=== PATIENT | female | born 1975 | race Caucasian/White ===

== ENCOUNTER → 2017-02-17 | Outpatient (CLI) | payer MEDICARE, MEDICAID ==
[~2017-02-17] MED LIST: ACETAMINOPHEN325 M1; ACETAMINOPHEN325 M1 PO; ACTONEL; ACTONEL 35 MG35 M1 PO; ACTONEL PO; ACYCLOVIR 400400 M1 PO; ACYCLOVIR200 MG/51 PO; ADVAIR HFA115 MCG/21 INH; AEROECLIPSE II1 EACH MC; ALDACTONE25 MG PO; ALDACTONE50 MG PO; ALPRAZOLAM 0.50.5 M1 PO; ALPRAZOLAM PO; AMBIEN 10 MG TA10 MG PO; ANUCORT-HC25 MG RE; ASPIRIN325 PO; ATIVAN1 MG PO; ATROVENT; ATROVENT15 ML; ATROVENT15 ML NS; ATROVENT30 ML; AUGMENTIN 500-1 EACH PO; AUGMENTIN 875875 M1 PO; AVELOX 400 MG400 MG PO; AVELOX ABC PAC400 MG PO; AXERT12.5 MG PO; AXERT6.25 MG PO; AZITHROMYCIN 2250 MG PO; AZITHROMYCIN500 M3; BACLOFEN 10MG T10 MG PO; BACLOFEN20 MG PO; BACTRIM DS TAB1 EACH PO; BACTROBAN NASAL1 GM NASAL; BENTYL20 MG PO; BUDESONIDE; Budesonide INH; CARDIZEM CD120 MG PO; CARDIZEM CD180 MG PO; CARDIZEM CD240 MG PO; CARDIZEM CD360 MG PO; CARDIZEM PO; CARDIZEM30 MG PO; CARTIA PO; CARTIA XT240 M1 PO; CATAPRES PO; CATAPRES-TTS 10.1 MG PO; CATAPRES0.1 MG PO; CEFDINIR300 MG PO; CEFTIN 250 MG250 MG PO; CEFTIN500 MG OR; CEFUROXIME500 MG PO; CEPHALEXIN 500500 M3 PO; CIPROFLOXACIN500 M3 PO; CLARITIN10 MG PO; CLEOCIN HCL150 MG PO; CLEOCIN HCL300 MG PO; CLONIDINE PO; CLONIDINE0.1 PO; COLACE100 MG PO; COUMADIN; COUMADIN 2 MG TA2 M1 PO; COUMADIN 2.5MG2.5 M1 PO; COUMADIN 2.5MG2.5 MG PO; COUMADIN 5 MG TA5 M1; COUMADIN 5 MG TA5 M1 PO; COUMADIN PO; COUMADIN7.5 MG PO; DALMANE30 MG PO; DELTASONE20 MG PO; DESYREL100 MG; DESYREL50 MG; DESYREL50 MG PO; DIAZEPAM 5 MG5 M1 PO; DILAUDID 2 MG TA2 MG; DILAUDID PUMP; DILAUDID SUBQ; DILAUDID2 MG PO; DILAUDID8 MG; DILTIAZEM 24HR360 M1 PO; DOCUSATE SODIU100 MG PO; DOXEPIN 25 MG C25 M1 PO; DUONEB 2.5-0.5 M3 ML INH; DYAZIDE 37.5-21 EACH PO; EFFER K 20 MEQ PO; EFFER-K 20 MEQ20 MEQ PO; EFFEXOR XR37.5 MG PO; ELIQUIS2.5 MG PO; ELIQUIS5 MG PO; ENDOCET 10-3251 EACH PO; ENOXAPARIN100 MG/1 M SQ; EPIPEN0.3 MG/0.3 IM; FENTANYL PA25 MCG/HR TRANSDERM; FENTANYL PATCH75 MCG TRANSDERM; FLONASE IH; FLORASTOR250 MG PO; FLUCONAZOLE 10100 MG PO; FLURAZEPAM 15 M15 M1 PO; FUROSEMIDE 40 M40 M1 PO; FUROSEMIDE PO; GLUCOPHAGE500 MG PO; HYDROCODON-ACE1 EAC7 PO; HYDROCODONE-AP1 EA11 PO; IBUPROFEN 800800 MG PO; IMITREX100 MG PO; INTEGRA; INTEGRA PLUS; INTEGRA PLUS PO; IPRAT-ALBUT 0.5-3 ML INH; IPRATROPIUM; IPRATROPIUM INH; IRON325 PO; K-DUR 20 MEQ T20 MEQ PO; KEFLEX250 MG PO; KEFLEX500 M1 PO; KEFLEX500 M2 PO; KEFLEX500 MG PO; KLOR-CON PO; LASIX 20 MG TAB20 MG PO; LASIX 40 MG TAB40 M1 PO; LASIX 40 MG TAB40 M2 PO; LEVALBUTEROL; LEVALBUTEROL INH; LEVAQUIN 500 M500 M1 PO; LEVAQUIN 500 M500 M2 PO; LEVAQUIN 750 M750 MG PO; LEVOFLOXACIN750 MG PO; LEXAPRO 10 MG T10 M2 PO; LEXAPRO 10 MG T10 MG PO; LEXAPRO PO; LEXAPRO20 MG PO; LIDODERM 5%1 PATCH TOP; LINEZOLID600 MG PO; LIPITOR 20 MG T20 M1 PO; LIPITOR20 MG PO; LUNESTA3 MG; MAGNESIUM OXID200 MG PO; MAGNESIUM250 M1 PO; MECLIZINE HCL25 M1 PO; MEDROLDOSEPACK PO; MELOXICAM7.5 MG PO; METFORMIN 500500 MG PO; MIRALAX255 GM PO; MOM; MUCINEX D TABL1 EAC1 PO; MUCINEX DM ER1 EAC1 PO; MUCINEX600 MG PO; NEURONTIN600 MG PO; NITROGLYCERIN0.4 MG SUBLING; NORCO 10-325 T1 EACH PO; NORCO 5-325 TA1 EACH PO; NORFLEX100 MG PO; NYSTATIN 1100000 U/M; ONDANSETRON HCL4 M1 IV; ONDANSETRON HCL4 M2 PO; OXAZEPAM 10MG C10 M1 PO; OXYCODONE HCL 55 MG PO; OXYCODONE HCL10 MG PO; OXYCODONE HCL15 MG PO; OXYCODONE HCL20 M1 PO; OXYCODONE-ACET1 EAC2 PO; OXYCONTIN CR 1010 M1 PO; OXYCONTIN10 M1 PO; OXYCONTIN15 MG PO; OXYCONTIN20 M1 PO; OXYCONTIN20 MG PO; OXYCONTIN30 MG PO; OXYGEN; OXYGEN NS; OXYIR 5 MG CAPSU5 M1 PO; PAIN CREAM; PERCOCET 10-321 EACH PO; PERCOCET 5-3251 EACH; PERCOCET 5-3251 EACH PO; PERCOCET PO; PERFOROMIS20 MCG/2 M IH; PERI-COLACE TA1 EACH PO; PHENERGAN 25 MG25 M1; PHENERGAN 25 MG25 M1 PO; PHENERGAN 25 MG25 MG PO; PHENERGAN25 MG RE; POTASSIUM CHLORIDE IV; POTASSIUM20 OR; POTASSIUM20 PO; PREDNISONE 10 M10 M1; PREDNISONE 10 M10 M1 PO; PREDNISONE 10 M10 MG PO; PREDNISONE50 MG PO; PRENATAL PLUS1 EAC3 PO; PRILOSEC40 MG PO; PROBIOTIC1 EAC1 PO; PROMETHAZINE/C118 ML PO; PROMETHAZINE12.5 M4 RE; PROMS25 WY RECTAL; PROTONIX40 M2 PO; PROVERA10 MG PO; PROVERA2.5 MG PO; PSEUDOEPHEDRINE OR; PSEUDOEPHEDRINE PO; PYRIDOXINE HCL100 MG PO; REGLAN 10 MG TA10 M1 PO; REGLAN 10 MG TA10 MG PO; REQUIP 1 MG TABL1 M1; REQUIP 1 MG TABL1 M1 PO; REQUIP PO; REQUIP0.5 MG PO; REQUIP2 MG PO; RESTORIL30 MG PO; ROBAXIN 750 MG750 M1 PO; ROBAXIN 750 MG750 MG PO; ROBAXIN500 MG PO; ROPINIROLE HCL2 MG PO; ROXICODONE PO; SAVELLA100 MG PO; SAVELLA50 MG PO; SEE ATTACHED SHEET.; SINGULAIR 10 MG10 M1 PO; SINGULAIR 10 MG10 MG PO; SLOW FE 160MG160 MG PO; SONATA10 MG PO; SPIRONOLACTONE100 M1 PO; SUPRAX400 MG PO; SYMBICORT160 MCG/4. INH; SYMBICORT160 MCG/41 INH; TAMIFLU75 MG PO; THEO-24200 MG PO; THEO-DUR200 MG PO; THEOCAP200 MG PO; THEOPHYLLINE E200 M1 PO; THEOPHYLLINE S200 M1 PO; TIZANIDINE HCL4 MG PO; TRAMADOL 50 MG50 MG; TRAMADOL 50 MG50 MG PO; TRANSDERM-SCO1 PATC1 TD; Tizanidine PO; VALACYCLOVIR1000 MG PO; VALACYCLOVIR500 MG OR; VALCYCLOVIR PO; VALIUM2 MG PO; VALIUM5 MG PO; VANTIN; VENTOLIN HFA 1818 GM INH; XANAX 0.25 MG0.25 MG PO; XANAX 0.5 MG0.5 M1; XANAX 0.5 MG0.5 M1 PO; XANAX 0.5 MG0.5 MG PO; XARELTO20 MG PO; XOPENEX HF1 UDINHALE IH; XOPENEX HFA15 GM IH; XOPENEX1.25 MG/3 IH; ZALEPLON 10 MG10 M1 PO; ZANAFLEX4 M1 OR; ZANAFLEX4 M1 PO; ZOFRAN ODT4 MG PO; ZOFRAN4 MG PO; ZOVIRAX 20200 MG/51 PO; ZOVIRAX 5% CR2 G1; ZOVIRAX 5% CR2 G1 TP; ZOVIRAX 5% CR2 GM TP; ZOVIRAX 5% OINT15 G1; ZOVIRAX 5% OINT15 GM TP; ZOVIRAX15 GM; ZOVIRAX15 GM TP; ZPAK PO; ZYRTEC 10 MG TA10 M1 PO; ZYRTEC 10 MG TA10 MG PO; [UNRECOGNIZED DRUG - CODE] GT; [UNRECOGNIZED DRUG - CODE] PO; [UNRECOGNIZED DRUG - MIXTURE] PO; [UNRECOGNIZED DRUG - OTHER]; [UNRECOGNIZED DRUG - OTHER] INH; [UNRECOGNIZED DRUG - OTHER] IV
[2017-02-17 10:15] VITALS: BP 98/65
[2017-02-17 10:44] LABS: CALCIUM 8.2 mg/dL (8.5-10.1); CREATININE 0.9 mg/dL (0.6-1.3); POTASSIUM 3.3 mmol/L (3.5-5.1)
[2017-02-17 14:38] VITALS: BP 110/70
== END ==
LOC: M.INFUS 04:14
PROVIDERS: Internal Medicine Nephrology
DX: E87.6 Hypokalemia (principal)

== ENCOUNTER → 2017-02-24 | Outpatient (CLI) | payer MEDICARE, MEDICAID ==
[2017-02-24 10:05] VITALS: BP 116/70
[2017-02-24 11:48] LABS: CALCIUM 8.3 mg/dL (8.5-10.1); CREATININE 0.9 mg/dL (0.6-1.3); POTASSIUM 3.6 mmol/L (3.5-5.1)
[2017-02-24 15:39] VITALS: BP 122/67
== END ==
LOC: M.INFUS 09:56
PROVIDERS: Internal Medicine Nephrology
DX: E87.6 Hypokalemia (principal)

== ENCOUNTER → 2017-02-26 | Outpatient (CLI) | payer MEDICARE, MEDICAID ==
[2017-02-26 09:15] VITALS: BP 100/67
[2017-02-26 12:39] LABS: CALCIUM 8.8 mg/dL (8.5-10.1); POTASSIUM 3.4 mmol/L (3.5-5.1)
[2017-02-26 13:37] VITALS: BP 122/78
== END ==
LOC: M.INFUS 06:24
PROVIDERS: Internal Medicine Nephrology
DX: E87.6 Hypokalemia (principal)

== ENCOUNTER → 2017-03-05 | Outpatient (CLI) | payer MEDICARE, MEDICAID ==
[2017-03-05 10:30] VITALS: BP 120/76
--- NOTE | 2017-03-05 11:00 | NUR ---
ASSUMED CARE FOR PATIENT FROM HOME. PT IS DOING WELL. HISTORY AND MEDICATIONS WERE REVIEWED. PT HAS NO CO OF PAIN OR NAUSEA. PT WAS EDUCATED ON PLAN OF CARE AND DISEASE PROCESS. WILL CONTINUE TO MONITOR.
[2017-03-05 12:05] LABS: CALCIUM 8.7 mg/dL (8.5-10.1); POTASSIUM 3.7 mmol/L (3.5-5.1)
== END ==
LOC: M.INFUS 04:58
PROVIDERS: Internal Medicine Nephrology
DX: E87.6 Hypokalemia (principal)

== ENCOUNTER → 2017-03-10 | Outpatient (CLI) | payer MEDICARE, MEDICAID ==
[2017-03-10 10:40] VITALS: BP 90/47
[2017-03-10 10:44] LABS: CALCIUM 8.8 mg/dL (8.5-10.1); CREATININE 1.1 mg/dL (0.6-1.3); POTASSIUM 3.1 mmol/L (3.5-5.1)
[2017-03-10 14:40] VITALS: BP 112/68
--- NOTE | 2017-03-10 15:27 | NUR ---
ARRIVED AMBULATORY. MADE SELF COMFORTABLE. PORT ACCESSED WITH OUT DIFFICULTY. GOOD BRISK BLOOD RETURN AND EASY FLUSH. INFUSION COMPLETED AND TOLERATED WELL. DENEIS NEEDS AT DISCHARGE.
== END ==
LOC: M.INFUS 04:20
PROVIDERS: Internal Medicine Nephrology
DX: E87.6 Hypokalemia (principal)

== ENCOUNTER → 2017-03-12 | Outpatient (CLI) | payer MEDICARE, MEDICAID ==
[2017-03-12 10:41] VITALS: BP 109/70
--- NOTE | 2017-03-12 10:47 | NUR ---
ARRIVED AMBULATORY WITH STEADY GAIT. SETTLED SELF INTO RECLINER. VS OBTAINED. LEFT CHEST PORT ACCESSED WITHOUT DIFFICULTY. OCCLUSIVE DRESSING APPLIED. LABS OBTAINED, IV POTASSIUM CURRENTLY INFUSING.
[2017-03-12 11:23] LABS: CALCIUM 8.7 mg/dL (8.5-10.1); CREATININE 0.9 mg/dL (0.6-1.3); POTASSIUM 3.4 mmol/L (3.5-5.1)
[2017-03-12 15:15] VITALS: BP 120/75
--- NOTE | 2017-03-12 15:57 | NUR ---
INFUSION COMPLETED AND TOLERATED WELL. PORT FLUSHED AND DEACCESSED. DENIES QUESTIONS OR NEEDS AT DISCHARGE.
== END ==
LOC: M.INFUS 04:47
PROVIDERS: Nurse Practitioner Family
DX: E87.6 Hypokalemia (principal)

== ENCOUNTER → 2017-03-15 | Outpatient (CLI) | payer MEDICARE, MEDICAID ==
[2017-03-15 10:32] LABS: CALCIUM 8.9 mg/dL (8.5-10.1); POTASSIUM 3.5 mmol/L (3.5-5.1)
[2017-03-15 10:35] VITALS: BP 124/65
--- NOTE | 2017-03-15 15:41 | NUR ---
ARRIVED AMBULATORY. MADE SELF COMFORTABLE IN RECLINER. PORT A CATH ACCESSED WTIH OUT DIFFICULTY. GOOD BRISK BLOOD RETUN NOTED AND FLUSHED WITH EASE. INFUSION STOPPED EARLY AT PT REUEST STATED SHE HAD A DOCTOR'S APPOINTMENT TO GO TO.
== END ==
LOC: M.INFUS 06:48
PROVIDERS: Internal Medicine Nephrology
DX: E87.6 Hypokalemia (principal)

== ENCOUNTER → 2017-03-19 | Outpatient (CLI) | payer MEDICARE, MEDICAID ==
[2017-03-19 10:57] VITALS: BP 105/60
--- NOTE | 2017-03-19 11:01 | NUR ---
PT HERE FOR OUTPT INFUSION. SETTLED SELF INTO ROOM/RECLINER. LEFT CHEST PORT ACCESSED WITHOUT DIFFICULTY, GAUZE/TEGADERM APPLIED TO SITE, D/T SKIN ADVERSE REACTION TO TEGADERM. LABS OBTAINED. IV POTASSIUM CURRENTLY INFUSING WITHOUT DIFFICULTY. TAKING IN PO FOOD/FLUIDS PER SELF. UP AD RONNA.
[2017-03-19 12:12] LABS: CALCIUM 8.5 mg/dL (8.5-10.1); POTASSIUM 3.5 mmol/L (3.5-5.1)
== END ==
LOC: M.INFUS 01:54
PROVIDERS: Internal Medicine Nephrology
DX: E87.6 Hypokalemia (principal)

== ENCOUNTER → 2017-03-24 | Outpatient (CLI) | payer MEDICARE, MEDICAID ==
[2017-03-24 09:50] VITALS: BP 110/67
[2017-03-24 10:28] LABS: CALCIUM 8.5 mg/dL (8.5-10.1); CREATININE 0.9 mg/dL (0.6-1.3); POTASSIUM 3.4 mmol/L (3.5-5.1)
[2017-03-24 13:48] VITALS: BP 112/74
--- NOTE | 2017-03-24 14:24 | NUR ---
ARRIVED AMBULATORY. MADE SELF COMFORTABLE IN RECLINER. PORT ACCESSED WITH OUT DIFICULTY. GOOD BRISK BLOOD RETURN NOTED AND FLUSHED WITH EASE. INFUSION COMPLETED AND TOELRATED WELL. PORT FLUSHED AND DEACCESSED. DENIES NEEDS AT DISCHARGE.
== END ==
LOC: M.INFUS 04:02
PROVIDERS: Internal Medicine Nephrology
DX: E87.6 Hypokalemia (principal)

== ENCOUNTER → 2017-03-26 | Outpatient (CLI) | payer MEDICARE, MEDICAID ==
[2017-03-26 10:40] VITALS: BP 112/68
[2017-03-26 12:58] LABS: CALCIUM 8.6 mg/dL (8.5-10.1); CREATININE 0.9 mg/dL (0.6-1.3); POTASSIUM 3.3 mmol/L (3.5-5.1)
[2017-03-26 14:55] VITALS: BP 122/74
--- NOTE | 2017-03-26 15:36 | NUR ---
ARRIVEED AMBULATORY, MADE SELF COMFORTABLE IN RECLINER. PORT A CATH ACCESSED WITH OUT DIFFICULTLY. GOOD BLOOD RETURN AND FLUSHED WITH EASE. INFUSION COMPLETED AND TOLERATED WELL. PORT FLUSHED AND DEACCESSED.
== END ==
LOC: M.INFUS 06:01
PROVIDERS: Internal Medicine Nephrology
DX: E87.6 Hypokalemia (principal)

== ENCOUNTER → 2017-03-29 | Outpatient (CLI) | payer MEDICARE, MEDICAID ==
[2017-03-29 09:20] VITALS: BP 109/66
[2017-03-29 09:57] LABS: CALCIUM 8.6 mg/dL (8.5-10.1); CREATININE 1.1 mg/dL (0.6-1.3); POTASSIUM 3.3 mmol/L (3.5-5.1)
--- NOTE | 2017-03-29 10:30 | NUR ---
ARRIVED AMBULATORY. MADE SELF COMFORTABLE IN RECLINER. PORT ACCESSED WTIH OUT DIFFICULTY. GOOD BRISK BLOOD RETURN AND EASY FLUSH. INFSUION STARTED AND RUNNING WELL. DENIES NEEDS, CALL LIGHT IN REACH.
--- NOTE | 2017-03-29 16:12 | NUR ---
ARRIVED AMBULATORY. PORT ACCESSED WITHOUT DIFFICULTY. GOOD BRISK BLOOD RETURN AND EASY FLUSH. INFUSION COMPLETED AND TOELRATED WELL. PORT FLUSHED AND LEFT ACCESSED FOR USE LATER IN THE WEEK AT PT REQUEST. DENEIS NEEDS AT DICHARGE.
== END ==
LOC: M.INFUS 06:27
PROVIDERS: Internal Medicine Nephrology
DX: E87.6 Hypokalemia (principal)

== ENCOUNTER → 2017-04-02 | Outpatient (CLI) | payer MEDICARE, MEDICAID ==
[2017-04-02 09:30] VITALS: BP 122/74
[2017-04-02 10:12] LABS: CALCIUM 8.3 mg/dL (8.5-10.1); CREATININE 0.9 mg/dL (0.6-1.3); POTASSIUM 3.6 mmol/L (3.5-5.1)
[2017-04-02 14:44] VITALS: BP 122/70
--- NOTE | 2017-04-02 14:48 | NUR ---
INFUSION COMPLETED AND TOLERATED WELL. PORT FLUSHED AND DEACCESSED. DENIES NEEDS AT DISCHARGE.
== END ==
LOC: M.INFUS 01:25
PROVIDERS: Internal Medicine Nephrology
DX: E87.6 Hypokalemia (principal)

== ENCOUNTER → 2017-04-05 | Outpatient (CLI) | payer MEDICARE, MEDICAID ==
[2017-04-05 12:40] VITALS: BP 111/74
[2017-04-05 13:00] VITALS: BP 108/70
[2017-04-05 13:44] LABS: CALCIUM 7.6 mg/dL (8.5-10.1); CREATININE 0.7 mg/dL (0.6-1.3); POTASSIUM 4.3 mmol/L (3.5-5.1)
== END ==
LOC: M.INFUS 00:17
PROVIDERS: Internal Medicine Nephrology
DX: E87.6 Hypokalemia (principal)

== ENCOUNTER 2017-04-16 14:20 | Emergency (ER) | payer MEDICARE, MEDICAID ==
[~2017-04-16] VITALS: Ht 162.6 cm; Wt 80.7 kg
[~2017-04-16 14:20] MED LIST changes: -DILAUDID2 MG PO; -EFFEXOR XR37.5 MG PO; -ELIQUIS5 MG PO; -FLORASTOR250 MG PO; -KEFLEX500 M1 PO; -KEFLEX500 M2 PO; -LINEZOLID600 MG PO; -ROBAXIN 750 MG750 MG PO; -ROPINIROLE HCL2 MG PO
[2017-04-16 14:35] VITALS: BP 112/72
[2017-04-16] MEDS ORDERED: DILAUDID2 MG PO (14:41)
[2017-06-11] MEDS ORDERED: SPIRONOLACTONE100 M1 PO (18:24)
[2017-06-11] MEDS ORDERED: ROPINIROLE HCL2 MG PO (18:25)
[2017-09-20] MEDS ORDERED: ELIQUIS5 MG PO (10:46)
== END 2017-04-16 15:09 | disposition home or self-care (01) ==
LOC: M.ERS 14:20
DX: G89.18 Other acute postprocedural pain (principal); M25.561 Pain in right knee; J44.9 Chronic obstructive pulmonary disease, unspecified; F32.9 Major depressive disorder, single episode, unspecified; F41.9 Anxiety disorder, unspecified; M06.9 Rheumatoid arthritis, unspecified; M81.0 Age-related osteoporosis without current pathological fracture; K21.9 Gastro-esophageal reflux disease without esophagitis; I25.2 Old myocardial infarction; Z95.5 Presence of coronary angioplasty implant and graft; Z91.040 Latex allergy status; Z88.1 Allergy status to other antibiotic agents; Z88.8 Allergy status to other drugs, medicaments and biological substances; Z86.14 Personal history of Methicillin resistant Staphylococcus aureus infection; Z96.651 Presence of right artificial knee joint

== ENCOUNTER → 2017-04-16 | Outpatient (CLI) | payer MEDICARE, MEDICAID ==
[2017-04-16 10:10] VITALS: BP 94/61
[2017-04-16 10:19] LABS: CALCIUM 8.3 mg/dL (8.5-10.1); CREATININE 0.7 mg/dL (0.6-1.3); POTASSIUM 3.6 mmol/L (3.5-5.1)
--- NOTE | 2017-04-16 14:10 | NUR ---
ARRIVED AMBULATORY WITH [facility] RIGHT TOTAL KNEE REPLACEMENT. PT IN [facility] COMPLAINING OF PAIN TO KNEE. ASSISTED TO SETTLE IN RECLINER WITH PILLOW AND BLANKETS. ICE PACK PROVIDED FOR KNEE. PT PLACED CALL TO [facility] WHO DID KNEE SURGERY. SHE WAS ADVISED HE IS OUT OF TOWN UNTIL WEDNESDAY AND FOR PT TO GO TO ED AFTER INFUSION IF PAIN IS STILL BAD. LEFT CHEST PAC ACCESSED WITH OUT DIFFICULTY. GOOD BRISK BLOOD RETURN NOTED AND FLUSHED WITH EASE. INFSUION COMPLETED AND TOLERATED WELL. PAC FLUSHED WITH 20ML NACL. PT ESCORTED TO ED BY VOLUNTEER FOR EVAL AND TX.
== END ==
LOC: M.INFUS 00:41
PROVIDERS: Internal Medicine Nephrology
DX: E87.6 Hypokalemia (principal); R53.82 Chronic fatigue, unspecified

== ENCOUNTER → 2017-04-26 | Outpatient (CLI) | payer MEDICARE, MEDICAID ==
[~2017-04-26] MED LIST changes: +DILAUDID2 MG PO; +EFFEXOR XR37.5 MG PO; +ELIQUIS5 MG PO; +FLORASTOR250 MG PO; +KEFLEX500 M1 PO; +KEFLEX500 M2 PO; +LINEZOLID600 MG PO; +ROBAXIN 750 MG750 MG PO; +ROPINIROLE HCL2 MG PO
[2017-04-26 10:25] VITALS: BP 91/53
[2017-04-26 10:34] LABS: HEMOGLOBIN 11.3 gm/dL (12.0-15.0); MCHC 32.5 g/dL (28.0-37.0); MCV 92.4 fL (80.0-100.0); MPV 7.9 fl. (7.2-11.1); RBC 3.78 mil/uL (4.20-5.00); RDW-CV 15.7 % (10.5-14.5); WBC 7.1 thou/uL (4.0-11.0)
[2017-04-26 10:52] LABS: CREATININE 0.8 mg/dL (0.6-1.3); POTASSIUM 3.7 mmol/L (3.5-5.1)
--- NOTE | 2017-04-26 14:16 | NUR ---
PT ARRIVED TO UNIT AT 0930. SETTLED INTO RECLINER. REPORTED HAVING NEW ORDERS FOR LABS INCLUDING A VANCOMYCIN TROUGH. HAD NO RECORD OF THAT, SO HAD TO CALL TO CONFIRM ORDERS WITH DR. ROCHE'S OFFICE (INFECTIOUS DISEASE). PT. STARTED HER OWN VANCOMYCIN 1.5GM IVPB WITH DIAL GRAVITY DRIP TUBING FROM [facility] AT 0957. CONCURRENTLY RAN HER KCL IVPB WITH THAT STARTED AT 1006. PT SLEPT A LOT WHILE INFUSIONS GOING. ATE SOME BREAKFAST, AND SOME LUNCH. WHEN THERAPY COMPLETED. PT'S ZIEGLER NEEDLE AND DRESSING CHANGED, THEN PACKED WITH HEPARIN FLUSH. LABS FAXED TO [facility] PT, DC'ED HOME AT THIS TIME.
== END ==
LOC: M.INFUS 00:10
DX: E87.6 Hypokalemia (principal)

== ENCOUNTER → 2017-04-28 | Outpatient (CLI) | payer MEDICARE, MEDICAID ==
[2017-04-28 09:39] VITALS: BP 116/75
--- NOTE | 2017-04-28 15:20 | NUR ---
ARRIVED AMBULATORY. STATED HAD TO LEAVE BY 1PM FOR DR. UNGER FOR SON. PORT A CATH ALREADY ACCESSED. PORT PATENT WITH GOOD BLOOD RETURN AND EASY FLUSH. INFUSION STOPPED AT REQUESTED TIME. LINE FLUSHED AND LEFT ACCESSED FOR HOME ADMINISTRATION OF VANCOMYCIN. DENIES NEEDS AT DISCHARGE.
== END ==
LOC: M.INFUS 04:38
DX: E87.6 Hypokalemia (principal)

== ENCOUNTER → 2017-04-30 | Outpatient (CLI) | payer MEDICARE, MEDICAID ==
[2017-04-30 09:50] VITALS: BP 111/60
[2017-04-30 10:25] LABS: HEMATOCRIT 36.8 % (37.0-47.0); HEMOGLOBIN 11.9 gm/dL (12.0-15.0); MCH 30.1 pg (26.0-34.0); MCHC 32.5 g/dL (28.0-37.0); MCV 92.8 fL (80.0-100.0); RBC 3.97 mil/uL (4.20-5.00); RDW-CV 15.9 % (10.5-14.5); WBC 9.9 thou/uL (4.0-11.0)
[2017-04-30 10:38] LABS: CALCIUM 8.6 mg/dL (8.5-10.1); POTASSIUM 3.8 mmol/L (3.5-5.1)
--- NOTE | 2017-04-30 14:35 | NUR ---
ARRIVED AMBULATORY MADE SELF COMFORTABLE IN RECLINER. PORT ALREADY ACCESSED FROM HOME ATB THERAPY. PORT PATENT WTIH GOOD BLOOD RETURN AND EASY FLUSH. INFUSION COMPLETED AND TOLERATED WELL. PORT LEFT ACCESSED FOR HOME USE.
== END ==
LOC: M.INFUS 01:45
DX: E87.6 Hypokalemia (principal)

== ENCOUNTER → 2017-05-03 | Outpatient (CLI) | payer MEDICARE, MEDICAID ==
[2017-05-03 11:00] VITALS: BP 91/60
[2017-05-03 11:01] LABS: HEMATOCRIT 36.5 % (37.0-47.0); HEMOGLOBIN 11.8 gm/dL (12.0-15.0); MCH 29.8 pg (26.0-34.0); MCHC 32.3 g/dL (28.0-37.0); MCV 92.5 fL (80.0-100.0); RBC 3.95 mil/uL (4.20-5.00); RDW-CV 15.8 % (10.5-14.5); WBC 7.8 thou/uL (4.0-11.0)
[2017-05-03 11:04] LABS: CALCIUM 8.7 mg/dL (8.5-10.1); POTASSIUM 3.6 mmol/L (3.5-5.1)
--- NOTE | 2017-05-03 11:14 | NUR ---
PT ARRIVED AT 10:00. SETTLED HERSELF INTO RECLINER. PAC ACCESSED WITH 20G ZIEGLER NEEDLE. INITIAL BLOOD RETURN RECEIVED, BUT THEN DIFFICULT TO GET CONTINUED BLOOD FOR LAB DRAW. HAD TO FLUSH AND DRAW BACK SEVERAL TIMES. PT. STATES THIS IS TYPICAL FOR HER PORT. VANCOMYCIN DOSE FROM HOME STARTED AT 10:28AM, AND KCL DOSE STARTED AT 10:42 AM
--- NOTE | 2017-05-03 15:45 | NUR ---
PT COMPLETED BOTH INFUSIONS WITHOUT ANY COMPLICATIONS. DC'ED HOME NOW.
== END ==
LOC: M.INFUS 05:00
PROVIDERS: Internal Medicine Nephrology
DX: E87.6 Hypokalemia (principal)

== ENCOUNTER → 2017-05-07 | Outpatient (CLI) | payer MEDICARE, MEDICAID ==
[2017-05-07 10:06] VITALS: BP 100/69
[2017-05-07 10:31] LABS: HEMATOCRIT 36.2 % (37.0-47.0); HEMOGLOBIN 11.9 gm/dL (12.0-15.0); MCH 30.1 pg (26.0-34.0); MCHC 32.9 g/dL (28.0-37.0); MCV 91.4 fL (80.0-100.0); MPV 7.3 fl. (7.2-11.1); RBC 3.96 mil/uL (4.20-5.00); RDW-CV 15.4 % (10.5-14.5); WBC 7.9 thou/uL (4.0-11.0)
[2017-05-07 10:45] LABS: CALCIUM 8.4 mg/dL (8.5-10.1); CREATININE 0.8 mg/dL (0.6-1.3); POTASSIUM 3.9 mmol/L (3.5-5.1)
[2017-05-07 14:28] VITALS: BP 112/54
--- NOTE | 2017-05-07 14:52 | NUR ---
ARRIVED AMBULATORY. MADE SELF COMFORTABLE IN RECLINER. PORT A CATH ALREADY ACCESSED FROM DAILY USE FOR ATB AT HOME. PORT PATNET WITH GOOD BRISK BLOOD RETURN AND EASY FLUSH. INFUSION COMPLETED AND TOLERATED WELL. PORT FLUSHED AND LEFT ACCESSED FOR HOME USE. DENIES NEEDS AT DISCHARGE.
== END ==
LOC: M.INFUS 01:32
DX: E87.6 Hypokalemia (principal)

== ENCOUNTER → 2017-05-10 | Outpatient (CLI) | payer MEDICARE, MEDICAID ==
[2017-05-10 10:20] VITALS: BP 122/76
[2017-05-10 11:34] LABS: HEMATOCRIT 37.4 % (37.0-47.0); HEMOGLOBIN 12.2 gm/dL (12.0-15.0); MCH 29.5 pg (26.0-34.0); MCHC 32.6 g/dL (28.0-37.0); MCV 90.7 fL (80.0-100.0); MPV 8.2 fl. (7.2-11.1); RBC 4.12 mil/uL (4.20-5.00); RDW-CV 15.1 % (10.5-14.5); WBC 8.4 thou/uL (4.0-11.0)
[2017-05-10 11:41] LABS: CALCIUM 8.4 mg/dL (8.5-10.1); POTASSIUM 3.4 mmol/L (3.5-5.1)
--- NOTE | 2017-05-10 15:47 | NUR ---
ARRIVED AMBULATORY. MADE SELF COMFORTABLE IN RECLINER. PORT A CATH ACCESSED WTIH OUT DIFFICULTY. GOOD BRISK BLOOD RETURN NOTED AND FLUSHED WITH EASE. PT CONTINUES HOME VANCOMYCIN THERAPY. BI WEEKLY LABS DRAWN AND RESULTS FAXED TO ORDERING DOCTOR. INFUSION COMPLETED AND TOLERATED WELL. PORT FLUSHED AND LEFT ACCESSED FOR USE AT HOME. DENEIS QUESTIONS OR NEEDS.
== END ==
LOC: M.INFUS 00:40
DX: E87.6 Hypokalemia (principal)

== ENCOUNTER → 2017-05-14 | Outpatient (CLI) | payer MEDICARE, MEDICAID ==
[2017-05-14 09:59] LABS: HEMATOCRIT 35.7 % (37.0-47.0); HEMOGLOBIN 11.6 gm/dL (12.0-15.0); MCH 29.8 pg (26.0-34.0); MCHC 32.5 g/dL (28.0-37.0); MCV 91.8 fL (80.0-100.0); MPV 7.1 fl. (7.2-11.1); RBC 3.89 mil/uL (4.20-5.00); RDW-CV 15.4 % (10.5-14.5)
[2017-05-14 10:13] LABS: CALCIUM 8.5 mg/dL (8.5-10.1); POTASSIUM 3.5 mmol/L (3.5-5.1)
[2017-05-14 10:25] VITALS: BP 122/78
[2017-05-14 14:35] VITALS: BP 126/74
== END ==
LOC: M.INFUS 01:38
DX: E87.6 Hypokalemia (principal)

== ENCOUNTER → 2017-05-17 | Outpatient (CLI) | payer MEDICARE, MEDICAID ==
[2017-05-17 12:39] LABS: HEMATOCRIT 37.3 % (37.0-47.0); HEMOGLOBIN 12.2 gm/dL (12.0-15.0); MCH 29.8 pg (26.0-34.0); MCHC 32.8 g/dL (28.0-37.0); RBC 4.1 mil/uL (4.20-5.00); RDW-CV 15.1 % (10.5-14.5); WBC 6.5 thou/uL (4.0-11.0)
[2017-05-17 12:42] LABS: CALCIUM 8.7 mg/dL (8.5-10.1); POTASSIUM 3.6 mmol/L (3.5-5.1)
[2017-05-17 16:51] VITALS: BP 122/69
--- NOTE | 2017-05-17 16:52 | NUR ---
COMPLETED IV INFUSION. LEFT CHEST PORT FLUSHED PER PROTOCOL WITH SALINE AND HEPARIN. REMAINS ACCESSED FOR HOME IV ANTIBIOTIC THERAPY. DISMISSED HOME PER SELF WITH STEADY GAIT.
== END ==
LOC: M.INFUS 02:38
DX: E87.6 Hypokalemia (principal)

== ENCOUNTER → 2017-05-21 | Outpatient (CLI) | payer MEDICARE, MEDICAID ==
[~2017-05-21] MED LIST changes: +PREDNISONE 20 M20 M1 PO
--- NOTE | 2017-05-21 13:04 | NUR ---
CALLED PT BY STAFF AT 1045 D/T LATE FOR APPOINTMENT. PT REPORTED SHE IS COMING IN FOR LABS ONLY, NOT GOING TO HAVE POTASSIUM INFUSION TODAY. ARRIVED TO INFUSION. SETTLED INTO RECLINER, LEFT CHEST PORT FLUSHED WITH SALINE MULTIPLE TIMES TO OBTAIN BLOOD RETURN. LABS OBTAINED AND FLUSHED WITH SALINE AND HEPARIN PER PROTOCOL. LEFT CHEST PORT DE ACCESSED, BANDAID APPLIED. DISMISSED HOME WITH STEADY GAIT.
[2017-05-21 13:48] LABS: HEMATOCRIT 36.5 % (37.0-47.0); MCH 29.8 pg (26.0-34.0); MCV 90.4 fL (80.0-100.0); MPV 7.3 fl. (7.2-11.1); RBC 4.04 mil/uL (4.20-5.00); RDW-CV 14.8 % (10.5-14.5); WBC 7.7 thou/uL (4.0-11.0)
[2017-05-21 13:56] LABS: CALCIUM 8.6 mg/dL (8.5-10.1); CREATININE 0.9 mg/dL (0.6-1.3); POTASSIUM 3.1 mmol/L (3.5-5.1)
--- NOTE | 2017-05-21 15:32 | NUR ---
FAXED LAB ORDERS TO DR ROCHE.
== END ==
LOC: M.INFUS 02:06
PROVIDERS: Internal Medicine Nephrology
DX: E87.6 Hypokalemia (principal)

== ENCOUNTER → 2017-05-24 | Outpatient (CLI) | payer MEDICARE, MEDICAID ==
[2017-05-24 12:25] VITALS: BP 125/70
[2017-05-24 13:10] LABS: CALCIUM 8.4 mg/dL (8.5-10.1); CREATININE 0.9 mg/dL (0.6-1.3)
[2017-05-24 16:29] VITALS: BP 128/78
--- NOTE | 2017-05-24 16:48 | NUR ---
ARRIVED AMBULATORY. MADE SELF COMFORTABLE. PORT A CATH ACCESSED WITH OUT DIFFICULTY. GOOD BLOOD RETURN NOTED AND FLUSHED WITH EASE. INFSUION COMPLETED AND TOLERATED WELL. PORT FLUSHED AND DEACCESSED.
== END ==
LOC: M.INFUS 01:21
PROVIDERS: Internal Medicine Nephrology
DX: E87.6 Hypokalemia (principal)

== ENCOUNTER → 2017-05-28 | Outpatient (CLI) | payer MEDICARE, MEDICAID ==
[2017-05-28 16:50] LABS: ABSOLUTE BASOPHILS 0.1 thou/uL (0.0-0.2); ABSOLUTE LYMPHOCYTES 2.5 thou/uL (0.8-5.3); ABSOLUTE NEUTROPHILS 7.4 thou/uL (1.6-8.1); BASOPHILS 0.6 %; EOSINOPHILS 0.2 %; HEMATOCRIT 38.2 % (37.0-47.0); HEMOGLOBIN 12.3 gm/dL (12.0-15.0); LYMPHOCYTES 22.7 %; MCH 28.9 pg (26.0-34.0); MCHC 32.2 g/dL (28.0-37.0); MCV 89.7 fL (80.0-100.0); MONOCYTES 9.1 %; MPV 6.8 fl. (7.2-11.1); NUCLEATED RBCS 0 /100WBC; PLATELET COUNT* 330 thou/uL (150-400); POLYS 67.4 %; RBC 4.26 mil/uL (4.20-5.00); RDW-CV 14.4 % (10.5-14.5)
[2017-05-28 16:57] LABS: CALCIUM 8.8 mg/dL (8.5-10.1); POTASSIUM 3.9 mmol/L (3.5-5.1)
== END ==
LOC: M.LAB 16:24
PROVIDERS: Nurse Practitioner Family
DX: E87.6 Hypokalemia (principal); R00.0 Tachycardia, unspecified

== ENCOUNTER → 2017-05-31 | Outpatient (CLI) | payer MEDICARE, MEDICAID ==
[2017-05-31 10:15] LABS: CALCIUM 8.9 mg/dL (8.5-10.1); CREATININE 0.9 mg/dL (0.6-1.3); POTASSIUM 3.1 mmol/L (3.5-5.1)
[2017-05-31 10:35] VITALS: BP 122/72
[2017-05-31 14:26] VITALS: BP 118/76
--- NOTE | 2017-05-31 14:37 | NUR ---
ARRIVED AMBULATORY. MADE SELF COMFORTABLE IN RECLINER. SIG OTHER AT CHAIRSIDE. AREA AROUND PORT A CATH 2+ EDEMA. NO SIGN OF INFECTION. PORT ACCESSED, GOOD BRISK BLOOD RETURN NOTED AND FLUSHED WITH EASE. PRE INFUSION LAB DRAWN AND RESULTS EVALUATED. K+ NOTED TO BE LOW AT 3.[address] MARTINEZ'S OFFICE. SPOKE WITH NURSE FLAHERTY. REPORTED LOWE K+. STATED THEY WILL REVIEW AND CALL PT AT HOME IF ANYTHING ELSE NEEDED. INFUSION COMPLETED AND TOELRATED WELL. PORT FLUSHED AND DEACCESSED.
--- NOTE | 2017-06-03 09:17 | S ---
[place] [address] SURGICAL PATH RPT PROCEDURE Name: BRUNILDA NASCIMENTO [id number] Admission: 05/31/17 Date of : 75 Discharge: Report #: [id number] Path Case #: [id number] PATHOLOGY REPORT COLLECTION DATE: 05/31/2017 RECEIVED DATE: 05/31/2017 SUBMITTING PHYS: Dr. Arabella Escudero OTHER PHYS: Dr. Eliseo Hua SPECIMEN(S) RECEIVED: A.L arm * * * * * * * * * * * * FINAL DIAGNOSIS: Left arm biopsy: - Benign skin with non-specific, mild acute and chronic, predominantly perivascular inflammation. See comment. COMMENT: Per discussion of the findings with Dr. Arabella Escudero on the afternoon of 06/02/2017, he notes this patient has bilateral upper extremity, nodular, non-painful, red/blanching lesions between approximately the shoulder and involving the biceps area with blister-like foci that burst open. If more definitive classification is desired and clinically indicated, rebiopsy to include a larger and deeper specimen are recommended. A properly controlled PAS fungus stain is negative. No granulomas are identified. Reviewed with Dr. Alisha Lin (dermatopathologist) who agrees with the diagnosis. (SEBASTIAN:db; 06/02/2017) PATHOLOGIST: Ilya Cullen M.D. REPORT ELECTRONICALLY SIGNED BY: Ilya Cullen M.D. DATE/TIME: 06/03/2017 09:13 * * * * * * * * * * * * GROSS PATHOLOGY: Received in formalin labeled "Brunilda Nascimento, left arm biopsy," is a punch biopsy measuring 0.4 x 0.3 x 0.5 cm in greatest dimensions. The epidermal surface is pale powell and displays no identifiable lesion. The margin is inked, and the specimen is bisected and entirely submitted in cassette A1. (TSD; 05/31/2017) CLINICAL HISTORY: [place] [address] SURGICAL PATH RPT PROCEDURE Name: BRUNILDA NASCIMENTO Room: [facility]#: [id number] Admission: 05/31/17 Date of : 75 Discharge: Report #: [id number] Path Case #: [id number] Bacteria identified in wound by cultureleft arm INITIAL CPT CODE(S): A; 63740, 38629 Professional services performed by [facility] at [facility] [address] [place] [address] Technical services performed by [facility] at [address] [place] [address], [facility] [address] [address]. [facility] [address] [place] [address] PHONE: [phone] DIRECTOR: Stefan Baer M.D. * * * END OF REPORT * * *
== END ==
LOC: M.INFUS 02:10 → M.WC 02:10 → M.INFUS 09:00
PROVIDERS: Internal Medicine Nephrology
DX: T78.49XA Other allergy, initial encounter (principal); L03.114 Cellulitis of left upper limb; I25.2 Old myocardial infarction; J44.9 Chronic obstructive pulmonary disease, unspecified; F41.9 Anxiety disorder, unspecified; F32.9 Major depressive disorder, single episode, unspecified; M06.9 Rheumatoid arthritis, unspecified; Z86.711 Personal history of pulmonary embolism; K21.9 Gastro-esophageal reflux disease without esophagitis; Y83.8 Other surgical procedures as the cause of abnormal reaction of the patient, or of later complication, without mention of misadventure at the time of the procedure

== ENCOUNTER → 2017-06-04 | Outpatient (CLI) | payer MEDICARE, MEDICAID ==
[2017-06-04 10:37] VITALS: BP 125/71
[2017-06-04 11:18] LABS: CALCIUM 9.1 mg/dL (8.5-10.1); CREATININE 0.8 mg/dL (0.6-1.3); POTASSIUM 3.2 mmol/L (3.5-5.1)
--- NOTE | 2017-06-04 14:51 | NUR ---
PT ARRIVED AT 10:18, SETTLED INTO RECLINER. PORT ACCESSED PER CANDICE HALL. PT'S INFUSION PROCEEDED WELL TODAY WITHOUT ANY COMPLICATIONS.
== END ==
LOC: M.INFUS 01:30
PROVIDERS: Internal Medicine Nephrology
DX: E87.6 Hypokalemia (principal); R00.0 Tachycardia, unspecified

== ENCOUNTER → 2017-06-09 | Outpatient (CLI) | payer MEDICARE, MEDICAID ==
[2017-06-09 10:28] VITALS: BP 108/76
[2017-06-09 12:04] LABS: CALCIUM 8.9 mg/dL (8.5-10.1); POTASSIUM 3.3 mmol/L (3.5-5.1)
--- NOTE | 2017-06-09 13:06 | NUR ---
Pt arrived at infusion area and seated self in recliner @ 0910 Is having a lot of shortness of air but had walked in without home oxygen. No changes in medical or medication history. Placed on hosp 02. Port a cath accessed by Candida Schumacher RN to left chest. K+ infusion started at 1025
[2017-06-09 14:28] VITALS: BP 110/72
--- NOTE | 2017-06-09 15:55 | NUR ---
INFUSION COMPLETED AND TOERLATED WELL. PORT FLUSHED AND LEFT ACCESSED FOR USE WITH SCHEDULED APPOINTMENT 06/11/17. DENIES QUESTIONS OR NEEDS AT DISCHARGE.
== END ==
LOC: M.INFUS 02:40
PROVIDERS: Internal Medicine Nephrology
DX: E87.6 Hypokalemia (principal)

== ENCOUNTER → 2017-06-11 | Outpatient (CLI) | payer MEDICARE, MEDICAID ==
[2017-06-11 11:34] VITALS: BP 130/72
[2017-06-11 12:44] LABS: CALCIUM 8.6 mg/dL (8.5-10.1); POTASSIUM 3.5 mmol/L (3.5-5.1)
[2017-06-11 15:07] VITALS: BP 114/71
--- NOTE | 2017-06-11 15:22 | NUR ---
1018:PT. ARRIVED TO INFUSION. MADE COMFORTABLE. 1110:PT. WAS ACCESSED ON 06/09/17- PT. STATED THAT HER OPSITE CAME OFF OF HER LT CHEST PAC THIS AM-SHE COVERED IT WITH GAUZE. RODRIGUEZ. CHANGE DONE BY THIS RN AT THIS TIME--SITE CLEANSED THOROUGHLY WITH PREVANTICS (CHLORHEXIDINE/ISOPROPYL ALCOHOL)- BIOPATCH INTACT, NEW TEGADERM/OPSITE APPLIED. SITE LOOKS SLIGHTLY SWOLLEN/ SLIGHTLY PINK AND IS VERY TENDER. PER PT "IT'S BEEN LOOKING MAD"--IT HAS BEEN THIS WAY THE PAST SEVERAL WEEKS. WILL CONTINUE TO CLOSELY MONITOR SITE. IV KCL STARTED AT 50ML/HR-SEE EMAR. 1507:PT. TOLERATED KCL WELL TODAY, SHE DID BECOME NAUSEATED AFTER HER LUNCH TRAY ARRIVED--TOOK HER OWN cartmi HOME MED. THIS DID NOT HELP MUCH AND PT. REMAINS NAUSEATED. ALSO SLIGHTLY CLAMMY TO TOUCH--VS CHECKED AT THIS TIME AND ARE STABLE. PT. HAS BEEN HAVING THIS HAPPEN FAIRLY FREQ. AT HOME. ENCOURAGED HER TO TALK TO PCP ABOUT THIS. SHE DOESN'T FEEL LIKE IT'S HER GERD. 1522: AT THE END OF THE INFUSION PT. WAS FLUSHED WITH 20ML NS AND THEN HEPARIN 500 UNITS. LT CHEST PAC LEFT ACCESSED FOR WEDNESDAY'S INFUSION. LEFT IN STABLE CONDITION AT THIS TIME.
== END ==
LOC: M.INFUS 02:59
PROVIDERS: Internal Medicine Nephrology
DX: E87.6 Hypokalemia (principal)

== ENCOUNTER → 2017-06-14 | Outpatient (CLI) | payer MEDICARE, MEDICAID ==
[2017-06-14 10:30] VITALS: BP 105/68
[2017-06-14 11:04] LABS: CALCIUM 8.5 mg/dL (8.5-10.1); CREATININE 0.9 mg/dL (0.6-1.3); POTASSIUM 3.3 mmol/L (3.5-5.1)
--- NOTE | 2017-06-14 12:14 | NUR ---
1017:PT. ARRIVED TO INFUSION. MADE COMFORTABLE IN RECLINER. PT. DENIES PAIN. SHE IS TIRED FROM HAVING A BUSY WEEKEND, BUT OTHERWISE NO NAUSEA OR CONCERNS. 1030:STARTED IV KCL 40MEQ/200ML AFTER ESTABLISHING THAT LT. CHEST PAC WAS INTACT. GOT BRISK ASPIRATE OF BLOOD AFTER FLUSHING WITH ABOUT 5ML NS. BLOOD DRAWN FOR LAB WORK. KCL STARTED AT 50ML/HR. 1200:PT. TOLERATING INFUSION WELL. LUNCH TRAY GIVEN.
[2017-06-14 14:35] VITALS: BP 105/59
--- NOTE | 2017-06-14 14:45 | NUR ---
INFUSION DONE AT 1430. LT. CHEST PAC WAS FLUSHED WITH 20ML NS AND THEN HEPARIN 500 UNITS (5ML OF 100UNITS/ML). PT. TOLERATED INFUSION WELL. OFFERED TO DEACCESS PT BUT SHE WANTS TO WAIT UNTIL WEDNESDAY. LT. CHEST PAC SITE LOOKS LESS PINK/LT. RED THAN WHEN THIS RN ASSESSED PT. LAST FRIDAY 06/09. PT. LEFT AT THIS TIME (1445) IN STABLE CONDITION. NO NAUSEA TODAY.
== END ==
LOC: M.INFUS 01:51
PROVIDERS: Internal Medicine Nephrology
DX: E87.6 Hypokalemia (principal)

== ENCOUNTER 2017-06-16 10:58 | Emergency (ER) | payer MEDICARE, MEDICAID ==
[~2017-06-16] VITALS: Ht 162.6 cm; Wt 81.7 kg
[~2017-06-16 10:58] MED LIST changes: -EFFEXOR XR37.5 MG PO; -ELIQUIS5 MG PO; -FLORASTOR250 MG PO; -KEFLEX500 M1 PO; -KEFLEX500 M2 PO; -LINEZOLID600 MG PO; -PREDNISONE 20 M20 M1 PO; -ROBAXIN 750 MG750 MG PO
[2017-06-16] MEDS ORDERED: ROBAXIN 750 MG750 MG PO (12:28)
[2017-06-16 13:45] VITALS: BP 114/76
[2017-09-20] MEDS ORDERED: ELIQUIS5 MG PO (10:46)
== END 2017-06-16 13:47 | disposition home or self-care (01) ==
LOC: M.ERS 10:58
DX: M25.462 Effusion, left knee (principal); J44.9 Chronic obstructive pulmonary disease, unspecified; E87.6 Hypokalemia; F32.9 Major depressive disorder, single episode, unspecified; F41.9 Anxiety disorder, unspecified; M81.0 Age-related osteoporosis without current pathological fracture; Z86.14 Personal history of Methicillin resistant Staphylococcus aureus infection; Z86.2 Personal history of diseases of the blood and blood-forming organs and certain disorders involving the immune mechanism; Z96.651 Presence of right artificial knee joint; Z88.1 Allergy status to other antibiotic agents; Z91.040 Latex allergy status; Z88.8 Allergy status to other drugs, medicaments and biological substances

== ENCOUNTER 2017-06-18 15:01 | Emergency (ER) | payer MEDICARE, MEDICAID ==
[~2017-06-18] VITALS: Ht 162.6 cm; Wt 84.8 kg
[~2017-06-18 15:01] MED LIST changes: -EFFEXOR XR37.5 MG PO; -ELIQUIS5 MG PO; -FLORASTOR250 MG PO; -KEFLEX500 M1 PO; -KEFLEX500 M2 PO; -LINEZOLID600 MG PO; -PREDNISONE 20 M20 M1 PO
[2017-06-18 15:32] LABS: URINE BILIRUBIN NEGATIVE (Negative); URINE BLOOD NEGATIVE (Negative); URINE CLARITY CLEAR; URINE COLOR YELLOW; URINE GLUCOSE-RANDOM NEGATIVE (Negative); URINE KETONES NEGATIVE (Negative); URINE LEUKOCYTES-REFLEX NEGATIVE (Negative); URINE NITRITE-REFLEX NEGATIVE (Negative); URINE PROTEIN NEGATIVE (Negative); URINE UROBILINOGEN 0.2 E.U./dl (0.2-1.0)
[2017-06-18 15:39] LABS: HEMATOCRIT 35.1 % (37.0-47.0); HEMOGLOBIN 11.4 gm/dL (12.0-15.0); MCH 28.2 pg (26.0-34.0); MCHC 32.5 g/dL (28.0-37.0); MCV 86.8 fL (80.0-100.0); MPV 7.3 fl. (7.2-11.1); NUCLEATED RBCS 0 /100WBC; PLATELET COUNT* 318 thou/uL (150-400); RBC 4.05 mil/uL (4.20-5.00); RDW-CV 14.8 % (10.5-14.5); WBC 8.5 thou/uL (4.0-11.0)
[2017-06-18 15:47] LABS: CALCIUM 8.6 mg/dL (8.5-10.1); CREATININE 0.9 mg/dL (0.6-1.3); POTASSIUM 3.8 mmol/L (3.5-5.1)
[2017-06-18 15:52] LABS: ALBUMIN 2.7 g/dL (3.4-5.0); TOTAL BILIRUBIN 0.2 mg/dL (<0.1-1.0); TOTAL PROTEIN 7.2 g/dL (6.4-8.2)
[2017-06-18 16:04] LABS: ABSOLUTE MONOCYTES 0.4 thou/uL (0.0-1.2)
[2017-06-18 16:05] LABS: CLUMPED PLTS OCCASIONAL; PLATELET ESTIMATE ADEQUATE
[2017-06-18] MEDS ORDERED: KEFLEX500 M1 PO (16:58)
[2017-06-18 17:14] VITALS: BP 101/69
[2017-09-20] MEDS ORDERED: ELIQUIS5 MG PO (10:46)
== END 2017-06-18 17:23 | disposition home or self-care (01) ==
LOC: M.ERS 15:01
PROVIDERS: Physician Assistant
DX: Z45.2 Encounter for adjustment and management of vascular access device (principal); J44.9 Chronic obstructive pulmonary disease, unspecified; F32.9 Major depressive disorder, single episode, unspecified; F41.9 Anxiety disorder, unspecified; M81.0 Age-related osteoporosis without current pathological fracture; K21.9 Gastro-esophageal reflux disease without esophagitis; M79.7 Fibromyalgia; Z95.5 Presence of coronary angioplasty implant and graft; Z86.2 Personal history of diseases of the blood and blood-forming organs and certain disorders involving the immune mechanism; Z86.14 Personal history of Methicillin resistant Staphylococcus aureus infection; Z88.1 Allergy status to other antibiotic agents; Z91.040 Latex allergy status; Z88.8 Allergy status to other drugs, medicaments and biological substances

== ENCOUNTER → 2017-06-18 | Outpatient (CLI) | payer MEDICARE, MEDICAID ==
[~2017-06-18] MED LIST changes: +EFFEXOR XR37.5 MG PO; +ELIQUIS5 MG PO; +FLORASTOR250 MG PO; +KEFLEX500 M1 PO; +KEFLEX500 M2 PO; +LINEZOLID600 MG PO; +PREDNISONE 20 M20 M1 PO; +ROBAXIN 750 MG750 MG PO
[2017-06-18 10:11] VITALS: BP 123/72
[2017-06-18 10:57] LABS: CALCIUM 8.3 mg/dL (8.5-10.1); CREATININE 0.9 mg/dL (0.6-1.3); POTASSIUM 3.3 mmol/L (3.5-5.1)
== END ==
LOC: M.INFUS 01:35
PROVIDERS: Internal Medicine Nephrology
DX: E87.6 Hypokalemia (principal)

== ENCOUNTER → 2017-06-23 | Outpatient (CLI) | payer MEDICARE, MEDICAID ==
[~2017-06-23] MED LIST changes: +EFFEXOR XR37.5 MG PO; +ELIQUIS5 MG PO; +FLORASTOR250 MG PO; +KEFLEX500 M1 PO; +KEFLEX500 M2 PO; +LINEZOLID600 MG PO; +PREDNISONE 20 M20 M1 PO
[2017-06-23 10:10] VITALS: BP 114/73
[2017-06-23 10:56] LABS: POTASSIUM 3.4 mmol/L (3.5-5.1)
--- NOTE | 2017-06-23 13:24 | NUR ---
ARRIVED AMBULATORY. LEFT CHEST PORT A CATH REMOVED TESTERDAY AND NEW POWER PORT PLACED TO RIGHT CHEST. ARRIVED WITH PORT ALREADY ACCESSED. PORT PATENT WITH GOOD BLOOD RETURN AND EASY FLUSH. INFUSION STARTED AND RUNNING WELL.
[2017-06-23 14:28] VITALS: BP 122/80
--- NOTE | 2017-06-23 15:22 | NUR ---
INFUSION COMPLETED AND TOLERATED WELL. PORT FLUSHED AND DEACCESSED.
== END ==
LOC: M.INFUS 05:52
PROVIDERS: Internal Medicine Nephrology
DX: E87.6 Hypokalemia (principal)

== ENCOUNTER → 2017-06-28 | Outpatient (CLI) | payer MEDICARE, MEDICAID ==
--- NOTE | 2017-06-28 10:30 | NUR ---
PATIENT ARRIVAL AMBULATORY FROM HOME TO OP INFUSION AREA. MADE SELF COMFORTABLE IN RECLINER. CALL LIGHT AND REMOTE WITHIN REACH. HISTORY AND ORDERS REVIEWED. REASSESSMENT AND VS OBTAINED. RT CHEST PORT FAIRLY NEW. SITE WITHOUT REDNESS OR DRAINAGE, SOME DERMABOND IN PLACE STILL FROM WHEN PORT WAS PLACED AND MILD SCABBING AT SITE. RT CHEST PORT ACCESSED UNDER STERILE TECHNIQUE. BLOOD RETURN OBTAINED WITH LAB DRAWS FROM PORT. PORT FLUSHED WITH NS BUT SLIGHTLY SLUGGISH TO FLUSH. PATIENT DENIES CONCERNS.
[2017-06-28 10:34] VITALS: BP 129/83
[2017-06-28 12:18] LABS: CALCIUM 8.7 mg/dL (8.5-10.1); CREATININE 0.9 mg/dL (0.6-1.3); POTASSIUM 3.2 mmol/L (3.5-5.1)
--- NOTE | 2017-06-28 14:56 | NUR ---
POTASSIUM INFUSION COMPLETED. PATIENT TOLERATES INFUSION WELL. VS REMAIN STABLE. RT CHEST PORTACATH FLUSHED WITH NS 20MLS FOLLOWED BY HEPARIN 5MLS OF 100UNIT/ML SOLUTION. PORTACATH DRESSING REMOVED. SOME REDNESS ON SKIN AROUND SITE FROM TEGADERM NOTED. PORT DEACCESSED AND BANDAID APPLIED. PATIENT DEPARTS FOR HOME AT 1507.
[2017-06-28 14:57] VITALS: BP 123/75
== END ==
LOC: M.INFUS 00:05
PROVIDERS: Internal Medicine Nephrology
DX: E87.6 Hypokalemia (principal)

== ENCOUNTER → 2017-07-05 | Outpatient (CLI) | payer MEDICARE, MEDICAID ==
--- NOTE | 2017-07-05 09:40 | NUR ---
PATIENT ARRIVAL AMBULATORY FROM HOME TO OP INFUSION AREA. MADE SELF COMFORTABLE IN RECLINER. CALL LIGHT AND REMOTE AT BEDSIDE. HISTORY AND ORDERS REVIEWED. REASSESSMENT AND VS OBTAINED. RT CHEST PORTACATH ACCESSED UNDER STERILE TECHNIQUE. SITE WITHOUT REDNESS OR DRAINAGE. BRISK BLOOD RETURN OBTAINED FROM PORT WITH LAB DRAW. PORT FLUSHES WELL. POTASSIUM INFUSION STARTED PER EMAR. PATIENT DENIES CONCERNS.
[2017-07-05 09:54] VITALS: BP 119/71
[2017-07-05 10:17] LABS: CALCIUM 8.8 mg/dL (8.5-10.1); CREATININE 0.9 mg/dL (0.6-1.3); POTASSIUM 3.3 mmol/L (3.5-5.1)
--- NOTE | 2017-07-05 14:00 | NUR ---
POTASSIUM INFUSION COMPLETED. VS REMAIN STABLE. PATIENT DENIES CONCERNS. RT CHEST PORT FLUSHED WITH NS 20MLS FOLLOWED BY HEPARIN 5MLS OF 100UNIT/ML SOLUTION. PORT THEN DEACCESSED AND BANDAID APPLIED. PATIENT DEPARTS FOR HOME AMBULATORY AT 1412.
[2017-07-05 14:01] VITALS: BP 115/68
--- NOTE | 2017-07-05 15:11 | NUR ---
LAB RESULTS FAXED TO 'S OFFICE.
== END ==
LOC: M.INFUS 01:31
PROVIDERS: Internal Medicine Nephrology
DX: E87.6 Hypokalemia (principal)

== ENCOUNTER → 2017-07-09 | Outpatient (CLI) | payer MEDICARE, MEDICAID ==
[2017-07-09 10:10] VITALS: BP 138/78
[2017-07-09 12:56] LABS: CALCIUM 8.1 mg/dL (8.5-10.1); POTASSIUM 3.2 mmol/L (3.5-5.1)
== END ==
LOC: M.INFUS 01:54
PROVIDERS: Internal Medicine Nephrology
DX: E87.6 Hypokalemia (principal)

== ENCOUNTER 2017-07-12 20:35 | Emergency (ER) | payer MEDICARE, MEDICAID ==
[~2017-07-12] VITALS: Ht 162.6 cm; Wt 79.8 kg
[~2017-07-12 20:35] MED LIST changes: -EFFEXOR XR37.5 MG PO; -ELIQUIS5 MG PO; -FLORASTOR250 MG PO; -KEFLEX500 M2 PO; -LINEZOLID600 MG PO; -PREDNISONE 20 M20 M1 PO
[2017-07-12] MEDS ORDERED: KEFLEX500 M1 PO (21:32)
[2017-07-12] MEDS ORDERED: BACTRIM DS TAB1 EACH PO (21:32)
[2017-07-12] MEDS ORDERED: PREDNISONE 10 M10 MG PO (21:32)
[2017-07-12 21:50] VITALS: BP 136/82
[2017-09-20] MEDS ORDERED: ELIQUIS5 MG PO (10:46)
== END 2017-07-12 21:50 | disposition home or self-care (01) ==
LOC: M.ERS 20:35
DX: S40.861A Insect bite (nonvenomous) of right upper arm, initial encounter (principal); J44.9 Chronic obstructive pulmonary disease, unspecified; F41.9 Anxiety disorder, unspecified; M06.9 Rheumatoid arthritis, unspecified; K21.9 Gastro-esophageal reflux disease without esophagitis; M79.7 Fibromyalgia; Z95.5 Presence of coronary angioplasty implant and graft; Z86.14 Personal history of Methicillin resistant Staphylococcus aureus infection; Z91.040 Latex allergy status; Z88.8 Allergy status to other drugs, medicaments and biological substances; Z88.1 Allergy status to other antibiotic agents; W57.XXXA Bitten or stung by nonvenomous insect and other nonvenomous arthropods, initial encounter; Y93.89 Activity, other specified; Y92.89 Other specified places as the place of occurrence of the external cause; Y99.8 Other external cause status

== ENCOUNTER → 2017-07-14 | Outpatient (CLI) | payer MEDICARE, MEDICAID ==
[~2017-07-14] MED LIST changes: +EFFEXOR XR37.5 MG PO; +ELIQUIS5 MG PO; +FLORASTOR250 MG PO; +KEFLEX500 M2 PO; +LINEZOLID600 MG PO; +PREDNISONE 20 M20 M1 PO
[2017-07-14 11:07] LABS: CALCIUM 9.4 mg/dL (8.5-10.1); CREATININE 0.8 mg/dL (0.6-1.3); POTASSIUM 3.8 mmol/L (3.5-5.1)
--- NOTE | 2017-07-14 14:22 | NUR ---
ARRIVED AMBULATORY. STATED THAT NEW PORT A CATH HAS COME THRU THE SKIN LAST NIGHT. SHE HAD COVERED IT WITH STERILR DRESSING ADN HAS APPOINTMENT TO SEE DR. ALBA AT 1500 TODAY. HERE FOT LAB DRAWN. ORDERED BMO DRAWN FROM LEFT AC BY RN. RESULTS REVIEWED. DENIES NEEDS AT DISCHARGE.
== END ==
LOC: M.INFUS 01:58
PROVIDERS: Internal Medicine Nephrology
DX: E87.6 Hypokalemia (principal)

== ENCOUNTER → 2017-07-21 | Outpatient (CLI) | payer MEDICARE, MEDICAID ==
[2017-07-21 10:20] VITALS: BP 111/75
[2017-07-21 11:40] LABS: CALCIUM 8.9 mg/dL (8.5-10.1); CREATININE 0.8 mg/dL (0.6-1.3); POTASSIUM 3.6 mmol/L (3.5-5.1)
--- NOTE | 2017-07-21 12:29 | NUR ---
PT DISCHARGED HOME WITH EDUCATION ON PLAN OF CARE AND DISEASE PROCESS. SHE WAS ABLE TO ONLY STAY FOR HALF OF HER INFUSION. NO CO OF PAIN OR NAUSEA, WILL CONTINUE TO MONITOR.
== END ==
LOC: M.INFUS 03:55
PROVIDERS: Internal Medicine Nephrology
DX: E87.6 Hypokalemia (principal)

== ENCOUNTER → 2017-07-23 | Outpatient (CLI) | payer MEDICARE, MEDICAID ==
--- NOTE | 2017-07-23 10:25 | NUR ---
ARRIVED AMBULATORY. MADE SELF COMFORTABLE IN RECLINER. SINGLE LUMEN PICC LINE NOTED TO RIGHT UPPER ARM. PICC LINE PATENT W/GOOD BRISK BLOOD RETURN. BMP OBTAINED AND SENT TO LAB. PT TOLERATED 40 MEQ POTASSIUM CHLORIDE IV INFUSION WELL. PT TEARFUL OFF/ON DURING TREATMENT. MUCH SUPPORT AND ENCOURAGEMENT PROVIDED. PT CONCERNED ABOUT HER RIGHT CHEST PORT-A-CATH. PT'S RIGHT CHEST PORT-A-CATH HAD SMALL OPEN AREA ABOUT THE SIZE OF A BB W/YELLOW PUS OOZING FROM OPEN AREA. PT UPSET AND TEARFUL, WANTING NURSING TO CONTACT THE SURGEON WHO PLACED HER MOST RECENT RIGHT CHEST PORT-A-CATH. THIS NURSE CONTACTED NICOLE, THE CHILD NEUROLOGIST FOR DR. ALBA. PHARMACY AND ALLERGIES RELAYED TO NICOLE. NICOLE TO CALL IN ANTIBIOTICS TO PT'S PHARMACY IN [facility]. PT DENIED NEEDS OR QUESTIONS AT DISCHARGE. PT LEFT IN BETTER SPIRITS.
[2017-07-23 10:36] VITALS: BP 113/64
[2017-07-23 11:19] LABS: CALCIUM 8.5 mg/dL (8.5-10.1); CREATININE 0.8 mg/dL (0.6-1.3); POTASSIUM 3.9 mmol/L (3.5-5.1)
== END ==
LOC: M.INFUS 01:30
PROVIDERS: Internal Medicine Nephrology
DX: E87.6 Hypokalemia (principal)

== ENCOUNTER → 2017-07-26 | Outpatient (CLI) | payer MEDICARE, MEDICAID ==
[2017-07-26 10:10] VITALS: BP 118/74
[2017-07-26 11:40] LABS: CALCIUM 8.8 mg/dL (8.5-10.1); CREATININE 0.9 mg/dL (0.6-1.3); POTASSIUM 3.8 mmol/L (3.5-5.1)
[2017-07-26 14:10] VITALS: BP 122/74
--- NOTE | 2017-07-26 14:38 | NUR ---
ARRIVED AMBULATORY. MADE SLEF COMFORTABLE IN RECLINER. PICC TO RIGHT UPPER ARM INTACT AND PATENT. WEEKLY LABS DRAWN AND RESULTS FAXED TO DR. MARTINEZ. INFUSION COMPLETED AND TOLERATED WELL. DRESSING CHANGED RELATED TO PEELING OF OUTSIDE EDGE. DENEIS NEEDS AT DISCHARGE.
== END ==
LOC: M.INFUS 00:51
PROVIDERS: Internal Medicine Nephrology
DX: E87.6 Hypokalemia (principal)

== ENCOUNTER → 2017-07-30 | Outpatient (CLI) | payer MEDICARE, MEDICAID ==
[2017-07-30 09:24] VITALS: BP 117/78
--- NOTE | 2017-07-30 10:08 | NUR ---
Pt ambulated to PACU for infusion of K+. Seated self in recliner and med history reviewed for updates. Pt has PICC line in upper right arm with easy flush and brisk bright red blood return. Blood drawn form PICC line for BNP and sent to lab. At 0930 K+ infusion started.
[2017-07-30 10:11] LABS: CALCIUM 8.6 mg/dL (8.5-10.1); CREATININE 0.8 mg/dL (0.6-1.3); POTASSIUM 3.9 mmol/L (3.5-5.1)
--- NOTE | 2017-07-30 13:39 | NUR ---
Pt infusion completed at 1321. Flushed PICC line with 20ml NS and flushed easily. Pt discharge & PICC care revieved and pt ambulated out for discharge at 1339 with no s/sx of effects from the potassium infusion. Labs faxed to Dr. Hua's office.
== END ==
LOC: M.INFUS 01:59
PROVIDERS: Internal Medicine Nephrology
DX: E87.6 Hypokalemia (principal)

== ENCOUNTER 2017-08-01 21:47 | Emergency (ER) | payer MEDICARE, MEDICAID ==
[~2017-08-01] VITALS: Ht 162.6 cm; Wt 81.7 kg
[~2017-08-01 21:47] MED LIST changes: -EFFEXOR XR37.5 MG PO; -ELIQUIS5 MG PO; -FLORASTOR250 MG PO; -KEFLEX500 M2 PO; -LINEZOLID600 MG PO; -PREDNISONE 20 M20 M1 PO
[2017-08-01 23:15] VITALS: BP 119/83
[2017-09-20] MEDS ORDERED: ELIQUIS5 MG PO (10:46)
== END 2017-08-01 23:16 | disposition home or self-care (01) ==
LOC: M.ERS 21:47
DX: Z45.2 Encounter for adjustment and management of vascular access device (principal); J44.9 Chronic obstructive pulmonary disease, unspecified; F32.9 Major depressive disorder, single episode, unspecified; M19.90 Unspecified osteoarthritis, unspecified site; K21.9 Gastro-esophageal reflux disease without esophagitis; M79.7 Fibromyalgia; F41.9 Anxiety disorder, unspecified; Z96.651 Presence of right artificial knee joint; Z88.1 Allergy status to other antibiotic agents; Z88.8 Allergy status to other drugs, medicaments and biological substances

== ENCOUNTER → 2017-08-02 | Outpatient (CLI) | payer MEDICARE, MEDICAID ==
[~2017-08-02] MED LIST changes: +EFFEXOR XR37.5 MG PO; +ELIQUIS5 MG PO; +FLORASTOR250 MG PO; +KEFLEX500 M2 PO; +LINEZOLID600 MG PO; +PREDNISONE 20 M20 M1 PO
--- NOTE | 2017-08-02 10:01 | NUR ---
PATIENT ARRIVAL AMBULATORY TO PREOP FOR OP INFUSION. MADE SELF COMFORTABLE IN RECLINER. CALL LIGHT, REMOTE, AND PILLOWS GIVEN TO PATIENT. HISTORY AND ORDERS REVIEWED. REASSESSMENT AND VS OBTAINED. RT UPPER ARM PICC LINE DRESSING C/D/I. BRISK BLOOD RETURN OBTAINED FROM PICC AND IT FLUSHES WELL. BMP LAB DRAWN PRE-INFUSION ORDERED. POTASSIUM THEN STARTED IV ONCE OBTAINED FROM PHARMACY. PATIENT DENIES CONCERNS.
[2017-08-02 10:06] VITALS: BP 135/86
[2017-08-02 10:36] LABS: CALCIUM 8.7 mg/dL (8.5-10.1); CREATININE 0.9 mg/dL (0.6-1.3); POTASSIUM 4.1 mmol/L (3.5-5.1)
== END ==
LOC: M.INFUS 05:59
PROVIDERS: Internal Medicine Nephrology
DX: E87.6 Hypokalemia (principal)

== ENCOUNTER → 2017-08-04 | Outpatient (CLI) | payer MEDICARE, MEDICAID ==
--- NOTE | 2017-08-04 16:08 | 2DMMODE ---
[place] [address] 2 D/M-MODE ECHOCARDIOGRAM Name: AZAMGUS K Room: [facility]#: [id number] Admission: 08/04/17 Attend Phys: Chalo Hua MD Discharge: Date of : 75 Date of Service: 08/04/17 1607 Report #: [id number] THIS REPORT FOR: //name// APPROVED REPORT Study performed: 08/04/2017 15:10:33 EXAM: Limited 2D Echocardiogram BSA: 1.84 HR: 82 bpm BP: 112/74 mmHg Other Information Study Quality: Good Indications Palpitations 2D Dimensions LVEF(%): 75.60 (>50%) IVSd: 11.79 (7-11mm) LVDd: 40.94 mm PWd: 9.52 (7-11mm) LVDs: 22.97 (25-40mm) Aortic Root: 24.68 mm Chacon's LVEF: 75.60 % Left Ventricle The left ventricle is normal size. There is normal LV segmental wall motion. There is normal left ventricular wall thickness. The left ventricular systolic function is normal. The left ventricular ejection fraction is within the normal range. LVEF is 65-70%. Right Ventricle The right ventricle is normal size. The right ventricular systolic function is normal. Atria The left atrium size is normal. The right atrium size is normal. Aortic Valve The aortic valve is normal in structure[place] [address] 2 D/M-MODE ECHOCARDIOGRAM Name: GUS NASCIMENTO Room: [facility]#: [id number] Admission: 08/04/17 Attend Phys: Chalo Hua MD Discharge: Date of : 75 Date of Service: 08/04/171606 Report #: [id number] The mitral valve is normal in structure. Tricuspid Valve The tricuspid valve is normal in structure. Pulmonic Valve Pulmonic valve is not well visualized. Great Vessels The aortic root is normal in size. Pericardium There is no pericardial effusion. <Conclusion> The left ventricular systolic function is normal. The left ventricular ejection fraction is within the normal range. <ELECTRONICALLY SIGNED> By: Enrique Lee MD, FACC 08/04/17 1607 06 06 Enrique Lee MD, FACC /INF
== END ==
LOC: M.INFUS 00:46
DX: R94.31 Abnormal electrocardiogram [ECG] [EKG] (principal)

== ENCOUNTER → 2017-08-06 | Outpatient (CLI) | payer MEDICARE, MEDICAID ==
[2017-08-06 09:45] VITALS: BP 108/72
[2017-08-06 10:20] LABS: CREATININE 0.8 mg/dL (0.6-1.3); POTASSIUM 3.3 mmol/L (3.5-5.1)
[2017-08-06 13:30] VITALS: BP 112/74
--- NOTE | 2017-08-06 13:41 | NUR ---
ARRIVED AMBULATORY. MADE SELF COMFORTABLE IN RECLINER. PICC LINE INTACT WITH DRESSING C/D/I. PICC GOOD BRISK BLOOD RETURN NOTED AND FLUSHED WITH EASE. INFUSION COMPLETED AND TOLERATED WELL. PICC FLUSHED. DENIES NEEDS AT DISCHARGE.
== END ==
LOC: M.INFUS 02:31
PROVIDERS: Internal Medicine Nephrology
DX: E87.6 Hypokalemia (principal)

== ENCOUNTER → 2017-08-09 | Outpatient (CLI) | payer MEDICARE, MEDICAID ==
[2017-08-09 13:49] LABS: CALCIUM 8.2 mg/dL (8.5-10.1); CREATININE 0.7 mg/dL (0.6-1.3); POTASSIUM 3.7 mmol/L (3.5-5.1)
--- NOTE | 2017-08-09 14:26 | NUR ---
CALL RECIEVED FROM PT STATING SHE HAD OVER SLEPT. ASKING IF SHE COULD COME IN FOR LAB DRAW AND DRESSING CHANGE. ARRIVED AMBULATORY. MADE SELF COMFORTABLE. DRESSING TO PICC LINE CHANGED AND LABS DRAWN. PT WAITED FOR LAB RESULTS. K+ LEVEL 3.7. PT DECIDED NOT TO DO POTASSIUM INFUSION TODAY. DISCHARGED TO HOME DENIES NEEDS.
== END ==
LOC: M.INFUS 01:22
PROVIDERS: Internal Medicine Nephrology
DX: E87.6 Hypokalemia (principal)

== ENCOUNTER → 2017-08-13 | Outpatient (CLI) | payer MEDICARE, MEDICAID ==
--- NOTE | 2017-08-13 10:27 | NUR ---
ARRIVED AMBULATORY. MADE SELF COMFORTABLE IN RECLINER. PICC LINE INTACT W/DRESSING C/D/I. PICC GOOD BRISK BLOOD RETURN NOTED AND FLUSHED W/EASE. PRE LAB BMP PER STANDING ORDERS. PT EXPRESSED CONCERN THAT HER RIGHT PORT A CATH SITE MAY BE BECOMING INFECTED. SHE STATED IT IS MORE SWOLLEN, MORE PAINFUL, SHE IS RUNNING A FEVER (98.8), AND IT IS DRAINING MORE. THIS NURSE ASSESSED RIGHT PORT A CATH SITE. PT STATED SHE WOULD LIKE ME TO CONTACT HER SURGEON, DR. CONSUELO ALBA. CLEAN BAND-AID APPLIED TO RIGHT PORT A CATH SITE. SPOKE W/DR. CONSUELO ALBA VIA PHONE AND UPDATED HIM ON PT'S CONCERNS. HE STATED, "SHE HAS TOO MANY ALLERGIES FOR ME TO PRESCRIBE ANYTHING. HAVE HER CALL HER PRIMARY CARE DOCTOR AND THEN CALL MY OFFICE NEXT WEDNESDAY." PT INFORMED OF DR. ALBA' WISHES. PT VERBALIZED UNDERSTANDING. INFUSION COMPLETED AND TOLERATED WELL. PICC FLUSHED. DENIES NEEDS AT DISCHARGE.
[2017-08-13 10:35] VITALS: BP 106/77
[2017-08-13 11:01] LABS: CALCIUM 8.3 mg/dL (8.5-10.1); CREATININE 0.8 mg/dL (0.6-1.3); POTASSIUM 3.3 mmol/L (3.5-5.1)
== END ==
LOC: M.INFUS 00:22
PROVIDERS: Internal Medicine Nephrology
DX: E87.6 Hypokalemia (principal)

== ENCOUNTER → 2017-08-16 | Outpatient (CLI) | payer MEDICARE, MEDICAID ==
[~2017-08-16] MED LIST changes: +NYSTATIN100000 UNI SW&SWALLOW
--- NOTE | 2017-08-16 12:57 | NUR ---
CALL RECIEVED FROM PT STATING SHE HAD APPOINTMENTS TO EVALUATE HER KNEE AND PORT A CATH. STATED SHE WAS GOING TO STOP AND HAVE DRESSING CHANGED AND LAB DRAWN BY DID NOT WANT ANY POTASSIUM. PICC DRESSING CHANGED PER PROTOCOL. LAB DRAWN FROM PICC WITH EASE. DENIES NEEDS AT DISCHARGE.
[2017-08-16 13:23] LABS: CALCIUM 8.9 mg/dL (8.5-10.1); CREATININE 0.9 mg/dL (0.6-1.3); POTASSIUM 3.6 mmol/L (3.5-5.1)
== END ==
LOC: M.INFUS 00:55
PROVIDERS: Internal Medicine Nephrology
DX: E87.6 Hypokalemia (principal)

== ENCOUNTER → 2017-08-20 | Outpatient (CLI) | payer MEDICARE, MEDICAID ==
[2017-08-20 10:35] VITALS: BP 132/80
[2017-08-20 11:26] LABS: CALCIUM 8.8 mg/dL (8.5-10.1); CREATININE 0.8 mg/dL (0.6-1.3); POTASSIUM 3.5 mmol/L (3.5-5.1)
[2017-08-20 14:35] VITALS: BP 128/74
--- NOTE | 2017-08-20 14:54 | NUR ---
PICC INTACT AND PATENT TO RIGHT UPPER ARM. GOOD BRISK BLOOD RETURN NOTED AND FLUSHED WITH EASE. INFUSION COMPLETED AND TOELRATED WELL. DENIES NEEDS AT DISCHARGE.
== END ==
LOC: M.INFUS 03:39
PROVIDERS: Internal Medicine Nephrology
DX: E87.6 Hypokalemia (principal)

== ENCOUNTER 2017-08-21 15:12 | Emergency (ER) | payer MEDICARE, MEDICAID ==
[~2017-08-21] VITALS: Ht 165.1 cm; Wt 81.7 kg
[~2017-08-21 15:12] MED LIST changes: -EFFEXOR XR37.5 MG PO; -ELIQUIS5 MG PO; -FLORASTOR250 MG PO; -KEFLEX500 M2 PO; -LINEZOLID600 MG PO; -NYSTATIN100000 UNI SW&SWALLOW; -PREDNISONE 20 M20 M1 PO
[2017-08-21 15:17] VITALS: BP 120/88
[2017-09-20] MEDS ORDERED: ELIQUIS5 MG PO (10:46)
[2018-01-20] MEDS ORDERED: NYSTATIN100000 UNI SW&SWALLOW (08:58)
== END 2017-08-21 15:45 | disposition home or self-care (01) ==
LOC: M.ERS 15:12
DX: E87.6 Hypokalemia (principal); Z79.899 Other long term (current) drug therapy; J44.9 Chronic obstructive pulmonary disease, unspecified; F32.9 Major depressive disorder, single episode, unspecified; F41.9 Anxiety disorder, unspecified; M06.9 Rheumatoid arthritis, unspecified; M81.0 Age-related osteoporosis without current pathological fracture; K21.9 Gastro-esophageal reflux disease without esophagitis; M79.7 Fibromyalgia; Z86.14 Personal history of Methicillin resistant Staphylococcus aureus infection; Z86.2 Personal history of diseases of the blood and blood-forming organs and certain disorders involving the immune mechanism; Z86.711 Personal history of pulmonary embolism; Z88.1 Allergy status to other antibiotic agents; Z91.040 Latex allergy status; Z88.8 Allergy status to other drugs, medicaments and biological substances

== ENCOUNTER 2017-08-27 20:23 | Inpatient (IN) | payer MEDICARE, MEDICAID ==
[~2017-08-27] VITALS: Ht 162.6 cm; Wt 83.9 kg
[2017-08-27 20:32] VITALS: BP 123/73
[2017-08-27 21:24] LABS: ABSOLUTE BASOPHILS 0.1 thou/uL (0.0-0.2); ABSOLUTE LYMPHOCYTES 1.7 thou/uL (0.8-5.3); ABSOLUTE MONOCYTES 0.6 thou/uL (0.0-1.2); ABSOLUTE NEUTROPHILS 5.8 thou/uL (1.6-8.1); BASOPHILS 0.6 %; EOSINOPHILS 0.2 %; HEMATOCRIT 35.5 % (37.0-47.0); HEMOGLOBIN 11.6 gm/dL (12.0-15.0); LYMPHOCYTES 21.1 %; MCH 27.1 pg (26.0-34.0); MCHC 32.6 g/dL (28.0-37.0); MCV 83.2 fL (80.0-100.0); MONOCYTES 7.7 %; MPV 7.1 fl. (7.2-11.1); NUCLEATED RBCS 0 /100WBC; PLATELET COUNT* 276 thou/uL (150-400); POLYS 70.4 %; RBC 4.27 mil/uL (4.20-5.00); RDW-CV 16.5 % (10.5-14.5); WBC 8.3 thou/uL (4.0-11.0)
[2017-08-27 21:25] LABS: BE -0.3 mmol/L (-2 to +3); HCO3 23.9 mmol/L (22.0-26.0); PCO2 37.2 mmHg (35.0-45.0); PO2 70.1 mmHg (75.0-100.0); pH 7.425 (7.340-7.450)
[2017-08-27 21:31] LABS: POTASSIUM 3.4 mmol/L (3.5-5.1)
[2017-08-27 21:32] LABS: APTT 26.1 Seconds (25.0-31.3); INR 1.1; PROTIME 10.5 Seconds (9.20-11.50)
[2017-08-27 21:35] LABS: ALBUMIN 2.8 g/dL (3.4-5.0); MAGNESIUM 1.6 mg/dL (1.8-2.4); TOTAL BILIRUBIN 0.2 mg/dL (<0.1-1.0); TOTAL PROTEIN 6.6 g/dL (6.4-8.2)
[2017-08-27 23:26] VITALS: BP 108/73
[2017-08-28 04:00] VITALS: BP 111/63
[2017-08-28 08:30] VITALS: BP 111/64
[2017-08-28 10:33] LABS: ALBUMIN 2.6 g/dL (3.4-5.0); CALCIUM 7.6 mg/dL (8.5-10.1); CREATININE 0.8 mg/dL (0.6-1.3); POTASSIUM 3.8 mmol/L (3.5-5.1); TOTAL BILIRUBIN 0.2 mg/dL (<0.1-1.0); TOTAL PROTEIN 5.8 g/dL (6.4-8.2)
[2017-08-28 10:49] LABS: ABSOLUTE LYMPHOCYTES 1.6 thou/uL (0.8-5.3); ABSOLUTE MONOCYTES 0.6 thou/uL (0.0-1.2); ABSOLUTE NEUTROPHILS 5.3 thou/uL (1.6-8.1); BASOPHILS 0.3 %; EOSINOPHILS 0.2 %; HEMATOCRIT 33.2 % (37.0-47.0); HEMOGLOBIN 10.6 gm/dL (12.0-15.0); MCH 26.7 pg (26.0-34.0); MCHC 31.9 g/dL (28.0-37.0); MCV 83.7 fL (80.0-100.0); MONOCYTES 7.6 %; MPV 7.1 fl. (7.2-11.1); NUCLEATED RBCS 0 /100WBC; PLATELET COUNT* 230 thou/uL (150-400); POLYS 70.9 %; RBC 3.97 mil/uL (4.20-5.00); RDW-CV 16.7 % (10.5-14.5); WBC 7.5 thou/uL (4.0-11.0)
[2017-08-28 11:35] VITALS: BP 110/64
[2017-08-28 11:47] LABS: ESR (SEDRATE) 35 mm/hr (0-20)
[2017-08-28 16:00] VITALS: BP 145/83
[2017-08-28 19:45] VITALS: BP 114/82
[2017-08-29] VITALS: BP 111/76
[2017-08-29 04:00] VITALS: BP 104/71
[2017-08-29 08:15] VITALS: BP 110/73
[2017-08-29 12:21] VITALS: BP 112/70
[2017-08-29 16:06] VITALS: BP 113/71
[2017-08-29 19:45] VITALS: BP 131/80
[2017-08-30] VITALS: BP 122/66
[2017-08-30 03:44] VITALS: BP 111/74
[2017-08-30 08:00] VITALS: BP 122/68
[2017-08-30 12:29] VITALS: BP 120/78
[2017-08-30 15:30] VITALS: BP 126/80
[2017-08-30 20:00] VITALS: BP 121/70
[2017-08-30 23:07] LABS: HEPATITIS B SURFACE AG Negative (Negative)
[2017-08-31] VITALS: BP 126/83
[2017-08-31 04:00] VITALS: BP 121/83
[2017-08-31 07:30] VITALS: BP 112/75
[2017-08-31] MEDS ORDERED: CARDIZEM CD120 MG PO (09:13)
[2017-08-31 15:38] VITALS: BP 130/84
[2017-09-01] VITALS: BP 105/71
[2017-09-01 02:07] LABS: COMPLEMENT-C4 21 mg/dL (14-44)
[2017-09-01 06:06] LABS: ABSOLUTE EOSINOPHILS 0.1 thou/uL (0.0-0.7); ABSOLUTE LYMPHOCYTES 1.5 thou/uL (0.8-5.3); ABSOLUTE MONOCYTES 0.4 thou/uL (0.0-1.2); ABSOLUTE NEUTROPHILS 4.4 thou/uL (1.6-8.1); BASOPHILS 0.4 %; EOSINOPHILS 0.9 %; HEMOGLOBIN 10.7 gm/dL (12.0-15.0); LYMPHOCYTES 24.1 %; MCH 27.2 pg (26.0-34.0); MCHC 32.5 g/dL (28.0-37.0); MCV 83.7 fL (80.0-100.0); MONOCYTES 5.9 %; NUCLEATED RBCS 0 /100WBC; PLATELET COUNT* 254 thou/uL (150-400); POLYS 68.7 %; RBC 3.94 mil/uL (4.20-5.00); RDW-CV 16.7 % (10.5-14.5); WBC 6.4 thou/uL (4.0-11.0)
[2017-09-01 06:21] LABS: ALBUMIN 2.5 g/dL (3.4-5.0); CALCIUM 8.5 mg/dL (8.5-10.1); CREATININE 0.7 mg/dL (0.6-1.3); POTASSIUM 3.7 mmol/L (3.5-5.1); TOTAL BILIRUBIN 0.1 mg/dL (<0.1-1.0); TOTAL PROTEIN 6.5 g/dL (6.4-8.2)
[2017-09-01 07:30] VITALS: BP 106/69
--- NOTE | 2017-09-01 13:29 | CON ---
[address] [address] CONSULTATION Name: GUS NASCIMENTO Room: [address] IN .R.#: [id number] Admission: 08/27/17 Attend Phys: Kota Lau MD Discharge: Date of : 75 Report #: [id number] THIS REPORT FOR: //name// CC: Eliseo Lau DATE OF SERVICE: 08/29/2017 ATTENDING PHYSICIAN: Tali Lau REASON FOR CONSULTATION: Fever. HISTORY OF PRESENT ILLNESS: A 41-year-old white woman admitted to the hospital with a history of fevers. The patient relates she had a temperature to 102.4 degrees Fahrenheit hours prior to arrival to the Emergency Room. Relates nodule on the left arm. The patient also relates having dry knees, swollen ever since her total knee replacement in March at [facility]. Other than that, voices no major complaints. PAST MEDICAL HISTORY: Left carpal tunnel 2000, tubal ligation in 2003, previous Port-A-Cath placement. COPD. Chronic bronchitis. Anemia of chronic disease. Avascular necrosis in hips and shoulders and knees. Depression and anxiety. Question rheumatoid arthritis. Osteoporosis. Previous pulmonary embolism. Myocardial infarction. Recent right total knee replacement on 04/06/2017. DRUG ALLERGIES: CITALOPRAM, DULOXETINE, DOXYCYCLINE, ERYTHROMYCIN, TRAZODONE, LEVOFLOXACIN, CELECOXIB, AND LATEX. MEDICATION: Montelukast, pantoprazole, ropinirole, oxycodone. HOME MEDICATIONS: I suspect this is ketoprofen lidocaine cream. She is also on bisacodyl, magnesium hydroxide, melatonin, Benadryl, acetaminophen, potassium and phosphorus supplementation as well as magnesium supplementation per protocol. Milnacipran, Zosyn 3.375 grams IV every 8 hours. She is also on methocarbamol, spironolactone, fentanyl and ondansetron as well as prednisone 10 mg daily, apixaban 5 mg b.i.d., sumatriptan, levalbuterol, citalopram. For details, see medication records. SOCIAL HISTORY: See H and P, old records. FAMILY HISTORY: See H and P, old records. REVIEW OF SYSTEMS: Noncontributory. PHYSICAL EXAMINATION: GENERAL: Well-developed woman, [place] [address] CONSULTATION Name: GUS NASCIMENTO Room: [address]#: [id number] Admission: 08/27/17 Attend Phys: Kota Lau MD Discharge: Date of : 75 Report #: [id number] VITAL SIGNS: Temperature 101.2 on 08/27/2017 at 2032 hours, afebrile thereafter, temperature 98, pulse 93, respirations 18, BP 104/71 today. HEENMT: Head normocephalic, atraumatic. Pupils reactive. Mouth: Upper plates, lower bridge. No thrush. NECK: Supple, no thyromegaly. CHEST: Right-sided Port-A-Cath recently inserted. Old Port-A-Cath scars in left infraclavicular area. LUNGS: Clear. HEART: S1, S2. No gallop. BREASTS: Deferred. ABDOMEN: Benign. EXTREMITIES: Right knee exam reveals minimally increased temperature compared to the left, which never had surgery. If there is an effusion, I have no patellar balloting and the knee is not as painful as I would expect with septic arthritis. Consequently, I doubt we are dealing with this problem. No pretibial edema. NEUROLOGIC: Grossly within normal limits. LABORATORY DATA: Sodium 137, potassium 3.8, BUN 9, creatinine 0.8, glucose 97. Magnesium 1.6, replaced, goes up to 2. Albumin 2.8 g/dL. WBC 7500, hemoglobin 10.6 g/dL, platelets 230,000. White blood cell count differential revealed 70% segmented neutrophils, 21% lymphocytes. Sedimentation rate 35, not compatible with septic arthritis. C-reactive protein 51.4 mg per liter, elevated; on 05/21/2017, was 49.2 mg/L. ABGs: A pH 7.42, pCO2 of 37, pO2 of 70, bicarbonate 23.9. These set of gases on FiO2 unknown, suspect room air. MICROBIOLOGY DATA: Blood cultures obtained, negative so far. RADIOLOGY EVALUATION: Chest x-ray, no acute process. Right Port-A-Cath. A knee x-ray revealed a right total knee replacement and possibly joint effusion. ASSESSMENT: 1. Fever, undetermined source. 2. Elevation of CRP, question etiology. 3. Status post recent right total knee replacement. 4. Port-A-Cath. SUGGESTIONS: The patient is clinically well, not septic looking. I doubt very much we are dealing with septic right knee. Possibly could consider discontinuation of antibiotics surely. The patient may benefit from a workup of fevers if they persist. Otherwise, we will continue observation. [address] [address] CONSULTATION Name: GUS NASCIMENTO Room: [address] IN M.R.#: [id number] Admission: 08/27/17 Attend Phys: Kota Lau MD Discharge: Date of : 75 Report #: [id number] Lau, thank you for requesting our suggestions in the care of your patient. <ELECTRONICALLY SIGNED> By: Trent Arreguin MD 09/01/17 1329 0559 [id number] Arreguin MD /dionisio
[2017-09-01 16:00] VITALS: BP 107/76
[2017-09-01 16:44] VITALS: BP 106/69
[2017-09-01 22:11] LABS: IgE 5 IU/mL (0-100)
[2017-09-02 11:13] LABS: ANA INTERPRETATION Negative (Negative); ANTI-DNA SCREEN <1 IU/mL (0-9)
[2017-09-20] MEDS ORDERED: ELIQUIS5 MG PO (10:46)
[2018-01-20] MEDS ORDERED: NYSTATIN100000 UNI SW&SWALLOW (08:58)
== END 2017-09-01 18:00 | disposition home or self-care (01) | DRG 920 ==
LOC: M.ERS 20:23 → M.2W 22:12 → M.TBA-ER 22:12 → M.2W 23:47
PROVIDERS: Internal Medicine; Personal Emergency Response Attendant; Specialist; ADMIT Internal Medicine
DX: T85.618A Breakdown (mechanical) of other specified internal prosthetic devices, implants and grafts, initial encounter (principal); D68.59 Other primary thrombophilia; R65.10 Systemic inflammatory response syndrome (SIRS) of non-infectious origin without acute organ dysfunction; J96.10 Chronic respiratory failure, unspecified whether with hypoxia or hypercapnia; F11.20 Opioid dependence, uncomplicated; R50.9 Fever, unspecified; E66.8 Other obesity; M79.7 Fibromyalgia; J44.9 Chronic obstructive pulmonary disease, unspecified; E87.6 Hypokalemia; I25.2 Old myocardial infarction; M19.90 Unspecified osteoarthritis, unspecified site; M81.0 Age-related osteoporosis without current pathological fracture; Z96.651 Presence of right artificial knee joint; N25.89 Other disorders resulting from impaired renal tubular function; E88.09 Other disorders of plasma-protein metabolism, not elsewhere classified; R22.33 Localized swelling, mass and lump, upper limb, bilateral; F32.9 Major depressive disorder, single episode, unspecified; F41.9 Anxiety disorder, unspecified; I45.81 Long QT syndrome; M47.9 Spondylosis, unspecified; K21.9 Gastro-esophageal reflux disease without esophagitis; Y83.8 Other surgical procedures as the cause of abnormal reaction of the patient, or of later complication, without mention of misadventure at the time of the procedure; Y92.89 Other specified places as the place of occurrence of the external cause; Z68.31 Body mass index [BMI] 31.0-31.9, adult; Z79.2 Long term (current) use of antibiotics; Z88.8 Allergy status to other drugs, medicaments and biological substances; Z88.1 Allergy status to other antibiotic agents; Z86.718 Personal history of other venous thrombosis and embolism; Z79.01 Long term (current) use of anticoagulants; Z86.711 Personal history of pulmonary embolism; Z91.040 Latex allergy status; Z79.899 Other long term (current) drug therapy; Z82.49 Family history of ischemic heart disease and other diseases of the circulatory system

== ENCOUNTER 2017-09-05 12:04 | Inpatient (IN) | payer MEDICARE, MEDICAID ==
[~2017-09-05] VITALS: Ht 162.6 cm; Wt 93.4 kg
[2017-09-05 12:09] VITALS: BP 122/78
[2017-09-05] MEDS ORDERED: KEFLEX500 M1 PO (12:15)
[2017-09-05 12:41] LABS: ABSOLUTE BASOPHILS 0.1 thou/uL (0.0-0.2); ABSOLUTE LYMPHOCYTES 2.6 thou/uL (0.8-5.3); ABSOLUTE MONOCYTES 0.7 thou/uL (0.0-1.2); BASOPHILS 0.5 %; EOSINOPHILS 0.3 %; HEMATOCRIT 35.7 % (37.0-47.0); HEMOGLOBIN 11.4 gm/dL (12.0-15.0); LYMPHOCYTES 23.1 %; MCH 26.5 pg (26.0-34.0); MCV 82.8 fL (80.0-100.0); MONOCYTES 5.9 %; MPV 7.1 fl. (7.2-11.1); NUCLEATED RBCS 0 /100WBC; PLATELET COUNT* 249 thou/uL (150-400); POLYS 70.2 %; RBC 4.31 mil/uL (4.20-5.00); RDW-CV 16.5 % (10.5-14.5); WBC 11.4 thou/uL (4.0-11.0)
[2017-09-05 12:46] LABS: PROTIME 10.1 Seconds (9.20-11.50)
[2017-09-05 12:48] LABS: ANION GAP 6 mmol/L (7-16); BUN 8 mg/dL (7-18); CALCIUM 8.3 mg/dL (8.5-10.1); CHLORIDE 101 mmol/L (98-107); CO2 28 mmol/L (21-32); CREATININE 0.9 mg/dL (0.6-1.3); GLUCOSE 132 mg/dL (70-99); POTASSIUM 3.4 mmol/L (3.5-5.1); SODIUM 135 mmol/L (136-145)
[2017-09-05 12:59] LABS: ALBUMIN 2.8 g/dL (3.4-5.0); ALKALINE PHOSPHATASE 64 U/L (46-116); LIPASE 96 U/L (73-393); NT-PRO BRAIN NAT PEPTIDE 83 pg/mL (<300); SGOT 10 U/L (15-37); SGPT 16 U/L (30-65); TOTAL BILIRUBIN 0.2 mg/dL (<0.1-1.0); TROPONIN-I LEVEL <0.06 ng/mL (<0.06)
[2017-09-05 15:15] VITALS: BP 108/77
[2017-09-05 15:30] VITALS: BP 118/63
--- NOTE | 2017-09-05 19:21 | NUR ---
PATIENT RESTING IN BED. VITAL SIGNS STABLE. HOULRY ROUNDING FOR PATIENT SAFETY. ADMISSION COMPLETED. FLUIDS PER ORDERS.
[2017-09-05 20:42] VITALS: BP 108/72
[2017-09-06 00:08] VITALS: BP 108/48
[2017-09-06 03:50] VITALS: BP 102/64
--- NOTE | 2017-09-06 04:14 | NUR ---
RECEIVED REPORT AND ASSUMED CARE AT 1900. VSS. CARDIAC MONITORING IN PLACE. ASSESSMENT COMPLETED CHARTED. PT UP ADLIB IN ROOM, ON 1L NC. MEDICATIONS ADMIN PER EMAR. HOURLY ROUNDING COMPLETED AND ALL NEEDS MET.WILL CONTINUE TO MONITOR FOR REMAINDER OF THE SHIFT
[2017-09-06 08:00] VITALS: BP 112/78
--- NOTE | 2017-09-06 12:09 | NUR ---
SW met with pt to complete initial assessment, introduce self, and review role of CM. Pt had recent admission to hospital. Pt alert, oriented. Pt lives with her significant other and 3 children. Pt has hx and preference for [facility] and [facility] infusion services for IV abx if needed. Pt has walker but says she does not use it as she has been independently ambulating. Pt has CPAP and oxygen through [facility]. Pt wanted SW to notarize pt letter stating that her mother could take her children to doctor's appts and help make decisions. Pt wrote a statement and signed, SW notarized. SW to continue to follow to assist with safe dc planning.
[2017-09-06 13:24] VITALS: BP 127/80
--- NOTE | 2017-09-06 15:01 | EKG ---
[place] [address] ELECTROCARDIOGRAM REPORT Name: GUS NASCIMENTO Room: [address] IN [facility].#: [id number] Admission: 09/05/17 Attend Phys: Lucas Fatima Discharge: Date of : 75 Report #: [id number] THIS REPORT FOR: //name// 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: PARK : 1975 Requested By: Nic Hassan Order Number: [id number] MD: Enrique Lee Measurements Intervals [place] Rate: 140 P: 60 NV: 132 QRS: 33 QRSD: 96 T: -9 QT: 290 QTc: 443 Interpretive Statements Sinus tachycardia Borderline T abnormalities, inferior leads Baseline wander in lead(s) V1,V3 Compared to ECG 10/02/2016 12:35:41 Sinus rhythm no longer present Electronically Signed On 09-06-2017 15:01:05 CDT by Enrique Lee [email or web address] <ELECTRONICALLY SIGNED> By: Enrique Lee MD, FAC 09/06/17 1501 1219 1219 Enrique Lee MD, [facility] /EPI
[2017-09-06 17:11] VITALS: BP 132/85
--- NOTE | 2017-09-06 20:09 | NUR ---
PRECIOUSNET RESTING IN BED. UNEVENTFUL SHIFT. VITAL SIGNS STABLE AND PATIENT IN NOAPPARENT DISTRESS. HOURLY ROUNDING FOR PATIENT SAFETY AND DEANGELO IS PARTICIPATING IN PLAN OF CARE.
[2017-09-07] VITALS: BP 119/84
[2017-09-07 04:00] VITALS: BP 115/76
--- NOTE | 2017-09-07 04:35 | NUR ---
ASSUMED PT CARE AT 1930, PT IS A&OX4, PT IS TRACING ON NSR ON THE MONITOR. ON 2L NC SATTING MID TO HIGH 90'S. PT C/O PAIN THROUGHOUT THE NIGHT. SCHED PAIN MEDICATIONS GIVEN PER MAR. PT IS UP AD LIBIN HER ROOM. IVF INFUSING PER MAR. PT WAS AWAKE ALL NIGHT. BED IN LOW POSITION, CALL LIGHT IN REACH, HOURLY ROUNDING COMPLETED FOR PT SAFETY.
--- NOTE | 2017-09-07 07:35 | CON ---
[address] [address] CONSULTATION Name: GUS NASCIMENTO Room: [address] IN M.R.#: [id number] Admission: 09/05/17 Attend Phys: Lucas Fatima Discharge: Date of : 75 Report #: [id number] THIS REPORT FOR: //name// CC: Eliseo Dahl DATE OF SERVICE: 09/06/2017 ATTENDING PHYSICIAN: Dr. Dahl. REASON FOR EVALUATION: Fevers. HISTORY OF PRESENT ILLNESS: Chart reviewed, patient examined. This 41-year-old well known to myself, has extensive medical history given her age, was actually just hospitalized with fevers earlier this month. Evaluation was undertaken including exclusion of any infections, blood cultures were sterile. Did have a site in her right chest, recent port implantation. She had some necrosis, however, that had been cultured previously, was felt to be sterile by the surgeon. She did repeat culture, which has returned after a week, has growth of Staphylococcus aureus in the broth only. On discharge, she generally felt fairly well. She has ongoing issues with nodular type eruption, has been biopsied as well, felt microscopically to be consistent with keloid. She does have ongoing issue with recurrent thrombus at various sites, has been on anticoagulation as well. On the morning of admission, she did develop some fevers high-grade to 102-103 range and was instructed to come to the Emergency Room where she was readmitted. The evaluation was nonspecific in terms of a chest x-ray was unremarkable. Lactic acid was elevated at 2.4. She was admitted and placed empirically on vancomycin. She does feel better today. She has generalized discomfort which is her baseline. ALLERGIES: LISTED TO CITALOPRAM, DULOXETINE, DOXYCYCLINE, ERYTHROMYCIN, TRAZODONE, LEVOFLOXACIN, CELECOXIB AND LATEX. CURRENT MEDICATIONS: Include montelukast, diltiazem CD, prednisone, apixaban, escitalopram, milnacipran, spironolactone, pantoprazole, vancomycin. Methocarbamol, ropinirole, fentanyl, ondansetron, nitroglycerin as needed. Levalbuterol, oxycodone, ipratropium and albuterol inhaler. PAST MEDICAL HISTORY: As described above, chronic pain, requiring stimulator at times. Chronic bronchitis, COPD, chronic anemia, avascular necrosis of the hips, shoulders, knees, depression, anxiety, question rheumatoid arthritis, recurrent shingles, spondylosis, osteoporosis, pulmonary embolism x 5, hypercoagulable state. Reflux, fibromyalgia, history of C. diff, MRSA Gitelman syndrome. SOCIAL HISTORY: Nonsmoker[place] [address] CONSULTATION Name: GUS NASCIMENTO Room: [address] IN [facility].#: [id number] Admission: 09/05/17 Attend Phys: Lucas Fatima Discharge: Date of : 75 Report #: [id number] FAMILY HISTORY: Noncontributory. REVIEW OF SYSTEMS: As above. PHYSICAL EXAMINATION: GENERAL: She appears ill acute on chronically. She is in [id number]-dg-[id number] distress. She is lucid, appears undernourished. VITAL SIGNS: Temperature 97.7, T-max of 102.8 yesterday. Pulse 70, respirations 16, blood pressure 112/78. SKIN: Warm, dry, no rashes. HEENT: Nasal cannula oxygen in place. NECK: Supple. LUNGS: Diminished breath sounds. I do not appreciate any evidence of any consolidation. HEART: Regular, I do not appreciate any murmur. ABDOMEN: Soft, nontender. The port site on the chest x-ray looks a bit better. GENITOURINARY AND RECTAL: Deferred. LABORATORY DATA: Blood cultures collected on the are negative thus far. Prealbumin of 16.3. Lactic acid 1.0, is down from 2.4. Electrolytes: Sodium 135, potassium 3.4, chloride 101, bicarbonate is 28, anion gap of 6, BUN and creatinine 8 and 0.9. LFTs unremarkable. Albumin of 2.8. Total protein 7.0. Estimated GFR 69. PT 10.1, INR 1.0. Chest x-ray, no acute process. CBC: White count of 11.4, H and H 11.4 and 35.7, platelets of 249. Culture actually from the with growth of Staph aureus in broth only from the Port-A-Cath site. ASSESSMENT: Febrile illness. The patient has multiple medical problems; however, it is reasonable to continue the vancomycin. She does have history of methicillin-resistant staphylococcus aureus. We will await susceptibilities. The site actually appears better. There is no evidence of septicemia. Certainly a concern about a foreign body related infection, whether this needs be removed. Thus far, Dr. Bell, surgeon, is trying to maintain it well. Continue to evaluate for other sources. I am concerned that fevers may be in part related to some noninfectious cause such as immune driven. I think it is important that she see a information systems planner. It is unclear exactly why it has been going on for a number of years, and she has never seen one. She notes made. We will see how she does. I suspect we will continue antibiotics even after she is discharged. <ELECTRONICALLY SIGNED> By: Mehdi Salgado MD 09/07/17 0735 1117 [id number] Salgado MD /nt
[2017-09-07 08:13] VITALS: BP 119/71
[2017-09-07 12:27] VITALS: BP 108/68
[2017-09-07 14:29] LABS: URINE BILIRUBIN NEGATIVE (Negative); URINE BLOOD NEGATIVE (Negative); URINE CLARITY CLEAR; URINE COLOR YELLOW; URINE GLUCOSE-RANDOM NEGATIVE (Negative); URINE KETONES NEGATIVE (Negative); URINE LEUKOCYTES-REFLEX NEGATIVE (Negative); URINE NITRITE-REFLEX NEGATIVE (Negative); URINE PROTEIN NEGATIVE (Negative); URINE UROBILINOGEN 0.2 E.U./dl (0.2-1.0)
[2017-09-07 16:45] VITALS: BP 123/81
--- NOTE | 2017-09-07 17:50 | NUR ---
ASSUMED CARE OF PATIENT AFTER REPORT THIS MORNING. PATIENT AWAKE, ALERT, AND ORIENTED APPROPRIATELY. PHYSICAL ASSESSMENT COMPLETED AND CHARTED. COMPLAINED OF PAIN. GIVEN SCHEDULED AND PRN MEDICATIONS, SEE EMAR FOR DOCUMENTATION. VITAL SIGNS STABLE. OXYGEN SATURATION WITHIN NORMAL LIMITS ON 2 LPM PER NASAL CANULA. PATIENT IS UP AD RONNA. USES CALL LIGHT APPROPRIATELY, WITHIN REACH. DENIES NEEDS AT THIS TIME. NURSING WILL CONTINUE TO MONITOR.
[2017-09-07 19:50] VITALS: BP 128/81
[2017-09-08] VITALS: BP 120/79
[2017-09-08 04:00] VITALS: BP 116/76
--- NOTE | 2017-09-08 05:04 | NUR ---
ASSUMED PATIENT CARE AT 1930. PATIENT IS A&O X4, UAL. VSS. SR-ST (80S-100S) ON TELEMETRY THROUGHOUT SHIFT. O2 97% ON 2L NC. PT C/O PAIN IN HIPS AND KNEES; SCHEDULED PAIN MEDS GIVEN SEE APR. RIGHT UA PICC WITH NS AT 100 ML/HR. HOURLY ROUNDING PERFORMED. WILL CONTINUE TO MONITOR PT FOR REMAINDER OF SHIFT.
[2017-09-08 07:59] VITALS: BP 127/78
--- NOTE | 2017-09-08 09:32 | NUR ---
ASSUMED CARE OF PATIENT AFTER REPORT THIS MORNING. PATIENT AWAKE, ALERT, AND ORIENTED APPROPRIATELY. PHYSICAL ASSESSMENT COMPLETED AND CHARTED. COMPLAINED OF PAIN. GIVEN SCHEDULED MEDICATIONS, SEE EMAR FOR DOCUMENTATION. VITAL SIGNS STABLE. OXYGEN SATURATION WITHIN NORMAL LIMITS ON 2 LPM PER NASAL CANULA. PATIENT IS UP AD RONNA. USES CALL LIGHT APPROPRIATELY. DENIES NEEDS AT THIS TIME. CALL LIGHT WITHIN REACH. NURSING WILL CONTINUE TO MONITOR.
--- NOTE | 2017-09-08 10:06 | NUR ---
RAVINDER faxed referral and IV abx initial information to [facility] and [facility] agency in preparation for pt to dc possibly soon. [facility] ph [phone] fax [phone] [facility] ph [phone] fax [phone] SW to continue to follow to assist with safe dc planning.
[2017-09-08 12:30] VITALS: BP 118/74
[2017-09-08 17:39] VITALS: BP 128/82
--- NOTE | 2017-09-08 17:49 | NUR ---
PATIENT REMAINS ALERT AND ORIENTED APPROPRIATELY. NO REQUESTS FOR PRN MEDICATIONS. GIVEN SCHEDULED MEDICATIONS, SEE EMAR FOR DOCUMENTATION. PATIENT HAS BEEN UP AD RONNA WITHOUT DIFFICULTY. DENIES NEEDS AT THIS TIME. CALL LIGHT WITHIN REACH. NURSING WILL CONTINUE TO MONITOR.
[2017-09-08 20:33] VITALS: BP 126/84
[2017-09-09] VITALS: BP 131/81
[2017-09-09 04:00] VITALS: BP 123/84
--- NOTE | 2017-09-09 05:43 | NUR ---
VSS. Up ad georgie in room. Received scheduled pain medications except for 0100 dose since pt was asleep. Rates pain between 4 and 6 of 0-10 scale. No other complaints. Will likely discharge today. Will continue to monitor.
[2017-09-09 08:00] VITALS: BP 136/86
[2017-09-09 12:29] VITALS: BP 136/86
--- NOTE | 2017-09-09 13:20 | NUR ---
PT TO DISCHARGE HOME SCRIPTS GIVEN AND MEDICARE SHEET SIGNED FOLLOW UP APPOINTMENTS TO BE MADE NUMBERS AND DOCTOR INFORMATION GIVEN NO CONCERNS AT THIS TIME PT IS AWARE OF TREATMENT
--- NOTE | 2017-09-15 12:20 | NUR ---
RECEIVED CALL FROM PT ASKING ABOUT RHEUMATOLOGY REFERRAL TO [facility]. DISCUSSED WITH DR WADE. HE ASKED THAT CM GO AHEAD AND MAKE REFERRAL. CALL TO [facility] REF LINE, SPOKE WITH JOSE. SHE STATED THAT THE REFERRAL FORM AND CHART INFO BE FAXED IN TO [phone]. done. PT MADE AWARE THAT [facility] WILL CONTACT HER
[2017-09-20] MEDS ORDERED: ELIQUIS5 MG PO (10:46)
--- NOTE | 2017-09-21 13:16 | NUR ---
RECEIVED FAX FROM [facility] RE: REFERRAL TO RHEUMATOLOGY. DECLINES PT AT THIS TIME AND SUGGESTED SHE RETURN TO THAT HAD TREATED HER CONDITION. DISCUSSED WITH DR KENDALL. HE ASKED THAT REFERRAL BE MADE TO [facility]. [phone], HAD TO LEAVE MESSAGE TO ARRANGE APPT. AWAIT CALL BACK
[2018-01-20] MEDS ORDERED: NYSTATIN100000 UNI SW&SWALLOW (08:58)
== END 2017-09-09 14:15 | disposition home or self-care (01) | DRG 314 ==
LOC: M.ERS 12:04 → M.2W 13:11 → M.TBA-ER 13:11 → M.2W 15:15
PROVIDERS: Family Medicine; ADMIT Internal Medicine
DX: T80.219A Unspecified infection due to central venous catheter, initial encounter (principal); J96.20 Acute and chronic respiratory failure, unspecified whether with hypoxia or hypercapnia; R65.11 Systemic inflammatory response syndrome (SIRS) of non-infectious origin with acute organ dysfunction; E44.0 Moderate protein-calorie malnutrition; B99.9 Unspecified infectious disease; J44.9 Chronic obstructive pulmonary disease, unspecified; F32.9 Major depressive disorder, single episode, unspecified; F41.9 Anxiety disorder, unspecified; K21.9 Gastro-esophageal reflux disease without esophagitis; Z96.651 Presence of right artificial knee joint; N15.8 Other specified renal tubulo-interstitial diseases; Z82.49 Family history of ischemic heart disease and other diseases of the circulatory system; M81.0 Age-related osteoporosis without current pathological fracture; Z86.711 Personal history of pulmonary embolism; I25.2 Old myocardial infarction; Z88.8 Allergy status to other drugs, medicaments and biological substances; Z88.1 Allergy status to other antibiotic agents; Z91.040 Latex allergy status; Z68.35 Body mass index [BMI] 35.0-35.9, adult

== ENCOUNTER → 2017-09-14 | Outpatient (CLI) | payer MEDICARE, MEDICAID ==
[~2017-09-14] MED LIST changes: +EFFEXOR XR37.5 MG PO; +ELIQUIS5 MG PO; +FLORASTOR250 MG PO; +KEFLEX500 M2 PO; +LINEZOLID600 MG PO; +NYSTATIN100000 UNI SW&SWALLOW; +PREDNISONE 20 M20 M1 PO
--- NOTE | 2017-09-14 13:01 | NUR ---
ARRIVED TO OUT PT INFUSION AMBULATORY. MADE SELF COMFORTABLE ON CART. RISK AND BENIFIT OF PICC REVIEWED. PT VOICED UNDERSTANDING AND AGREED. OVER WIRE EXCHANGE OF PICC PER HOPITAL PROTOCOL. TIP OF REMOVED PICC SENT FOR CULTURE PER ORDER. NEW PICC DIFFICULT PLACEMENT WITH PICC WANTING TO COIL PRIOR TO SVC. 1ST X-RAY SHOWED TIP COIL. LINE REPOSITIONED AND ADVANCED WITH OUT DIFFICULTY. 2ND CHEST X-RAY SHOWS TIP IN GOOD POSITION IN DISTAL SVC AT CAJ. LINE WAS TRIMMED AT 42CM AND ADVANCED TO HUB.
== END ==
LOC: M.INFUS 08:56 → M.INT 10:30
DX: Z45.2 Encounter for adjustment and management of vascular access device (principal)

== ENCOUNTER → 2017-09-20 | Day surgery (SDC) | payer MEDICARE, MEDICAID ==
--- NOTE | 2017-09-19 12:22 | H ---
[place] [address] HISTORY AND PHYSICAL Name: GUS NASCIMENTO Room: [facility].#: [id number] Admission: Attend Phys: Arabella Escudero MD Discharge: Date of : 75 Report #: [id number] THIS REPORT FOR: //name// CC: Eliseo Escudero To be treated on 09/20/2017/ ADMITTING DIAGNOSIS: Failed Port-A-Cath with infection. HISTORY OF PRESENT ILLNESS: The patient is a patient well known to me, is 41 years of age with a history of Gitelman syndrome, fibromyalgia, COPD, sleep apnea, osteoporosis, who presented 2 months after placement of a Port-A-Cath from her left side to her right side and the left side had to be removed because it eroded through to her skin. The right-sided one was placed on 07/11/2017, it got erythema, it started getting infected, so we started treating it conservatively. We placed a PICC line in her right upper extremity, but the wound continued to break down and open and now this port has now got exposure as well. 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 PAST SURGICAL HISTORY: Her other surgical history includes right total knee replacement, I and D of her ankle, right hip saucerization, tubal ligation. MEDICATIONS: Fentanyl, docusate, Lexapro, Xarelto, DuoNeb inhaler, potassium, oral Prilosec, clonidine, Xanax, and Requip. SOCIAL HISTORY: She does not smoke or drink or use illegal drugs. PHYSICAL EXAMINATION: GENERAL: Modestly obese, well-developed female, slightly anxious. HEAD, EARS, EYES, NOSE AND THROAT: Unremarkable. NECK: Supple. LUNGS: Clear. CARDIAC: Regular rate and rhythm without murmur. ABDOMEN: Soft. CHEST: On her chest wall on the right side, there is an ulcerative wound with a protruding port capsule with sutures. There is some mild erythema, but no tenderness or rebound. EXTREMITIES: Her upper extremities noted nodularity and red excoriations on the surface of her skin with deep subcutaneous nodules of both upper extremities, but not on the chest wall or the abdomen. Her extremities have a healed right open scar from her knee replacement and some mild edema. IMPRESSION: [place] [address] HISTORY AND PHYSICAL Name: GUS NASCIMENTO Room: [facility].#: [id number] Admission: Attend Phys: Arabella Escudero MD Discharge: Date of : 75 Report #: [id number] PLAN: Surgical removal with packing for delayed healing and closure. I have outlined the surgical procedure, its risks and benefits. Answered her questions. She understands and wishes to proceed. <ELECTRONICALLY SIGNED> By: Arabella Escudero MD 09/19/17 1222 1129 [id number] Escudero MD /nt
[2017-09-20 10:56] LABS: CALCIUM 8.8 mg/dL (8.5-10.1); CREATININE 1.1 mg/dL (0.6-1.3); POTASSIUM 3.5 mmol/L (3.5-5.1)
--- NOTE | 2017-10-04 09:45 | OP ---
[address] [address] OPERATIVE REPORT Name: GUS NASCIMENTO Room: [facility]#: [id number] Admission: 09/20/17 Attend Phys: Arabella Escudero MD Discharge: Date of : 75 Report #: [id number] THIS REPORT FOR: //name// CC: Eliseo Escudero DATE OF SERVICE: 09/20/2017 PREOPERATIVE DIAGNOSIS: Failed infected right subclavian Port-A-Cath. POSTOPERATIVE DIAGNOSIS: Failed infected right subclavian Port-A-Cath. OPERATIVE PROCEDURE: Removal of right Port-A-Cath. ANESTHESIA: IV sedation with 1% lidocaine and 0.5% Marcaine infiltrated into the wound site. DESCRIPTION OF PROCEDURE: The patient was placed in the supine position and placed under IV sedation, and the patient's right subclavicular area was carefully prepped and draped in our usual sterile fashion. A timeout was taken. Antibiotics were administered. We began by infiltrating around the port site and incision site with Marcaine, lidocaine mixture and opened wound by approximately a centimeter on each side for a total length of 3 cm. I then was able to reach and dissect away the port, cut at sutures and removed them and retrieved the total port and catheter in one piece. Pressure was applied until bleeding had ceased. The wound was irrigated and then packed with Aquacel Ag and covered with a bordered foam dressing. Estimated blood loss 1 mL. Sponge and instrument counts correct. The patient was returned to recovery in stable condition. <ELECTRONICALLY SIGNED> By: Arabella Ecsudero MD 10/04/17 0945 1355 [id number] Escudero MD /nt
== END | disposition home or self-care (01) ==
LOC: M.SUR 07:20
PROVIDERS: Surgery
DX: T80.219A Unspecified infection due to central venous catheter, initial encounter (principal); J44.9 Chronic obstructive pulmonary disease, unspecified; G43.909 Migraine, unspecified, not intractable, without status migrainosus; F41.9 Anxiety disorder, unspecified; D64.9 Anemia, unspecified; E66.09 Other obesity due to excess calories; Z96.651 Presence of right artificial knee joint; Z98.51 Tubal ligation status; Z98.890 Other specified postprocedural states; Z79.899 Other long term (current) drug therapy; Y83.8 Other surgical procedures as the cause of abnormal reaction of the patient, or of later complication, without mention of misadventure at the time of the procedure

== ENCOUNTER → 2017-09-24 | Outpatient (CLI) | payer MEDICARE, MEDICAID ==
[~2017-09-24] MED LIST changes: -NYSTATIN100000 UNI SW&SWALLOW; -PREDNISONE 20 M20 M1 PO
[2017-09-24 09:15] VITALS: BP 118/75
--- NOTE | 2017-09-24 10:00 | NUR ---
ASSUMED CARE OF PATIENT. PT WAS EDUCATED ON PLAN OF CARE AND WOUND CARE. RIGHT CHEST SURGICAL WOUND DRESSING CHANGED PER PHYSCIAN ORDER. PICC LINE DRESSING WAS CHANGED. PT WAS EDUCATED ON WOUND CARE CLINIC APPT.
[2017-09-24 10:44] LABS: CALCIUM 8.6 mg/dL (8.5-10.1); POTASSIUM 3.1 mmol/L (3.5-5.1)
[2017-09-24 12:00] VITALS: BP 120/76
[2017-09-24 14:00] VITALS: BP 109/70
--- NOTE | 2017-09-24 14:10 | NUR ---
TOLERATED INFUSION WELL. UP AD RONNA DURING INFUSION WITH STEADY GAIT. RIGHT AC PICC LINE WITH BRISK BLOOD RETURN, FLUSHED WELL. FLUSHED PER PROTOCOL. DISMISSED HOME IN GOOD CONDITION.
== END ==
LOC: M.INFUS 01:39
PROVIDERS: Internal Medicine Nephrology
DX: E87.6 Hypokalemia (principal)

== ENCOUNTER → 2017-09-27 | Outpatient (CLI) | payer MEDICARE, MEDICAID ==
[2017-09-27 11:40] VITALS: BP 132/84
[2017-09-27 12:10] LABS: CALCIUM 8.4 mg/dL (8.5-10.1); CREATININE 0.9 mg/dL (0.6-1.3); POTASSIUM 3.7 mmol/L (3.5-5.1)
== END ==
LOC: M.INFUS 00:57 → M.WC 00:57 → M.INFUS 09:00
PROVIDERS: Internal Medicine Nephrology
DX: E87.6 Hypokalemia (principal); T81.31XA Disruption of external operation (surgical) wound, not elsewhere classified, initial encounter; Y83.8 Other surgical procedures as the cause of abnormal reaction of the patient, or of later complication, without mention of misadventure at the time of the procedure

== ENCOUNTER → 2017-10-01 | Outpatient (CLI) | payer MEDICARE, MEDICAID ==
[2017-10-01 10:35] VITALS: BP 112/68
[2017-10-01 11:17] LABS: CALCIUM 8.7 mg/dL (8.5-10.1); CREATININE 0.9 mg/dL (0.6-1.3); POTASSIUM 3.7 mmol/L (3.5-5.1)
[2017-10-01 14:44] VITALS: BP 120/71
--- NOTE | 2017-10-01 14:56 | NUR ---
ARRIVED AMBULATORY. MADE SELF COMFORTABLE IN RECINER. PICC DRESSING CHANGED AND LABS DRAWN. INFUSION COMPLETED AND TOELRATED WELL. C/O PAIN AT INSERTION SITE OF PICC. NO SIGN OF INFECTION NOTED. DENIES QUESTIONS OR NEEDS AT DISCHARGE.
== END ==
LOC: M.INFUS 01:13
PROVIDERS: Internal Medicine Nephrology
DX: E87.6 Hypokalemia (principal)

== ENCOUNTER 2017-10-02 09:04 | Emergency (ER) | payer MEDICARE, MEDICAID ==
[~2017-10-02] VITALS: Ht 162.6 cm; Wt 89.4 kg
[~2017-10-02 09:04] MED LIST changes: -EFFEXOR XR37.5 MG PO; -FLORASTOR250 MG PO; -KEFLEX500 M2 PO; -LINEZOLID600 MG PO
[2017-10-02 10:21] LABS: ABSOLUTE LYMPHOCYTES 1.7 thou/uL (0.8-5.3); ABSOLUTE MONOCYTES 0.4 thou/uL (0.0-1.2); ABSOLUTE NEUTROPHILS 5.9 thou/uL (1.6-8.1); BASOPHILS 0.4 %; EOSINOPHILS 0.6 %; HEMATOCRIT 35.1 % (37.0-47.0); HEMOGLOBIN 11.2 gm/dL (12.0-15.0); LYMPHOCYTES 20.9 %; MCH 25.6 pg (26.0-34.0); MCHC 31.9 g/dL (28.0-37.0); MONOCYTES 4.9 %; NUCLEATED RBCS 0 /100WBC; PLATELET COUNT* 319 thou/uL (150-400); POLYS 73.2 %; RBC 4.39 mil/uL (4.20-5.00); RDW-CV 15.7 % (10.5-14.5); WBC 8.1 thou/uL (4.0-11.0)
[2017-10-02 10:27] LABS: CALCIUM 8.9 mg/dL (8.5-10.1); CREATININE 0.9 mg/dL (0.6-1.3); POTASSIUM 4.4 mmol/L (3.5-5.1)
[2017-10-02 10:31] LABS: TOTAL BILIRUBIN 0.3 mg/dL (<0.1-1.0); TOTAL PROTEIN 7.3 g/dL (6.4-8.2)
[2017-10-02] MEDS ORDERED: KEFLEX500 M1 PO (12:19)
[2017-10-02 12:33] VITALS: BP 101/60
[2018-01-20] MEDS ORDERED: NYSTATIN100000 UNI SW&SWALLOW (08:58)
== END 2017-10-02 12:37 | disposition home or self-care (01) ==
LOC: M.ERS 09:04
PROVIDERS: Personal Emergency Response Attendant
DX: L03.114 Cellulitis of left upper limb (principal); J44.9 Chronic obstructive pulmonary disease, unspecified; F32.9 Major depressive disorder, single episode, unspecified; M81.0 Age-related osteoporosis without current pathological fracture; K21.9 Gastro-esophageal reflux disease without esophagitis; M79.7 Fibromyalgia; Z86.2 Personal history of diseases of the blood and blood-forming organs and certain disorders involving the immune mechanism; Z95.5 Presence of coronary angioplasty implant and graft; Z96.651 Presence of right artificial knee joint; Z91.040 Latex allergy status; Z88.1 Allergy status to other antibiotic agents; Z88.8 Allergy status to other drugs, medicaments and biological substances

== ENCOUNTER → 2017-10-04 | Outpatient (CLI) | payer MEDICARE, MEDICAID ==
[~2017-10-04] MED LIST changes: +EFFEXOR XR37.5 MG PO; +FLORASTOR250 MG PO; +KEFLEX500 M2 PO; +LINEZOLID600 MG PO
[2017-10-04 10:45] VITALS: BP 102/64
[2017-10-04 11:15] LABS: CALCIUM 8.4 mg/dL (8.5-10.1); POTASSIUM 3.6 mmol/L (3.5-5.1)
[2017-10-04 14:40] VITALS: BP 112/74
== END ==
LOC: M.INFUS 01:00
PROVIDERS: Internal Medicine Nephrology
DX: E87.6 Hypokalemia (principal); T81.31XD Disruption of external operation (surgical) wound, not elsewhere classified, subsequent encounter; Y83.8 Other surgical procedures as the cause of abnormal reaction of the patient, or of later complication, without mention of misadventure at the time of the procedure

== ENCOUNTER → 2017-10-08 | Outpatient (CLI) | payer MEDICARE, MEDICAID ==
[2017-10-08 10:40] VITALS: BP 115/69
[2017-10-08 11:19] LABS: CALCIUM 8.8 mg/dL (8.5-10.1); CREATININE 0.9 mg/dL (0.6-1.3); POTASSIUM 3.5 mmol/L (3.5-5.1)
--- NOTE | 2017-10-08 15:09 | NUR ---
ARRIVED AMBULATORY. MADE SELF COMFORTABLE IN RECLINER. PICC INTACT WITH DRESSING C/D/I. PICC DRESSING CHANGED. LINE PATENT WITH GOOD BRISK BLOOD RETURN AND EASY FLUSH. INFUSION COMPLETED AND TOLERATED WELL.
== END ==
LOC: M.INFUS 01:51
PROVIDERS: Internal Medicine Nephrology
DX: E87.6 Hypokalemia (principal)

== ENCOUNTER → 2017-10-15 | Outpatient (CLI) | payer MEDICARE, OTHER, MEDICAID ==
[2017-10-15 10:05] VITALS: BP 111/71
[2017-10-15 10:56] LABS: CALCIUM 8.6 mg/dL (8.5-10.1); CREATININE 0.9 mg/dL (0.6-1.3); POTASSIUM 3.5 mmol/L (3.5-5.1)
[2017-10-15 14:20] VITALS: BP 120/75
--- NOTE | 2017-10-15 14:28 | NUR ---
ARRIVED MAUBLATORY. MADE SELF COMFORTABLE. PICC INTACT WITH DRESSING C/D/I AND OCCLUSIVE. PICC PATENT. LABS DRAWN. PICC DRESSING CHANGED. INFUSION COMPLETED AND TOLERATED WELL. PICC FLUSHED. DENIES NEEDS AT DISCHARGE.
--- NOTE | 2017-10-16 17:56 | NUR ---
10/13/17 1750 PT REPORTS PICC LINE INSERTION SITE PAINFUL. NO REDNESS,SWELLING OR DISCHARGE NOTED. DRESSING CHANGED USING STERILE TECHNIQUE. ENCOURAGED PT TO SEEK MEDICAL ATTENTION IF DRAINAGE,REDNESS OR SWELLING
== END ==
LOC: M.INFUS 03:34
PROVIDERS: Internal Medicine Nephrology
DX: E87.6 Hypokalemia (principal)

== ENCOUNTER 2017-10-20 10:47 | Emergency (ER) | payer MEDICARE, MEDICAID ==
[~2017-10-20] VITALS: Ht 162.6 cm; Wt 90.0 kg
[~2017-10-20 10:47] MED LIST changes: -EFFEXOR XR37.5 MG PO; -FLORASTOR250 MG PO; -KEFLEX500 M2 PO; -LINEZOLID600 MG PO
[2017-10-20 11:26] LABS: ABSOLUTE BASOPHILS 0.1 thou/uL (0.0-0.2); ABSOLUTE EOSINOPHILS 0.1 thou/uL (0.0-0.7); ABSOLUTE LYMPHOCYTES 2.4 thou/uL (0.8-5.3); ABSOLUTE MONOCYTES 0.7 thou/uL (0.0-1.2); ABSOLUTE NEUTROPHILS 4.4 thou/uL (1.6-8.1); BASOPHILS 0.8 %; HEMOGLOBIN 10.6 gm/dL (12.0-15.0); MCH 24.7 pg (26.0-34.0); MCHC 31.2 g/dL (28.0-37.0); MCV 79.2 fL (80.0-100.0); MONOCYTES 8.6 %; MPV 6.8 fl. (7.2-11.1); NUCLEATED RBCS 0 /100WBC; PLATELET COUNT* 344 thou/uL (150-400); POLYS 57.6 %; RBC 4.29 mil/uL (4.20-5.00); RDW-CV 15.8 % (10.5-14.5); WBC 7.6 thou/uL (4.0-11.0)
[2017-10-20 11:42] LABS: CALCIUM 8.1 mg/dL (8.5-10.1); CREATININE 0.9 mg/dL (0.6-1.3); POTASSIUM 3.3 mmol/L (3.5-5.1)
[2017-10-20 11:46] LABS: ALBUMIN 2.9 g/dL (3.4-5.0); TOTAL BILIRUBIN 0.2 mg/dL (<0.1-1.0); TOTAL PROTEIN 7.2 g/dL (6.4-8.2)
[2017-10-20 12:27] LABS: URINE BILIRUBIN NEGATIVE (Negative); URINE BLOOD NEGATIVE (Negative); URINE CLARITY CLEAR; URINE COLOR YELLOW; URINE GLUCOSE-RANDOM NEGATIVE (Negative); URINE KETONES TRACE (Negative); URINE LEUKOCYTES-REFLEX NEGATIVE (Negative); URINE NITRITE-REFLEX NEGATIVE (Negative); URINE PROTEIN NEGATIVE (Negative); URINE SPECIFIC GRAVITY 1.025 (1.005-1.030); URINE UROBILINOGEN 0.2 E.U./dl (0.2-1.0)
[2017-10-20 14:37] VITALS: BP 96/63
[2018-01-20] MEDS ORDERED: NYSTATIN100000 UNI SW&SWALLOW (08:58)
== END 2017-10-20 14:39 | disposition home or self-care (01) ==
LOC: M.ERS 10:47
PROVIDERS: Nurse Practitioner Family
DX: B34.9 Viral infection, unspecified (principal); J44.9 Chronic obstructive pulmonary disease, unspecified; F32.9 Major depressive disorder, single episode, unspecified; F41.9 Anxiety disorder, unspecified; K21.9 Gastro-esophageal reflux disease without esophagitis; M81.0 Age-related osteoporosis without current pathological fracture; I26.99 Other pulmonary embolism without acute cor pulmonale; M79.7 Fibromyalgia; Z95.5 Presence of coronary angioplasty implant and graft; Z96.651 Presence of right artificial knee joint; Z86.2 Personal history of diseases of the blood and blood-forming organs and certain disorders involving the immune mechanism; Z88.1 Allergy status to other antibiotic agents; Z91.040 Latex allergy status; Z88.8 Allergy status to other drugs, medicaments and biological substances; Z98.890 Other specified postprocedural states

== ENCOUNTER → 2017-10-22 | Outpatient (CLI) | payer MEDICARE, OTHER, MEDICAID ==
[~2017-10-22] MED LIST changes: +EFFEXOR XR37.5 MG PO; +FLORASTOR250 MG PO; +KEFLEX500 M2 PO; +LINEZOLID600 MG PO; +NYSTATIN100000 UNI SW&SWALLOW; +PREDNISONE 20 M20 M1 PO
[2017-10-22 10:25] VITALS: BP 116/68
[2017-10-22 11:08] LABS: CALCIUM 8.3 mg/dL (8.5-10.1); CREATININE 0.8 mg/dL (0.6-1.3); POTASSIUM 3.1 mmol/L (3.5-5.1)
[2017-10-22 14:07] VITALS: BP 120/83
--- NOTE | 2017-10-22 14:30 | NUR ---
ARRIVED AMBULATORY. MADE SLEF COMFORTABLE IN RECLINER PICC DRESSING CHANGED. LABS DRAWN. INFUSION COMPLETED AND TOLERATED WELL. PICC FLUSHED. PT SEEN IN ED THIS WEEK FOR ELEVATED TEMP. TOLD IT WAS VIRUS. BLOOD CULTURES NOTED TO SHOW NO GROWTH. PT INSTRUCTED TO CONTACT PRIMARY DOCTOR OR GO BACK TO ED IF SYMPTOMS CONTINUE.
== END ==
LOC: M.INFUS 02:25
PROVIDERS: Internal Medicine Nephrology
DX: E87.6 Hypokalemia (principal)

== ENCOUNTER → 2017-10-29 | Outpatient (CLI) | payer MEDICARE, MEDICAID ==
[2017-10-29 10:12] VITALS: BP 134/74
[2017-10-29 10:55] LABS: CALCIUM 8.6 mg/dL (8.5-10.1); CREATININE 0.8 mg/dL (0.6-1.3); POTASSIUM 3.6 mmol/L (3.5-5.1)
--- NOTE | 2017-10-29 14:41 | NUR ---
PICC LINE PATENT, DRESSING CHANGED. INFUSION COMPLETED AND TOERLATED WELL. DENIES NEEDS AT DISCHARGE.
== END ==
LOC: M.INFUS 02:15
PROVIDERS: Internal Medicine Nephrology
DX: E87.6 Hypokalemia (principal)

== ENCOUNTER → 2017-11-01 | Outpatient (CLI) | payer MEDICARE, MEDICAID ==
[2017-11-01 10:20] VITALS: BP 122/61
[2017-11-01 11:03] LABS: CALCIUM 8.5 mg/dL (8.5-10.1)
[2017-11-01 14:00] VITALS: BP 128/74
--- NOTE | 2017-11-01 14:36 | NUR ---
PICC PATENT. DRESSING C/D/I BUT NOTED PT HAS CHANGED DRESSING HERSELF AT HOME. INFUSION COMPLETED AND TOLERATED WELL. PICC FLUSHED. DENEIS NEEDS AT DISCHARGE.
== END ==
LOC: M.INFUS 01:28
PROVIDERS: Internal Medicine Nephrology
DX: E87.6 Hypokalemia (principal)

== ENCOUNTER → 2017-11-05 | Outpatient (CLI) | payer MEDICARE, MEDICAID ==
[2017-11-05 10:07] VITALS: BP 113/66
[2017-11-05 10:52] LABS: CALCIUM 8.7 mg/dL (8.5-10.1); CREATININE 0.9 mg/dL (0.6-1.3); POTASSIUM 3.5 mmol/L (3.5-5.1)
[2017-11-05 14:10] VITALS: BP 122/68
== END ==
LOC: M.INFUS 02:52
PROVIDERS: Internal Medicine Nephrology
DX: E87.6 Hypokalemia (principal)

== ENCOUNTER → 2017-11-08 | Outpatient (CLI) | payer MEDICARE, MEDICAID ==
[2017-11-08 10:08] VITALS: BP 145/82
[2017-11-08 11:08] LABS: CALCIUM 8.5 mg/dL (8.5-10.1); CREATININE 0.9 mg/dL (0.6-1.3); POTASSIUM 3.4 mmol/L (3.5-5.1)
--- NOTE | 2017-11-08 14:31 | NUR ---
ARRIVED AMBULATORY. PICC INTACT WITH DRESSING C/D/I. PICC PATNET. INFUSION COMPLETED AND TOLERATED WELL. PICC FLUSHED. DENIES NEEDS AT DISCHARGE.
== END ==
LOC: M.INFUS 01:56
PROVIDERS: Internal Medicine Nephrology
DX: E87.6 Hypokalemia (principal)

== ENCOUNTER → 2017-11-12 | Outpatient (CLI) | payer MEDICARE, MEDICAID ==
[2017-11-12 10:41] VITALS: BP 121/80
[2017-11-12 10:43] LABS: CALCIUM 8.4 mg/dL (8.5-10.1); CREATININE 0.8 mg/dL (0.6-1.3); POTASSIUM 3.9 mmol/L (3.5-5.1)
[2017-11-12 14:24] VITALS: BP 125/76
--- NOTE | 2017-11-12 14:28 | NUR ---
PICC LINE INTACT DRESSING TAPED IN PLACE BY PT. PT CONTINUES WITH WATER PT. DR. ALBA AWARE. PICC DRESSING CHANGED. PICC PATENT. PRE INFUSION LABS DRAWN, INFUSION COMPLETED AND TOLERATED WELL. PICC FLUSHED. DENIES NEEDS AT DISCHARGE.
== END ==
LOC: M.INFUS 05:22
PROVIDERS: Internal Medicine Nephrology
DX: E87.6 Hypokalemia (principal)

== ENCOUNTER → 2017-11-15 | Outpatient (CLI) | payer MEDICARE, MEDICAID ==
[2017-11-15 10:10] VITALS: BP 122/75
[2017-11-15 11:02] LABS: CALCIUM 8.3 mg/dL (8.5-10.1); CREATININE 0.9 mg/dL (0.6-1.3); POTASSIUM 3.7 mmol/L (3.5-5.1)
[2017-11-15 14:25] VITALS: BP 132/75
== END ==
LOC: M.INFUS 01:28
PROVIDERS: Internal Medicine Nephrology
DX: E87.6 Hypokalemia (principal)

== ENCOUNTER → 2017-11-17 | Outpatient (CLI) | payer MEDICARE, MEDICAID ==
[2017-11-17 10:20] VITALS: BP 124/64
--- NOTE | 2017-11-17 14:42 | NUR ---
ARRIVED AMBULATORY. MADE SELF COMFORTABLE IN RECLINER. PICC INTACT WITH DRESSING C/D/I. PICC PATENT. INFUSION COMPLETED AND TOLERATED WELL. PICC FLUSHED. DENIES NEEDS AT DISCHARGE.
== END ==
LOC: M.INFUS 04:22
DX: E87.6 Hypokalemia (principal)

== ENCOUNTER → 2017-11-19 | Outpatient (CLI) | payer MEDICARE, MEDICAID ==
[2017-11-19 10:20] VITALS: BP 129/81
[2017-11-19 11:21] LABS: CALCIUM 8.4 mg/dL (8.5-10.1); POTASSIUM 3.6 mmol/L (3.5-5.1)
[2017-11-19 14:44] VITALS: BP 126/68
== END ==
LOC: M.INFUS 04:55
PROVIDERS: Internal Medicine Nephrology
DX: E87.6 Hypokalemia (principal)

== ENCOUNTER → 2017-11-22 | Outpatient (CLI) | payer MEDICARE, OTHER, MEDICAID ==
[2017-11-22 10:29] LABS: CALCIUM 8.2 mg/dL (8.5-10.1); POTASSIUM 3.4 mmol/L (3.5-5.1)
== END ==
LOC: M.INFUS 01:10
PROVIDERS: Internal Medicine Nephrology
DX: E87.6 Hypokalemia (principal)

== ENCOUNTER 2017-11-26 10:31 | Inpatient (IN) | payer MEDICARE, MEDICAID ==
[~2017-11-26] VITALS: Ht 162.6 cm; Wt 90.3 kg
[~2017-11-26 10:31] MED LIST changes: -EFFEXOR XR37.5 MG PO; -FLORASTOR250 MG PO; -KEFLEX500 M2 PO; -LINEZOLID600 MG PO; -NYSTATIN100000 UNI SW&SWALLOW; -PREDNISONE 20 M20 M1 PO
[2017-11-26 10:40] VITALS: BP 144/69
[2017-11-26 11:22] LABS: URINE BILIRUBIN NEGATIVE (Negative); URINE BLOOD NEGATIVE (Negative); URINE CLARITY CLEAR; URINE COLOR YELLOW; URINE GLUCOSE-RANDOM NEGATIVE (Negative); URINE KETONES TRACE (Negative); URINE LEUKOCYTES-REFLEX NEGATIVE (Negative); URINE NITRITE-REFLEX NEGATIVE (Negative); URINE PROTEIN NEGATIVE (Negative); URINE SPECIFIC GRAVITY 1.015 (1.005-1.030)
[2017-11-26 11:22] LABS: ABSOLUTE BASOPHILS 0.1 thou/uL (0.0-0.2); ABSOLUTE LYMPHOCYTES 1.8 thou/uL (0.8-5.3); ABSOLUTE MONOCYTES 0.7 thou/uL (0.0-1.2); ABSOLUTE NEUTROPHILS 6.6 thou/uL (1.6-8.1); BASOPHILS 0.6 %; EOSINOPHILS 0.3 %; HEMATOCRIT 33.7 % (37.0-47.0); HEMOGLOBIN 10.4 gm/dL (12.0-15.0); LYMPHOCYTES 19.7 %; MCH 24.2 pg (26.0-34.0); MCHC 30.8 g/dL (28.0-37.0); MCV 78.7 fL (80.0-100.0); MONOCYTES 7.5 %; MPV 7.1 fl. (7.2-11.1); NUCLEATED RBCS 0 /100WBC; PLATELET COUNT* 386 thou/uL (150-400); POLYS 71.9 %; RBC 4.28 mil/uL (4.20-5.00); RDW-CV 16.4 % (10.5-14.5); WBC 9.1 thou/uL (4.0-11.0)
[2017-11-26 11:27] LABS: INR 1.1; PROTIME 11.1 Seconds (9.20-11.50)
[2017-11-26 11:48] LABS: ANION GAP 6 mmol/L (7-16); BUN 7 mg/dL (7-18); CALCIUM 8.2 mg/dL (8.5-10.1); CHLORIDE 102 mmol/L (98-107); CO2 29 mmol/L (21-32); CREATININE 0.9 mg/dL (0.6-1.3); GLUCOSE 83 mg/dL (70-99); POTASSIUM 3.6 mmol/L (3.5-5.1); SODIUM 137 mmol/L (136-145)
[2017-11-26 11:54] LABS: ALKALINE PHOSPHATASE 61 U/L (46-116); LIPASE 81 U/L (73-393); NT-PRO BRAIN NAT PEPTIDE 60 pg/mL (<300); SGOT 8 U/L (15-37); SGPT 11 U/L (30-65); TOTAL BILIRUBIN 0.2 mg/dL (<0.1-1.0); TOTAL PROTEIN 7.4 g/dL (6.4-8.2); TROPONIN-I LEVEL <0.06 ng/mL (<0.06)
[2017-11-26 13:29] VITALS: BP 140/68
[2017-11-26 14:00] VITALS: BP 135/67
[2017-11-26 14:43] LABS: AMP/METHAMP Negative (Negative); BARBITURATES Negative (Negative); BENZODIAZEPINES Negative (Negative); COCAINE Negative (Negative); METHADONE Negative (Negative); OPIATES Negative (Negative); PCP Negative (Negative); THC Negative (Negative)
[2017-11-26 15:52] VITALS: BP 113/65
--- NOTE | 2017-11-26 16:33 | EKG ---
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
[2017-11-26 20:00] VITALS: BP 106/54
[2017-11-27] VITALS: BP 126/70
[2017-11-27 04:00] VITALS: BP 118/76
[2017-11-27 04:39] LABS: ABSOLUTE LYMPHOCYTES 2.3 thou/uL (0.8-5.3); ABSOLUTE MONOCYTES 0.6 thou/uL (0.0-1.2); ABSOLUTE NEUTROPHILS 3.3 thou/uL (1.6-8.1); BASOPHILS 0.3 %; EOSINOPHILS 0.5 %; HEMATOCRIT 29.6 % (37.0-47.0); HEMOGLOBIN 9.4 gm/dL (12.0-15.0); LYMPHOCYTES 35.8 %; MCHC 31.6 g/dL (28.0-37.0); MCV 78.9 fL (80.0-100.0); MONOCYTES 10.3 %; MPV 7.2 fl. (7.2-11.1); NUCLEATED RBCS 0 /100WBC; POLYS 53.1 %; RBC 3.76 mil/uL (4.20-5.00); RDW-CV 16.7 % (10.5-14.5); WBC 6.3 thou/uL (4.0-11.0)
[2017-11-27 05:07] LABS: CALCIUM 8.3 mg/dL (8.5-10.1); CREATININE 0.7 mg/dL (0.6-1.3); POTASSIUM 4.3 mmol/L (3.5-5.1)
[2017-11-27 05:15] LABS: PLATELET COUNT* 300 thou/uL (150-400)
[2017-11-27 07:45] VITALS: BP 107/86
[2017-11-27 16:00] VITALS: BP 129/67
[2017-11-27 19:45] VITALS: BP 124/61
[2017-11-27 23:24] VITALS: BP 137/70
[2017-11-28 03:52] VITALS: BP 114/70
[2017-11-28 05:12] LABS: ABSOLUTE EOSINOPHILS 0.1 thou/uL (0.0-0.7); ABSOLUTE LYMPHOCYTES 2.5 thou/uL (0.8-5.3); ABSOLUTE MONOCYTES 0.5 thou/uL (0.0-1.2); ABSOLUTE NEUTROPHILS 4.6 thou/uL (1.6-8.1); BASOPHILS 0.4 %; EOSINOPHILS 0.8 %; HEMATOCRIT 29.7 % (37.0-47.0); HEMOGLOBIN 9.5 gm/dL (12.0-15.0); LYMPHOCYTES 32.6 %; MCV 78.2 fL (80.0-100.0); MONOCYTES 6.8 %; MPV 7.4 fl. (7.2-11.1); NUCLEATED RBCS 0 /100WBC; PLATELET COUNT* 354 thou/uL (150-400); POLYS 59.4 %; RDW-CV 16.7 % (10.5-14.5); WBC 7.7 thou/uL (4.0-11.0)
[2017-11-28 05:44] LABS: CALCIUM 8.5 mg/dL (8.5-10.1); CREATININE 0.8 mg/dL (0.6-1.3); POTASSIUM 4.1 mmol/L (3.5-5.1)
[2017-11-28 07:55] VITALS: BP 120/70
--- NOTE | 2017-11-28 09:33 | CON ---
[address] [address] CONSULTATION Name: GUS NASCIMENTO Room: [address] IN M.R.#: [id number] Admission: 11/26/17 Attend Phys: Paulie Valera MD Discharge: Date of : 75 Report #: [id number] THIS REPORT FOR: //name// CC: Paulie Gomes [facility] DATE OF SERVICE: 11/27/2017 INFECTIOUS DISEASE CONSULTATION ATTENDING PHYSICIAN: Paulie Valera M.D. 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 HISTORY OF PRESENT ILLNESS: Chart reviewed, patient examined. This is a 42-year-old with extensive medical history I am familiar with issues with hypokalemia requiring potassium supplement via parenteral route, has chronic catheter for a number of years. Most recently placed a PICC in her right upper extremity. She noted purulence with removal of the dressing. In addition, she has nodular type eruption that has been going on for a number of months. Biopsies have been inconclusive. She states her weight is up slightly. Her appetite has been fair. No significant pulmonary or gastrointestinal related complaints. She is empirically started on vancomycin. Blood cultures are sterile thus far. ALLERGIES: CITALOPRAM, DULOXETINE, DOXYCYCLINE, ERYTHROMYCIN, TRAZODONE, LEVOFLOXACIN, CELECOXIB AND LATEX. CURRENT MEDICATIONS: Include diltiazem, montelukast, prednisone, escitalopram, pantoprazole, vancomycin, ropinirole, apixaban, spironolactone, ipratropium and albuterol inhaler, oxycodone, diltiazem, hydrochlorothiazide, p.r.n. analgesics, antiemetics. PAST MEDICAL HISTORY: History of COPD, avascular necrosis of the hips, depression, anxiety, question of autoimmune disease, transient arthritis, history of recurrent varicella, osteoporosis, fibromyalgia, reflux, history of coronary artery disease with acute myocardial infarction, C. diff, hypokalemia. SOCIAL HISTORY: Nonsmoker. Occasional ethanol. FAMILY HISTORY: Noncontributory. REVIEW OF SYSTEMS: As above. PHYSICAL EXAMINATION: [place] [address] CONSULTATION Name: GUS NASCIMENTO Room: [address]#: [id number] Admission: 11/26/17 Attend Phys: Paulie Valera MD Discharge: Date of : 75 Report #: [id number] GENERAL: She appears chronically ill, undernourished. She is alert, pleasant, cooperative, in mild distress. VITAL SIGNS: Temperature 97.4, pulse 74, respirations 16, blood pressure 107/86. SKIN: Warm, dry, no rashes. HEENT: Unremarkable. NECK: Supple. LUNGS: Diminished, otherwise clear. SKIN: PICC line in the right medial aspect of her right upper extremity. There is no overt cellulitis. Does have several nodular type eruptions that are painful. I think they originate in the subcutaneous site with varying stages. She notes 2 new ones that have occurred in the last 12 hours. ABDOMEN: Soft, nontender. GENITOURINARY AND RECTAL: Deferred. LABORATORY DATA: Blood cultures sterile thus far. Electrolytes: Sodium 139, potassium 4.3, chloride 105, bicarbonate is 28, BUN and creatinine 7 and 0.7, glucose of 94. CBC: White count of 6.3, H and H 9.4 and 29.6, platelets of 300. Lactic acid 1.6. Liver functions unremarkable. Albumin of 3.0, total protein 7.4. Estimated GFR of 69. Urinalysis unremarkable. Chest x-ray unremarkable. ASSESSMENT AND PLAN: Fevers with concern about possible line-related septicemia. We will continue empiric therapy with vancomycin, most likely skin related mary ann, specifically Staph and Strep. At this point, she is not overtly toxic. I think all things being equal, I would rather maintain this line. If indeed we need to change it out, we would do it in setting of sterile blood stream. Secondly, I discussed with Dr. Valera this nodular eruption is certainly somewhat perplexing. We will see if may be worthwhile to rebiopsy brand new lesions the diagnosis. She has been encouraged to go see interviewing clerk, which apparently she has not done to this point. <ELECTRONICALLY SIGNED> By: Mehdi Salgado MD 11/28/17 0933 1108 57Jobro Salgado MD /nt
[2017-11-28 12:13] VITALS: BP 141/81
[2017-11-28 16:00] VITALS: BP 115/62
[2017-11-28 20:00] VITALS: BP 120/72
[2017-11-29] VITALS: BP 118/76
[2017-11-29 04:00] VITALS: BP 139/67
[2017-11-29 08:00] VITALS: BP 99/51
[2017-11-29 15:58] VITALS: BP 104/59
[2017-11-29 20:00] VITALS: BP 121/76
[2017-11-30] VITALS: BP 110/38
[2017-11-30 04:00] VITALS: BP 96/41
[2017-11-30 08:00] VITALS: BP 98/57
[2017-11-30 11:58] VITALS: BP 123/77
[2017-11-30] MEDS ORDERED: KEFLEX500 M2 PO (12:16)
[2017-11-30 14:09] VITALS: BP 123/77
--- NOTE | 2017-12-02 16:08 | PATH ---
[address] [address] PATHOLOGY RPT PROCEDURE Name: BRUNILDA NASCIMENTO Room: [address] IN M.R.#: [id number] Admission: 11/26/17 Date of : 75 Discharge: 11/30/17 Report #: [id number] Path Case #: [id number] [facility] Accession Number: [id number] . 01 Material submitted: . R UPPER ARM . 01 Clinical history: . Fever . 02 Diagnosis: Right upper arm: - Benign skin with subcutaneous abscess and non-caseating granulomatous inflammation, with many acid-fast organisms identified (see comment). [facility]/12/02/2017 . 02 Comment: A properly controlled Kinyoun stain highlights many acid-fast organisms in the inflammation and typical of mycobacteria and culture with ID and sensitivity for these organisms are recommended. A properly controlled GMS stain for fungal elements is negative. . Discussed with Dr. Mehdi Rios at approximately 13:25 on 12/02/2017. (SEBASTIAN:pit 12/02/2017) . Special stains performed: GMS and Francheska on A1 . 02 Electronically signed: . Ilya Cullen MD, Pathologist NPI- [id number] . 01 Gross description: . The specimen is received in formalin, labeled "Brunilda Nascimento, right upper arm", is a powell-white ellipse of skin 1.2 x 0.3 cm with attached yellow yellow lobulated soft tissue measuring 1.2 x 0.6 x 0.2 cm. Also received are 2 irregular fragment of yellow lobulated soft tissue measuring 1.5 x 0 soft tissue measuring 1.5 x 0.9 x 0.4 cm and 0.5 x 0.4 x 0.3 cm. The specimen is entirely submitted in A1. (SWS; 11/30/2017) SHS/SHS . 02 Pathologist provided ICD-10: L02.413, L08.9 . 02 CPT . 228488, 844812, 083228 Specimen Comment: A courtesy copy of this report has been sent to Specimen Comment: [phone], , [place] [address] PATHOLOGY RPT PROCEDURE Name: BRUNILDA NASCIMENTO Room: [address] IN M.R.#: [id number] Admission: 11/26/17 Date of : 75 Discharge: 11/30/17 Report #: [id number] Path Case #: [id number] Specimen Comment: Report sent to ,DR BONNER / DR KENDALL Performed at: 01 [facility] [address], [place], [place] [id number] MD Suresh Cochran MD Phone: [phone] Performed at: [address] [facility] [address] [place] [id number] MD Ilya Cullen MD Phone: [phone]
== END 2017-11-30 15:15 | disposition home or self-care (01) | DRG 607 ==
LOC: M.ERS 10:31 → M.3W 12:22 → M.TBA-ER 12:22 → M.3W 13:52
PROVIDERS: Family Medicine; ADMIT Internal Medicine
PROC: 0JBD0ZX Excision of Right Upper Arm Subcutaneous Tissue and Fascia, Open Approach, Diagnostic (ICD-10-PCS; principal; 2017-11-29)
DX: R22.31 Localized swelling, mass and lump, right upper limb (principal); L91.0 Hypertrophic scar; F41.9 Anxiety disorder, unspecified; F32.9 Major depressive disorder, single episode, unspecified; Z96.651 Presence of right artificial knee joint; I25.10 Atherosclerotic heart disease of native coronary artery without angina pectoris; M47.9 Spondylosis, unspecified; M81.0 Age-related osteoporosis without current pathological fracture; E66.9 Obesity, unspecified; G89.29 Other chronic pain; E87.6 Hypokalemia; J44.9 Chronic obstructive pulmonary disease, unspecified; M79.7 Fibromyalgia; I25.2 Old myocardial infarction; Z86.14 Personal history of Methicillin resistant Staphylococcus aureus infection; Z86.711 Personal history of pulmonary embolism; Z88.1 Allergy status to other antibiotic agents; Z88.8 Allergy status to other drugs, medicaments and biological substances; Z91.040 Latex allergy status; Z82.49 Family history of ischemic heart disease and other diseases of the circulatory system; Z68.34 Body mass index [BMI] 34.0-34.9, adult; Z86.718 Personal history of other venous thrombosis and embolism; Z79.52 Long term (current) use of systemic steroids

== ENCOUNTER 2017-12-03 05:01 | Inpatient (IN) | payer MEDICARE, MEDICAID ==
[~2017-12-03] VITALS: Ht 162.6 cm; Wt 88.5 kg
--- NOTE | ~2017-12-03 | PROC ---
[address] [address] PROCEDURE REPORT Name: GUS NASCIMENTO Room: [address] IN M.R.#: [id number] Admission: 12/03/17 Attend Phys: Paulie Valera MD Discharge: 12/13/17 Date of : 75 Report #: [id number] THIS REPORT FOR: //name// CC: Chalo Gomes [facility] DATE OF SERVICE: 12/06/2017 PREOPERATIVE DIAGNOSES: 1. Right upper extremity nodule. 2. Possible cutaneous tuberculosis. POSTOPERATIVE DIAGNOSES: 1. Right upper extremity nodule. 2. Possible cutaneous tuberculosis. PROCEDURE: Excisional biopsy of right upper extremity subcutaneous nodule. SURGEON: Mayra Terry DO ANESTHESIA: Local 1% lidocaine used as local anesthetic. SPECIMENS: Right upper extremity nodule sent for culture, anaerobic, aerobic, fungal cultures as well as acid fast bacilli. ESTIMATED BLOOD LOSS: 5 mL. COMPLICATIONS: None. INDICATIONS FOR PROCEDURE: The patient is a 42-year-old female who re-presents to [facility] with concerns for previous right upper extremity biopsy demonstrating possible cutaneous tuberculosis. Infectious Disease requests additional biopsy for a repeat culture. The patient was explained the procedure, the risks, the benefits and alternatives. All questions were answered to the patient's satisfaction. Informed consent was obtained. DESCRIPTION OF PROCEDURE: After the area was prepped and draped in the usual sterile fashion, I created a 1 cm incision over a palpable nodule and area of tenderness after local anesthetic was infiltrated. A subcutaneous nodule measuring approximately 3 x 6 mm in size was removed circumferentially from the subcutaneous tissues using a 15 blade scalpel. This nodule was then placed in a specimen cup and sent to microbiology for the above cultures. Pressure was held for hemostasis. The wound was then closed with interrupted 3-0 nylon sutures. Aquacel Ag and a foam dressing were then applied for sterile dressing. The area was clean. Minimal blood loss was noted. The [place] [address] PROCEDURE REPORT Name: GUS NASCIMENTO Room: [address]#: [id number] Admission: 12/03/17 Attend Phys: Paulie Valera MD Discharge: 12/13/17 Date of : 75 Report #: [id number] well without any complications. She remained in the rice bed awaiting further care. By: 1445 0024Cmacie Terry DO /nt
[~2017-12-03 05:01] MED LIST changes: +KEFLEX500 M2 PO
[2017-12-03 10:45] VITALS: BP 129/90
[2017-12-03 14:04] LABS: HEMATOCRIT 31.2 % (37.0-47.0); HEMOGLOBIN 9.8 gm/dL (12.0-15.0); MCH 24.3 pg (26.0-34.0); MCHC 31.5 g/dL (28.0-37.0); MCV 77.3 fL (80.0-100.0); MPV 7.1 fl. (7.2-11.1); RBC 4.04 mil/uL (4.20-5.00); RDW-CV 16.6 % (10.5-14.5); WBC 10.1 thou/uL (4.0-11.0)
[2017-12-03 14:36] LABS: ALBUMIN 2.9 g/dL (3.4-5.0); CALCIUM 8.4 mg/dL (8.5-10.1); CREATININE 0.8 mg/dL (0.6-1.3); POTASSIUM 4.1 mmol/L (3.5-5.1); TOTAL BILIRUBIN 0.3 mg/dL (<0.1-1.0); TOTAL PROTEIN 6.7 g/dL (6.4-8.2)
[2017-12-03 16:20] VITALS: BP 114/78
[2017-12-03 20:00] VITALS: BP 123/71
[2017-12-03 23:12] LABS: HIV-1/HIV-2 ANTIBODY Non Reactive (Non Reactive)
--- NOTE | 2017-12-04 01:31 | NUR ---
MESSAGE SENT TO DOCTOR MAURO REGARDING PATIENT'S PAIN.
[2017-12-04 03:14] LABS: HEMATOCRIT 32.5 % (37.0-47.0); MCH 24.2 pg (26.0-34.0); MCHC 30.9 g/dL (28.0-37.0); MCV 78.1 fL (80.0-100.0); MPV 6.9 fl. (7.2-11.1); RBC 4.15 mil/uL (4.20-5.00); RDW-CV 16.5 % (10.5-14.5); WBC 7.6 thou/uL (4.0-11.0)
[2017-12-04 03:54] LABS: CALCIUM 8.4 mg/dL (8.5-10.1); CREATININE 0.8 mg/dL (0.6-1.3); MAGNESIUM 2.1 mg/dL (1.8-2.4); POTASSIUM 4.4 mmol/L (3.5-5.1); TOTAL BILIRUBIN 0.1 mg/dL (<0.1-1.0)
[2017-12-04 09:31] VITALS: BP 136/65
--- NOTE | 2017-12-04 11:37 | NUR ---
INSTRUCTED TO REMOVE PT FROM ISOLATION PER I/D. WILL CONTINUE TO ASSESS.
[2017-12-04 13:58] LABS: % SATURATION 5 % (20-39); IRON 15 ug/dL (50-175)
[2017-12-04 16:17] LABS: BF RBC 3767 /mm3; TOTAL CELL COUNT 17153 /mm3
--- NOTE | 2017-12-04 16:18 | NUR ---
REPORT CALLED TO 3N WILL TRANSFER TO 308.
--- NOTE | 2017-12-04 16:25 | NUR ---
SPOKE WITH PT. SHE WAS ALERT AND ORIENTED. SHE LIVES WITH HER S.O. AND 3 CHILDREN. SHE IS ABLE TO COOK,CLEAN AND DRIVE. HAS O2 AND NEBS THROUGH [place],A WALKER,STOOL RISER AND SCOOTER FOR LONG DISTANCES. SHE IS UNSURE IF SHE WILL HAVE ANY DISCHARGE NEEDS. CM WILL FOLLOW.
[2017-12-04 16:26] LABS: CLARITY HAZY; COLOR AMBER; TOTAL VOLUME 20 ml
[2017-12-04 16:35] LABS: BF LYMPHOCYTES 3 %; BF POLYS 93 %; BF TISSUE 4 /100 WBC; SOURCE SYNOVIAL FLUID
--- NOTE | 2017-12-04 16:35 | NUR ---
PT TRANSFERED FROM ROOM 233 TO ROOM 317. PREVIOUS ASSESSMENT REVIEWED. AGREE WITH PREVIOUS ASSESSMENT FINDINGS.
--- NOTE | 2017-12-04 17:31 | NUR ---
SPOKE WITH DR. CROW WHO ASKED ABOUT SURGICAL CONSULT. INFORMED THAT [facility] CALLED ME BACK EARLIER AND STATED THAT THEY WOULD SEE THE PT THE FOLOWING MORNING. DR CROW WANTS THE BIOPSY SITE DEBRIED [place] AND INSTRUCTED ME TO CALL DR. VASQUES AND SURGERY AGAIN. SPOKE WITH DR. VASQUES AND HE OUT OF [facility] AT [place]. SPOKE WITH DR. GARDUNO FROM SURGERY AND HE INFORMED THAT SINCE THE PATIENT IS NOT SEPTIC AND WBC COUNT IS NOT ELEVATED THIS IS NOT AN EMERGENT CONSULT AND HE WOULD SEE THE PATIENT TONIGHT IF HE COULD OTHERWISE HE WOULD SEE THE PATIENT IN THE MORNING. INFORM 3RD FLOOR RN.
[2017-12-04 20:00] VITALS: BP 100/70
--- NOTE | 2017-12-05 04:50 | NUR ---
ASSUMED CARE OF PT AT 1900 PT ALERT AND ORIENTED X4 VS AND ASSESSMENT STABLE. PT HAD PRN PAIN MEDS TWICE OVERNIGHT. REMOVED KENDRA FROM R SHOULDER PER ORDER THEN BEFORE I COULD DO THE FLUSHING, SILVADINE PACKING AND DRESSING PT STATED THAT THERE WAS SUPPOSED TO BE A CULTURE DONE AND POLITELY REFUSED THE REST OF THE WOUND CARE COVERED WITH GAUZE. WILL CONTINUE PLAN OF CARE.
[2017-12-05 05:26] LABS: HEMATOCRIT 30.7 % (37.0-47.0); HEMOGLOBIN 9.6 gm/dL (12.0-15.0); MCH 24.6 pg (26.0-34.0); MCHC 31.1 g/dL (28.0-37.0); MCV 79.1 fL (80.0-100.0); MPV 6.8 fl. (7.2-11.1); RBC 3.88 mil/uL (4.20-5.00); RDW-CV 16.7 % (10.5-14.5); WBC 7.1 thou/uL (4.0-11.0)
[2017-12-05 06:09] LABS: ALBUMIN 2.8 g/dL (3.4-5.0); CALCIUM 8.3 mg/dL (8.5-10.1); CREATININE 0.8 mg/dL (0.6-1.3); POTASSIUM 4.5 mmol/L (3.5-5.1); TOTAL BILIRUBIN 0.1 mg/dL (<0.1-1.0); TOTAL PROTEIN 6.6 g/dL (6.4-8.2)
[2017-12-05 08:00] VITALS: BP 114/69
[2017-12-05 16:00] VITALS: BP 114/69
--- NOTE | 2017-12-05 19:01 | NUR ---
ASUMED CARE THIS AM, SALLIE IV ABT WELL, SALLIE DSG CHANGE TO R SHOULDER, PAIN IS MINIMALLY CONTROLLED, REPORTS LEFT KNEE INCREASING IN PAIN. CARE PLAN REVIEWED, CONT POC.
[2017-12-05 20:00] VITALS: BP 114/58
--- NOTE | 2017-12-06 07:00 | NUR ---
ASSUMED CARES AT 1920. ALERT AND ORIENTED. PLEASANT. C/O LEFT KNEE PAIN. PAIN MEDS GIVEN. SBA WITH WALKER. UP TO BATHROOM. PARTIAL/TOE TOUCH WT BEARING TO THAT LLE DUE TO PAIN. O2 2L NC. SL PICC WENDY UNABLE TO GET ANY BLOOD RETURN. PT ALSO NOTICED FIRM RAISED KNOT TO RIGHT UPPER ARM AND SAYS THAT SHE FEELS THAT ARM IS GETTING MORE SWOLLEN. ICE PACKS PLACED TO WENDY. DRESSINGS TO LEFT LEG INTACT. ALL NEEDS MET. CALL LIGHT IN REACH.
--- NOTE | 2017-12-06 07:56 | CON ---
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 HISTORY OF PRESENT ILLNESS: Chart reviewed, patient examined. This is a 42-year-old woman well known to myself, has extensive medical history given her age. She actually was hospitalized last week with complaints of fevers. She was felt to have a possible septicemia due to infected PICC line; however, this was not found to be the case. She did receive antibiotics and defervesced. During hospitalization, she had new subcutaneous inflammatory nodules she identified. She has had multiple nodules throughout the last several months, and they have been biopsied on a couple different occasions. These were re-biopsied and Dr. Cullen, pathologist called and notified me that she has evidence of Mycobacterium with a positive acid fast bacillus smear and had some noncaseating granulomas as well. She was referred back to do continued workup to further identify. She is quite tearful. She does complain of significant generalized discomfort at this point. She is not encephalopathic. She is not having significant dyspnea. ALLERGIES: CITALOPRAM, DULOXETINE, DOXYCYCLINE, ERYTHROMYCIN, TRAZODONE, LEVOFLOXACIN, CELECOXIB, LATEX. CURRENT MEDICATIONS: Include apixaban, diltiazem CD, diphenhydramine, docusate sodium, p.r.n. fentanyl, triamterene/hydrochlorothiazide, hydralazine, ipratropium and albuterol inhaler, montelukast, oxycodone, ondansetron as needed, pantoprazole, prednisone, rivaroxaban, scopolamine, spironolactone. PAST MEDICAL HISTORY: As described above, history of anxiety, depression, COPD, question of seronegative rheumatoid arthritis, recurrent varicella zoster, osteoporosis, history of PE, hypercoagulable state, fibromyalgia, known vasculopathy, coronary artery disease, multiple orthopedic surgeries, previous tubal ligation, history of C. diff and Gitelman syndrome. FAMILY HISTORY: [place] [address] CONSULTATION Name: GUS NASCIMENTO Room: [address]#: [id number] Admission: 12/03/17 Attend Phys: Paulie Valera MD Discharge: Date of : 75 Report #: [id number] REVIEW OF SYSTEMS: As above. PHYSICAL EXAMINATION: GENERAL: She is quite tearful. She is alert, cooperative, in moderate distress. VITAL SIGNS: Temperature 98, pulse 101, respirations 18, blood pressure 129/90. SKIN: Warm, dry, no rashes. HEENT: Otherwise, unremarkable. NECK: Supple. LUNGS: Clear to auscultation. HEART: Regular. I do not appreciate any murmur. ABDOMEN: Soft. Biopsy site is somewhat swollen and tender. GENITOURINARY AND RECTAL: Deferred. LABORATORY DATA: Pathology report as noted above. Culture of the site was unrevealing. Blood cultures were sterile. ASSESSMENT: Mycobacterial infection as manifested by subcutaneous inflammatory nodules. These are bilateral, suggests more of a systemic illness noted. Chest x-ray from last week was otherwise unrevealing. Doubt any significant pulmonary disease can be for certain noted. Sputum has been ordered. Surgeon to see if still do another biopsy and send the sample for AFB smear and culture and at that point, consider a DNA probe. We are going to check HIV status. Will likely need combination therapy. At this point, we will keep her in isolation. <ELECTRONICALLY SIGNED> By: Mehdi Salgado MD 12/06/17 0756 [id number] [id number] Salgado MD /nt
[2017-12-06 08:00] VITALS: BP 122/64
[2017-12-06 10:40] LABS: HEMATOCRIT 29.6 % (37.0-47.0); HEMOGLOBIN 9.1 gm/dL (12.0-15.0); MCH 23.9 pg (26.0-34.0); MCHC 30.8 g/dL (28.0-37.0); MCV 77.7 fL (80.0-100.0); MPV 6.9 fl. (7.2-11.1); RBC 3.8 mil/uL (4.20-5.00); RDW-CV 16.6 % (10.5-14.5); WBC 6.3 thou/uL (4.0-11.0)
[2017-12-06 10:56] LABS: ALBUMIN 2.5 g/dL (3.4-5.0); CALCIUM 8.8 mg/dL (8.5-10.1); CREATININE 0.9 mg/dL (0.6-1.3); MAGNESIUM 1.8 mg/dL (1.8-2.4); POTASSIUM 3.5 mmol/L (3.5-5.1); TOTAL BILIRUBIN 0.2 mg/dL (<0.1-1.0); TOTAL PROTEIN 6.8 g/dL (6.4-8.2)
[2017-12-06 11:09] LABS: BODY FLUID PROTEIN 4.3 g/dL (())
[2017-12-06 16:00] VITALS: BP 101/55
--- NOTE | 2017-12-06 19:03 | NUR ---
BEDSIDE BIOPSY COMPLETE, SAMPLES TO LAB. PAIN MANAGED WELL W/ MEDICATION, SALLIE IV ABT W/O S/S ADR. UP W/ SBA AND WALKER, CONTINENT, CONT POC.
--- NOTE | 2017-12-07 01:25 | NUR ---
ASSESSMENT: PT REMAIN ALERT AND ORIENT TIMES FOUR. UP TO BR WITH WALKER AND SBA, C/O LEFT KNEE. PRN PAIN MEDICATION AND XU WRAP GIVEN. RIGHT UPPER ARM PICC, SLUGGISH TO DRAW. VANCOMYCIN FOR ANTIBIOTICS INFUSING, THEN SALINE LOCKED. VSS, AFEBRILE. MOST OF LESIONS ARE COVERED WITH MYPELEX OR PRIVATE SECTOR EXECUTIVE. SLOW PROGRESS TOWARDS DC GOALS, WILL CONTINUE TO MONITOR.
[2017-12-07 06:08] LABS: HEMATOCRIT 29.5 % (37.0-47.0); HEMOGLOBIN 9.2 gm/dL (12.0-15.0); MCH 24.1 pg (26.0-34.0); MCHC 31.1 g/dL (28.0-37.0); MCV 77.6 fL (80.0-100.0); MPV 7.3 fl. (7.2-11.1); RBC 3.8 mil/uL (4.20-5.00); RDW-CV 16.4 % (10.5-14.5); WBC 7.2 thou/uL (4.0-11.0)
[2017-12-07 06:27] LABS: ALBUMIN 2.5 g/dL (3.4-5.0); CALCIUM 8.4 mg/dL (8.5-10.1); CREATININE 0.8 mg/dL (0.6-1.3); MAGNESIUM 1.9 mg/dL (1.8-2.4); POTASSIUM 4.4 mmol/L (3.5-5.1); TOTAL BILIRUBIN 0.2 mg/dL (<0.1-1.0); TOTAL PROTEIN 7.1 g/dL (6.4-8.2)
[2017-12-07 07:55] VITALS: BP 106/52
[2017-12-07 13:01] LABS: SOURCE KNEE JOINT
[2017-12-07 16:00] VITALS: BP 112/64
--- NOTE | 2017-12-07 18:25 | NUR ---
PATIENT A&OX4, LETHARGIC. RA, 2L O2 PRN NEEDED, NOT NEEDED TODAY. IV RIGHT UPPER ARM SINGE LUMEN PICC, DRESSING CHANGED TODAY. UP STAND BY WITH WALKER. C/O LEFT KNEE PAIN, MINIMAL TO PARTIAL RELIEF WITH MEDICATION, COLD PACKS APPLIED. NO OTHER CONCERNS AT THIS TIME. APPROPRIATE AND COOPORATIVE WITH CARE.
[2017-12-07 20:00] VITALS: BP 114/53
--- NOTE | 2017-12-08 06:59 | NUR ---
PATIENT SLEPT MOST OF THE NIGHT. PATIENT WAS GIVEN SCHEDULED PAIN MEDS. PICC LINE REMAINS IN PLACE. WILL CONTINUE TO MONITOR.
[2017-12-08 07:10] LABS: HEMATOCRIT 29.1 % (37.0-47.0); MCHC 31.1 g/dL (28.0-37.0); MCV 77.2 fL (80.0-100.0); MPV 6.6 fl. (7.2-11.1); RBC 3.77 mil/uL (4.20-5.00); RDW-CV 16.4 % (10.5-14.5)
[2017-12-08 07:26] LABS: ALBUMIN 2.4 g/dL (3.4-5.0); CALCIUM 8.4 mg/dL (8.5-10.1); CREATININE 0.8 mg/dL (0.6-1.3); MAGNESIUM 2.1 mg/dL (1.8-2.4); POTASSIUM 4.1 mmol/L (3.5-5.1); TOTAL BILIRUBIN 0.5 mg/dL (<0.1-1.0)
[2017-12-08 17:03] VITALS: BP 130/65
--- NOTE | 2017-12-08 18:15 | NUR ---
PATIENT A&OX4, RA, IV RIGHT UPPER ARM SINGLE LUMEN PICC. UP WITH STAND BY ASSIST, STEADY GIAT. C/O PIAN, MINIMAL TO PARTIAL RELIEF WITH MEDICATION. DRSG TO RIGHT ARM CHANGED TODAY. NO OTHER CONCERNS AT THIS TIME. APPROPRIATE AND COOPORATIVE WITH CARE.
[2017-12-08 20:00] VITALS: BP 120/82
--- NOTE | 2017-12-09 04:33 | NUR ---
ASSESSMENT: PT REMAIN ALERT AND ORIENT TIMES FOUR. REQUESTING PAIN MEDICATIONS, PRN. NO FURTHER COMPLAINTS. VSS, AFEBRILE. DRESSING CHANGED ON LESIONS. LEFT KNEE SWOLLEN AND PAINFUL, PT STATES THAT SHE FEELS THAT IT IS BEGINNING TO FILL BACK UP WITH FLUID. RIGHT UPPER ARM PICC, SLUGGISH TO FLUSH, DID DRAW FROM IT; BETTER THAN WHAT IT WAS. SLOW PROGRESS TOWARDS DC GOALS.WILL CONTINUE TO MONITOR.
[2017-12-09 05:41] LABS: HEMATOCRIT 29.2 % (37.0-47.0); HEMOGLOBIN 9.1 gm/dL (12.0-15.0); MCH 24.1 pg (26.0-34.0); MCHC 31.2 g/dL (28.0-37.0); MCV 77.4 fL (80.0-100.0); RBC 3.78 mil/uL (4.20-5.00); RDW-CV 16.4 % (10.5-14.5); WBC 4.1 thou/uL (4.0-11.0)
[2017-12-09 05:58] LABS: ALBUMIN 2.4 g/dL (3.4-5.0); CALCIUM 8.5 mg/dL (8.5-10.1); CREATININE 0.8 mg/dL (0.6-1.3); MAGNESIUM 2.2 mg/dL (1.8-2.4); TOTAL BILIRUBIN 0.5 mg/dL (<0.1-1.0); TOTAL PROTEIN 7.1 g/dL (6.4-8.2)
[2017-12-09 08:00] VITALS: BP 124/68
[2017-12-09 16:07] VITALS: BP 143/72
--- NOTE | 2017-12-09 19:41 | NUR ---
RESUMED CARE THIS AM, VSS, NO DISTRESSS NOTED, SEE ASSESSMENT FOR DETAILS, PAIN OCNTROLLED WITH MEDICATION, SALLIE IV ABT W/O S/S ADR. COMPLIANT WITH CARE AND MEDS. UP TO TOILET THIS AFTERNOON, REPORTS FEELING A"POPPING SOUND" WHEN STANDING, UNABLE TO BEAR WEIGHT. XRAY PERFORMED, SHOWED ACUTE EFFUSION, ORTHO RESIDENT NOTIFIED, NO NEW ORDERS, ANTICIPATE DISCHARGE TO HOME SOON.
[2017-12-10] VITALS: BP 116/62
--- NOTE | 2017-12-10 06:42 | NUR ---
PATIENT AWAKE OFF AND ON DURING THIS SHIFT. PT PLAYING GAMES ON PHONE AND WOULD BE CRYING WHEN SHE WOULD SEE STAFF C/O KNEE HURTING. PT GIVEN FENTANYL 25MCG IV AND PERCOCET 10MG PO SCHEDULED. PT ALSO HAS A FENTANYL 75MCG PATCH. PT UP TO BATHROOM WITH USE OF WALKER AND STANDBY. PT WITH ANTIBIOTICS INFUSING PER DR ORDER. FREQUENTLY USED ITEMS AND CALL LIGHT WITHIN REACH. SIDERAILS UPX2. WILL CONTINUE TO MONITOR.
[2017-12-10 08:00] VITALS: BP 112/60
--- NOTE | 2017-12-10 14:20 | NUR ---
Nutrition: Pt stated she is eating well. She stated her usual wt is 180#; currently swollen, fluid-related wt gain to 194#. Regular diet ordered. Admitted for skin lesions/TB. Pt has no nutrition concerns. Low risk.
[2017-12-10 15:15] VITALS: BP 120/75
[2017-12-10 20:10] VITALS: BP 125/88
--- NOTE | 2017-12-11 07:03 | NUR ---
VITALS WNL. SEE MAR. SEE CHARTING. FALL PRECAUTIONS IN PLACE. HOURLY ROUNDING FOR SAFETY.
[2017-12-11 08:00] VITALS: BP 95/48
--- NOTE | 2017-12-11 13:44 | NUR ---
ASSUMED PT CARE AT 0700 PT C/O PAIN PT HAS SCHEDULED PAIN MEDS ORDERED, PT DENIES SOA ON RA, PT IS UP WITH SBA WITH WALKER PT IS A FALL RISK BED ALARM IS ON, PT WALKED WITH PHSICIAL THERAPY PT BLOOD PRESSUE INCREASED FROM THIS AM PT C/O LIGHTHEADNESS AND NAUSEA, GAVE PT ZOFRAN AND BENADRYL BEFORE STARTING ANTIBIOTIC, REASSESSED PT WHO STATES NAUSEA IS BETTER STILL LIGHTHEADED PT VITALS STABLE PAGED PHYSICIAN AWAITING CALL BACK, PT APPLIED O2 WHICH PT CAN HAVE PRN, PT STATES HEART RATE IS TACHY CHECKED HEART RATE WHICH IS 87, PT IS ALERT AND ORIENTED X 4 WILL CONTINUE TO MONITOR
[2017-12-11 16:03] VITALS: BP 111/71
[2017-12-11 21:15] VITALS: BP 109/72
--- NOTE | 2017-12-12 05:57 | NUR ---
PT SLEPT MOST OF SHIFT. ASSESSMENT DOCUMENTED. MEDS GIVEN PER E-APR. PICC PATENT. PAIN MEDS GIVEN PER E-APR. PT REQUESTED IV PAIN MEDS ONCE THIS SHIFT. PT UP SBA TO BATHROOM. PT REMOVED DRESSING FROM HER LEFT KNEE AND REPORTED FEELING A COUPLE NODULES BEHIND HER LEFT KNEE. BENEDRYL GIVEN WITH VANC PER PT REQUEST. WILL CONTINUE WITH PLAN OF CARE.
[2017-12-12 07:35] VITALS: BP 109/60
[2017-12-12 16:15] VITALS: BP 112/77
--- NOTE | 2017-12-12 17:14 | NUR ---
PATIENT A&OX4, RA, IV RIGHT UPPER ARM SINGLE LUMEN PICC, SALINE LOCK. UP WITH STAND BY ASSIST, WALKED AROUND NURSES STATION, STEADY GAIT. C/O PIAN, RELIEF WITH MEDICATION. NO OTHER CONCERNS AT THIS TIME. APPROPRAITE AND COOPORATIVE WITH CARE.
[2017-12-12 20:45] VITALS: BP 110/65
--- NOTE | 2017-12-13 06:48 | NUR ---
PT SLEPT ON AND OFF THIS SHIFT. ASSESSMENT DOCUMENTED. MEDS GIVEN PER E-APR. PICC PATENT. PAIN MEDS GIVEN PER E-APR. PT STATES SHE IS HOPING SHE GETS TO GO HOME TODAY. WILL CONTINUE WITH PLAN OF CARE.
[2017-12-13 08:00] VITALS: BP 115/83
[2017-12-13] MEDS ORDERED: FLORASTOR250 MG PO (11:12)
[2017-12-13] MEDS ORDERED: OXYCONTIN10 M1 PO (11:12)
[2017-12-13 11:50] VITALS: BP 115/83
--- NOTE | 2017-12-13 13:50 | NUR ---
DISCHARGE NOTE - PT DC'ED. SEE ORDERS. ALL BELONGINGS SENT WITH PT. PICC LINE REMAINS. PT RECEIVES 3XWEEKLY POTASSIUM INFUSIONS. NO QUESTIONS ABOUT DISCHARGE.
--- NOTE | 2017-12-30 13:27 | NUR ---
CM asked by Dr Salgado to assist with home IVABX set up. CM faxed referral to [place] and arranged HH through [facility].
--- NOTE | 2017-12-31 15:00 | PATH ---
[address] [address] PATHOLOGY RPT PROCEDURE Name: BRUNILDA NASCIMENTO Room: [address] IN .R.#: [id number] Admission: 12/03/17 Date of : 75 Discharge: 12/13/17 Report #: [id number] Path Case #: [id number] [facility] Accession Number: [id number] . 01 Material submitted: . RIGHT SHOULDER . 01 Clinical history: . Skin lesion/TB . 02 Diagnosis: Right shoulder: - Fibroadipose tissue with granulomatous inflammation, and associated fibrosis. - An AFB stain is negative (A1; apprpriate control). - See comment. 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 02 Comment: The patient's history of prior biopsy with granuloma and acid fast organisms is noted. An AFB stain on this specimen is negative in the presence of granuloma formation. Clinical correlation is recommended. . 02 Electronically signed: . Chaitanya Moe MD, Pathologist NPI- [id number] . 01 Gross description: . The specimen is received in formalin, labeled "Brunilda Nascimento R shoulder" and consists of a segment of yellow adipose tissue measuring 1.4 x 0.6 x 0.5 cm. It is serially sectioned and entirely submitted in A1. (SDY; 12/07/2017) SYU/SYU . 02 Pathologist provided ICD-10: M79.9 . 02 CPT . 333012, 907582 Specimen Comment: Report sent to ,DR MARTINEZ,DR BONNER / DR KENDALL Specimen Comment: A duplicate report has been generated due to demographic updates. Performed at: [address] [id number] MD Suresh Cochran MD Phone: [phone] Performed at: 02 [place] [address] PATHOLOGY RPT PROCEDURE Name: BRUNILDA NASCIMENTO Room: [address] IN M.R.#: [id number] Admission: 12/03/17 Date of : 75 Discharge: 12/13/17 Report #: [id number] Path Case #: [id number] [facility] [address] [place], [place] [id number] MD Ilya Cullen MD Phone: [phone]
== END 2017-12-13 13:50 | disposition home or self-care (01) | DRG 868 ==
LOC: M.INFUS 05:01 → M.2W 10:41 → M.3W 10:41
PROVIDERS: Family Medicine; Specialist; ADMIT Internal Medicine
PROC: 0S9D3ZZ Drainage of Left Knee Joint, Percutaneous Approach (ICD-10-PCS; principal; 2017-12-04)
PROC: 05HB33Z Insertion of Infusion Device into Right Basilic Vein, Percutaneous Approach (ICD-10-PCS; 2017-12-06)
DX: A31.8 Other mycobacterial infections (principal); E44.0 Moderate protein-calorie malnutrition; M87.88 Other osteonecrosis, other site; E27.40 Unspecified adrenocortical insufficiency; F41.9 Anxiety disorder, unspecified; F32.9 Major depressive disorder, single episode, unspecified; J44.9 Chronic obstructive pulmonary disease, unspecified; M81.0 Age-related osteoporosis without current pathological fracture; I25.10 Atherosclerotic heart disease of native coronary artery without angina pectoris; Z96.651 Presence of right artificial knee joint; E66.9 Obesity, unspecified; M17.0 Bilateral primary osteoarthritis of knee; E87.6 Hypokalemia; D50.9 Iron deficiency anemia, unspecified; M25.462 Effusion, left knee; J45.40 Moderate persistent asthma, uncomplicated; K21.9 Gastro-esophageal reflux disease without esophagitis; G89.29 Other chronic pain; R00.0 Tachycardia, unspecified; Z88.8 Allergy status to other drugs, medicaments and biological substances; Z88.1 Allergy status to other antibiotic agents; Z91.040 Latex allergy status; Z86.711 Personal history of pulmonary embolism; I25.2 Old myocardial infarction; Z86.14 Personal history of Methicillin resistant Staphylococcus aureus infection; Z82.49 Family history of ischemic heart disease and other diseases of the circulatory system; Z79.899 Other long term (current) drug therapy; Z68.33 Body mass index [BMI] 33.0-33.9, adult; Z86.718 Personal history of other venous thrombosis and embolism; Z79.52 Long term (current) use of systemic steroids

== ENCOUNTER → 2017-12-15 | Outpatient (CLI) | payer MEDICARE, MEDICAID ==
[~2017-12-15] MED LIST changes: +EFFEXOR XR37.5 MG PO; +FLORASTOR250 MG PO; +LINEZOLID600 MG PO; +NYSTATIN100000 UNI SW&SWALLOW; +PREDNISONE 20 M20 M1 PO
[2017-12-15 10:35] VITALS: BP 117/70
[2017-12-15 14:49] VITALS: BP 122/75
--- NOTE | 2017-12-15 14:49 | NUR ---
ARRIVED AMBULATORY WITH WALKER. PICC LINE INTACT AND PATENT. INFUSION COMPLETED AND TOLERATED WELL. PICC FLUSHED AND DRESSING CHANGED. DENIES NEEDS AT DISCHARGE.
== END ==
LOC: M.INFUS 04:18
DX: E78.5 Hyperlipidemia, unspecified (principal)

== ENCOUNTER → 2017-12-17 | Outpatient (CLI) | payer MEDICARE, MEDICAID ==
[~2017-12-17] MED LIST changes: +AMIKACIN (500 MG/2 M IV
[2017-12-17 13:21] LABS: CALCIUM 8.8 mg/dL (8.5-10.1); CREATININE 0.7 mg/dL (0.6-1.3); POTASSIUM 3.7 mmol/L (3.5-5.1)
== END ==
LOC: M.INFUS 05:22
PROVIDERS: Internal Medicine Nephrology
DX: E87.6 Hypokalemia (principal)

== ENCOUNTER → 2017-12-20 | Outpatient (CLI) | payer MEDICARE, MEDICAID ==
[~2017-12-20] MED LIST changes: -AMIKACIN (500 MG/2 M IV; -NYSTATIN100000 UNI SW&SWALLOW; -PREDNISONE 20 M20 M1 PO
[2017-12-20 12:39] LABS: CALCIUM 8.9 mg/dL (8.5-10.1); CREATININE 0.9 mg/dL (0.6-1.3); POTASSIUM 3.7 mmol/L (3.5-5.1)
--- NOTE | 2017-12-20 15:02 | NUR ---
MSG RECIEVED FROM PT STATING SHE WAS DR. JUSTIN'S OFFICE AND WOULD BE LATE GETTING HERE. ARRIVED AMBULATORY. MADE SELF COMFORTABLE IN RECLINER. PICC TO RUE INTACT AND PATENT. INFUSION STARTED AND RUNNING WELL. [address] JUSTIN'S OFFICE WITH VERBAL ORDER FOR 1LITER ON LR. UPDATED OFFICE THAT ALL BMP LABS WERE WITHIN NORMAL LIMITS. 1450 2ND CALL RECIEVED FROM LUCÍA AT DR. JUSTIN'S OFFICE STATING TO GO AHEAD WITH LITER OF LR. FOR PT COMPLAINT OF DEHYDRATION. LR STARTED ADN RUNNING WELL.
[2017-12-20 16:46] VITALS: BP 139/83
== END ==
LOC: M.INFUS 01:30
PROVIDERS: Internal Medicine Nephrology
DX: E87.6 Hypokalemia (principal); E86.0 Dehydration

== ENCOUNTER → 2017-12-22 | Outpatient (CLI) | payer MEDICARE, MEDICAID ==
[~2017-12-22] MED LIST changes: +NYSTATIN100000 UNI SW&SWALLOW; +PREDNISONE 20 M20 M1 PO
--- NOTE | 2017-12-22 12:08 | NUR ---
PATIENT ARRIVAL TO OP INFUSION AMBULATORY FROM HOME WITH WALKER. PATIENT MADE SELF COMFORTABLE IN RECLINER. CALL LIGHT AND REMOTE WITH PATIENT. HISTORY AND ORDERS REVIEWED. REASSESSMENT AND VS OBTAINED. RT UPPER ARM PICC LINE DRESSING CHANGED. BRISK BLOOD RETURN OBTAINED FROM PICC AND FLUSHES WELL. POTASSIUM INFUSION THEN STARTED ORDERED AT 1220.
[2017-12-22 12:10] VITALS: BP 106/55
--- NOTE | 2017-12-22 13:30 | NUR ---
PATIENT TOLERATING INFUSION WELL. EATING LUNCH TRAY AT THIS TIME.
[2017-12-22 16:20] VITALS: BP 116/70
--- NOTE | 2017-12-22 16:38 | NUR ---
POTASSIUM INFUSION COMPLETED CHARTED. PICC LINE FLUSHED WITH NS 20MLS. PATIENT DEPARTS FOR HOME INDEPENDENTLY.
== END ==
LOC: M.INFUS 02:08
DX: E87.6 Hypokalemia (principal)

== ENCOUNTER → 2017-12-24 | Outpatient (CLI) | payer MEDICARE, MEDICAID ==
[2017-12-24 11:10] VITALS: BP 110/68
[2017-12-24 12:04] LABS: URINE BILIRUBIN NEGATIVE (Negative); URINE BLOOD NEGATIVE (Negative); URINE CLARITY CLEAR; URINE COLOR YELLOW; URINE GLUCOSE-RANDOM NEGATIVE (Negative); URINE KETONES NEGATIVE (Negative); URINE LEUKOCYTES-REFLEX NEGATIVE (Negative); URINE NITRITE-REFLEX NEGATIVE (Negative); URINE PROTEIN NEGATIVE (Negative); URINE SPECIFIC GRAVITY 1.015 (1.005-1.030); URINE UROBILINOGEN 0.2 E.U./dl (0.2-1.0)
[2017-12-24 12:07] LABS: HEMATOCRIT 31.8 % (37.0-47.0); HEMOGLOBIN 9.9 gm/dL (12.0-15.0); MCH 23.6 pg (26.0-34.0); MCHC 31.2 g/dL (28.0-37.0); MCV 75.7 fL (80.0-100.0); PLATELET COUNT* 449 thou/uL (150-400); RBC 4.19 mil/uL (4.20-5.00); RDW-CV 16.4 % (10.5-14.5); WBC 6.3 thou/uL (4.0-11.0)
[2017-12-24 12:22] LABS: ALBUMIN 2.9 g/dL (3.4-5.0); CALCIUM 8.1 mg/dL (8.5-10.1); CREATININE 0.8 mg/dL (0.6-1.3); POTASSIUM 3.4 mmol/L (3.5-5.1); TOTAL BILIRUBIN 0.2 mg/dL (<0.1-1.0); TOTAL PROTEIN 7.4 g/dL (6.4-8.2)
[2017-12-24 15:15] VITALS: BP 115/66
--- NOTE | 2017-12-24 15:30 | NUR ---
PATIENT ARRIVED AFTER STARTING NEW ANTIBIOTIC WITH DR. JOHN'S INSTRUCTION. DURING INFUSION PATIENT COMPLAINED OF FLUSHED AND PUFFY FACE. PATIENT HAD PRE MEDICATIED WITH BENADRYL. CRISTAL HARVEY (SUPERVISOR CLAIMS) NOTIFIED DR JOHN ABOUT THIS REACTION. HE ADVISED THAT PATIENT WAS TAKE ANOTHER DOSE OF BENADRY 50 MG 6 HOURS AFTER THE FIRST DOSE AND TO CALL IF CONDITION WORSENED. PATIENT REPORTED BY THE END OF HER ROUTINE POTASSIUM INFUSION THAT THE PUFFINESS OF HER FACE WAS SUBSIDING. DISCHARGE INSTRUCTIONS REVIEWED, PATIENT WAS RELEASED TO HOME.
[2017-12-24 16:21] LABS: ABSOLUTE LYMPHOCYTES 2.4 thou/uL (0.8-5.3); ABSOLUTE MONOCYTES 0.7 thou/uL (0.0-1.2); ABSOLUTE NEUTROPHILS 3.1 thou/uL (1.6-8.1); LYMPHOCYTES 38.7 %; MONOCYTES 10.7 %; POLYS 48.7 %
[2017-12-24 16:22] LABS: ABSOLUTE BASOPHILS 0.1 thou/uL (0.0-0.2); ABSOLUTE EOSINOPHILS 0.1 thou/uL (0.0-0.7); BASOPHILS 0.8 %; EOSINOPHILS 1.1 %
--- NOTE | 2017-12-30 15:54 | CON ---
[address] [address] CONSULTATION Name: GUS NASCIMENTO Room: [facility].#: [id number] Admission: 12/24/17 Attend Phys: Chalo Hua MD Discharge: Date of : 75 Report #: [id number] THIS REPORT FOR: //name// CC: Chalo Wolfeully DATE OF SERVICE: 12/24/2017 ATTENDING PHYSICIAN: Dr. Hua. REASON FOR EVALUATION: Undergoing evaluation of disseminated mycobacterial infection. HISTORY OF PRESENT ILLNESS: Chart reviewed, patient examined. The patient is seen in the outpatient infusion area. This is an unscheduled visit. She is having increasing abdominal related pain. She had been here scheduled for ongoing potassium infusions. I did review her available results, still do not have identification of Mycobacterium, was felt due to the progressive nature of it, may be worthwhile under observation to evaluate her. She takes clarithromycin. There is some concern she may have a hypersensitivity reaction. She was willing. She is on high dose corticosteroids. We premedicated her with diphenhydramine. She is under close observation. She was given the dose of clarithromycin, was there for 30-45 minutes under my direct visualization. She did not have a particular reaction in terms of any localizing signs or symptoms to the head and neck such as difficulty breathing. She has some mild itching, but she claims that it is an ongoing issue. It was felt we could continue the clarithromycin. However, within a short period, she did call via the nurse complained of some nausea, which I attribute to an adverse drug effect, also some "tickling in her throat." She was quite certain this was a reaction that she had previously and was concerned about type 1 hypersensitivity. She was recommended to continue the diphenhydramine and discontinue the clarithromycin pending the ID if the Mycobacterium seen on a regular basis in the interim since she goes to the outpatient infusion area 3 times per week. <ELECTRONICALLY SIGNED> By: Mehdi Salgado MD 12/30/17 1554 0904 1200Joseshalom Salgado MD /nt
== END ==
LOC: M.INFUS 03:39
PROVIDERS: Specialist
DX: E87.6 Hypokalemia (principal)

== ENCOUNTER → 2017-12-27 | Outpatient (CLI) | payer MEDICARE, MEDICAID ==
[2017-12-27 10:00] VITALS: BP 110/68
[2017-12-27 11:22] LABS: CALCIUM 8.4 mg/dL (8.5-10.1); CREATININE 0.7 mg/dL (0.6-1.3); POTASSIUM 3.1 mmol/L (3.5-5.1)
[2017-12-27 15:00] VITALS: BP 106/58
== END ==
LOC: M.INFUS 01:07
PROVIDERS: Internal Medicine Nephrology
DX: E87.6 Hypokalemia (principal)

== ENCOUNTER → 2017-12-28 | Outpatient (CLI) | payer MEDICARE, MEDICAID ==
[~2017-12-28] MED LIST changes: +AMIKACIN (500 MG/2 M IV
[2017-12-28 11:10] VITALS: BP 118/74
== END ==
LOC: M.INFUS 10:24
DX: Z45.2 Encounter for adjustment and management of vascular access device (principal)

== ENCOUNTER → 2017-12-29 | Outpatient (CLI) | payer MEDICARE, MEDICAID ==
[~2017-12-29] MED LIST changes: -AMIKACIN (500 MG/2 M IV
[2017-12-29 12:32] LABS: CALCIUM 8.6 mg/dL (8.5-10.1); CREATININE 0.9 mg/dL (0.6-1.3); POTASSIUM 3.3 mmol/L (3.5-5.1)
--- NOTE | 2017-12-29 15:54 | NUR ---
ARRIVED AMBULATORY. MADE SLEF COMFORTABLE IN RECLINER. PICC PATENT WITH GOOD BRISK BLOOD RETURN AND EASY FLUSH. INFUSION STARTED AND RUNNING WELL. PER PT REQUEST DR. JOHN PAGELucas AND ON UNIT TO SEE PT. NEW ORDER RECIEVED TO ADMINISTER AMIKACIN 1350MG IV X1 TODAY. PT AGRRES WITH PLAN. K+ INFUSION COMPLETED AND TOLERATED WELL. AMIKACIN INFUSION STARTED.
[2017-12-29 16:55] VITALS: BP 130/73
--- NOTE | 2017-12-30 15:54 | CON ---
[address] [address] CONSULTATION Name: CONG NASCIMENTOA Chio Room: [facility].#: [id number] Admission: 12/29/17 Attend Phys: Chalo Hua MD Discharge: Date of : 75 Report #: [id number] THIS REPORT FOR: //name// CC: Chalo Gomes Therese DATE OF SERVICE: 12/29/2017 ATTENDING PHYSICIAN: Chalo Hua MD. REASON FOR FOLLOWUP: Disseminated mycobacterial infection. HISTORY OF PRESENT ILLNESS: The patient was seen today again in the outpatient infusion area. She has noted progressive numbers of lesions that have developed in the interim given over the course of the last 3-4 days. Generally, she feels poorly. She has experienced a significant amount of anxiety with depression. I did discuss with the lab at least 3 occasions since last visit. There was no evidence of any new results other than the negative DNA probe for Mycobacterium tuberculosis as well as Mycobacterium avium intracellulare, which are not suspected due to likelihood of a rapid grower. 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 She did get a dose under supervision and we will follow laboratory closely including creatinine check and amikacin level within the next few days. Again in discussion with lab, it was related to me, they may not have an answer until next week. <ELECTRONICALLY SIGNED> By: Mehdi Salgado MD 12/30/17 1554 0907 [id number] Esmer Salgado MD /nt
== END ==
LOC: M.INFUS 03:03
PROVIDERS: Internal Medicine Nephrology
DX: E87.6 Hypokalemia (principal); A31.9 Mycobacterial infection, unspecified

== ENCOUNTER → 2017-12-31 | Outpatient (CLI) | payer MEDICARE, MEDICAID ==
[~2017-12-31] MED LIST changes: -NYSTATIN100000 UNI SW&SWALLOW; -PREDNISONE 20 M20 M1 PO
[2017-12-31 11:00] VITALS: BP 131/72
[2017-12-31 13:31] LABS: CALCIUM 8.3 mg/dL (8.5-10.1); CREATININE 0.8 mg/dL (0.6-1.3); POTASSIUM 3.4 mmol/L (3.5-5.1)
--- NOTE | 2017-12-31 16:45 | NUR ---
PT BROUGHT TO ME AT 16:10 WITH POTASSIUM INFUSION RUNNING. SETTLED HER INTO A RECLINER WITH A BLANKET. IV COMPLETED INFUSION AT 16:40, WAS FLUSHED WITH SALINE AND PT. ESCORTED TO CAR WITH HER BELONGINGS.
== END ==
LOC: M.INFUS 00:43
PROVIDERS: Internal Medicine Nephrology
DX: E87.6 Hypokalemia (principal)

== ENCOUNTER 2018-01-01 15:33 | Emergency (ER) | payer MEDICARE, MEDICAID ==
[~2018-01-01] VITALS: Ht 162.6 cm; Wt 88.5 kg
[~2018-01-01 15:33] MED LIST changes: -EFFEXOR XR37.5 MG PO; -LINEZOLID600 MG PO
[2018-01-01] MEDS ORDERED: LINEZOLID600 MG PO (15:42)
[2018-01-01] MEDS ORDERED: EFFEXOR XR37.5 MG PO (15:43)
[2018-01-01 16:33] LABS: ABSOLUTE LYMPHOCYTES 1.2 thou/uL (0.8-5.3); ABSOLUTE MONOCYTES 0.3 thou/uL (0.0-1.2); ABSOLUTE NEUTROPHILS 4.8 thou/uL (1.6-8.1); BASOPHILS 0.7 %; EOSINOPHILS 0.5 %; HEMATOCRIT 33.1 % (37.0-47.0); HEMOGLOBIN 10.1 gm/dL (12.0-15.0); LYMPHOCYTES 18.3 %; MCH 22.9 pg (26.0-34.0); MCHC 30.5 g/dL (28.0-37.0); MCV 75.2 fL (80.0-100.0); MONOCYTES 5.3 %; MPV 7.2 fl. (7.2-11.1); NUCLEATED RBCS 0 /100WBC; PLATELET COUNT* 354 thou/uL (150-400); POLYS 75.2 %; RDW-CV 16.9 % (10.5-14.5); WBC 6.4 thou/uL (4.0-11.0)
[2018-01-01 16:45] LABS: ANION GAP 10 mmol/L (7-16); BUN 8 mg/dL (7-18); CALCIUM 8.8 mg/dL (8.5-10.1); CHLORIDE 105 mmol/L (98-107); CO2 25 mmol/L (21-32); CREATININE 0.7 mg/dL (0.6-1.3); GLUCOSE 105 mg/dL (70-99); SODIUM 140 mmol/L (136-145)
[2018-01-01 16:48] LABS: URINE BILIRUBIN NEGATIVE (Negative); URINE BLOOD NEGATIVE (Negative); URINE CLARITY CLEAR; URINE COLOR YELLOW; URINE GLUCOSE-RANDOM NEGATIVE (Negative); URINE KETONES NEGATIVE (Negative); URINE LEUKOCYTES-REFLEX NEGATIVE (Negative); URINE NITRITE-REFLEX NEGATIVE (Negative); URINE PROTEIN NEGATIVE (Negative); URINE UROBILINOGEN 0.2 E.U./dl (0.2-1.0)
[2018-01-01 16:52] LABS: ALBUMIN 3.2 g/dL (3.4-5.0); ALKALINE PHOSPHATASE 71 U/L (46-116); LIPASE 106 U/L (73-393); SGOT 12 U/L (15-37); SGPT 13 U/L (30-65); TOTAL BILIRUBIN 0.1 mg/dL (<0.1-1.0); TOTAL PROTEIN 7.7 g/dL (6.4-8.2); TROPONIN-I LEVEL <0.06 ng/mL (<0.06)
[2018-01-01 18:50] VITALS: BP 111/73
--- NOTE | 2018-01-02 10:22 | EKG ---
[place] [address] ELECTROCARDIOGRAM REPORT Name: AZAMGUS Chio Room: [facility]#: [id number] Admission: 01/01/18 Attend Phys: Discharge: 01/01/18 Date of : 75 Report #: [id number] THIS REPORT FOR: //name// [facility] ED Test Date: 2018-01-01 Test Time: 15:41:12 Pat Name: GUS NASCIMENTO Department: Room: Gender: F Director Of Respiratory Therapy: Luis LUO : 1975 Requested By: Kalpana Brooks Order Number: [id number] MD: Chaitanya Gama Measurements Intervals Zenia Rate: 89 P: 54 CA: 154 QRS: 31 QRSD: 80 T: 31 QT: 384 QTc: 468 Interpretive Statements Sinus rhythm Compared to ECG 11/26/2017 11:17:32 No significant changes Electronically Signed On 01-02-2018 10:22:41 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
== END 2018-01-01 18:53 | disposition home or self-care (01) ==
LOC: M.ERS 15:33
PROVIDERS: Nurse Practitioner Family
DX: A08.4 Viral intestinal infection, unspecified (principal); J44.9 Chronic obstructive pulmonary disease, unspecified; F32.9 Major depressive disorder, single episode, unspecified; F41.9 Anxiety disorder, unspecified; K21.9 Gastro-esophageal reflux disease without esophagitis; M79.7 Fibromyalgia; I25.2 Old myocardial infarction; Z88.1 Allergy status to other antibiotic agents; Z91.040 Latex allergy status; Z88.8 Allergy status to other drugs, medicaments and biological substances

== ENCOUNTER → 2018-01-03 | Outpatient (CLI) | payer MEDICARE, MEDICAID ==
[~2018-01-03] MED LIST changes: +EFFEXOR XR37.5 MG PO; +LINEZOLID600 MG PO
[2018-01-03 11:33] LABS: CALCIUM 8.4 mg/dL (8.5-10.1); CREATININE 0.9 mg/dL (0.6-1.3); POTASSIUM 3.8 mmol/L (3.5-5.1)
[2018-01-03 15:23] VITALS: BP 112/63
--- NOTE | 2018-01-03 15:23 | NUR ---
Pt completed infusion of potassium. Pt tolerated well. Flushed PICC line and pt ambulated out for discharge at 1530.
== END ==
LOC: M.INFUS 01:26
PROVIDERS: Internal Medicine Nephrology
DX: E87.6 Hypokalemia (principal)

== ENCOUNTER → 2018-01-05 | Outpatient (CLI) | payer MEDICARE, MEDICAID ==
[~2018-01-05] MED LIST changes: +PREDNISONE 20 M20 M1 PO
--- NOTE | 2018-01-05 10:25 | NUR ---
ARRIVED AMBULATORY. MADE SELF COMFORTABLE IN RECLINER. PRE LAB INFUSION LABS OBTAINED AND SENT TO LAB. RIGHT UPPER ARM PICC LINE FLUSHED WELL AND WAS NOTED TO HAVE GOOD BRISK BLOOD RETURN. PT TOLERATED COMPLETION OF POTASSIUM CHLORIDE 40 MEQ IV. RIGHT UPPER ARM PICC LINE FLUSHED W/20 ML NS W/EASY FLUSH. PT VOICES NO NEEDS OR CONCERNS AT DISCHARGE. PT LEFT AMBULATORY W/STEADY GAIT.
[2018-01-05 10:35] VITALS: BP 113/65
[2018-01-05 11:01] LABS: CALCIUM 8.6 mg/dL (8.5-10.1); CREATININE 0.9 mg/dL (0.6-1.3); POTASSIUM 3.5 mmol/L (3.5-5.1)
--- NOTE | 2018-01-06 12:31 | CON ---
[address] [address] CONSULTATION Name: GUS NASCIMENTO Chio Room: [facility].#: [id number] Admission: 01/05/18 Attend Phys: Chalo Hua MD Discharge: Date of : 75 Report #: [id number] THIS REPORT FOR: //name// CC: Chalo Saleh DATE OF SERVICE: 01/05/2018 LOCATION: She is seen in the outpatient infusion area. ATTENDING PHYSICIAN: Dr. Hua. 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 She was started on linezolid based on historical data, did confirm that it was susceptible indeed to linezolid based on susceptibility testings. The only other option in terms of susceptibility to drug was amikacin. Plan is to continue the linezolid. She does have some degree of adverse drug effects. I told her we were extremely limited, although this does not apply to hypersensitivity. She is to continue that. She is going to have labs 3 times weekly. We will dose the amikacin preferably at home. She does have longstanding indwelling catheter. We will have to monitor her kidney function as well as any changes in her sense of balance or hearing to see how she tolerates this regimen. We will see her on a frequent basis. <ELECTRONICALLY SIGNED> By: Mehdi Salgado MD 01/06/18 1231 0843 [id number] Salgado MD /nt
== END ==
LOC: M.INFUS 04:56
PROVIDERS: Internal Medicine Nephrology
DX: M79.661 Pain in right lower leg (principal); M79.89 Other specified soft tissue disorders; E87.6 Hypokalemia

== ENCOUNTER → 2018-01-07 | Outpatient (CLI) | payer MEDICARE, MEDICAID ==
[2018-01-07 12:03] LABS: CALCIUM 8.3 mg/dL (8.5-10.1); CREATININE 0.9 mg/dL (0.6-1.3); POTASSIUM 3.1 mmol/L (3.5-5.1)
--- NOTE | 2018-01-07 15:20 | NUR ---
ARRIVED AMBULATORY. MADE SELF COMFORTABLE IN RECLINER. PICC PATENT. LABS DRAWN PER ORDER. INFUSION COMPLETED AND TOLERATED WELL. PICC FLUSHED. VICTORIANO NEEDS AT DISCHARGE.
--- NOTE | 2018-01-10 07:59 | CON ---
[address] [address] CONSULTATION Name: AZAMGUS K Room: [facility].#: [id number] Admission: 01/07/18 Attend Phys: Chalo Hua MD Discharge: Date of : 75 Report #: [id number] THIS REPORT FOR: //name// CC: Chalo Saleh DATE OF SERVICE: 01/07/2018 INFECTIOUS DISEASE CONSULTATION ATTENDING PHYSICIAN: Dr. Hua. She was seen in the outpatient infusion area for disseminated mycobacterial fortuitum infection. She is here today as per usual 3 times a week potassium infusion based on susceptibilities that have come back this week and has limited options. She has been started on linezolid, which is in vitro susceptible with an CHAD of 8, also amikacin is the only other in vitro susceptible option. She was given a dose today and she will be started on a daily dose as an outpatient. It is notable she has outpatient infusion 3 times a week with labs. We will follow creatinine closely as well as weekly CBCs and get an amikacin level as well. This is based on dosing of 15 mg/kg with a measurement of 90 kilos, so total of 1350 mg. We did have a lengthy discussion with the patient. She is generally not feeling well, which is not surprising. It is difficult to ascertain whether this is primarily due to disseminated mycobacterial infection or adverse drug effects or more likely some combination thereof in addition to her other underlying medical disease burden. We will follow her closely and see her next week. <ELECTRONICALLY SIGNED> By: Mehdi Salgado MD 01/10/18 0759 1542 [id number] Salgado MD /nt
--- NOTE | 2018-01-12 05:49 | CON ---
[address] [address] CONSULTATION Name: GUS NASCIMENTO Room: [facility].#: [id number] Admission: 01/07/18 Attend Phys: Chalo Hua MD Discharge: Date of : 75 Report #: [id number] THIS REPORT FOR: //name// CC: Chalo Saleh DATE OF SERVICE: 01/10/2018 HISTORY OF PRESENT ILLNESS: The patient returns today in followup as per her usual infusion for potassium. She gets thrice weekly infusion area. She was initiated on the amikacin last week at a daily dose of 15 mg/kg or a total of 1350. Had repeat creatinine today. It is maintained at less than 1. She overall feels no worse than previous, although she is not feeling much better. There is no apparent adverse drug effect. She notes there are no new inflammatory subcutaneous masses that have developed in the interim last 72 hours, which were occurring on a regular basis. In addition to the medications, she is continued on linezolid without difficulty at this point. IMPRESSION AND PLAN: Disseminated Mycobacterium chelonae infection. We will continue combination therapy including amikacin as well as linezolid. We will have to monitor expectantly for adverse drug effects, both clinically and laboratory jonas. We have very limited perhaps based on in vitro susceptibilities, these are the 2 only options that show susceptibility in vitro. We will see her in 1 week. Did discuss with Candida, the outpatient infusion nurse, gave her my cell phone. We will follow the labs closely. As per her protocol, she is getting BMP 3 times a week. Did instruct her about issue not only with nephrotoxicity, but also auto-toxicity and labyrinthitis. <ELECTRONICALLY SIGNED> By: Mehdi Salgado MD 01/12/18 0549 1525 [id number] Salgado MD /nt
== END ==
LOC: M.INFUS 04:40
PROVIDERS: Internal Medicine Nephrology
DX: E87.6 Hypokalemia (principal)

== ENCOUNTER → 2018-01-10 | Outpatient (CLI) | payer MEDICARE, MEDICAID ==
[2018-01-10 10:32] VITALS: BP 108/67
[2018-01-10 11:05] LABS: CALCIUM 8.6 mg/dL (8.5-10.1); CREATININE 0.8 mg/dL (0.6-1.3); POTASSIUM 3.2 mmol/L (3.5-5.1)
[2018-01-10 14:37] VITALS: BP 132/74
== END ==
LOC: M.INFUS 01:04
PROVIDERS: Internal Medicine Nephrology
DX: E87.6 Hypokalemia (principal)

== ENCOUNTER → 2018-01-12 | Outpatient (CLI) | payer MEDICARE, MEDICAID ==
[~2018-01-12] MED LIST changes: +NYSTATIN100000 UNI SW&SWALLOW
[2018-01-12 10:42] VITALS: BP 116/67
--- NOTE | 2018-01-12 11:02 | NUR ---
1030:PT. ARRIVED TO INFUSION. SETTLED INTO RECLINER AND MADE COMFORTABLE. 1102:RT. UPPER ARM SINGLE LUMEN PICC IN PLACE, LABS DRAWN PRIOR TO STARTING INFUSION. GOT BRISK, EASY BLOOD ASPIRATE. KCL STARTED AT 50ML/HR (10MEQ/HR). 1345:PT. HAS BEEN SLEEPING, TOLERATING INFUSION WELL.
[2018-01-12 14:11] LABS: CALCIUM 8.4 mg/dL (8.5-10.1); CREATININE 0.9 mg/dL (0.6-1.3); POTASSIUM 3.2 mmol/L (3.5-5.1)
--- NOTE | 2018-01-12 15:02 | NUR ---
INFUSION COMPLETED AND TOLERATED WELL. PICC FLUSHED AND DRESSING CHANGED. DENIES NEEDS AT DISCHARGE.
== END ==
LOC: M.INFUS 04:57
PROVIDERS: Specialist
DX: E87.6 Hypokalemia (principal)

== ENCOUNTER 2018-01-14 14:05 | Emergency (ER) | payer MEDICARE, MEDICAID ==
[~2018-01-14] VITALS: Ht 162.6 cm; Wt 89.8 kg
[~2018-01-14 14:05] MED LIST changes: -NYSTATIN100000 UNI SW&SWALLOW; -PREDNISONE 20 M20 M1 PO
[2018-01-14 14:12] VITALS: BP 130/76
[2018-01-14] MEDS ORDERED: KEFLEX500 M1 PO (14:35)
[2018-01-14] MEDS ORDERED: BACTRIM DS TAB1 EACH PO (14:35)
[2018-01-14] MEDS ORDERED: PREDNISONE 20 M20 M1 PO (15:05)
[2018-01-20] MEDS ORDERED: NYSTATIN100000 UNI SW&SWALLOW (08:58)
== END 2018-01-14 15:10 | disposition home or self-care (01) ==
LOC: M.ERS 14:05
DX: R21 Rash and other nonspecific skin eruption (principal); J44.9 Chronic obstructive pulmonary disease, unspecified; F41.9 Anxiety disorder, unspecified; F32.9 Major depressive disorder, single episode, unspecified; M81.0 Age-related osteoporosis without current pathological fracture; K21.9 Gastro-esophageal reflux disease without esophagitis; M79.7 Fibromyalgia; Z86.711 Personal history of pulmonary embolism; Z86.14 Personal history of Methicillin resistant Staphylococcus aureus infection; Z96.651 Presence of right artificial knee joint; Z88.1 Allergy status to other antibiotic agents; Z91.040 Latex allergy status; Z88.8 Allergy status to other drugs, medicaments and biological substances; Z86.2 Personal history of diseases of the blood and blood-forming organs and certain disorders involving the immune mechanism; Z98.890 Other specified postprocedural states

== ENCOUNTER 2018-01-15 18:37 | Inpatient (IN) | payer MEDICARE, MEDICAID ==
[~2018-01-15] VITALS: Ht 162.6 cm; Wt 88.0 kg
--- NOTE | ~2018-01-15 | CON ---
[address] [address] CONSULTATION Name: GUS NASCIMENTO Room: [address] IN M.R.#: [id number] Admission: 01/15/18 Attend Phys: Anthony Bui MD Discharge: Date of : 75 Report #: [id number] THIS REPORT FOR: //name// CC: Eliseo Bui DATE OF SERVICE: 01/16/2018 REASON FOR CONSULTATION: Question of infected PICC site. HISTORY OF PRESENT ILLNESS: The patient is a 42-year-old white woman diagnosed and treated by Dr. 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 Immunologic workup negative. The patient was on treatment at home with Zyvox 600 mg p.o. b.i.d. and amikacin 1250 mg IV daily, the former for 2 weeks, the latter for about a week. The patient noticed some lesions under the transparent dressing on the right arm. She declared this to be infected. I evaluated in the Emergency Room and admitted. The patient tells me Mycobacterium chelonae was diagnosed recently. I reviewed microbiology results and I found no report to this effect, maybe this is a telephone report. Biopsy revealed granulomatous changes on the biopsy as well as mycobacterial ____ organism. 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 DRUG ALLERGIES: CITALOPRAM, DULOXETINE, DOXYCYCLINE, ERYTHROMYCIN, CLARITHROMYCIN, TRAZODONE, LEVAQUIN, CELECOXIB, LATEX. MEDICATIONS: The patient is currently on Zyvox 600 mg p.o./IV twice daily, triamterene, ondansetron p.r.n., hydrocodone p.r.n. Amikacin has been put on hold. SOCIAL HISTORY: See H and P, old records. FAMILY HISTORY: See H and P, old records. REVIEW OF SYSTEMS: As above. PHYSICAL EXAMINATION: GENERAL: Well-developed, nontoxic looking woman in no distress. VITAL SIGNS: Temperature 98.4, pulse 81, respirations 18, BP 141/87. HEENT: Upper plates. Moist mucous membrane, no thrush or hairy leukoplakia. NECK: Supple. LUNGS: Clear. HEART: S1, [place] [address] CONSULTATION Name: GUS NASCIMENTO Room: [address]#: [id number] Admission: 01/15/18 Attend Phys: Anthony Bui MD Discharge: Date of : 75 Report #: [id number] ABDOMEN: Soft. EXTREMITIES: Superficial skin lesions both forearms with scarring lesions both arms, possibly related to her Mycobacterium chelonae skin infection. LABORATORY DATA: Immunologic studies including HIV, CMV, EBV negative. Sodium 136, potassium 4, BUN 11, creatinine 0.9, albumin 3.4. WBC 8.9, hemoglobin 10.6, MCV and MCH low, platelets 276,000. ASSESSMENT: 1. Question PICC line infection, though the lesions she is pointing to me is distant from the access site. We will take a culture of this. 2. Mycobacterium chelonae skin infection. 3. 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 4. Mild anemia. SUGGESTIONS: Culture right arm skin lesion. Continue amikacin and Zyvox as previously. Dr. Salgado will assume care tomorrow. By: [id number] Arreguin MD /nt
[~2018-01-15 18:37] MED LIST changes: +PREDNISONE 20 M20 M1 PO
[2018-01-15 19:34] VITALS: BP 127/52
[2018-01-15 19:58] LABS: MPV 6.9 fl. (7.2-11.1); NUCLEATED RBCS 0 /100WBC; RDW-CV 17.5 % (10.5-14.5); WBC 9.4 thou/uL (4.0-11.0)
[2018-01-15 19:59] LABS: HEMATOCRIT 33.3 % (37.0-47.0); HEMOGLOBIN 10.3 gm/dL (12.0-15.0); MCH 23.2 pg (26.0-34.0); MCV 74.8 fL (80.0-100.0); PLATELET COUNT* 273 thou/uL (150-400); RBC 4.46 mil/uL (4.20-5.00)
[2018-01-15 20:09] LABS: CALCIUM 8.4 mg/dL (8.5-10.1); CREATININE 0.9 mg/dL (0.6-1.3)
[2018-01-15 20:16] LABS: ALBUMIN 3.4 g/dL (3.4-5.0); TOTAL BILIRUBIN 0.1 mg/dL (<0.1-1.0); TOTAL PROTEIN 7.8 g/dL (6.4-8.2)
[2018-01-15 20:28] LABS: ABSOLUTE LYMPHOCYTES 0.8 thou/uL (0.8-5.3); ABSOLUTE NEUTROPHILS 8.6 thou/uL (1.6-8.1); ANISOCYTOSIS 1+; HYPOCHROMASIA 1+; MICROCYTES 1+; PLATELET ESTIMATE ADEQUATE
[2018-01-15 21:33] VITALS: BP 126/64
--- NOTE | 2018-01-15 22:16 | NUR ---
ASSESSMENT COMPLETE. PT ADMITTED WITH PICC LINE INFECTION. INFECTIOUS DISEASE CONSULT. IV ZYVOX ORDERED. IV FLUIDS INFUSING. PT IS ALERT AND ORIENTED X4. PRN PAIN MEDICATION GIVEN. PT DENIES N/V. PT IS UP AD RONNA. VITALS STABLE. PT IS ON ROOM AIR WITH [place] SATS, DENIES SOA. SEE ASSESSMENT AND VITALS FOR OTHER DETAILS. CALL LIGHT WITHIN REACH, WILL CONTINUE PLAN OF CARE
[2018-01-15 22:26] VITALS: BP 141/87
[2018-01-16 08:00] VITALS: BP 112/69
[2018-01-16 13:20] LABS: % SATURATION 7 % (20-39); IRON 26 ug/dL (50-175)
[2018-01-16 16:00] VITALS: BP 121/70
--- NOTE | 2018-01-16 18:44 | NUR ---
PATIENT RESTING IN BED. PATIENT IS UP AD RONNA IN ROOM. PATIENT HAS HAD COMPLAINTS OF RIGHT KNEE PAIN, TREATED ADEQUATELY WITH PAIN MEDICATION. PATIENT HAS BEEN GIVEN ANTIBIOTICS ORDERED. GOOD APPETITE. PATIENT DENIES ANY NEEDS AT THIS TIME. CALL LIGHT WITHIN REACH. WILL CONTINUE TO MONITOR.
[2018-01-16 20:10] VITALS: BP 101/67
--- NOTE | 2018-01-17 05:00 | NUR ---
PT SLEPT OFF AND ON OVERNIGHT. RECEIVING PO AND IV PAIN MED PRN FOR CO BACK AND KNEE PAIN WITH GOOD RESULT. RUAPICC SL-NOT BEING USED. RFA IVF INFUSING PER PUMP. O2 2L AT NITE. HOME MEDS REORDERED. RECEIVED ABX ORDERED. UP AD RONNA IN ROOM AND HALLS. AM LABS DRAWN. ABLE TO USE CALL LITE AND MAKE NEEDS KNOWN.
[2018-01-17 05:04] LABS: HEMATOCRIT 30.7 % (37.0-47.0); HEMOGLOBIN 9.3 gm/dL (12.0-15.0); MCH 23.6 pg (26.0-34.0); MCHC 30.4 g/dL (28.0-37.0); MCV 77.4 fL (80.0-100.0); RBC 3.96 mil/uL (4.20-5.00); RDW-CV 17.1 % (10.5-14.5); WBC 7.4 thou/uL (4.0-11.0)
[2018-01-17 05:07] LABS: CALCIUM 7.5 mg/dL (8.5-10.1); CREATININE 0.9 mg/dL (0.6-1.3); MAGNESIUM 1.8 mg/dL (1.8-2.4); POTASSIUM 3.5 mmol/L (3.5-5.1)
[2018-01-17 08:00] VITALS: BP 115/75
[2018-01-17 15:56] VITALS: BP 117/73
--- NOTE | 2018-01-17 17:15 | NUR ---
PATIENT HAS BEEN A/O X 4 THIS SHIFT. MEDICATED FOR BACK PAIN X 1 THIS SHIFT WITH RELIEF. PATIENT UP AD RONNA AND AMBULATING IN HALLS WITH THIS SHIFT. PATIENT CONTINUES ON IV FLUIDS AND ANTIBIOTICS. PATIENT PICC LINE IN PLACE TO RIGHT UPPER ARM, DRESSING INTACT SLIGHT PINKNESS NOTED. PATIENT STARTED ON IV IRON THIS SHIFT. TOLERATING DIET. HOURLY ROUNDING COMPLETED. CALL LIGHT WITHIN REACH. WILL COTNINUE WITH PLAN OF CARE.
[2018-01-18] VITALS: BP 105/50
--- NOTE | 2018-01-18 05:06 | NUR ---
PT SLEPT WELL THIS SHIFT. HAS NOT REQUESTED ANY PRN PAIN MED SO FAR THIS SHIFT. UP AD RONNA IN ROOM. IVF INFUSING PER PUMP R HAND. PO ABX GIVEN. WENDY PICC IN PLACE, AWAITING CULTURE RESULTS-ID CONSULTING. NO LABS THIS MORNING. ABLE TO USE CALL LITE AND MAKE NEEDS KNOWN.
[2018-01-18 07:45] VITALS: BP 111/56
[2018-01-18 15:57] VITALS: BP 133/62
--- NOTE | 2018-01-18 16:38 | NUR ---
Pt lives with significant other. Pt has oxygen, nebulizer through [facility], [facility], [facility]. SW to continue to follow to assist with safe dc planning.
--- NOTE | 2018-01-18 19:39 | NUR ---
PT ALERT AND ORIENTED X 4. IV PATENT IN RIGHT HAND IN USE DURING AM. PICC LINE USED IN AFTERNOON-FLUSHED WITH BLOOD RETURN. IVF INFUSING @ 150 MLS/HR. UP AD RONNA IN ROOM. RECEIVED IV AND PO PAIN RELIEF MEDICATION. DENIED NAUSEA. HOURLY ROUNDS MAINTAINED. VS STABLE. PT WILL USE CALL LIGHT FOR ASSISTANCE. PT MOVED FROM ROOM 308 TO ROOM 316 @ 1800.
[2018-01-18 20:20] VITALS: BP 111/54
--- NOTE | 2018-01-19 06:07 | NUR ---
PT SLEPT ON AND OFF THIS SHIFT. ASSESSMENT DOCUMENTED. MEDS GIVEN PER E-MAR. PICC PATENT. FLUIDS INFUSING. IV DC'D PER PATIENT REQUEST. PAIN MEDS GIVEN PER E-MAR FOR RIGHT KNEE PAIN. PT UP AD RONNA IN ROOM, WILL CONTINUE WITH PLAN OF CARE.
[2018-01-19 08:00] VITALS: BP 123/78
[2018-01-19 17:05] VITALS: BP 114/69
--- NOTE | 2018-01-19 17:29 | NUR ---
PATIENT A&OX4, ROOM AIR, 2L O2 PRN HS. IV RIGHT UPPER ARM SINGLE LUMEN PICC FLUIDS INFUSSING. C/O PIAN IN LEGS, RELIEF WITH MEDICATION. UP AD RONNA, STEADY GAIT. THRUSH IN MOUTH, NYSTATIN SWISH AND SWALLOW, PATIENT STATES GETTING BETTER. NO OTHER CONCERNS AT THIS TIME. APPROPRAITE AND COOPORATIVE WITH CARE.
[2018-01-19 20:15] VITALS: BP 105/62
--- NOTE | 2018-01-20 07:41 | NUR ---
PT SLEPT ON AND OFF THIS SHIFT. ASSESSMENT DOCUMENTED. MEDS GIVEN PER E-MAR. PAIN MEDS GIVEN PER PT REQUEST. PT UP AD RONNA IN ROOM. WILL CONTINUE WITH PLAN OF CARE.
[2018-01-20] MEDS ORDERED: NYSTATIN100000 UNI SW&SWALLOW ×2 (08:58)
[2018-01-20 09:30] VITALS: BP 112/65
[2018-01-20 16:04] VITALS: BP 115/53
[2018-01-20 16:05] LABS: ABSOLUTE EOSINOPHILS 0.1 thou/uL (0.0-0.7); ABSOLUTE LYMPHOCYTES 0.9 thou/uL (0.8-5.3); ABSOLUTE MONOCYTES 0.3 thou/uL (0.0-1.2); ABSOLUTE NEUTROPHILS 4.3 thou/uL (1.6-8.1); BASOPHILS 0.5 %; EOSINOPHILS 1.3 %; HEMATOCRIT 28.5 % (37.0-47.0); HEMOGLOBIN 8.9 gm/dL (12.0-15.0); LYMPHOCYTES 15.2 %; MCH 23.9 pg (26.0-34.0); MCHC 31.1 g/dL (28.0-37.0); MONOCYTES 5.4 %; MPV 6.9 fl. (7.2-11.1); NUCLEATED RBCS 0 /100WBC; PLATELET COUNT* 204 thou/uL (150-400); POLYS 77.6 %; RBC 3.71 mil/uL (4.20-5.00); RDW-CV 17.5 % (10.5-14.5); WBC 5.6 thou/uL (4.0-11.0)
[2018-01-20 16:20] LABS: ALBUMIN 2.9 g/dL (3.4-5.0); CALCIUM 8.2 mg/dL (8.5-10.1); CREATININE 0.8 mg/dL (0.6-1.3); MAGNESIUM 1.8 mg/dL (1.8-2.4); POTASSIUM 3.8 mmol/L (3.5-5.1); TOTAL BILIRUBIN 0.1 mg/dL (<0.1-1.0); TOTAL PROTEIN 6.3 g/dL (6.4-8.2)
--- NOTE | 2018-01-20 17:45 | NUR ---
SW followed up with pt dc planning. Pt to dc home with significant other. Possible medication reaction according to pt nurse and pt was a possible dc for today but then pt not to dc due to trialling different medication. SW to continue to follow to assist with safe dc planning. [facility] and [facility] for HH and IV abx services as needed.
--- NOTE | 2018-01-20 17:59 | NUR ---
PATIENT IS ALERT AND ORIENTED TODAY. HAS COMPLAINTS OF PAIN THAT IS CONSTANT. PICC LINE IN RIGHT UPPER WORKS WELL FOR FLUIDS AND DRAWING BLOOD. VITAL SIGNS STABLE OM ROOM AIR. NO IV PAIN MEDICATION GIVEN TODAY ONLY ORAL. CALL LIGHT IS IN REACH, WILL CONTINUE TO MONITOR.
[2018-01-21] VITALS: BP 116/66
--- NOTE | 2018-01-21 06:50 | NUR ---
PT SLEPT WELL OVERNIGHT. RECEIVING PAIN MEDS PRN FOR CO BACK AND KNEE PAIN WITH GOOD RESULT. UP AD RONNA IN ROOM. BM OVERNIGHT PT REPORTS. R PICC IVF INFUSING PER PUMP. NO LABS THIS MORNING. ABLE TO USE CALL LITE AND MAKE NEEDS KNOWN.
[2018-01-21 10:03] VITALS: BP 123/71
--- NOTE | 2018-01-21 15:56 | NUR ---
SW noted dc on hold due to checking for tolerance of IV abx. SW checked with [facility] and they said that the pt was not signed on at the latest referral in August. RAVINDER called [facility] as SW thought that was the IV abx agency pt used however they do not have pt; possibly [place] is agency; RAVINDER tried to call [facility] for a heads up on dc planning and main number just kept ringing, no answer or voicemail. SW to continue to follow to assist with safe dc planning.
[2018-01-21 16:38] VITALS: BP 120/79
--- NOTE | 2018-01-21 17:51 | NUR ---
PATIENT HAS BEEN ALERT AND ORIENTED TODAY. TOLERATED IV ANTIBIOTICS THROUGH PICC TODAY. IV FLUIDS STOPPED TODAY. UP AD RONNA IN ROOM. TOLERATING FOOD WELL, FAMILY HAS BROUGHT IN OUTSIDE FOOD. VITAL SIGNS STABLE ON ROOM AIR. CALL LIGHT IS IN REACH, WILL CONTINUE TO MONITOR.
[2018-01-21 20:00] VITALS: BP 111/66
[2018-01-22 04:30] LABS: CALCIUM 8.8 mg/dL (8.5-10.1); CREATININE 0.8 mg/dL (0.6-1.3); MAGNESIUM 1.8 mg/dL (1.8-2.4); POTASSIUM 3.6 mmol/L (3.5-5.1)
--- NOTE | 2018-01-22 04:49 | NUR ---
THIS NURSE ASSUMES CARE OF PT 01/21/18 AT 1930, PT IS ALERT AND ORIENTED X 4 SHE COMPLAINS OF BILATERAL KNEE PAIN, RECEIVES PO PAIN MEDS, PT PICC LINE TO UPPER RIGHT ARM WITH DRESSING CLEAN DRY AND INTACT, NO S/S INFECTION AT SITE NOTED AT THIS TIME, PT IS A FEBRILE, SHE HAS NO COMPLAINT/CONCERNS EXPRESSED AT THIS TIME
[2018-01-22 06:40] LABS: HEMATOCRIT 27.2 % (37.0-47.0); HEMOGLOBIN 8.5 gm/dL (12.0-15.0); MCH 23.8 pg (26.0-34.0); MCHC 31.3 g/dL (28.0-37.0); MCV 76.2 fL (80.0-100.0); MPV 6.8 fl. (7.2-11.1); RBC 3.57 mil/uL (4.20-5.00); WBC 6.1 thou/uL (4.0-11.0)
[2018-01-22 11:28] VITALS: BP 111/66
--- NOTE | 2018-01-22 11:29 | NUR ---
Pt discharging to home today. JAVON contacted [facility], spoke with Jeanne, to inform of discharge, faxed orders. JAVON spoke with Brittany with [facility], informed of dc and faxed dc orders. Pt is scheduled to f/u with Dr Salgado in clinic on Wednesday.
[2018-01-22 11:41] VITALS: BP 114/80
[2018-01-22 12:00] VITALS: BP 100/55
[2018-01-22] MEDS ORDERED: AMIKACIN (500 MG/2 M IV (12:15)
[2018-01-22 12:32] VITALS: BP 111/66
--- NOTE | 2018-01-22 12:36 | NUR ---
PATIENT IS ALERT AND ORIENTED UP AD RONNA IN ROOM. VITAL SIGNS STABLE ON ROOM AIR. PAIN THAT IS SOMEWHAT CONTROLLED WITH ORAL PAIN MEDICATIONS. CHRONIC PAIN THAT IS ALWAYS THERE. PATIENT LEFT VIA WHEELCHAIR TO HOME WITH [facility] AND HOME HEALTH SET UP FOR IV ANTIOBIOTICS. DISCHARGE INSTRUCTIONS AND PRESCRIPTIONS GIVEN WITH QUESTIONS ANSWERED FOR PATIENT AND .
[2018-01-22 12:42] VITALS: BP 111/66
== END 2018-01-22 12:43 | disposition home health service (06) | DRG 315 ==
LOC: M.ERS 18:37 → M.3W 20:25 → M.TBA-ER 20:25 → M.3W 21:33
PROVIDERS: Emergency Medicine; Family Medicine; Internal Medicine; Specialist
DX: T80.211A Bloodstream infection due to central venous catheter, initial encounter (principal); L03.113 Cellulitis of right upper limb; R65.10 Systemic inflammatory response syndrome (SIRS) of non-infectious origin without acute organ dysfunction; M87.152 Osteonecrosis due to drugs, left femur; M87.151 Osteonecrosis due to drugs, right femur; M87.17 Osteonecrosis due to drugs, ankle, foot and toes; M87.172 Osteonecrosis due to drugs, left ankle; M87.112 Osteonecrosis due to drugs, left shoulder; M87.111 Osteonecrosis due to drugs, right shoulder; A31.8 Other mycobacterial infections; J44.9 Chronic obstructive pulmonary disease, unspecified; T38.0X5A Adverse effect of glucocorticoids and synthetic analogues, initial encounter; F32.9 Major depressive disorder, single episode, unspecified; F41.9 Anxiety disorder, unspecified; G89.29 Other chronic pain; M81.0 Age-related osteoporosis without current pathological fracture; E66.9 Obesity, unspecified; E87.6 Hypokalemia; K21.9 Gastro-esophageal reflux disease without esophagitis; M79.7 Fibromyalgia; D50.9 Iron deficiency anemia, unspecified; B96.89 Other specified bacterial agents as the cause of diseases classified elsewhere; Y83.8 Other surgical procedures as the cause of abnormal reaction of the patient, or of later complication, without mention of misadventure at the time of the procedure; Z68.33 Body mass index [BMI] 33.0-33.9, adult; Z79.899 Other long term (current) drug therapy; Y92.89 Other specified places as the place of occurrence of the external cause; Z86.711 Personal history of pulmonary embolism; I25.2 Old myocardial infarction; Z86.718 Personal history of other venous thrombosis and embolism; Z86.14 Personal history of Methicillin resistant Staphylococcus aureus infection; Z88.8 Allergy status to other drugs, medicaments and biological substances; Z88.1 Allergy status to other antibiotic agents; Z91.040 Latex allergy status; Z82.49 Family history of ischemic heart disease and other diseases of the circulatory system

== ENCOUNTER → 2018-01-24 | Outpatient (CLI) | payer MEDICARE, MEDICAID ==
[~2018-01-24] MED LIST changes: +AMIKACIN (500 MG/2 M IV; +NYSTATIN100000 UNI SW&SWALLOW
[2018-01-24 10:35] VITALS: BP 108/60
[2018-01-24 11:23] LABS: CALCIUM 8.5 mg/dL (8.5-10.1); CREATININE 0.9 mg/dL (0.6-1.3); POTASSIUM 3.7 mmol/L (3.5-5.1)
== END ==
LOC: M.INFUS 05:28
PROVIDERS: Internal Medicine Nephrology
DX: E87.6 Hypokalemia (principal)

== ENCOUNTER → 2018-02-02 | Outpatient (CLI) | payer MEDICARE, MEDICAID ==
[2018-02-02 10:50] VITALS: BP 149/75
[2018-02-02 11:24] LABS: CALCIUM 8.5 mg/dL (8.5-10.1); CREATININE 0.9 mg/dL (0.6-1.3); POTASSIUM 3.2 mmol/L (3.5-5.1)
[2018-02-02 15:20] VITALS: BP 121/68
--- NOTE | 2018-02-02 15:27 | NUR ---
ARRIVED AMBULATORY. MADE SELF COMFORTABLE IN RECLINER. LABS DRAWN FROM PICC. INFUSION COMPLETED AND TOLERATED WELL. LINE FLUSHED. DENIES NEEDS AT DISCHARGE.
== END ==
LOC: M.INFUS 02:39
PROVIDERS: Internal Medicine Nephrology
DX: E87.6 Hypokalemia (principal)

== ENCOUNTER → 2018-02-07 | Outpatient (CLI) | payer MEDICARE, MEDICAID ==
[2018-02-07 10:54] VITALS: BP 132/74
[2018-02-07 14:50] VITALS: BP 128/75
[2018-02-07 14:59] LABS: CALCIUM 8.7 mg/dL (8.5-10.1); POTASSIUM 3.4 mmol/L (3.5-5.1)
== END ==
LOC: M.INFUS 01:03
PROVIDERS: Internal Medicine Nephrology
DX: E87.6 Hypokalemia (principal)

== ENCOUNTER → 2018-02-16 | Outpatient (CLI) | payer MEDICARE, MEDICAID ==
[2018-02-16 10:30] VITALS: BP 132/75
[2018-02-16 11:25] LABS: CALCIUM 8.1 mg/dL (8.5-10.1); POTASSIUM 3.3 mmol/L (3.5-5.1)
[2018-02-16 12:30] VITALS: BP 122/74
--- NOTE | 2018-02-16 13:17 | NUR ---
ARRIVED AMBULATORY. MADE SELF COMFORTABLE IN RECLINER. PICC PATENT WITH EASY FLUSH AND GOOD BLOOD RETURN. LABS DRAWN. PT REQUESTED TO STOP INFUSION AFTER 1ST BAG OF K+. STATED SHE HAD A DOCTOR'S APPOINTMENT FOR HER KIDS. INFUSION STOPPED PER PT REQUEST AND 2ND BAG OF K+ RETURNED TO [facility]. PICC FLUSHED. DENIES NEEDS OR QUESTIONS AT DISCHARGE.
== END ==
LOC: M.INFUS 01:56
PROVIDERS: Internal Medicine Nephrology
DX: E87.6 Hypokalemia (principal)

== ENCOUNTER → 2018-02-18 | Outpatient (CLI) | payer MEDICARE, MEDICAID ==
[2018-02-18 10:20] VITALS: BP 130/80
[2018-02-18 10:56] LABS: ABSOLUTE EOSINOPHILS 0.1 thou/uL (0.0-0.7); ABSOLUTE LYMPHOCYTES 4.5 thou/uL (0.8-5.3); ABSOLUTE MONOCYTES 0.9 thou/uL (0.0-1.2); ABSOLUTE NEUTROPHILS 6.9 thou/uL (1.6-8.1); BASOPHILS 0.2 %; EOSINOPHILS 0.7 %; HEMATOCRIT 37.8 % (37.0-47.0); HEMOGLOBIN 11.7 gm/dL (12.0-15.0); LYMPHOCYTES 36.1 %; MCH 26.1 pg (26.0-34.0); MCHC 30.8 g/dL (28.0-37.0); MCV 84.8 fL (80.0-100.0); MONOCYTES 6.9 %; MPV 7.1 fl. (7.2-11.1); NUCLEATED RBCS 0 /100WBC; PLATELET COUNT* 295 thou/uL (150-400); POLYS 56.1 %; RBC 4.46 mil/uL (4.20-5.00); RDW-CV 28.4 % (10.5-14.5); WBC 12.4 thou/uL (4.0-11.0)
[2018-02-18 11:03] LABS: CALCIUM 8.6 mg/dL (8.5-10.1); CREATININE 1.3 mg/dL (0.6-1.3); POTASSIUM 3.2 mmol/L (3.5-5.1)
[2018-02-18 11:41] LABS: ANISOCYTOSIS 2+; PLATELET ESTIMATE ADEQUATE; POLYCHROMASIA 1+
[2018-02-18 11:53] LABS: ESR (SEDRATE) 12 mm/hr (0-20)
[2018-02-18 14:32] VITALS: BP 128/72
--- NOTE | 2018-02-18 14:51 | NUR ---
ARRIVED ABULATORY MADE SELF COMFORTABLE IN RECLINER. PICC PATENT WITH GOOD BRISK BLOOD RETURN AND EASY FLUSH. DRESSING CHANGED. LABS DRAWN PER ORDER. INFUSION COMPLETED AND TOERATED WELL. VICTORIANO NEEDS AT DISCHARGE.
--- NOTE | 2018-02-23 15:28 | CON ---
[facility] [address] [place] [address] CONSULTATION Name: GUS NASCIMENTO Room: [facility].#: [id number] Admission: 02/18/18 Attend Phys: Chalo Hua MD Discharge: Date of : 75 Report #: [id number] THIS REPORT FOR: //name// CC: Chalo Saleh She is seen in the outpatient infusion area. ATTENDING PHYSICIAN: Dr. Hua. REASON: She is here for followup of disseminated Mycobacterium chelonae infection. The patient returns today in followup, get her potassium infusion as per her requirements for extended period. She is on 3 times a week. She has been on linezolid therapy over the course of the past week. Amikacin was held due to the fact that she really had a disease process certainly under control. She had no new lesions and was feeling fairly well. Noted her creatinine had actually climbed after stopping the amikacin to 1.3, earlier had been in the 0.9 range. She had no recent fevers. She generally does not feel well. It is unclear whether the linezolid is causing adverse drug effects. ASSESSMENT: Disseminated Mycobacterium chelonae infection. We will continue linezolid, see how she does clinically over the course of next week. We will see her on a weekly basis in the infusion area. She is to call if problems. <ELECTRONICALLY SIGNED> By: Mehdi Salgado MD 02/23/18 1528 2038 [id number] Salgado MD /dionisio
== END ==
LOC: M.INFUS 04:34
PROVIDERS: Internal Medicine Nephrology
DX: E87.6 Hypokalemia (principal)

== ENCOUNTER → 2018-02-21 | Outpatient (CLI) | payer MEDICARE, MEDICAID ==
[2018-02-21 10:20] VITALS: BP 122/74
[2018-02-21 10:29] LABS: ABSOLUTE EOSINOPHILS 0.1 thou/uL (0.0-0.7); ABSOLUTE MONOCYTES 0.7 thou/uL (0.0-1.2); ABSOLUTE NEUTROPHILS 4.6 thou/uL (1.6-8.1); BASOPHILS 0.3 %; EOSINOPHILS 0.7 %; HEMATOCRIT 35.8 % (37.0-47.0); HEMOGLOBIN 11.3 gm/dL (12.0-15.0); LYMPHOCYTES 36.2 %; MCHC 31.5 g/dL (28.0-37.0); MCV 85.9 fL (80.0-100.0); MPV 7.1 fl. (7.2-11.1); NUCLEATED RBCS 0 /100WBC; PLATELET COUNT* 268 thou/uL (150-400); POLYS 54.8 %; RBC 4.17 mil/uL (4.20-5.00); RDW-CV 30.6 % (10.5-14.5); WBC 8.4 thou/uL (4.0-11.0)
[2018-02-21 10:34] LABS: CALCIUM 8.4 mg/dL (8.5-10.1); CREATININE 1.1 mg/dL (0.6-1.3); POTASSIUM 3.2 mmol/L (3.5-5.1)
[2018-02-21 11:15] LABS: ANISOCYTOSIS 1+; PLATELET ESTIMATE ADEQUATE
[2018-02-21 14:20] VITALS: BP 118/70
--- NOTE | 2018-02-21 14:34 | NUR ---
ARRIVED AMBULATORY. MADE SELF COMFORTABLE IN RECLINER. PICC INTACT AND PATENT. ORDERED LABS DRAWN. DR. JOHN HERE AND SPOKE WITH PT. INFUSION COMPLETED AND TOLERATED WELL. PICC FLUSHED. DENIES NEEDS AT DISCHARGE.
--- NOTE | 2018-02-23 11:47 | CON ---
[address] [address] CONSULTATION Name: GUS NASCIMENTO Room: [facility].#: [id number] Admission: 02/21/18 Attend Phys: Chalo Hua MD Discharge: Date of : 75 Report #: [id number] THIS REPORT FOR: //name// CC: Chalo Saleh DATE OF SERVICE: 02/21/2018 Unscheduled visit. She called with concerns, new complaints, seen in the outpatient infusion area. The patient called earlier today, complaining of new lesions in bilateral proximal upper extremities consistent with previous presentation of mycobacterial chelonae infection, also has felt some discomfort with breathing. She was scheduled to come to the outpatient infusion area for an infusion of potassium. I did evaluate her down there. Clinically ____ pain in her chest. Saturations were good. She is pleasant, tachypneic. She was coughing somewhat like did when she had diagnosis ____ parenchymal lung lesions. Initially, she noted to have inflammatory subcutaneous masses that were somewhat tender. It had occurred over the course of previous day. She has not had fevers. Appetite has been fair. On examination, did indeed have 2 areas, difficult to ascertain if these are truly new ____ tender. IMPRESSION: Disseminated Mycobacterium chelonae infection. PLAN: We will continue the linezolid, restart the amikacin at this point, I am concerned that indeed there ____ lesions. A repeat creatinine was 1.2, we have to monitor that closely. CBC is unremarkable with normal white count and platelets. Again, concerned about adverse drug effects due to the linezolid with cytopenias. We will see her as scheduled on Sunday, February 25, 2018. <ELECTRONICALLY SIGNED> By: Mehdi Salgado MD 02/23/18 1147 [id number] Salgado MD /nt
== END ==
LOC: M.INFUS 02:15
PROVIDERS: Internal Medicine Nephrology
DX: E87.6 Hypokalemia (principal)

== ENCOUNTER → 2018-02-23 | Outpatient (CLI) | payer MEDICARE, OTHER, MEDICAID ==
[2018-02-23 12:00] VITALS: BP 132/78
[2018-02-23 12:28] LABS: CALCIUM 8.4 mg/dL (8.5-10.1); CREATININE 1.1 mg/dL (0.6-1.3); POTASSIUM 3.4 mmol/L (3.5-5.1)
[2018-02-23 15:40] VITALS: BP 128/75
--- NOTE | 2018-02-23 15:45 | NUR ---
ARRIVED AMBULATORY. MADE SELF COMFORTABLE IN RECLINER. PICC PATENT WITH GOOD BRISK BLOOD RETURN NOTED AND FLUSHED WITH EASE. INFUSION STOPPED AT PT REQUEST REALTED TO FAMILY EMERGENCY. PICC FLUSHED. DENEIS NEEDS AT DISCHARGE.
== END ==
LOC: M.INFUS 09:00
PROVIDERS: Internal Medicine Nephrology
DX: E87.6 Hypokalemia (principal)

== ENCOUNTER → 2018-02-25 | Outpatient (CLI) | payer MEDICARE, OTHER, MEDICAID ==
[2018-02-25 10:45] VITALS: BP 122/75
[2018-02-25 11:58] LABS: ABSOLUTE EOSINOPHILS 0.1 thou/uL (0.0-0.7); ABSOLUTE LYMPHOCYTES 2.9 thou/uL (0.8-5.3); ABSOLUTE MONOCYTES 0.5 thou/uL (0.0-1.2); ABSOLUTE NEUTROPHILS 4.6 thou/uL (1.6-8.1); BASOPHILS 0.5 %; EOSINOPHILS 0.7 %; HEMATOCRIT 34.9 % (37.0-47.0); HEMOGLOBIN 11.1 gm/dL (12.0-15.0); LYMPHOCYTES 35.6 %; MCH 27.7 pg (26.0-34.0); MCHC 31.7 g/dL (28.0-37.0); MCV 87.3 fL (80.0-100.0); MONOCYTES 6.3 %; MPV 7.5 fl. (7.2-11.1); NUCLEATED RBCS 0 /100WBC; PLATELET COUNT* 264 thou/uL (150-400); POLYS 56.9 %; RDW-CV 31.3 % (10.5-14.5)
[2018-02-25 12:01] LABS: CALCIUM 8.5 mg/dL (8.5-10.1); CREATININE 1.1 mg/dL (0.6-1.3); POTASSIUM 3.4 mmol/L (3.5-5.1)
[2018-02-25 12:35] LABS: PLATELET ESTIMATE ADEQUATE
[2018-02-25 12:36] LABS: ANISOCYTOSIS 1+; HYPOCHROMASIA 1+; OVALOCYTES 1+; POIKILOCYTOSIS 1+; POLYCHROMASIA 1+
[2018-02-25 14:30] VITALS: BP 132/76
--- NOTE | 2018-02-25 14:47 | NUR ---
ARRIVED AMBULATORY. DR. JOHN HERE WAITING ON PT. PT SEEN AND NEW ORDER RECIEVED FRO MRI. MRI SCHEDULED FOR TODAY AT 1500. PICC INTACT AND PATENT. DRESSING TO PICC WAS CHANGED BY PT'S SIG OTHER YESTERDAY. PT STATED THAT HE HAD DROPPED THE BIOPATCH AND THAT WAS THE REASON NO BIOPATCH WAS PRESENT. DRESSING WAS CHANGED TODAY PER PROTOCOL. PT REQUEST TO STOP INFUSION AT 1430 SO SHE COULD GO TO SON'S [employer]CHO[employer] AND GET HIS HOMEWORK PRIOR TO MRI. PER REQUEST INFUSION STOPPED EARLY. PICC FLUSHED. DENIES NEEDS OR QUESTIONS AT DISCHARGE.
[2018-02-25 15:11] LABS: ESR (SEDRATE) 19 mm/hr (0-20)
--- NOTE | 2018-02-28 07:47 | CON ---
[address] [address] CONSULTATION Name: GUS NASCIMENTO [id number] Admission: 02/25/18 Attend Phys: Chalo Hua MD Discharge: Date of : 75 Report #: [id number] THIS REPORT FOR: //name// CC: Chalo Saleh DATE OF SERVICE: 02/25/2018 ATTENDING PHYSICIAN: Dr. Chalo Hua. REASON FOR EVALUATION: Followup disseminated Mycobacterium chelonae infection. HISTORY OF PRESENT ILLNESS: The patient returns today in followup as scheduled for infusion of potassium. She is seen for ongoing evaluation. She has been on extended period of treatment for the disseminated Mycobacterium chelonae infection, had restarted the amikacin in addition to the linezolid she had been on throughout. She noted there is a new area over the proximal left upper extremity, which is quite painful. It has not had any drainage. She generally feels poorly, although she has had significant amount of stress this week with family issues. On exam, the site is quite tender in axillary region on the left. I do not appreciate any fluctuance, appears to have a fairly deep extension. ASSESSMENT AND PLAN: Disseminated Mycobacterium disseminated chelonae infection. At this point, we will continue the combination therapy. I did bring up the fact that another option would be clarithromycin, which she basically refused due to historically having reactions to it. We will go and image it. She is scheduled to follow up with Dr. Terry. This may be situation where she benefits from surgical removal and see how she does clinically over the course the next several days. She is getting labs multiple times a week. Creatinine has been in the 1-1.1 range. <ELECTRONICALLY SIGNED> By: Mehdi Salgado MD 02/28/18 0747 1203 [id number] Salgado MD /nt
== END ==
LOC: M.INFUS 05:22
PROVIDERS: Internal Medicine Nephrology
DX: A31.8 Other mycobacterial infections (principal); E87.6 Hypokalemia

== ENCOUNTER → 2018-02-28 | Outpatient (CLI) | payer MEDICARE, MEDICAID ==
[2018-02-28 10:30] VITALS: BP 132/74
[2018-02-28 12:07] LABS: CALCIUM 8.7 mg/dL (8.5-10.1); CREATININE 1.1 mg/dL (0.6-1.3); POTASSIUM 3.6 mmol/L (3.5-5.1)
[2018-02-28 14:30] VITALS: BP 138/74
== END ==
LOC: M.INFUS 02-14 09:00
PROVIDERS: Internal Medicine Nephrology
DX: E87.6 Hypokalemia (principal)

== ENCOUNTER → 2018-03-02 | Outpatient (CLI) | payer MEDICARE, OTHER, MEDICAID ==
[2018-03-02 10:35] VITALS: BP 122/74
[2018-03-02 11:48] LABS: CALCIUM 8.8 mg/dL (8.5-10.1); CREATININE 1.2 mg/dL (0.6-1.3); MAGNESIUM 1.6 mg/dL (1.8-2.4); PHOSPHORUS* 3.4 mg/dL (2.5-4.9); POTASSIUM 3.3 mmol/L (3.5-5.1)
[2018-03-02 14:45] VITALS: BP 124/76
--- NOTE | 2018-03-02 15:05 | NUR ---
ARRIVED AMBUALTORY. MADE SELF COMFORTABLE. PICC INTACT AND PATENT. LABS DRAWN PER STANDING ORDER. INFUSION COMPLETED. PICC FLUSHED
== END ==
LOC: M.INFUS 02:13
PROVIDERS: Internal Medicine Nephrology
DX: E87.6 Hypokalemia (principal)

== ENCOUNTER → 2018-03-04 | Outpatient (CLI) | payer MEDICARE, OTHER, MEDICAID ==
[2018-03-04 10:35] VITALS: BP 135/75
[2018-03-04 10:49] LABS: ABSOLUTE EOSINOPHILS 0.1 thou/uL (0.0-0.7); ABSOLUTE LYMPHOCYTES 3.5 thou/uL (0.8-5.3); ABSOLUTE MONOCYTES 0.5 thou/uL (0.0-1.2); BASOPHILS 0.3 %; EOSINOPHILS 0.9 %; HEMATOCRIT 36.4 % (37.0-47.0); HEMOGLOBIN 11.8 gm/dL (12.0-15.0); LYMPHOCYTES 38.3 %; MCH 28.4 pg (26.0-34.0); MCHC 32.4 g/dL (28.0-37.0); MCV 87.8 fL (80.0-100.0); MONOCYTES 5.6 %; MPV 6.9 fl. (7.2-11.1); NUCLEATED RBCS 0 /100WBC; PLATELET COUNT* 292 thou/uL (150-400); POLYS 54.9 %; RBC 4.15 mil/uL (4.20-5.00); RDW-CV 30.4 % (10.5-14.5); WBC 9.2 thou/uL (4.0-11.0)
[2018-03-04 11:00] LABS: CALCIUM 8.8 mg/dL (8.5-10.1); CREATININE 1.1 mg/dL (0.6-1.3); POTASSIUM 3.5 mmol/L (3.5-5.1)
[2018-03-04 11:07] LABS: ANISOCYTOSIS 2+
[2018-03-04 11:51] LABS: ESR (SEDRATE) 24 mm/hr (0-20)
[2018-03-04 14:40] VITALS: BP 124/78
--- NOTE | 2018-03-07 07:54 | CON ---
[address] [address] CONSULTATION Name: GUS NASCIMENTO [facility]#: [id number] Admission: 03/04/18 Attend Phys: Chalo Hua MD Discharge: Date of : 75 Report #: [id number] THIS REPORT FOR: //name// CC: Chalo Saleh DATE OF SERVICE: 03/04/2018 ATTENDING PHYSICIAN: Dr. Hua REASON FOR EVALUATION: Follow up disseminated Mycobacterium chelonae infection. The patient returns in followup as her usual. She has thrice weekly infusions of potassium corrected by Dr. Hua. Creatinine has been stable in the 1.1 to 1.2 range. She is on combination therapy with amikacin 1350 mg IV daily as well as linezolid 600 twice a day. CBC shows no evidence of adverse drug effects to the latter. She has no new lesions at this point. She has some residual pain in the proximal arm, although it is not nearly as tender. There are no new areas of drainage. She denies any significant fevers. Again she claims to be fatigued, which is not unusual. ASSESSMENT AND PLAN: Disseminated Mycobacterium chelonae infection. We will continue amikacin and linezolid combination at this point. Follow closely with the labs. We will see her in 1 week in the infusion area. <ELECTRONICALLY SIGNED> By: Mehdi Salgado MD 03/07/18 0754 1355 [id number] Salgado MD /dionisio
== END ==
LOC: M.INFUS 04:42
PROVIDERS: Internal Medicine Nephrology; Specialist
DX: E87.6 Hypokalemia (principal)

== ENCOUNTER → 2018-03-07 | Outpatient (CLI) | payer MEDICARE, MEDICAID ==
[2018-03-07 10:25] VITALS: BP 125/76
[2018-03-07 11:17] LABS: CALCIUM 8.8 mg/dL (8.5-10.1); CREATININE 1.1 mg/dL (0.6-1.3); POTASSIUM 3.5 mmol/L (3.5-5.1)
[2018-03-07 14:32] VITALS: BP 132/74
--- NOTE | 2018-03-07 14:48 | NUR ---
INFUSION COMPLETED AND TOLERAETD WELL. PICC PATENT AND FLUSHED AT END.
== END ==
LOC: M.INFUS 03:19
PROVIDERS: Internal Medicine Nephrology
DX: E87.6 Hypokalemia (principal); A31.9 Mycobacterial infection, unspecified

== ENCOUNTER → 2018-03-09 | Outpatient (CLI) | payer MEDICARE, MEDICAID ==
[2018-03-09 10:40] VITALS: BP 113/70
[2018-03-09 12:05] LABS: CALCIUM 8.6 mg/dL (8.5-10.1); CREATININE 1.2 mg/dL (0.6-1.3); POTASSIUM 3.5 mmol/L (3.5-5.1)
[2018-03-09 14:48] VITALS: BP 121/74
--- NOTE | 2018-03-09 14:54 | NUR ---
ARRIVED AMBULATORY. MADE SELF COMFORTABLE IN RECLINER. PICC INTACT AND PATENT. CALL RECIEVED FROM DR. JOHN. NEW ORDER RECIEVED TO DRAW UA WITH CULTURE IF INDICATED. INFUSION COMPLETED AND TOELRATED WELL. LINE FLUSHED. UA COLLECTED AND TAKEN TO LAB.
[2018-03-09 15:09] LABS: URINE BILIRUBIN NEGATIVE (Negative); URINE BLOOD NEGATIVE (Negative); URINE CLARITY CLEAR; URINE COLOR YELLOW; URINE GLUCOSE-RANDOM NEGATIVE (Negative); URINE KETONES NEGATIVE (Negative); URINE LEUKOCYTES-REFLEX NEGATIVE (Negative); URINE NITRITE-REFLEX NEGATIVE (Negative); URINE PROTEIN NEGATIVE (Negative); URINE UROBILINOGEN 0.2 E.U./dl (0.2-1.0)
== END ==
LOC: M.INFUS 04:31
PROVIDERS: Internal Medicine Nephrology; Specialist
DX: E87.6 Hypokalemia (principal)

== ENCOUNTER 2018-03-11 20:29 | Inpatient (IN) | payer MEDICARE, MEDICAID ==
[~2018-03-11] VITALS: Ht 162.6 cm; Wt 90.7 kg
[~2018-03-11 20:29] MED LIST changes: -AMIKACIN (500 MG/2 M IV
[2018-03-11 20:44] VITALS: BP 148/91
[2018-03-11 21:31] LABS: ABSOLUTE LYMPHOCYTES 2.3 thou/uL (0.8-5.3); ABSOLUTE MONOCYTES 0.4 thou/uL (0.0-1.2); ABSOLUTE NEUTROPHILS 4.7 thou/uL (1.6-8.1); BASOPHILS 0.4 %; HEMATOCRIT 36.4 % (37.0-47.0); HEMOGLOBIN 11.8 gm/dL (12.0-15.0); LYMPHOCYTES 30.7 %; MCH 28.8 pg (26.0-34.0); MCHC 32.5 g/dL (28.0-37.0); MCV 88.6 fL (80.0-100.0); MPV 7.1 fl. (7.2-11.1); NUCLEATED RBCS 0 /100WBC; PLATELET COUNT* 219 thou/uL (150-400); POLYS 62.9 %; RDW-CV 29.9 % (10.5-14.5); WBC 7.5 thou/uL (4.0-11.0)
[2018-03-11 21:40] LABS: ANION GAP 9 mmol/L (7-16); BUN 18 mg/dL (7-18); CALCIUM 8.9 mg/dL (8.5-10.1); CHLORIDE 99 mmol/L (98-107); CO2 27 mmol/L (21-32); CREATININE 1.3 mg/dL (0.6-1.3); GLUCOSE 109 mg/dL (70-99); POTASSIUM 4.3 mmol/L (3.5-5.1); SODIUM 135 mmol/L (136-145)
[2018-03-11 21:41] LABS: APTT 25.7 Seconds (25.0-31.3); INR 1.1
[2018-03-11 21:47] LABS: ALBUMIN 3.8 g/dL (3.4-5.0); ALKALINE PHOSPHATASE 74 U/L (46-116); SGOT 14 U/L (15-37); SGPT 27 U/L (30-65); TOTAL BILIRUBIN 0.1 mg/dL (<0.1-1.0); TOTAL PROTEIN 7.8 g/dL (6.4-8.2); TROPONIN-I LEVEL <0.06 ng/mL (<0.06)
[2018-03-11 22:37] LABS: ANISOCYTOSIS 3+; PLATELET ESTIMATE ADEQUATE
[2018-03-11 22:38] LABS: MICROCYTES 1+; POLYCHROMASIA 1+
[2018-03-11 23:36] VITALS: BP 116/69
[2018-03-12] VITALS: BP 124/78
[2018-03-12 02:56] LABS: AMP/METHAMP Negative (Negative); BARBITURATES Negative (Negative); BENZODIAZEPINES Negative (Negative); COCAINE Negative (Negative); METHADONE Negative (Negative); OPIATES POSITIVE (Negative); PCP Negative (Negative); THC Negative (Negative)
[2018-03-12 03:13] LABS: INFLUENZA A ANTIGEN None Detected (None Detect); INFLUENZA B ANTIGEN None Detected (None Detect)
[2018-03-12 04:00] VITALS: BP 115/69
--- NOTE | 2018-03-12 05:28 | NUR ---
RECEIVED REPORT FROM ED RN. PT TRANSFERRED TO 223. PT A&OX4. VSS. PHYSICAL ASSESSMENT COMPLETED AND CHARTED. PT ON O2 AT 2L NC WITH 100% O2 SAT. PT TRACING SR ON TELE. PT UP STANDBY TO RESTROOM. PT ORIENTED TO ROOM & CALL LIGHT. PT COMPLAINED OF BACK PAIN WITH PAIN SCALE OF 5/10-DR KENDALL INFORMED WITH NEW ORDER. PT RESTED WELL ON BED. CALL LIGHT WITHIN REACH.
[2018-03-12 07:55] VITALS: BP 119/68
[2018-03-12 11:38] VITALS: BP 99/60
[2018-03-12 12:38] LABS: CALCIUM 8.3 mg/dL (8.5-10.1); MAGNESIUM 1.8 mg/dL (1.8-2.4); POTASSIUM 3.9 mmol/L (3.5-5.1)
[2018-03-12 15:59] VITALS: BP 114/64
--- NOTE | 2018-03-12 16:29 | NUR ---
ALERT AND ORIENTED X4. UP WITH STAND BY ASSIST DURING AMBULATION. IV IS PATENT AND SALINE LOCKED. PAIN BEING MANAGED WITH PO PAIN MEDICATION. DENIES NAUSEA. TOLERATING DIET. AMBULATED IN HALLWAYS THIS SHIFT. VSS ON 2L O2. HOURLY ROUNDS HAVE BEEN MAINTAINED THROUGHOUT SHIFT. CALL LIGHT IS WITHIN REACH. NURSING WILL CONTINUE TO MONITOR.
[2018-03-12 20:00] VITALS: BP 114/72
[2018-03-13] VITALS: BP 121/79
--- NOTE | 2018-03-13 02:42 | NUR ---
ASSUMED CARE OF PT AFTER REPORT AT 1930. PT A&OX4. VSS. PHYSICAL ASSESSMENT COMPLETED AND CHARTED. PT ON O2 AT 2L WITH 96% O2 SAT. PT TRACING ST ON TELE. PT UPSTANDBY TO RESTROOM. PT COMPLAINED OF PAIN UNDER THE LEFT BREAST & ON THE BACK WITH PAIN SCALE OF 5/10-PAIN MEDS GIVEN PER MAR. CALL LIGHT WITHIN REACH.
[2018-03-13 04:00] VITALS: BP 112/63
[2018-03-13 05:13] LABS: HEMATOCRIT 32.7 % (37.0-47.0); HEMOGLOBIN 10.5 gm/dL (12.0-15.0); MCHC 32.1 g/dL (28.0-37.0); MCV 90.5 fL (80.0-100.0); MPV 7.6 fl. (7.2-11.1); NUCLEATED RBCS 0 /100WBC; PLATELET COUNT* 202 thou/uL (150-400); RBC 3.61 mil/uL (4.20-5.00); RDW-CV 29.7 % (10.5-14.5); WBC 8.4 thou/uL (4.0-11.0)
--- NOTE | 2018-03-13 05:28 | NUR ---
ASSUMED PT CARE FROM CORDELL HARVEY. C/O BACK AND CHEST PAIN AND GAVE PAIN MEDICATION. ABLE TO MAKE NEEDS KNOWN. PT CALLS OUT APPROPRIATELY. CPAP ON AND LAYING IN BED AT THIS TIME. WILL CONTINUE TO MONITOR.
[2018-03-13 05:33] LABS: ALBUMIN 3.5 g/dL (3.4-5.0); CALCIUM 8.6 mg/dL (8.5-10.1); POTASSIUM 4.1 mmol/L (3.5-5.1); TOTAL BILIRUBIN 0.2 mg/dL (<0.1-1.0); TOTAL PROTEIN 7.1 g/dL (6.4-8.2)
[2018-03-13 06:11] LABS: ABSOLUTE LYMPHOCYTES 0.6 thou/uL (0.8-5.3); ABSOLUTE MONOCYTES 0.1 thou/uL (0.0-1.2); ABSOLUTE NEUTROPHILS 7.7 thou/uL (1.6-8.1); ANISOCYTOSIS 2+; PLATELET ESTIMATE ADEQUATE
--- NOTE | 2018-03-13 07:15 | NUR ---
ASSUMED CARE OF PT ASSESSED AND DOCUMENTED. PT IS ON CARDIAC MONITER TRACING ST HR 101. PT IS A&O. SHE C/O SHOULDER PAIN RATES A 4 ON PAIN SCALE AND STATES IS CONSTANT. VSS WNL. PT IS AFEBRILE. SHE IS ON 2L OF 02. PT IS ON FALL PRECAUTIONS PER FACILITY PROTOCOL. BED IS IN LOW POSITION CALL LIGHT IS IN REACH. WM.
[2018-03-13 08:00] VITALS: BP 111/62
--- NOTE | 2018-03-13 11:43 | CON ---
[address] [address] CONSULTATION Name: GUS NASCIMENTO Room: [address] IN M.R.#: [id number] Admission: 03/11/18 Attend Phys: Paulie Valera MD Discharge: Date of : 75 Report #: [id number] THIS REPORT FOR: //name// CC: Paulie Gomes Therese DATE OF SERVICE: 03/12/2018 REQUESTING PHYSICIAN: Hospitalist service. INDICATION FOR CONSULTATION: Shortness of breath/chest pain. HISTORY OF PRESENT ILLNESS: This is a 42-year-old female. The patient has a history of an unusual atypical mycobacterial infection, which is disseminated. The patient reports that she had a severe potassium losing syndrome and therefore required IV potassium and therefore previously had a Port-A-Cath. It is possible that this disseminated atypical mycobacterial infection was secondary to infection from the Port-A-Cath. This has now been removed. The patient instead currently has a PICC line. 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 Note that the patient is also on long-term venlafaxine. The patient was in fact recently in this hospital and was just discharged towards the beginning of January. She does have obstructive sleep apnea. She has a CPAP as well as oxygen at home; however, she says that she is not fully compliant. She is also anticoagulated for previous history of thromboembolism. She carries a diagnosis of COPD; however, she does not report any history of smoking. The patient is now admitted again overnight. Presentation was with left-sided chest pain associated with respiration and coughing. The patient also had increase in shortness of breath. The patient is reported to have been audibly wheezing at the time of initial presentation. She did receive Solu-Medrol. She has been placed on DuoNeb as well and has received normal saline at 100 an hour. At this time, she reports significant improvement in her shortness of breath. Her chest pain also is much better. She did have a CTA chest performed overnight and it does not show any evidence of pulmonary emboli. Note that she is already on anticoagulation at home. There is diffuse haziness of bilateral lung butler noted on the CT chest. The patient does have a change in the CT compared with her previous available CT. I do not see any large areas of infiltrates. The patient answers to the negative for 12 questions for review of systems except as mentioned above. PAST MEDICAL HISTORY: Potassium losing syndrome requiring Port-A-Cath placement for a account advisor potassium administration with subsequent development of an unusual atypical mycobacterial infection, which likely was secondary to the Port-A-Cath, long-term administration of venlafaxine in addition to Zyvox and amikacin, obstructive sleep apnea, on CPAP at home, [place] [address] CONSULTATION Name: GUS NASCIMENTO Room: [address] IN [facility].#: [id number] Admission: 03/11/18 Attend Phys: Paulie Valera MD Discharge: Date of : 75 Report #: [id number] not compliant fully; thromboembolism. She is on long-term anticoagulation with Eliquis. I do not have full details available at this time. Questionable history of COPD. She reports being a lifetime nonsmoker. There is a limited echo performed in July 2017, which was a normal left ventricular ejection fraction. The right heart pressures are not reported to be elevated. SOCIAL HISTORY: She reports being a lifetime nonsmoker. No known history of heavy alcohol use or illegal drug use. ALLERGIES: There are multiple allergies listed on the records, list is reviewed. CURRENT MEDICATIONS: List in [facility] reviewed. HOME MEDICATIONS: List also in [facility] reviewed. PHYSICAL EXAMINATION: GENERAL: She is alert, awake and oriented, does not appear to be in distress at this time. VITAL SIGNS: She has a pulse of 90 and a blood pressure of 99/60, but she is well perfused, is saturating 98% on 2 liters nasal cannula, respiratory rate is 14-16. She is afebrile with a temperature of 36.3. HEENT: Head is normocephalic. There is no throat erythema, narrow airway. NECK: Does not show raised JVP. CHEST: Clear to auscultation. HEART: Regular. There is no murmur. ABDOMEN: Soft and nontender. EXTREMITIES: Lower extremities show no edema, no calf tenderness. CT chest report and films are reviewed. These are in [facility], reviewed. LABORATORY DATA: The patient's CBC as well as chemistries in [facility] also reviewed. Baseline creatinine is 1.1, was 1.3 last night. Note that she is on amikacin at home. Toxicology screen this morning was positive for opiates, but she did receive morphine in the ER. It is not known to me if the urine sample was obtained before or after the toxicology screen was obtained. Her influenza swab was negative. ASSESSMENT AND PLAN: 1. Pulmonary infiltrates. There are vague patchy bilateral lung space opacities in the new CT chest. This finding does appear to be new compared with the patient's previous CT chest; however, I do not see any large consolidative infiltrates. There were various etiologies of this finding in the lung butler or certainly an atypical infection will be possible. Also, mild fluid overload can lead to this picture. Infectious disease service is on the case and therefore, await further recommendations from the [place] [address] CONSULTATION Name: GUS NASCIMENTO Chio Room: [address] ADM IN M.R.#: [id number] Admission: 03/11/18 Attend Phys: Paulie Valera MD Discharge: Date of : 75 Report #: [id number] decided only watch this for now. Note that she is on broad-spectrum antibiotics for an unusual mycobacterial disseminated infection, assisted. We will plan on CT followup later as it is possible that some of this could be secondary to mild fluid overload. I will repeat labs now and then reassess IV fluids. Note, however, that her creatinine was mildly elevated last night and that she is on an aminoglycoside, account advisor. 2. Chest pain. This appears to be musculoskeletal. 3. Obstructive sleep apnea. Recommend using CPAP at night. Note that she is also on oxygen at night, assisted. A repeat sleep study later could be performed; however, at this time, it appears that compliance appears to be more important. 4. Disseminated atypical mycobacterial infection. Note that she is on amikacin as well as linezolid, account advisor. Note that she is also on Effexor, account advisor. I would defer to the Infectious disease, appears to be tolerating well. 5. Past medical history of thromboembolism. Note that the patient is anticoagulated with Eliquis. 6. Bronchospasm. She is reported to be audibly wheezing on initial presentation. Her chest is clear on my exam. She did receive Solu-Medrol in the ER, though I will give her a few more doses of Solu-Medrol. I did order scheduled DuoNeb as well. 7. 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 If this has not previously been evaluated by a makeup artist, then in that case, I will recommend obtaining a nephrology opinion. Thanks for this consultation. <ELECTRONICALLY SIGNED> By: Eugenio Hernandez MD 03/13/18 1143 1219 1842Amorgan Hernandez MD /nt
[2018-03-13 12:00] VITALS: BP 112/69
--- NOTE | 2018-03-13 12:28 | EKG ---
[place] [address] ELECTROCARDIOGRAM REPORT Name: GUS NASCIMENTO Room: [address] ADM IN M.R.#: [id number] Admission: 03/11/18 Attend Phys: Paulie Valera MD Discharge: Date of : 75 Report #: [id number] THIS REPORT FOR: //name// [facility] ED Test Date: 2018-03-11 Test Time: 21:02:10 Pat Name: GUS NASCIMENTO Department: Room: [facility] Gender: F Computing Systems Mechanic: EDEN : 1975 Requested By: Bertrand Dave Order Number: [id number] MD: Chaitanya Gama Measurements Intervals [place] Rate: 109 P: 36 [place]: 148 QRS: 2 QRSD: 78 T: 18 QT: 327 QTc: 441 Interpretive Statements Sinus tachycardia Left atrial enlargement Compared to ECG 01/01/2018 15:41:12 Atrial abnormality now present Sinus rhythm no longer present Electronically Signed On 03-13-2018 12:27:59 FIELD SUPERINTENDENT by Chaitanya Gama [email or web address] <ELECTRONICALLY SIGNED> By: Chaitanya Gama MD, FACC 03/13/18 1227 01 01 Chaitanya Gama MD, FAC /EPI
--- NOTE | 2018-03-13 12:30 | EKG ---
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: : 1975 Requested By: Anthony Bui Order Number: [id number] MD: Chaitanya Gama Measurements Intervals [place] Rate: 99 P: 48 [place]: 160 QRS: 4 QRSD: 93 T: 12 QT: 358 QTc: 460 Interpretive Statements Sinus rhythm Low voltage, precordial leads Baseline wander in lead(s) V1,V2 Compared to ECG 01/01/2018 15:41:12 Low QRS voltage now present Electronically Signed On 03-13-2018 12:30:11 QUALITY CONTROL SYSTEMS MANAGER by Chaitanya Gama [email or web address] <ELECTRONICALLY SIGNED> By: Chaitanya Gama MD, FACC 03/13/18 1230 1353 1353 Chaitanya Gama MD, FAC /EPI
[2018-03-13 16:00] VITALS: BP 118/67
--- NOTE | 2018-03-13 16:49 | NUR ---
ASSUMED CARE OF PT THIS AM ASSESSED AND DOCUMENTED. PT IS ON CARDIAC MONITER TRACING ST 101. SHE IS A&O. PT C/O SHOULDER PAIN AND STATES IT IS CONSTANT RATED FROM 4 TO 6 ON PAIN SCALE. SHE HAS SCHEDULED PAIN MEDICATION AND HAS A NEW ORDER FOR VOLTARIN GEL APPLIED X2. VSS WNL AND PT HAS BEEN AFEBRILE. EDUCATION HAS BEEN GIVEN ON DEMAND. HOURLY ROUNDING COMPLETE. BED IS IN LOW POSITION CALL LIGHT IS IN REACH.
[2018-03-13 20:00] VITALS: BP 125/73
[2018-03-14] VITALS: BP 113/57
[2018-03-14 04:00] VITALS: BP 111/67
--- NOTE | 2018-03-14 04:24 | NUR ---
ASSUMED CARE OF PT AFTER REPORT AT 1930. PT A&OX4. VSS. PHYSICAL ASSESSMENT COMPLETED AND CHARTED. PT ON O2 AT 2L NC/CPAP WHEN SLEEPING WITH 95% O2 SAT. PT TRACING SR ON TELE. PT UP STANDBY TO RESTROOM. PT COMPLAINED OF KNEE & BACK PAIN- PAIN MEDS GIVEN PER APR. CALL LIGHT WITHIN REACH. BED IN LOW POSITION.
[2018-03-14 08:30] VITALS: BP 125/74
[2018-03-14 12:29] VITALS: BP 120/66
--- NOTE | 2018-03-14 13:51 | NUR ---
Pt is A&O. Resides at home with her sig other. Known to this CM from previous hospital stays. Pt is independent with ADLs. Pt has a RW, scooter (battery isn't working), home o2 and cpap through [facility]. Hx of [facility], Pt stated that she stopped her IVABX last , no plan for them at dc. [facility]. Goal is home at dc, no needs anticipated.
--- NOTE | 2018-03-14 14:06 | NUR ---
ASSUMED CARE OF PT AT 0700. ASSESSMENT COMPLETE, MEDICATION ADMINISTERED ORDERED. HERE AND SPOKE WITH PT REGARDING C/O RINGING IN HER EARS. NO NEW ORDER AT THIS TIME. PT IS ABLE TO MAKE NEEDS KNOWN, PERCOCET GIVEN FOR PAIN. CALL LIGHT IN REACH, HOURLY ROUNDING MAINTAINED.
[2018-03-14 15:53] VITALS: BP 109/68
[2018-03-14 20:00] VITALS: BP 129/65
[2018-03-15] VITALS: BP 118/71
[2018-03-15 02:10] LABS: MYCOPLASMA PNEUMONIA IgG 1044 U/mL (0-99); MYCOPLASMA PNEUMONIA IgM <770 U/mL (0-769)
[2018-03-15 04:00] VITALS: BP 129/72
--- NOTE | 2018-03-15 06:37 | NUR ---
ASSUMED CARE OF PT AFTER REPORT AT 1930. PT A&OX4. VSS. PHYSICAL ASSESSMENT COMPLETED AND CHARTED. PT ON O2 AT 2L NC WITH 97% O2 SAT. PT TRACING SR/ST ON TELE. PT UP STANDBY TO RESTROOM. PT C/O OF BACK & KNEE PAIN-PAIN MEDS GIVEN PER APR. RIGHT UPPER ARM PICC LINE PATENT & INTACT. PT RESTED WELL ON BED. CALL LIGHT WITHIN REACH.
[2018-03-15 08:00] VITALS: BP 114/72
--- NOTE | 2018-03-15 08:00 | NUR ---
ASSUMED PT CARE AT 0700, PT LYING IN BED, CREDIT BALANCE SPECIALIST TRACING SINUS RHYTHM. A&O X4, UP WITH STANDBY ASSIST D/T HX FALLS. LS CTA IN BILATERAL UPPER LOBES, DIMINISHED IN BILATERAL LOWER LOBES, PT CONT O2 2LPM VIA NC BUT IS NON COMPLIANT, PT WAS 97% RA AT THIS TIME. C/O PAIN 4/10 IN BACK, PRN PAIN MEDS TO BE ADMINISTERED. PICC LINE IN RIGHT UPPER EXTREMITY, DRESSING CLEAN AND INTACT.
[2018-03-15 11:46] VITALS: BP 109/45
[2018-03-15] MEDS ORDERED: PREDNISONE 10 M10 MG PO (15:22)
[2018-03-15 16:15] VITALS: BP 122/68
[2018-03-15 17:52] VITALS: BP 122/68
[2018-03-15] MEDS ORDERED: AMIKACIN (500 MG/2 M IV (17:54)
--- NOTE | 2018-03-15 18:34 | NUR ---
PT DISCHARGED AT 1813 WITH SIGNIFICANT OTHER VIA WC TO CAR WITH NURSING STAFF. ASSOCIATE FINANCIAL REPRESENTATIVE REMOVED, CENTRAL LINE LEFT IN PLACE D/T PT CONT OUT PT THERAPY. DISCHARGE EDUCATION GIVEN INCLUDING NEW MEDICATION AND FOLLOW UP APPT, PT STATES UNDERSTANDING.
[2018-03-16 17:09] LABS: ANA INTERPRETATION Negative (())
== END 2018-03-15 18:13 | disposition home or self-care (01) | DRG 867 ==
LOC: M.ERS 20:29 → M.2W 22:47 → M.TBA-ER 22:47 → M.2W 03-12 00:02
PROVIDERS: Internal Medicine Critical Care Medicine; Nurse Practitioner Family; ADMIT Internal Medicine
DX: A31.8 Other mycobacterial infections (principal); J96.21 Acute and chronic respiratory failure with hypoxia; N17.0 Acute kidney failure with tubular necrosis; J18.9 Pneumonia, unspecified organism; R65.11 Systemic inflammatory response syndrome (SIRS) of non-infectious origin with acute organ dysfunction; J44.1 Chronic obstructive pulmonary disease with (acute) exacerbation; J44.0 Chronic obstructive pulmonary disease with (acute) lower respiratory infection; F32.9 Major depressive disorder, single episode, unspecified; F41.9 Anxiety disorder, unspecified; G47.33 Obstructive sleep apnea (adult) (pediatric); M81.0 Age-related osteoporosis without current pathological fracture; K21.9 Gastro-esophageal reflux disease without esophagitis; M79.7 Fibromyalgia; E87.6 Hypokalemia; E66.9 Obesity, unspecified; Z68.34 Body mass index [BMI] 34.0-34.9, adult; Z86.718 Personal history of other venous thrombosis and embolism; Z86.711 Personal history of pulmonary embolism; I25.2 Old myocardial infarction; Z86.14 Personal history of Methicillin resistant Staphylococcus aureus infection; Z79.01 Long term (current) use of anticoagulants; Z79.899 Other long term (current) drug therapy; Z88.8 Allergy status to other drugs, medicaments and biological substances; Z88.1 Allergy status to other antibiotic agents; Z91.040 Latex allergy status; Z82.49 Family history of ischemic heart disease and other diseases of the circulatory system

== ENCOUNTER → 2018-03-11 | Outpatient (CLI) | payer MEDICARE, MEDICAID ==
[2018-03-11 10:35] VITALS: BP 118/78
[2018-03-11 11:08] LABS: ABSOLUTE EOSINOPHILS 0.1 thou/uL (0.0-0.7); ABSOLUTE LYMPHOCYTES 5.7 thou/uL (0.8-5.3); BASOPHILS 0.4 %; EOSINOPHILS 0.7 %; HEMATOCRIT 40.2 % (37.0-47.0); HEMOGLOBIN 13.3 gm/dL (12.0-15.0); LYMPHOCYTES 48.1 %; MONOCYTES 8.7 %; MPV 7.4 fl. (7.2-11.1); NUCLEATED RBCS 0 /100WBC; PLATELET COUNT* 283 thou/uL (150-400); POLYS 42.1 %; RBC 4.42 mil/uL (4.20-5.00); RDW-CV 29.6 % (10.5-14.5); WBC 11.9 thou/uL (4.0-11.0)
[2018-03-11 11:22] LABS: CALCIUM 9.2 mg/dL (8.5-10.1); CREATININE 1.5 mg/dL (0.6-1.3); POTASSIUM 3.5 mmol/L (3.5-5.1)
[2018-03-11 12:02] LABS: ESR (SEDRATE) 24 mm/hr (0-20)
[2018-03-11 12:11] LABS: PLATELET ESTIMATE ADEQUATE
[2018-03-11 12:13] LABS: OVALOCYTES 1+
[2018-03-11 12:14] LABS: ANISOCYTOSIS 1+; POIKILOCYTOSIS 1+
[2018-03-11 12:15] LABS: SCHISTOCYTES Occasional
[2018-03-11 14:51] VITALS: BP 126/74
--- NOTE | 2018-03-11 14:56 | NUR ---
ARRIVED AMBULATORY. MADE SELF COMFORTABLE IN RECLINER. PICC INTACT AND PATENT. INFUSION COMPLETED AND TOLERATED WELL. DR. JOHN HERE AND SPOKE WITH PT. DR. JOHN REQUESTION CALL WITH BMP RESULTS WEDNESDAY.
--- NOTE | 2018-03-14 07:43 | CON ---
[address] [address] CONSULTATION Name: GUS NASCIMENTO [facility] [id number] Admission: 03/11/18 Attend Phys: Chalo Hua MD Discharge: Date of : 75 Report #: [id number] THIS REPORT FOR: //name// CC: Chalo Wolfeully DATE OF SERVICE: 03/11/2018 ATTENDING PHYSICIAN: Dr. Hua. REASON FOR EVALUATION: Followup disseminated Mycobacterium chelonae infection. HISTORY OF PRESENT ILLNESS: Chart reviewed. She continues to have various complaints, most recently this week bilateral lower back and flank type pain. Urinalysis was otherwise unremarkable. I did repeat the labs today, was found have elevated creatinine of 1.5. It is notable that she is on amikacin. She did experience some left-sided chest discomfort, which she attributed to pleuritic type pain yesterday that is better today. It is notable that she has got a history of pulmonary embolus, does not experience any dyspnea at this point. She has no leg swelling or pain. She has not been febrile. Additionally, she has no new lesions that she is aware of and may be attributable to the mycobacterial infection. ASSESSMENT: Mycobacterium chelonae infection that is disseminated. PLAN: We will hold the amikacin over the weekend, repeat the labs on Wednesday and reevaluate and see if it is reasonable to restart or simply monitor. She has been on linezolid as well. CBC today showed no thrombocytopenia. White count is mildly elevated at 11.9. Apparently tolerating that without difficulty. Discussed with [facility] infusion nurse, who will give me a call with the lab results. <ELECTRONICALLY SIGNED> By: Mehdi Salgado MD 03/14/18 0743 1841 [id number] Salgado MD /nt
== END ==
LOC: M.INFUS 05:41
PROVIDERS: Internal Medicine Nephrology
DX: E87.6 Hypokalemia (principal)

== ENCOUNTER → 2018-03-18 | Outpatient (CLI) | payer MEDICARE, MEDICAID ==
[~2018-03-18] MED LIST changes: +AMIKACIN (500 MG/2 M IV
[2018-03-18 09:15] VITALS: BP 122/75
[2018-03-18 10:04] LABS: HEMATOCRIT 34.7 % (37.0-47.0); HEMOGLOBIN 11.3 gm/dL (12.0-15.0); MCH 29.2 pg (26.0-34.0); MCHC 32.6 g/dL (28.0-37.0); MCV 89.6 fL (80.0-100.0); MPV 7.3 fl. (7.2-11.1); RBC 3.87 mil/uL (4.20-5.00); RDW-CV 29.6 % (10.5-14.5); WBC 8.6 thou/uL (4.0-11.0)
[2018-03-18 10:07] LABS: CALCIUM 8.5 mg/dL (8.5-10.1); CREATININE 1.1 mg/dL (0.6-1.3); POTASSIUM 3.1 mmol/L (3.5-5.1)
[2018-03-18 13:30] VITALS: BP 128/73
--- NOTE | 2018-03-18 14:07 | NUR ---
PICC INTACT AND PATENT. PICC DRESSING CHANGED. INFUSION COMPLETED AND TOLERATED WELL. DENIES QUESTIONS OR NEEDS AT DISCHARGE.
== END ==
LOC: M.INFUS 04:32
PROVIDERS: Specialist
DX: E87.6 Hypokalemia (principal)

== ENCOUNTER → 2018-03-21 | Outpatient (CLI) | payer MEDICARE, MEDICAID ==
[2018-03-21 11:35] LABS: CALCIUM 8.4 mg/dL (8.5-10.1); CREATININE 1.2 mg/dL (0.6-1.3); POTASSIUM 3.1 mmol/L (3.5-5.1)
== END ==
LOC: M.INFUS 06:19
PROVIDERS: Internal Medicine Nephrology
DX: E87.6 Hypokalemia (principal)

== ENCOUNTER → 2018-03-28 | Outpatient (CLI) | payer MEDICARE, MEDICAID ==
[2018-03-28 10:15] VITALS: BP 122/78
[2018-03-28 11:32] LABS: ABSOLUTE EOSINOPHILS 0.1 thou/uL (0.0-0.7); ABSOLUTE LYMPHOCYTES 4.8 thou/uL (0.8-5.3); ABSOLUTE MONOCYTES 0.7 thou/uL (0.0-1.2); ABSOLUTE NEUTROPHILS 6.2 thou/uL (1.6-8.1); BASOPHILS 0.4 %; EOSINOPHILS 0.4 %; HEMATOCRIT 34.4 % (37.0-47.0); HEMOGLOBIN 10.8 gm/dL (12.0-15.0); LYMPHOCYTES 40.9 %; MCH 29.3 pg (26.0-34.0); MCHC 31.3 g/dL (28.0-37.0); MCV 93.6 fL (80.0-100.0); MONOCYTES 5.7 %; MPV 7.3 fl. (7.2-11.1); NUCLEATED RBCS 0 /100WBC; PLATELET COUNT* 306 thou/uL (150-400); POLYS 52.6 %; RBC 3.68 mil/uL (4.20-5.00); RDW-CV 28.7 % (10.5-14.5); WBC 11.9 thou/uL (4.0-11.0)
[2018-03-28 11:35] LABS: CREATININE 1.4 mg/dL (0.6-1.3); POTASSIUM 3.3 mmol/L (3.5-5.1)
[2018-03-28 12:31] LABS: OVALOCYTES 1+; TARGET CELLS 1+
[2018-03-28 12:32] LABS: ANISOCYTOSIS 2+
[2018-03-28 13:07] LABS: ESR (SEDRATE) 20 mm/hr (0-20)
[2018-03-28 15:20] VITALS: BP 137/84
--- NOTE | 2018-03-30 12:26 | CON ---
[address] [address] CONSULTATION Name: GUS NASCIMENTO Room: [facility] Melanie.#: [id number] Admission: 03/28/18 Attend Phys: Chalo Hua MD Discharge: Date of : 75 Report #: [id number] THIS REPORT FOR: //name// CC: Chalo Saleh DATE OF SERVICE: 03/28/2018 The patient was seen in the outpatient infusion area. ATTENDING PHYSICIAN: Dr. Hua . REASON FOR EVALUATION: Disseminated mycobacterial chelonae infection. The patient returns today in followup. Generally, she feels about the same. She believes she has one new subcutaneous nodular lesion in the proximal aspect of her left upper extremity. Although it is subtle, there are no new ones and little ones have regressed that she has had previously. Generally, she has had no new issues in terms of potential adverse drug effects. She often has difficulty sleeping. She has not had recent fevers. Appetite has been somewhat variable. Examination is otherwise unremarkable from previous. Review of labs still has no evidence of any thrombocytopenia or leukopenia. Creatinine is up slightly, although she has been off the amikacin for an excess of a week at this point. ASSESSMENT AND PLAN: Disseminated Mycobacterium chelonae infection. PLAN: We will continue the linezolid at this point. We will see here on roughly weekly basis. Continue weekly labs including CBC to assess any bone marrow suppression that may be incurred assisted linezolid use. At this point, I do not think there is progression of infection. If there are new lesions, it may be ____ to undergo surgical removal. <ELECTRONICALLY SIGNED> By: Mehdi Salgado MD 03/30/18 1226 0918 [id number] Salgado MD /nt
== END ==
LOC: M.INFUS 01:07
PROVIDERS: Internal Medicine Nephrology
DX: E87.6 Hypokalemia (principal); A31.8 Other mycobacterial infections

== ENCOUNTER → 2018-04-01 | Outpatient (CLI) | payer MEDICARE, MEDICAID ==
[2018-04-01 10:40] VITALS: BP 119/71
[2018-04-01 11:28] LABS: CALCIUM 8.3 mg/dL (8.5-10.1); CREATININE 1.2 mg/dL (0.6-1.3)
[2018-04-01 15:03] VITALS: BP 124/74
--- NOTE | 2018-04-01 15:06 | NUR ---
ARRIVED AMBULATORY. MADE SELF COMFORTABLE IN RECLINER. PICC LINE INTACT AND PATENT. INFUSION COMPELTED AND TOERLATED WELL. DENIES NEEDS AT DISCHARGE.
== END ==
LOC: M.INFUS 05:07
PROVIDERS: Internal Medicine Nephrology
DX: E87.6 Hypokalemia (principal)

== ENCOUNTER → 2018-04-04 | Outpatient (CLI) | payer MEDICARE, MEDICAID ==
[2018-04-04 11:10] LABS: CALCIUM 8.7 mg/dL (8.5-10.1); CREATININE 1.3 mg/dL (0.6-1.3); POTASSIUM 3.1 mmol/L (3.5-5.1)
[2018-04-04 14:49] LABS: ABSOLUTE LYMPHOCYTES 2.5 thou/uL (0.8-5.3); ABSOLUTE MONOCYTES 0.5 thou/uL (0.0-1.2); ABSOLUTE NEUTROPHILS 5.4 thou/uL (1.6-8.1); BASOPHILS 0.3 %; EOSINOPHILS 0.6 %; HEMATOCRIT 28.9 % (37.0-47.0); HEMOGLOBIN 9.5 gm/dL (12.0-15.0); LYMPHOCYTES 29.4 %; MCH 30.8 pg (26.0-34.0); MCV 93.1 fL (80.0-100.0); MONOCYTES 6.4 %; MPV 6.8 fl. (7.2-11.1); NUCLEATED RBCS 0 /100WBC; PLATELET COUNT* 221 thou/uL (150-400); POLYS 63.3 %; RDW-CV 29.2 % (10.5-14.5); WBC 8.5 thou/uL (4.0-11.0)
[2018-04-04 15:09] LABS: PLATELET ESTIMATE ADEQUATE; POLYCHROMASIA 1+
[2018-04-04 15:50] LABS: ESR (SEDRATE) 36 mm/hr (0-20)
--- NOTE | 2018-04-06 11:52 | CON ---
[address] [address] CONSULTATION Name: GUS NASCIMENTO Room: [facility].#: [id number] Admission: 04/04/18 Attend Phys: Chalo Hua MD Discharge: Date of : 75 Report #: [id number] THIS REPORT FOR: //name// CC: Chalo Saleh DATE OF SERVICE: 04/04/2018 INFECTIOUS DISEASE CONSULTATION FOLLOWUP ATTENDING PHYSICIAN: Dr. Hua. HISTORY OF PRESENT ILLNESS: Here for followup of disseminated mycobacterial chelonae infection. She came for Wednesday to follow as usual as one of her three times a week potassium infusions. She was seen in the outpatient infusion area. She really had a difficult weekend, describes as gas related upset with nausea and with some diarrhea. She was inclined to believe it was not due to adverse drug effect at this point. Seemingly, it is better today. She may have had some low-grade temperature elevation as well. She notes no new lesions at this point. We reviewed her labs. White count and platelet count are still in the normal range. She is mildly anemic. Creatinine is in the 1.2 and 1.3 range and stable. She has been off the amikacin for roughly 3 weeks. ASSESSMENT AND PLAN: Mycobacterial chelonae infection, disseminated. We will continue therapy based on susceptibilities with linezolid. At this point, it appears she is tolerating it and I have seen some benefit in terms of clinical picture. Again, if she has new lesions, will probably favor surgical removal at that point. We will monitor expectantly. We will be able to see her on a weekly basis still. <ELECTRONICALLY SIGNED> By: Mehdi Salgado MD 04/06/18 1152 1620 [id number] Salgado MD /nt
== END ==
LOC: M.INFUS 04-03 00:45
PROVIDERS: Specialist
DX: E87.6 Hypokalemia (principal); A31.8 Other mycobacterial infections

== ENCOUNTER → 2018-04-06 | Outpatient (CLI) | payer MEDICARE, MEDICAID ==
[2018-04-06 10:30] VITALS: BP 113/63
[2018-04-06 13:11] LABS: CALCIUM 8.9 mg/dL (8.5-10.1); CREATININE 1.3 mg/dL (0.6-1.3); POTASSIUM 3.4 mmol/L (3.5-5.1)
[2018-04-06 15:00] VITALS: BP 120/66
== END ==
LOC: M.INFUS 04:58
PROVIDERS: Internal Medicine Nephrology
DX: E87.6 Hypokalemia (principal)

== ENCOUNTER → 2018-04-18 | Outpatient (CLI) | payer MEDICARE, MEDICAID ==
[2018-04-18 11:10] VITALS: BP 132/74
[2018-04-18 12:04] LABS: CALCIUM 8.7 mg/dL (8.5-10.1); CREATININE 1.1 mg/dL (0.6-1.3); POTASSIUM 3.3 mmol/L (3.5-5.1)
[2018-04-18 15:17] VITALS: BP 122/72
== END ==
LOC: M.INFUS 01:08
PROVIDERS: Internal Medicine Nephrology
DX: E87.6 Hypokalemia (principal)

== ENCOUNTER → 2018-04-22 | Outpatient (CLI) | payer MEDICARE, MEDICAID ==
[2018-04-22 10:30] VITALS: BP 122/75
[2018-04-22 11:25] LABS: CALCIUM 8.4 mg/dL (8.5-10.1); CREATININE 1.1 mg/dL (0.6-1.3); POTASSIUM 3.3 mmol/L (3.5-5.1)
[2018-04-22 14:25] VITALS: BP 128/78
--- NOTE | 2018-04-25 07:53 | CON ---
[address] [address] CONSULTATION Name: CONG NASCIMENTOA Chio Room: [facility].#: [id number] Admission: 04/22/18 Attend Phys: Chalo Hua MD Discharge: Date of : 75 Report #: [id number] THIS REPORT FOR: //name// CC: Chalo Saleh DATE OF SERVICE: 04/22/2018 INFECTIOUS DISEASE CONSULTATION ATTENDING PHYSICIAN: Dr. Hua. HISTORY OF PRESENT ILLNESS: She is here for followup of disseminated Mycobacterium chelonae infection. She returns in followup, having not seen here for the last couple of weeks. She had been hospitalized, had a replacement of her port. She has some soreness at the site. Otherwise, she mainly complains of fatigue. She has poor sleep in general. On questioning, she had been evaluated, otherwise unremarkable including a chest x-ray. Lab had been okay. ____ linezolid can cause leukopenia as well as thrombocytopenia. She notes no new lesions and in fact they regressed over the last couple of weeks. Disseminated Mycobacterium chelonae infection. We will continue the linezolid. Go ahead and repeat CBC on 04/25/2018. She is scheduled for potassium infusion. She has 3 times weekly BMP as well, we will follow that up, creatinine had been stable. We will see her on a weekly basis. <ELECTRONICALLY SIGNED> By: Mehdi Salgado MD 04/25/18 0753 1403 0305Jobro Salgado MD /dionisio
== END ==
LOC: M.INFUS 09:00
PROVIDERS: Internal Medicine Nephrology
DX: E87.6 Hypokalemia (principal); A31.8 Other mycobacterial infections

== ENCOUNTER → 2018-04-25 | Outpatient (CLI) | payer MEDICARE, MEDICAID ==
[2018-04-25 10:30] VITALS: BP 116/67
[2018-04-25 11:24] LABS: ABSOLUTE LYMPHOCYTES 2.9 thou/uL (0.8-5.3); ABSOLUTE MONOCYTES 0.6 thou/uL (0.0-1.2); ABSOLUTE NEUTROPHILS 6.2 thou/uL (1.6-8.1); BASOPHILS 0.2 %; EOSINOPHILS 0.4 %; HEMATOCRIT 28.2 % (37.0-47.0); HEMOGLOBIN 9.3 gm/dL (12.0-15.0); LYMPHOCYTES 29.5 %; MCH 31.5 pg (26.0-34.0); MCV 95.5 fL (80.0-100.0); MONOCYTES 6.1 %; MPV 7.4 fl. (7.2-11.1); NUCLEATED RBCS 0 /100WBC; PLATELET COUNT* 253 thou/uL (150-400); POLYS 63.8 %; RBC 2.95 mil/uL (4.20-5.00); RDW-CV 23.9 % (10.5-14.5); WBC 9.7 thou/uL (4.0-11.0)
[2018-04-25 11:28] LABS: CALCIUM 8.5 mg/dL (8.5-10.1); CREATININE 1.2 mg/dL (0.6-1.3); POTASSIUM 3.1 mmol/L (3.5-5.1)
[2018-04-25 12:41] LABS: ANISOCYTOSIS 1+; HYPOCHROMASIA 1+; OVALOCYTES Occasional; PLATELET ESTIMATE ADEQUATE; POIKILOCYTOSIS 1+
[2018-04-25 15:02] VITALS: BP 122/70
== END ==
LOC: M.INFUS 10:30
PROVIDERS: Internal Medicine Nephrology
DX: E87.6 Hypokalemia (principal)

== ENCOUNTER → 2018-04-27 | Outpatient (CLI) | payer MEDICARE, MEDICAID ==
[2018-04-27 10:50] VITALS: BP 122/78
[2018-04-27 15:01] VITALS: BP 125/76
--- NOTE | 2018-04-27 15:07 | NUR ---
PORT INTACT AND PATENT. INFUSION COMPLETED AND TOLERATED WELL. PORT FLUSHED AND LEFT ACCESED FOR USE LATER IN THE WEEK. DENIES QUESTIONS OR NEEDS AT DISCHARGE.
== END ==
LOC: M.INFUS 04:43
PROVIDERS: Internal Medicine Nephrology
DX: E87.6 Hypokalemia (principal)

== ENCOUNTER → 2018-04-29 | Outpatient (CLI) | payer MEDICARE, MEDICAID ==
[2018-04-29 10:40] VITALS: BP 123/74
[2018-04-29 12:02] LABS: CALCIUM 8.8 mg/dL (8.5-10.1); CREATININE 1.2 mg/dL (0.6-1.3)
[2018-04-29 14:22] VITALS: BP 128/75
--- NOTE | 2018-05-02 07:57 | CON ---
[address] [address] CONSULTATION Name: GUS NASCIMENTO Room: [facility].#: [id number] Admission: 04/29/18 Attend Phys: Chalo Hua MD Discharge: Date of : 75 Report #: [id number] THIS REPORT FOR: //name// CC: Chalo Hua Eliseo Saleh DATE OF SERVICE: 04/29/2018 LOCATION: She is in the outpatient infusion area. ATTENDING PHYSICIAN: Chalo Hua MD. HISTORY OF PRESENT ILLNESS: She is here for followup disseminated Mycobacterium chelonae infection. She has significant complaints today. She notes this appears to be severe neuropathy involving her bilateral lower extremities. On review of her history, apparently had onset of pain and discomfort in the last few weeks. However, over the course of the last 2 weeks in particular, it has worsened. She was actually hospitalized in other facility. An evaluation was felt to have peripheral neuropathy as an adverse drug effect due to the linezolid, thus made aware of it earlier this week. She was instructed to discontinue the linezolid. She is seen today and has severe discomfort at times, normal at other times. Pain she described as pins and needles primarily of the lower extremities and extends in a stocking fashion. They do feel cold. She does have some very distal tip of her fingers, sensory changes as well. At one point, had facial numbness, which has resolved. She was seen by Neurology. This was again thought to be peripheral neuropathy. She was treated with tramadol. They have increased the dose since her discharge. She did have some imaging studies including MRI of the head while she was there because there was concern of a stroke, which was otherwise not revealing for any acute issue. She does have some spasms of her back. This was not looked into image jonas. Had a CT abdomen and pelvis, which showed some degenerative changes of the lumbar spine. IMPRESSION AND PLAN: Disseminated Mycobacterium chelonae at this point and we will discontinue linezolid. It is really a difficult situation and certainly, it seems like the peripheral neuropathy may well be due to the Zyvox. We are extremely limited in terms of our antibiotic options. At this point, she had received perhaps up to 3 months of treatment, which probably is not enough. She has not had any recent new lesions, which is encouraging. She does have ongoing issues with difficulty breathing and she is on supplemental oxygen per nasal cannula most of the time, I believe. We will see her in followup in 3 days in the outpatient infusion to see if the neuropathy has improved. Otherwise, limited symptomatic treatment. She may benefit from a followup Neurology appointment as well. Had a lengthy discussion with the patient. I am disinclined to even if the neuropathy resolves to restart the linezolid in that case and we seemingly out of options since [place] [address] CONSULTATION Name: GUS NASCIMENTO Room: [facility] OZZIE Cabrera#: [id number] Admission: 04/29/18 Attend Phys: Chalo Hua MD Discharge: Date of : 75 Report #: [id number] aminoglycoside and she has a severe reaction to MACROLIDES and based on susceptibilities, this is the highly resistant organism. In the future if she develops other lesions, which are manifested by skin and soft tissue, I may do surgical excision and isolate it. <ELECTRONICALLY SIGNED> By: Mehdi Salgado MD 05/02/18 0757 1714 1258Jobro Salgado MD /nt
== END ==
LOC: M.INFUS 05:03
PROVIDERS: Internal Medicine Nephrology
DX: E87.6 Hypokalemia (principal); A31.8 Other mycobacterial infections

== ENCOUNTER → 2018-05-03 | Outpatient (CLI) | payer MEDICARE, MEDICAID ==
[2018-05-03 12:45] VITALS: BP 100/56
[2018-05-03 13:36] LABS: ABSOLUTE EOSINOPHILS 0.1 thou/uL (0.0-0.7); ABSOLUTE LYMPHOCYTES 1.4 thou/uL (0.8-5.3); ABSOLUTE MONOCYTES 0.5 thou/uL (0.0-1.2); ABSOLUTE NEUTROPHILS 4.2 thou/uL (1.6-8.1); BASOPHILS 0.5 %; EOSINOPHILS 1.6 %; HEMATOCRIT 23.2 % (37.0-47.0); HEMOGLOBIN 7.5 gm/dL (12.0-15.0); LYMPHOCYTES 22.3 %; MCH 31.8 pg (26.0-34.0); MCHC 32.3 g/dL (28.0-37.0); MCV 98.4 fL (80.0-100.0); MONOCYTES 8.6 %; MPV 7.7 fl. (7.2-11.1); NUCLEATED RBCS 0 /100WBC; PLATELET COUNT* 253 thou/uL (150-400); RBC 2.36 mil/uL (4.20-5.00); RDW-CV 24.4 % (10.5-14.5); WBC 6.2 thou/uL (4.0-11.0)
[2018-05-03 13:40] LABS: CALCIUM 8.3 mg/dL (8.5-10.1); CREATININE 0.9 mg/dL (0.6-1.3)
[2018-05-03 13:43] LABS: POTASSIUM 2.9 mmol/L (3.5-5.1)
--- NOTE | 2018-05-03 13:51 | NUR ---
CRITICAL LAB VALUE OF K+ CALLED TO DR MARTINEZ.
[2018-05-03 14:09] LABS: ANISOCYTOSIS 1+; POLYCHROMASIA 1+
[2018-05-03 16:48] VITALS: BP 100/60
--- NOTE | 2018-05-03 16:50 | NUR ---
DR JOHN NOTIFIED OF PATIENT HGB=7.5 DOWN FROM 9.3 ONE WEEK AGO. AWAITING CALL. PATIENT HAS TEXTED HIM WELL.
--- NOTE | 2018-05-05 11:04 | CON ---
[address] [address] CONSULTATION Name: GUS NASCIMENTO Room: [facility].#: [id number] Admission: 05/03/18 Attend Phys: Chalo Hua MD Discharge: Date of : 75 Report #: [id number] THIS REPORT FOR: //name// CC: Chalo Gomes Therese DATE OF SERVICE: 05/03/2018 INFECTIOUS DISEASE CONSULTATION AND FOLLOWUP ATTENDING PHYSICIAN: Dr. Hua. REASON FOR EVALUATION: Followup disseminated Mycobacterium chelonae infection. HISTORY OF PRESENT ILLNESS: The patient returns today in followup as per her usual scheduled potassium infusion therapy that is done thrice weekly. She is seen in the outpatient infusion area. She is actually improved since last Wednesday. She is not in a state of severe distress at this point. She is able to engage without crying. She notes overall the degree of discomfort and pain that she associates with peripheral neuropathy is improved, involving the bilateral lower extremities. She actually has an improved appetite, which she attributes to stopping the linezolid. Again that was felt to be a possible cause of her peripheral neuropathy. Review of labs showed that her white count and platelets have been normal. She did have a drop in her hemoglobin of 2 grams at 10.5, unclear as to the etiology. She did not have any active bleeding. Hospitalization was 3 weeks ago. ASSESSMENT AND PLAN: Disseminated Mycobacterium chelonae infection. We will continue to monitor. One of her concerns is that this is perhaps related to previous scarring on her right shoulder consistent with relapsing infection, will likely have surgery to remove it. We have followed her closely. She will take the gabapentin prescribed doses. We will see her in 1 week. <ELECTRONICALLY SIGNED> By: Mehdi Salgado MD 05/05/18 1104 0803 0004Jobro Salgado MD /nt
== END ==
LOC: M.INFUS 05-02 01:03
PROVIDERS: Internal Medicine Nephrology
DX: E87.6 Hypokalemia (principal)

== ENCOUNTER → 2018-05-11 | Outpatient (CLI) | payer MEDICARE, MEDICAID ==
[2018-05-11 10:28] VITALS: BP 122/80
[2018-05-11 10:56] LABS: HEMATOCRIT 31.1 % (37.0-47.0); HEMOGLOBIN 10.1 gm/dL (12.0-15.0); MCH 31.7 pg (26.0-34.0); MCHC 32.4 g/dL (28.0-37.0); MCV 97.8 fL (80.0-100.0); MPV 7.5 fl. (7.2-11.1); RBC 3.18 mil/uL (4.20-5.00); RDW-CV 19.7 % (10.5-14.5); WBC 5.1 thou/uL (4.0-11.0)
[2018-05-11 11:02] LABS: CALCIUM 8.7 mg/dL (8.5-10.1); CREATININE 0.8 mg/dL (0.6-1.3); POTASSIUM 3.7 mmol/L (3.5-5.1)
[2018-05-11 14:35] VITALS: BP 133/84
--- NOTE | 2018-05-11 15:16 | NUR ---
ARRIVED AMBULATORY WITH [facility]. HAS BEEN IN [place] THE LAST WEEK AT [place]. REPORT BEING HOSPITALIZED THERE. STATED RECIEVED HYDRATION AND 1 UNIT PRBC FOR HGB 7.4[address]. JOHN HERE AND SPOKE WITH PT. ORDER RECIEVED TO DRAW CBC WITH ORDERED BMP TOAD AND NEXT WEDNESDAY. INFUSION COMPLETED AND TOLERATED WELL. PORT A CATH LEFT ACCESSED FOR USE LATER IN WEEK.
--- NOTE | 2018-05-16 07:51 | CON ---
[address] [address] CONSULTATION Name: GUS NASCIMENTO Room: [facility].#: [id number] Admission: 05/11/18 Attend Phys: Chalo Hua MD Discharge: Date of : 75 Report #: [id number] THIS REPORT FOR: //name// CC: Chalo Wolfeully DATE OF SERVICE: 05/11/2018 INFECTIOUS DISEASE FOLLOWUP ATTENDING PHYSICIAN: Dr. Hua. REASON FOR EVALUATION: Followup disseminated Mycobacterium chelonae infection. HISTORY OF PRESENT ILLNESS: The patient returns today in followup as per her usual to get infusion of potassium. She traveled in the last week, had experienced some difficulties. She was found to be hypokalemic as well as profoundly anemic and required hospitalization in [place]. She underwent transfusion and potassium replacement. She noted over the course of the last few days she had issues with lower extremity swelling, which she attributes to the linezolid and also worsening breathing difficulties. She is on baseline 2 liters of supplemental oxygen per nasal cannula. She had required increasing at times. She notes more she is on her foot she tends to have more discomfort, which she attributes to the peripheral neuropathy of the lower extremities. Other matters, she notes perhaps some new lesions associated with her proximal upper extremities. They are subcutaneous in nature and some mild tenderness. The one she was concerned about last week seems to be not progressing. IMPRESSION: Mycobacterium chelonae infection. PLAN: We will continue off the antibiotics at this point, specifically linezolid, and we will see how she does clinically. We will follow her closely and see her next week. <ELECTRONICALLY SIGNED> By: Mehdi Salgado MD 05/16/18 0751 1035 2014Mehdi Salgado MD /nt
== END ==
LOC: M.INFUS 04:57
PROVIDERS: Internal Medicine Nephrology
DX: E87.6 Hypokalemia (principal); A31.8 Other mycobacterial infections

== ENCOUNTER → 2018-05-16 | Outpatient (CLI) | payer MEDICARE, MEDICAID ==
[2018-05-16 10:35] VITALS: BP 132/75
[2018-05-16 11:06] LABS: HEMATOCRIT 37.9 % (37.0-47.0); HEMOGLOBIN 12.2 gm/dL (12.0-15.0); MCH 31.1 pg (26.0-34.0); MCHC 32.1 g/dL (28.0-37.0); MPV 7.4 fl. (7.2-11.1); RBC 3.91 mil/uL (4.20-5.00); RDW-CV 17.3 % (10.5-14.5); WBC 8.7 thou/uL (4.0-11.0)
[2018-05-16 11:21] LABS: POTASSIUM 3.5 mmol/L (3.5-5.1)
[2018-05-16 14:55] VITALS: BP 122/89
--- NOTE | 2018-05-19 12:08 | CON ---
[address] [address] CONSULTATION Name: GUS NASCIMENTO Room: [facility].#: [id number] Admission: 05/16/18 Attend Phys: Chalo Hua MD Discharge: Date of : 75 Report #: [id number] THIS REPORT FOR: //name// CC: Chalo Saleh DATE OF SERVICE: 05/16/2018 ATTENDING PHYSICIAN: Dr. Chalo Hua. REASON FOR VISIT: Followup disseminated Mycobacterium chelonei infection. HISTORY OF PRESENT ILLNESS: The patient returns today in followup. She has several ongoing issues. She notes some progression of the peripheral neuropathy involving the tips of her fingers, she states she is not feeling at this point. The legs still have some numbness, in particular in the feet as well. She does admit to what appears to be recurrence of the subcutaneous nodule involving the proximal aspect of the left upper extremity as well. She has not had fevers. She has experienced some dyspnea as well. She is on continuous supplemental oxygen per nasal cannula. REVIEW OF THE LABORATORIES: They actually have normalized quite nicely. Creatinine of 1.0. Hemoglobin of 12.2, post-transfusion Platelets are normal. She has been off linezolid roughly 2 weeks. ASSESSMENT AND PLAN: Disseminated Mycobacterium chelonae infection. At this point, we have limited options, so consideration of referral to a tertiary care center. I think we have limited therapeutic options. If she has localize lesions, may consider surgical excision. I do not believe she has had enough in terms of therapy, although it is just not clear what antimicrobials that would be options at this point for a long-term approach. <ELECTRONICALLY SIGNED> By: Mehdi Salgado MD 05/19/18 1208 0853 [id number] Salgado MD /nt
== END ==
LOC: M.INFUS 01:13
PROVIDERS: Internal Medicine Nephrology
DX: E87.6 Hypokalemia (principal); A31.8 Other mycobacterial infections

== ENCOUNTER → 2018-05-18 | Outpatient (CLI) | payer MEDICARE, MEDICAID ==
[2018-05-18 11:00] VITALS: BP 118/72
[2018-05-18 12:16] LABS: CALCIUM 8.8 mg/dL (8.5-10.1); CREATININE 0.8 mg/dL (0.6-1.3); POTASSIUM 3.4 mmol/L (3.5-5.1)
[2018-05-18 15:10] VITALS: BP 116/80
--- NOTE | 2018-05-18 16:07 | NUR ---
ARRIVED AMBULATORY. MADE SELF COMFORTABLE IN RECLINER. PORT A CATH ACCESSED. INFUSION COMPLETED AND TOLERATED WELL. PORT FLUSHED AND LEFT ACCESSED FOR USE LATER THIS WEEK.
== END ==
LOC: M.INFUS 04:20
PROVIDERS: Internal Medicine Nephrology
DX: E87.6 Hypokalemia (principal)

== ENCOUNTER 2018-05-20 13:34 | Emergency (ER) | payer MEDICARE, MEDICAID ==
[~2018-05-20] VITALS: Ht 162.6 cm; Wt 86.2 kg
[2018-05-20 16:07] VITALS: BP 128/72
== END 2018-05-20 16:08 | disposition home or self-care (01) ==
LOC: M.ERS 13:34
DX: M25.461 Effusion, right knee (principal); J44.9 Chronic obstructive pulmonary disease, unspecified; Z88.1 Allergy status to other antibiotic agents; Z91.040 Latex allergy status; Z88.8 Allergy status to other drugs, medicaments and biological substances; Z86.711 Personal history of pulmonary embolism; Z98.890 Other specified postprocedural states

== ENCOUNTER → 2018-05-23 | Outpatient (CLI) | payer MEDICARE, OTHER, MEDICAID ==
--- NOTE | ~2018-05-23 | CON ---
[address] [address] CONSULTATION Name: GUS NASCIMENTO Room: [facility] ArsenJethroKeenan.#: [id number] Admission: 05/23/18 Attend Phys: Chalo Hua MD Discharge: Date of : 75 Report #: [id number] THIS REPORT FOR: //name// CC: Chalo Wolfeully DATE OF SERVICE: 05/23/2018 ATTENDING PHYSICIAN: Dr. Hua. REASON FOR EVALUATION: Followup disseminated Mycobacterium chelonae infection. HISTORY OF PRESENT ILLNESS: The patient is again seen today in the outpatient infusion area as per her scheduled receiving IV potassium replacement. She continued to feel quite bad, in fact, she notes perhaps feeling worse. She does experience some dyspnea. She is requiring supplemental oxygen as a baseline as well. She notes more lesions developing in subcutaneous nodule, specifically bilateral proximal upper extremities. They do have some degree of discomfort. She notes the peripheral neuropathy is no better. Again, most pronounced on the distal aspect of all of her extremities, primarily her feet to about mid pretibial as well as her hands. It is not clear that she has got any ongoing worsening of her neuropathy. Her appetite has been marginal. Review of labs actually look quite good. She is anemic, although creatinine is now normal. She has been off the linezolid for several weeks now. ASSESSMENT AND PLAN: Disseminated Mycobacterium chelonae infection. At this point, it has been a very difficult situation. We have talked about referral to tertiary care center, I think that is reasonable. We will schedule records, she is interested in going to the [facility]. We are going to expedite that with apparent worsening of her signs and symptoms and simply a situation where based on susceptibilities, quite resistant organisms a factor in the issue with adverse drugs effects as well as hypersensitivities, we are left with really no clear options. By: 0705 06Mehid Salgado MD /nt
[2018-05-23 10:15] VITALS: BP 123/82
[2018-05-23 10:54] LABS: HEMATOCRIT 36.4 % (37.0-47.0); HEMOGLOBIN 11.9 gm/dL (12.0-15.0); MCHC 32.7 g/dL (28.0-37.0); MCV 94.8 fL (80.0-100.0); MPV 7.9 fl. (7.2-11.1); RBC 3.84 mil/uL (4.20-5.00); RDW-CV 16.7 % (10.5-14.5)
[2018-05-23 10:57] LABS: POTASSIUM 3.5 mmol/L (3.5-5.1)
--- NOTE | 2018-05-23 11:55 | NUR ---
Labs were reviewed by Dr. Salgado.
[2018-05-23 14:10] VITALS: BP 118/76
--- NOTE | 2018-05-23 14:15 | NUR ---
Pt ambulated into department with walker and seated self in recliner. Placed self on o2 at 2L NC. Pt was seen over the Weekend in ER had had port-a-cath in place from that visit. Dressing is dry and intact. Flushes easily and quick brisk blood return. Labs obtained and K+ started at 1014. Paged Dr. Salgado at 1155 to let him know of pts arrival. Dr. Salgado come down to unit and seen patient and orders given for weekly cbc x 3 months. Pt ate a boxed lunch during the day. Pts infusion was completed at 1404 with second bag of K+ to complete the 40 meq that area ordered. Pt was flushed with NS and then Hep lock and ambulated out for home discharge.
== END ==
LOC: M.INFUS 01:01
PROVIDERS: Internal Medicine Nephrology
DX: E87.6 Hypokalemia (principal)

== ENCOUNTER → 2018-05-25 | Outpatient (CLI) | payer MEDICARE ==
[2018-05-25 11:00] VITALS: BP 126/66
[2018-05-25 11:38] LABS: CALCIUM 8.7 mg/dL (8.5-10.1); POTASSIUM 3.3 mmol/L (3.5-5.1)
[2018-05-25 15:13] VITALS: BP 114/68
== END ==
LOC: M.INFUS 05:42
PROVIDERS: Specialist
DX: E87.6 Hypokalemia (principal)

== ENCOUNTER → 2018-05-27 | Outpatient (CLI) | payer MEDICARE ==
[2018-05-27 10:45] VITALS: BP 132/80
[2018-05-27 12:38] LABS: CALCIUM 8.7 mg/dL (8.5-10.1); POTASSIUM 3.3 mmol/L (3.5-5.1)
[2018-05-27 15:03] VITALS: BP 142/81
--- NOTE | 2018-05-27 15:09 | NUR ---
INFUSION COMPLETED AND TOLERATED WELL.
== END ==
LOC: M.INFUS 05:06
PROVIDERS: Internal Medicine Nephrology
DX: E87.6 Hypokalemia (principal)

== ENCOUNTER → 2018-05-30 | Outpatient (CLI) | payer MEDICARE ==
[2018-05-30 10:45] VITALS: BP 122/54
[2018-05-30 11:51] LABS: HEMATOCRIT 35.8 % (37.0-47.0); HEMOGLOBIN 11.8 gm/dL (12.0-15.0); MCH 30.8 pg (26.0-34.0); MCHC 32.9 g/dL (28.0-37.0); MCV 93.7 fL (80.0-100.0); MPV 8.2 fl. (7.2-11.1); RBC 3.82 mil/uL (4.20-5.00); RDW-CV 15.9 % (10.5-14.5); WBC 10.8 thou/uL (4.0-11.0)
[2018-05-30 11:54] LABS: CALCIUM 9.2 mg/dL (8.5-10.1); CREATININE 0.9 mg/dL (0.6-1.3); POTASSIUM 3.4 mmol/L (3.5-5.1)
[2018-05-30 13:04] VITALS: BP 140/82
--- NOTE | 2018-06-01 12:01 | CON ---
[address] [address] CONSULTATION Name: AZAMGUS K Room: [facility].#: [id number] Admission: 05/30/18 Attend Phys: Chalo Hua MD Discharge: Date of : 75 Report #: [id number] THIS REPORT FOR: //name// CC: Chalo Gomes Therese DATE OF SERVICE: 05/30/2018 Infectious Disease Consultation ATTENDING PHYSICIAN: Dr. Hua REASON FOR FOLLOWUP: Disseminated Mycobacterium chelonae infection. She presents today as prescribed for outpatient infusions of parenteral potassium for Gitelman syndrome. HISTORY OF PRESENT ILLNESS: She notes she had "terrible" weekend. She feels poorly. She noted progression of proximal bilateral upper extremity subcutaneous painful nodules. In addition to that, her breathing has been quite tenuous. She is on 3 L currently, also noted some overt hematuria as well. She notes her peripheral neuropathy is no better. It likely that she has had any fevers. Appetite has been marginal. On examination, indeed there are some painful subcutaneous nodules, bilateral proximal upper extremities. Generally, she does appear ill. ASSESSMENT AND PLAN: Disseminated Mycobacterium chelonae as per our discussion last week and thankfully, she is able to get a visit this week to the [facility] in [place]. We did give her the available records. I did track down the susceptibility testing from [facility] for the Mycobacterium. They will drive down over the course of 3 days. Appointment will be for June 02. I made myself available for any phone calls or details that would be missed in the records. I think this is best approach to curing this infection. <ELECTRONICALLY SIGNED> By: Mehdi Salgado MD 06/01/18 1201 1547 0517Jobro Salgado MD /nt
== END ==
LOC: M.INFUS 01:03
PROVIDERS: Specialist
DX: E87.6 Hypokalemia (principal); A31.8 Other mycobacterial infections

== ENCOUNTER → 2018-06-13 | Outpatient (CLI) | payer MEDICARE ==
[2018-06-13 10:40] VITALS: BP 123/74
[2018-06-13 11:18] LABS: HEMATOCRIT 34.8 % (37.0-47.0); HEMOGLOBIN 11.1 gm/dL (12.0-15.0); MCH 29.5 pg (26.0-34.0); MCHC 31.8 g/dL (28.0-37.0); MCV 92.8 fL (80.0-100.0); MPV 7.9 fl. (7.2-11.1); RBC 3.75 mil/uL (4.20-5.00); RDW-CV 15.6 % (10.5-14.5)
[2018-06-13 11:21] LABS: CALCIUM 8.8 mg/dL (8.5-10.1); POTASSIUM 3.2 mmol/L (3.5-5.1)
[2018-06-13 14:55] VITALS: BP 135/74
== END ==
LOC: M.INFUS 01:05
PROVIDERS: Internal Medicine Nephrology
DX: E87.6 Hypokalemia (principal)

== ENCOUNTER → 2018-06-15 | Outpatient (CLI) | payer MEDICARE, MEDICAID ==
[2018-06-15 10:45] VITALS: BP 121/69
[2018-06-15 11:16] LABS: CALCIUM 8.7 mg/dL (8.5-10.1); POTASSIUM 3.3 mmol/L (3.5-5.1)
[2018-06-15 14:57] VITALS: BP 128/72
--- NOTE | 2018-06-16 14:26 | CON ---
[address] [address] CONSULTATION Name: GUS NASCIMENTO Room: [facility].#: [id number] Admission: 06/15/18 Attend Phys: Chalo Hua MD Discharge: Date of : 75 Report #: [id number] THIS REPORT FOR: //name// CC: Chalo Saleh DATE OF SERVICE: 06/15/2018 INFECTIOUS DISEASE CONSULTATION She is seen in the outpatient infusion area. ATTENDING PHYSICIAN: Dr. Chalo Hua REASON FOR EVALUATION: Disseminated Mycobacterium chelonae infection. HISTORY OF PRESENT ILLNESS: Chart reviewed, patient and examined. The patient returns as usual for her outpatient infusions of potassium for Gitelman syndrome. She does 3 times a week, had not seen her in a couple of weeks, although I have been following for disseminated Mycobacterium chelonae infection. Due to the complexity of her case, she was referred to the [facility] in [place]. She was under extensive workup. Results of the mycobacterial cultures are pending from a biopsy taken from her right upper arm. At this point, she is on no therapy. She notes extensive diagnostic studies in addition to clinical evaluations by several services. They did recommend that she undergo evaluation of possible macrolide type 1 hypersensitivity and perhaps a desensitization. Due to the familiarity, we will refer that to Allergy Immunology. At this point, she is relatively stable and the lesions have not progressed. She was confirmed to have peripheral neuropathy and felt to be secondary to the linezolid as well. She does have additional visits with Rheumatology in latter part of June. I did review her recent lab, which was generally unremarkable. Basic metabolic profile with a creatinine of 1.0. ASSESSMENT: Disseminated Mycobacterium chelonae infection. As per their instructions, refer to Allergy Immunology. Possible azithromycin desensitization, will be available as needed, we will see her on a weekly basis. At this point, we will continue off the antimicrobials. <ELECTRONICALLY SIGNED> By: Mehdi Salgado MD 06/16/18 1426 1559 0856Jobro Salgado MD /nt
== END ==
LOC: M.INFUS 05:09
PROVIDERS: Internal Medicine Nephrology
DX: E87.6 Hypokalemia (principal); A31.8 Other mycobacterial infections

== ENCOUNTER → 2018-06-20 | Outpatient (CLI) | payer MEDICARE, MEDICAID ==
[2018-06-20 11:15] VITALS: BP 116/64
[2018-06-20 12:07] LABS: MCHC 32.5 g/dL (28.0-37.0); MCV 92.5 fL (80.0-100.0); MPV 7.6 fl. (7.2-11.1); RDW-CV 15.8 % (10.5-14.5); WBC 6.7 thou/uL (4.0-11.0)
[2018-06-20 12:14] LABS: CALCIUM 9.4 mg/dL (8.5-10.1); CREATININE 0.9 mg/dL (0.6-1.3); POTASSIUM 3.4 mmol/L (3.5-5.1)
== END ==
LOC: M.INFUS 01:16
PROVIDERS: Specialist
DX: E87.6 Hypokalemia (principal)

== ENCOUNTER → 2018-06-22 | Outpatient (CLI) | payer MEDICARE, MEDICAID ==
[2018-06-22 10:05] VITALS: BP 103/69
[2018-06-22 10:36] LABS: CALCIUM 8.6 mg/dL (8.5-10.1); CREATININE 0.9 mg/dL (0.6-1.3); POTASSIUM 3.5 mmol/L (3.5-5.1)
[2018-06-22 13:12] VITALS: BP 118/61
--- NOTE | 2018-06-22 14:37 | NUR ---
ARRIVED AMBULATROY. MADE SELF COMFORTABLE IN RECLINER. PORT ALREADY ACCESSED AND NOTED TO PBE PATENT. INFUSION COMPLETED AND TOELRATED WELL. PORT FLUSHED AND LEFT ACCESSED. DENEIS NEEDS AT DISCHARGE.
--- NOTE | 2018-06-23 11:08 | CON ---
[address] [address] CONSULTATION Name: GUS NASCIMENTO Room: [facility] ArsenJethroKeenan.#: [id number] Admission: 06/22/18 Attend Phys: Chalo Hua MD Discharge: Date of : 75 Report #: [id number] THIS REPORT FOR: //name// CC: Chalo Saleh DATE OF SERVICE: 06/22/2018 INFECTIOUS DISEASE CONSULTATION ATTENDING PHYSICIAN: Dr. Hua REASON FOR EVALUATION: Disseminated Mycobacterium chelonae infection. HISTORY OF PRESENT ILLNESS: Chart reviewed, the patient examined. The patient is seen today in followup for disseminated Mycobacterium chelonae infection. She continues to feel worse. She did inform me earlier this week that the culture from the [facility] did reconfirm via biopsy of growth of Mycobacterium chelonae, awaiting for susceptibilities. She notes that she has generalized malaise, weakness, worsening difficulty with shortness of breath. It is not clear that she has had fevers. On evaluation, her labs actually look better including a creatinine of 0.9. She is mildly anemic at this point based on recommendation of [facility]. She has not been on systemic antibiotics. She is scheduled to follow up with allergy immunology for possible desensitization test in particular to macrolides. ASSESSMENT AND PLAN: Disseminated Mycobacterium chelonae infection. I had a lengthy discussion with her. She is quite concerned, I think rightly so, but encouraged her to call down the [facility] and update them on her current situation she is doing clinically. I would expect the susceptibility testing to be back within a couple of weeks. She is scheduled to follow up at the clinic in [place] in June due to her multiple drug hypersensitivities as well as more recently adverse drug effects. She is severely limited in terms of her options at this point. We will continue to follow her. If indeed worsens, she may need to be treated as an inpatient. <ELECTRONICALLY SIGNED> By: Mehdi Salgado MD 06/23/18 1108 1711 [id number] Salgado MD /nt
== END ==
LOC: M.INFUS 05:12
PROVIDERS: Internal Medicine Nephrology
DX: E87.6 Hypokalemia (principal)

== ENCOUNTER → 2018-06-24 | Outpatient (CLI) | payer MEDICARE, MEDICAID ==
[2018-06-24 10:45] VITALS: BP 140/67
[2018-06-24 12:16] LABS: CALCIUM 9.1 mg/dL (8.5-10.1); CREATININE 0.9 mg/dL (0.6-1.3); POTASSIUM 3.6 mmol/L (3.5-5.1)
[2018-06-24 13:15] VITALS: BP 145/57
== END ==
LOC: M.INFUS 05:03
PROVIDERS: Internal Medicine Nephrology
DX: E87.6 Hypokalemia (principal)

== ENCOUNTER → 2018-06-27 | Outpatient (CLI) | payer MEDICARE, MEDICAID ==
[2018-06-27 10:35] VITALS: BP 132/78
[2018-06-27 11:07] LABS: ABSOLUTE EOSINOPHILS 0.1 thou/uL (0.0-0.7); ABSOLUTE LYMPHOCYTES 2.6 thou/uL (0.8-5.3); ABSOLUTE MONOCYTES 0.5 thou/uL (0.0-1.2); ABSOLUTE NEUTROPHILS 4.2 thou/uL (1.6-8.1); BASOPHILS 0.6 %; EOSINOPHILS 1.4 %; HEMATOCRIT 38.1 % (37.0-47.0); HEMOGLOBIN 12.4 gm/dL (12.0-15.0); LYMPHOCYTES 34.7 %; MCH 29.7 pg (26.0-34.0); MCHC 32.4 g/dL (28.0-37.0); MCV 91.5 fL (80.0-100.0); MONOCYTES 7.1 %; MPV 7.4 fl. (7.2-11.1); NUCLEATED RBCS 0 /100WBC; PLATELET COUNT* 284 thou/uL (150-400); POLYS 56.2 %; RBC 4.17 mil/uL (4.20-5.00); RDW-CV 15.3 % (10.5-14.5); WBC 7.4 thou/uL (4.0-11.0)
[2018-06-27 11:10] LABS: CALCIUM 9.1 mg/dL (8.5-10.1); CREATININE 0.8 mg/dL (0.6-1.3); POTASSIUM 3.1 mmol/L (3.5-5.1)
[2018-06-27 15:00] VITALS: BP 133/74
--- NOTE | 2018-06-29 11:53 | CON ---
[address] [address] CONSULTATION Name: GUS NASCIMENTO [id number] Admission: 06/27/18 Attend Phys: Chalo Hua MD Discharge: Date of : 75 Report #: [id number] THIS REPORT FOR: //name// CC: Chalo Saleh DATE OF SERVICE: 06/27/2018 ATTENDING PHYSICIAN: Dr. Hua. 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 The patient had reached out to me having received an e-mail from [facility] again reiterating that he had Mycobacterium chelonae grew in culture, awaiting susceptibilities and they were recommending that she follow up with Allergy/Immunology which was scheduled for 06/28/2018. Also, mentioned that may need to consider tigecycline as an option and additionally, he made reference to [facility] for possible third opinion apparently. Overall, she is not feeling well, although has not worsened evidently over the course of the last several days since I have seen her. I have encouraged she should surely make the appointment ____ macrolide, specifically azithromycin would be an option as a backbone to treatment regimen. We will need a second agent at least. I do not think a long-term solution would be amikacin, tigecycline might well be. Again, I am not certain what susceptibilities have been done on the Crockett-derived isolate. We will be in touch with her, certainly try to implement any recommendations prescribed by Infectious Disease physicians at the [facility]. <ELECTRONICALLY SIGNED> By: Mehdi Salgado MD 06/29/18 1153 1203 [id number] Salgado MD /nt
== END ==
LOC: M.INFUS 02:12
PROVIDERS: Internal Medicine Nephrology
DX: E87.6 Hypokalemia (principal)

== ENCOUNTER → 2018-06-29 | Outpatient (CLI) | payer MEDICARE, MEDICAID | LOC: M.LAB 17:55 | DX: L29.8 Other pruritus (principal) ==

== ENCOUNTER → 2018-06-29 | Outpatient (CLI) | payer MEDICARE, MEDICAID ==
[2018-06-29 10:45] VITALS: BP 122/75
[2018-06-29 11:26] LABS: CALCIUM 8.7 mg/dL (8.5-10.1); CREATININE 0.8 mg/dL (0.6-1.3); POTASSIUM 3.6 mmol/L (3.5-5.1)
[2018-06-29 14:27] VITALS: BP 128/78
--- NOTE | 2018-06-29 15:21 | NUR ---
ARRIVED AMBULATORY. MADE SELF COMFORTABLE IN RECLINER. PORT A CATH ALREADY ACCESSED. PORT PATENT WITH GOOD BLOOD RETURN AND EASY FLUSH. AT 1415 PT STATED HER ALLERGY COULD GET HER IN FOR ALLERGY TESTING TODAY AT 1500 AND WISHED TO STOP TODAY'S INFUSION. INFUSION STOPPED. PORT A CATH FLUSHED. PT DENEIS NEEDS AT DISCHARGE.
== END ==
LOC: M.INFUS 04:39
PROVIDERS: Internal Medicine Nephrology
DX: E87.6 Hypokalemia (principal); J30.9 Allergic rhinitis, unspecified

== ENCOUNTER → 2018-07-01 | Outpatient (CLI) | payer MEDICARE, MEDICAID ==
[2018-07-01 09:30] VITALS: BP 132/74
[2018-07-01 11:01] LABS: CREATININE 0.9 mg/dL (0.6-1.3); POTASSIUM 3.6 mmol/L (3.5-5.1)
[2018-07-01 14:00] VITALS: BP 128/70
--- NOTE | 2018-07-01 14:05 | NUR ---
ARRIVED AMBUALTORY. MADE SELF COMFORTABLE. PORT PATENT AND INFUSION STARTED AFTER LAB DRAW. DR. JOHN HERE AND SPOKE WITH PT. DR. JOHN RELATED THAT HE WAS GOING TO START THEE PT ON HOME ATB THERAPY AGAIN. INFUSION COMPLETED AND TOLERATED WELL. DRESSING NOTED TO BE LIFTING UP AND PT HAD RETAPED. WITH NEW PLAN TO START ATB THIS WEEKEND. PORT WAS FLUSHED AND LEFT ACCESSED. NEW DRESSING AND BIOPATCH WERE APPLIED. VICTORIANO NEEDS AT DISCHARGE.
== END ==
LOC: M.INFUS 00:40
PROVIDERS: Internal Medicine Nephrology
DX: E87.6 Hypokalemia (principal)

== ENCOUNTER → 2018-07-04 | Outpatient (CLI) | payer MEDICARE, MEDICAID ==
[2018-07-04 10:58] LABS: ABSOLUTE BASOPHILS 0.1 thou/uL (0.0-0.2); ABSOLUTE EOSINOPHILS 0.1 thou/uL (0.0-0.7); ABSOLUTE LYMPHOCYTES 2.4 thou/uL (0.8-5.3); ABSOLUTE MONOCYTES 0.6 thou/uL (0.0-1.2); ABSOLUTE NEUTROPHILS 6.2 thou/uL (1.6-8.1); BASOPHILS 0.6 %; EOSINOPHILS 0.8 %; HEMATOCRIT 40.2 % (37.0-47.0); HEMOGLOBIN 13.1 gm/dL (12.0-15.0); LYMPHOCYTES 25.9 %; MCH 29.6 pg (26.0-34.0); MCHC 32.6 g/dL (28.0-37.0); MCV 90.9 fL (80.0-100.0); MONOCYTES 6.3 %; MPV 7.9 fl. (7.2-11.1); NUCLEATED RBCS 0 /100WBC; PLATELET COUNT* 285 thou/uL (150-400); POLYS 66.4 %; RBC 4.43 mil/uL (4.20-5.00); RDW-CV 15.4 % (10.5-14.5); WBC 9.4 thou/uL (4.0-11.0)
[2018-07-04 11:09] LABS: CALCIUM 9.3 mg/dL (8.5-10.1); POTASSIUM 3.6 mmol/L (3.5-5.1)
--- NOTE | 2018-07-07 10:37 | CON ---
[address] [address] CONSULTATION Name: GUS NASCIMENTO Room: [facility] OZZIE Navarro.#: [id number] Admission: 07/04/18 Attend Phys: Chalo Hua MD Discharge: Date of : 75 Report #: [id number] THIS REPORT FOR: //name// CC: Chalo Wolfeully DATE OF SERVICE: 07/04/2018 ATTENDING PHYSICIAN: Dr. Hua. REASON FOR EVALUATION: Mycobacterium chelonae infection. HISTORY OF PRESENT ILLNESS: Chart reviewed, patient examined. The patient returns in followup as scheduled on her thrice weekly outpatient potassium infusion therapy treatments. Clinically, she feels generally poorly and has ongoing issues with pain associated with her extremities. She has got the peripheral neuropathy. Did have a lengthy discussion about recommendations of Dr. Velásquez at the [facility] based on susceptibilities most recent, which confirmed the Mycobacterium chelonae infection, similar susceptibilities, we will initiate therapy with amikacin as well as tigecycline as her both parenteral treatments, which we arranged that at home. Again, she is having labs multiple times each week. We will have to follow creatinine closely. She did see the property management bookkeeper who felt indeed she had a significant hypersensitivity to the macrolides that was room left open to perhaps desensitize. We will see how she does clinically on this dual drug combination. We will discuss with Dr. Nichols, the belt repairer about possible desensitization. Other consideration would be to contact the [employer] and discuss any potential other options. <ELECTRONICALLY SIGNED> By: Mehdi Salgado MD 07/07/18 1037 0820 1945Jobro Salgado MD /nt
== END ==
LOC: M.INFUS 00:58
PROVIDERS: Internal Medicine Nephrology
DX: E87.6 Hypokalemia (principal)

== ENCOUNTER → 2018-07-06 | Outpatient (CLI) | payer MEDICARE, MEDICAID ==
[2018-07-06 10:55] VITALS: BP 122/76
[2018-07-06 11:35] LABS: CALCIUM 8.3 mg/dL (8.5-10.1); CREATININE 0.9 mg/dL (0.6-1.3)
[2018-07-06 15:22] VITALS: BP 142/80
--- NOTE | 2018-07-11 06:47 | CON ---
[address] [address] CONSULTATION Name: GUS NASCIMENTO Chio [facility] EVELYNSchuyler Navarro.#: [id number] Admission: 07/06/18 Attend Phys: Chalo Hua MD Discharge: Date of : 75 Report #: [id number] THIS REPORT FOR: //name// CC: Chalo Saleh INFECTIOUS DISEASE CONSULTATION FOLLOWUP Seen in the outpatient infusion area for disseminated Mycobacterium chelonae. She was able to start combination therapy with amikacin as well as a tigecycline. She is experiencing a fair amount of nausea. She attributes to the latter. It was recommended that she takes some pretreatment and for nausea given Zofran at a lower dose, it did not seem to help. She did get some Phenergan while here and give her some relief. She does admit to more recent orthopnea. She is unable to sleep in a bed, been in the recliner, does have cough. She is not clear if she had fevers. On examination, lungs appear to be clear. Mycobacterium chelonae infection (disseminated). We will continue current therapy. Ask her to increase her Zofran to 8 mg, 2 prior to each dose; tigecycline to see if this will give her some additional benefit. We will continue to follow labs closely including creatinine given the fact she is on the amikacin. We will see her at frequent regular intervals. <ELECTRONICALLY SIGNED> By: Mehdi Salgado MD 07/11/18 0647 1035 [id number] Esmer Salgado MD /nt
== END ==
LOC: M.INFUS 05:33 → M.RAD 05:33 → M.INFUS 10:30
PROVIDERS: Internal Medicine Nephrology
DX: R11.0 Nausea (principal); E87.6 Hypokalemia

== ENCOUNTER → 2018-07-08 | Outpatient (CLI) | payer MEDICARE, MEDICAID ==
[2018-07-08 10:40] VITALS: BP 132/80
[2018-07-08 11:13] LABS: CALCIUM 8.5 mg/dL (8.5-10.1); POTASSIUM 3.8 mmol/L (3.5-5.1)
[2018-07-08 15:00] VITALS: BP 122/74
== END ==
LOC: M.INFUS 05:11
PROVIDERS: Internal Medicine Nephrology
DX: E87.6 Hypokalemia (principal)

== ENCOUNTER 2018-07-09 13:35 | Emergency (ER) | payer MEDICARE, MEDICAID ==
[~2018-07-09] VITALS: Ht 162.6 cm; Wt 86.2 kg
[2018-07-09 14:04] LABS: ABSOLUTE LYMPHOCYTES 1.2 thou/uL (0.8-5.3); ABSOLUTE MONOCYTES 0.3 thou/uL (0.0-1.2); ABSOLUTE NEUTROPHILS 9.1 thou/uL (1.6-8.1); BASOPHILS 0.4 %; EOSINOPHILS 0.1 %; HEMATOCRIT 40.7 % (37.0-47.0); HEMOGLOBIN 13.3 gm/dL (12.0-15.0); LYMPHOCYTES 11.6 %; MCH 29.4 pg (26.0-34.0); MCHC 32.6 g/dL (28.0-37.0); MCV 90.4 fL (80.0-100.0); MONOCYTES 3.1 %; MPV 7.9 fl. (7.2-11.1); NUCLEATED RBCS 0 /100WBC; PLATELET COUNT* 286 thou/uL (150-400); POLYS 84.8 %; RDW-CV 15.1 % (10.5-14.5); WBC 10.8 thou/uL (4.0-11.0)
[2018-07-09 14:11] LABS: ANION GAP 9 mmol/L (7-16); BUN 16 mg/dL (7-18); CHLORIDE 103 mmol/L (98-107); CO2 26 mmol/L (21-32); GLUCOSE 117 mg/dL (70-99); POTASSIUM 3.7 mmol/L (3.5-5.1); SODIUM 138 mmol/L (136-145)
[2018-07-09 14:21] LABS: ALBUMIN 3.1 g/dL (3.4-5.0); ALKALINE PHOSPHATASE 92 U/L (46-116); SGOT 8 U/L (15-37); SGPT 16 U/L (30-65); TOTAL BILIRUBIN 0.3 mg/dL (<0.1-1.0); TOTAL PROTEIN 7.3 g/dL (6.4-8.2); TROPONIN-I LEVEL <0.06 ng/mL (<0.06)
[2018-07-09 14:36] LABS: URINE BILIRUBIN NEGATIVE (Negative); URINE BLOOD NEGATIVE (Negative); URINE CLARITY CLEAR; URINE COLOR YELLOW; URINE GLUCOSE-RANDOM NEGATIVE (Negative); URINE KETONES NEGATIVE (Negative); URINE LEUKOCYTES-REFLEX NEGATIVE (Negative); URINE NITRITE-REFLEX NEGATIVE (Negative); URINE PROTEIN NEGATIVE (Negative); URINE SPECIFIC GRAVITY <= 1.005 (1.005-1.030); URINE UROBILINOGEN 0.2 E.U./dl (0.2-1.0)
[2018-07-09 17:50] LABS: APTT 29.3 Seconds (25.0-31.3); PROTIME 10.7 Seconds (9.20-11.50)
[2018-07-09 20:02] VITALS: BP 131/84
--- NOTE | 2018-07-11 12:36 | EKG ---
[place] [address] ELECTROCARDIOGRAM REPORT Name: AZAMGUS Chio Room: [facility]#: [id number] Admission: 07/09/18 Attend Phys: Discharge: 07/09/18 Date of : 75 Report #: [id number] THIS REPORT FOR: //name// [facility] ED Test Date: 2018-07-09 Test Time: 14:09:51 Pat Name: GUS NASCIMENTO Department: Room: Gender: F Clerical Receptionist: Luis LUO : 1975 Requested By: Ranjana Beard Order Number: [id number] MD: Ajay Corrales Measurements Intervals [place] Rate: 109 P: 36 MI: 144 QRS: 10 QRSD: 80 T: 15 QT: 330 QTc: 445 Interpretive Statements Sinus tachycardia Baseline wander in lead(s) V2 Compared to ECG 03/12/2018 13:53:34 Sinus rate has increased Electronically Signed On 07-11-2018 12:36:40 CDT by Ajay Corrales [email or web address] <ELECTRONICALLY SIGNED> By: Ajay Corrales MD, [facility] 07/11/18 1236 140 08 Ajay Corrales MD, FAC /EPI
== END 2018-07-09 20:03 | disposition still patient (30) ==
LOC: M.ERS 13:35
PROVIDERS: Nurse Practitioner Family; Physician Assistant
DX: I26.99 Other pulmonary embolism without acute cor pulmonale (principal); R09.02 Hypoxemia; A31.8 Other mycobacterial infections; M79.7 Fibromyalgia; J44.9 Chronic obstructive pulmonary disease, unspecified; Z88.1 Allergy status to other antibiotic agents; Z88.8 Allergy status to other drugs, medicaments and biological substances; Z91.040 Latex allergy status

== ENCOUNTER → 2018-07-29 | Outpatient (CLI) | payer MEDICARE, MEDICAID ==
[~2018-07-29] MED LIST changes: +ENOXAPARIN150 MG/11 SUBQ; +IMIPENEM-CILAS500 MG IV; +TIGECYCLINE50 MG IVPB
[2018-07-29 11:20] LABS: ALBUMIN 3.1 g/dL (3.4-5.0); CREATININE 1.1 mg/dL (0.6-1.3); POTASSIUM 4.6 mmol/L (3.5-5.1); TOTAL BILIRUBIN 0.5 mg/dL (<0.1-1.0); TOTAL PROTEIN 7.2 g/dL (6.4-8.2)
--- NOTE | 2018-07-29 13:54 | NUR ---
ARRIVED AMBULATORY. MADE SELF COMFORTABLE IN RECLINER. RIGHT PORT A CATH HAS BEEN REMOVED AND NEW DUAL LUMAN TICC LINE (LEFT SUBCLAVIAN) IN PLACE. LINE IS SUTURED AND CUFFED PER OP REPORT PT BROUGHT WITH HER. BOTH LUMANS OF TICC PATENT. LABS DRAWN AND INFUSION STARTED. LAB RESULTS EVALUATED AND k+ NOTED TO BE 4.[address] WANG. SPOKE WITH PT WHO STATED THAT DURING HER RECENT HOSPITAL STAY THE K+ INFUSION HAD BEEN STOPPED RELATED TO LEVELS WNL. CALL BACK RECIEVED FROM OLIVIA AT DR. REYES'S OFFICE. NEW ORDER RECIEVED TO HOLD INFUSION IF K+ IF LAB RESULTS SHOW 3.8 OR ABOVE. TODAY'S INFUSION STOPPED AFTER [address] WANG AWARE[address] PT UPDATED. VOICED UNDERSTANDING AND AGREED. BOTH LUMAN OF TICC LINE FLUSHED. DENIES QUESTIONS OR NEEDS AT DISCHARGE.
== END ==
LOC: M.INFUS 04:40
PROVIDERS: Internal Medicine Nephrology
DX: E87.6 Hypokalemia (principal); A31.8 Other mycobacterial infections; J44.9 Chronic obstructive pulmonary disease, unspecified; M43.00 Spondylolysis, site unspecified

== ENCOUNTER 2018-08-01 14:34 | Inpatient (IN) | payer MEDICARE, MEDICAID ==
[2018-08-01] VITALS (8 sets, daily range): BP systolic 89–136; BP diastolic 40–78
[~2018-08-01] VITALS: Ht 162.6 cm; Wt 84.4 kg
--- NOTE | ~2018-08-01 | EEG ---
[address] [address] EEG STUDY REPORT Name: CONG NASCIMENTOA Chio Room: [address]R#: [id number] Admission: 08/01/18 Attend Phys: Jackie Preston MD Discharge: 08/04/18 Date of : 75 Report #: [id number] THIS REPORT FOR: //name// CC: Eliseo Preston DATE OF SERVICE: 08/04/2018 This patient is being evaluated for any etiology for the patient's altered mental status. EEG was done by placing the electrodes by standard 10-20 system of electrode placement. Both referential and sequential montages were used for recording. Background activity in this patient's EEG is about 11 Hz and 40-50 microvolt. The patient became drowsy that is associated with bilateral slowing. Photic stimulation was unremarkable. Throughout the record, no active epileptiform activity was noticed. IMPRESSION: This patient's EEG does not show any definite abnormality. Thank you very much for this referral. By: 1608 [id number] Donahue MD /nt
[~2018-08-01 14:34] MED LIST changes: -ENOXAPARIN150 MG/11 SUBQ; -IMIPENEM-CILAS500 MG IV; -TIGECYCLINE50 MG IVPB
--- NOTE | 2018-08-01 14:49 | NUR ---
SPOKE TO INFUSION STAFF HERE AT [facility], WAS THERE THIS MORNING FOR INFUSION. LEFT AT 1145 WITH STEADY GAIT, HOME O2 AT 2L, ALERT AND ORIENTED, PER INFUSION STAFF
[2018-08-01 15:18] LABS: ABSOLUTE BASOPHILS 0.1 thou/uL (0.0-0.2); ABSOLUTE EOSINOPHILS 0.1 thou/uL (0.0-0.7); ABSOLUTE LYMPHOCYTES 1.5 thou/uL (0.8-5.3); ABSOLUTE MONOCYTES 0.6 thou/uL (0.0-1.2); ABSOLUTE NEUTROPHILS 4.7 thou/uL (1.6-8.1); BASOPHILS 0.8 %; EOSINOPHILS 1.5 %; HEMOGLOBIN 10.9 gm/dL (12.0-15.0); LYMPHOCYTES 21.2 %; MCH 30.3 pg (26.0-34.0); MCHC 32.9 g/dL (28.0-37.0); MCV 92.1 fL (80.0-100.0); MONOCYTES 8.3 %; MPV 6.8 fl. (7.2-11.1); NUCLEATED RBCS 0 /100WBC; PLATELET COUNT* 263 thou/uL (150-400); POLYS 68.2 %; RBC 3.59 mil/uL (4.20-5.00); RDW-CV 17.4 % (10.5-14.5)
[2018-08-01 15:25] LABS: ANION GAP 5 mmol/L (7-16); BUN 16 mg/dL (7-18); CALCIUM 8.3 mg/dL (8.5-10.1); CHLORIDE 105 mmol/L (98-107); CO2 30 mmol/L (21-32); CREATININE 0.8 mg/dL (0.6-1.3); GLUCOSE 81 mg/dL (70-99); POTASSIUM 4.2 mmol/L (3.5-5.1); SODIUM 140 mmol/L (136-145)
[2018-08-01 15:27] LABS: APTT 25.7 Seconds (25.0-31.3); PROTIME 10.4 Seconds (9.20-11.50)
[2018-08-01 15:39] LABS: ALBUMIN 2.4 g/dL (3.4-5.0); ALKALINE PHOSPHATASE 96 U/L (46-116); CK-MB MASS < 0.5 ng/mL (<0.5-3.6); NT-PRO BRAIN NAT PEPTIDE 25 pg/mL (<300); SGOT 44 U/L (15-37); SGPT 73 U/L (30-65); TOTAL BILIRUBIN 0.4 mg/dL (<0.1-1.0); TOTAL PROTEIN 5.9 g/dL (6.4-8.2); TROPONIN-I LEVEL <0.06 ng/mL (<0.06)
[2018-08-01 16:24] LABS: URINE BILIRUBIN NEGATIVE (Negative); URINE BLOOD NEGATIVE (Negative); URINE CLARITY CLEAR; URINE COLOR YELLOW; URINE GLUCOSE-RANDOM NEGATIVE (Negative); URINE KETONES TRACE (Negative); URINE LEUKOCYTES-REFLEX NEGATIVE (Negative); URINE NITRITE-REFLEX NEGATIVE (Negative); URINE PROTEIN NEGATIVE (Negative); URINE SPECIFIC GRAVITY 1.015 (1.005-1.030); URINE UROBILINOGEN 0.2 E.U./dl (0.2-1.0)
[2018-08-01 16:33] LABS: AMP/METHAMP Negative (Negative); BARBITURATES Negative (Negative); BENZODIAZEPINES POSITIVE (Negative); COCAINE Negative (Negative); METHADONE Negative (Negative); OPIATES Negative (Negative); PCP Negative (Negative); THC Negative (Negative)
[2018-08-01] MEDS ORDERED: TIGECYCLINE50 MG IVPB (20:49)
[2018-08-01] MEDS ORDERED: IMIPENEM-CILAS500 MG IV (20:51)
[2018-08-01] MEDS ORDERED: ENOXAPARIN150 MG/11 SUBQ (20:52)
[2018-08-02] VITALS (13 sets, daily range): BP systolic 94–120; BP diastolic 51–74
--- NOTE | 2018-08-02 01:29 | NUR ---
ASSUMED CARE AT 2200H.PT WAS ORIENTED BUT LITTLE DROWSY. ATE HER DINNER WIH ASPIRATION PRECAUTION. NEUROLOGIST CALLED AND INFORM PT CONDITION AND WILL SEE PT CHESTER. ACCORDING TO PT, PRIOR TO WHAT HAPPEN TO HER, SHE TOOK BOTH OXYCODONE AND ZANAX AT THE SAME TIME AFTER HER INFUSSION HERE IN [facility].AT MIDNIGHT, PT WAS MORE ALERT.
[2018-08-02 05:07] LABS: HEMATOCRIT 29.9 % (37.0-47.0); HEMOGLOBIN 9.7 gm/dL (12.0-15.0); MCH 30.1 pg (26.0-34.0); MCHC 32.6 g/dL (28.0-37.0); MCV 92.3 fL (80.0-100.0); MPV 7.4 fl. (7.2-11.1); RBC 3.24 mil/uL (4.20-5.00); RDW-CV 17.1 % (10.5-14.5)
--- NOTE | 2018-08-02 05:41 | NUR ---
PT WAS STABLE THE WHOLE NIGHT.ORIENTED AND SLIGHTLY DROWSY.STILL FOR NEUROLOGY CONSULT.PT MENTAL STATUS IMPROVES.CONTINUE CARE AND MONITORING.
[2018-08-02 06:31] LABS: ALBUMIN 2.1 g/dL (3.4-5.0); CALCIUM 8.1 mg/dL (8.5-10.1); CREATININE 0.9 mg/dL (0.6-1.3); POTASSIUM 4.2 mmol/L (3.5-5.1); TOTAL BILIRUBIN 0.3 mg/dL (<0.1-1.0); TOTAL PROTEIN 5.2 g/dL (6.4-8.2)
--- NOTE | 2018-08-02 15:37 | EKG ---
[place] [address] ELECTROCARDIOGRAM REPORT Name: CONG NASCIMENTOA Chio Room: [address] ADM IN M.R.#: [id number] Admission: 08/01/18 Attend Phys: Jackie Preston MD Discharge: Date of : 75 Report #: [id number] THIS REPORT FOR: //name// [facility] ED Test Date: 2018-08-01 Test Time: 15:19:48 Pat Name: GUS NASCIMENTO Department: Room: [facility] Gender: F [facility] [employer] [facility] 1975 Requested By: Dionte Singh Order Number: [id number] MD: Chaitanya Gama Measurements Intervals [place] Rate: 96 P: 43 IL: 152 QRS: 1 QRSD: 78 T: 27 QT: 337 QTc: 426 Interpretive Statements Sinus rhythm Low voltage, precordial leads Compared to ECG 07/09/2018 14:09:51 Low QRS voltage now present Sinus tachycardia no longer present Electronically Signed On 08-02-2018 15:37:10 CDT by Chaitanya Gama [email or web address] <ELECTRONICALLY SIGNED> By: Chaitanya Gama MD, FACC 08/02/18 1537 1519 1519 Chaitanya Gama MD, FAC /EPI
--- NOTE | 2018-08-02 18:35 | NUR ---
08/02 Days: Patient states she feels back to baseline. Percocex x3 for back pain (home dose). Possible discharge tomorrow. Home antibiotics to be given tonight, in med fridge
[2018-08-03] VITALS: BP 110/62
[2018-08-03 04:33] VITALS: BP 100/69
[2018-08-03 08:10] VITALS: BP 101/53
--- NOTE | 2018-08-03 12:37 | CON ---
[address] [address] CONSULTATION Name: AZAMGUS K Room: [address] IN M.R.#: [id number] Admission: 08/01/18 Attend Phys: Jackie Preston MD Discharge: Date of : 75 Report #: [id number] THIS REPORT FOR: //name// CC: Eliseo Preston DATE OF SERVICE: 08/02/2018 INFECTIOUS DISEASE CONSULTATION ATTENDING PHYSICIAN: Jackie Preston MD REASON FOR EVALUATION: Unresponsiveness. HISTORY OF PRESENT ILLNESS: Chart reviewed, patient examined. This is a 42-year-old, well known to me, followed closely basis with disseminated Mycobacterium chelonae infection. She has multiple other problems. She was recently hospitalized with pulmonary emboli. 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 She was in the clinic yesterday. After she left, she was called stopping by to get some lunch for her children and then she was found unresponsive in her car apparently in the driveway. She notes she had taken some narcotic analgesic one dose as well as some benzodiazepine, which she has been on a chronic therapeutic regimen. It is not clear if she has had recent fevers. It is notable in addition to the pulmonary embolus that was diagnosed, treated with anticoagulation. She was diagnosed with T10 vertebral osteomyelitis. As a result, she is on combination therapy in addition to the tigecycline and amikacin for the Mycobacterium, she is on imipenem she thinks on a twice daily basis. This a.m., she is somewhat lethargic, she is in mild degree of pain and discomfort due to her back, and she is lucid, although somewhat lethargic. ALLERGIES: LISTED TO CITALOPRAM, DULOXETINE, DOXYCYCLINE, ERYTHROMYCIN, CLARITHROMYCIN, TRAZODONE, LEVOFLOXACIN, LINEZOLID, LATEX. CURRENT MEDICINES: Include enoxaparin, venlafaxine, diltiazem, montelukast, oxycodone, spironolactone, ropinirole, pantoprazole, milnacipran, levalbuterol p.r.n., ondansetron and analgesics. 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 SOCIAL HISTORY: Nonsmoker, occasional ethanol, [place] [address] CONSULTATION Name: GUS NASCIMENTO Room: [address] IN [facility]#: [id number] Admission: 08/01/18 Attend Phys: Jackie Preston MD Discharge: Date of : 75 Report #: [id number] FAMILY HISTORY: Noncontributory. REVIEW OF SYSTEMS: She states her pulmonary status has been fairly stable, she is on 2 L, significant abdominal-related complaints, otherwise unremarkable, has not had fevers. PHYSICAL EXAMINATION: GENERAL: She appears chronically ill, undernourished. She is alert, cooperative. She is pleasant, in moderate distress. VITAL SIGNS: Temperature 97.9, pulse 98, respirations 14, blood pressure 110/62. SKIN: Warm, dry. No rashes. HEENT: Normocephalic. Extraocular muscles intact. NECK: Supple. LUNGS: Few scattered coarse breath sounds. She has some wheezes. HEART: Regular. I do not appreciate any murmur. ABDOMEN: Mildly obese, soft, nontender. There are no peritoneal signs. EXTREMITIES: The previously noted multiple subcutaneous nodules, proximal upper extremities, have regressed, it is overall less tender. GENITOURINARY AND RECTAL: Deferred. LABORATORY DATA: Electrolytes: Sodium 139, potassium 4.2, chloride 105, bicarbonate is 28, anion gap of 6, BUN and creatinine 18 and 0.9, glucose of 90. LFTs unremarkable. Albumin of 2.1, total protein 5.2, prealbumin of 14.7. CBC: White count of 6, H and H 9.7 and 29.9, platelets of 255. Troponin less than 0.06. Drug screen, positive for benzodiazepines. Urinalysis otherwise unremarkable. CT of the head without contrast, no acute process. ASSESSMENT: 1. Disseminated Mycobacterium chelonae infection. We will continue the current approach with tigecycline and amikacin. At this point, tolerating it with no discernible increase in her renal ____. We will monitor expectantly creatinine, signs and symptoms that would be attributable to adverse drug effects given her extensive history of such. 2. Vertebral osteomyelitis. As recommended, we will continue the imipenem as prescribed and again multiple antibiotics, certainly at risk, we will have to monitor expectantly. <ELECTRONICALLY SIGNED> By: Mehdi Salgado MD 08/03/18 1237 0835 1013Jobro Salgado MD /nt
[2018-08-03 16:32] VITALS: BP 106/60
--- NOTE | 2018-08-03 17:26 | NUR ---
PATIENT DOWN FOR PELVIS US THIS AM, RESULTS CALLED TO DR. LAW. PATIENT STATED SHE WAS NAUSEATED PRIOR TO US, PRN ZOFRAN GIVEN ORDERED. PATIENT RETURNED FROM TEST AND STATED SHE HAD VOMITTED 3 TIMES WHILE IN US, ORDERS RECEIVED FROM DR. LAW FOR PRN PHENERGAN AND GIVEN ORDERED. MULT IV ABX INFUSED ORDERED. OK TO HOLD DISCHARGE PER PATIENT REQUEST. RIGHT PORT SITE BLEEDING THIS AFTERNOON, DRESSING WAS CHANGED AND DR. LAW NOTIFIED WITH NO NEW ORDERS RECEIVED. 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 UP AD RONNA IN ROOM.
--- NOTE | 2018-08-03 18:00 | CON ---
[address] [address] CONSULTATION Name: GUS NASCIMENTO Room: [address] IN M.R.#: [id number] Admission: 08/01/18 Attend Phys: Jackie Preston MD Discharge: Date of : 75 Report #: [id number] THIS REPORT FOR: //name// CC: Eliseo Preston DATE OF SERVICE: 08/02/2018 HISTORY OF PRESENT ILLNESS: This is a 42-year-old female patient who was seen by me for altered mental status. The patient was discussed with the nurses last night and was seen today. She indicates that yesterday she took one pain pill and one Xanax. She went to some fast food restaurant and then came home and she does not remember things after that. She indicates that she rarely takes this combination, but has done that. The last time she did was in April. REVIEW OF SYSTEMS: Indicates that she has infections. She has been to [facility]. She has a severe neuropathy involving both lower extremities secondary to the medications, which has been used. She indicates she has COPD. She has anxiety. She said she is disabled because of all these problems, which are going on. She has a Port-A-Cath. She does have some history of hypokalemia. She has some migraine, but that is not her current problem. She felt back to her baseline, the best I can tell from her description. A 14-point review of system was carried out and she denies any eye, ENT symptoms. She does not have any new cardiac, respiratory, GI, , musculoskeletal, constitutional, dermatological, hematological, psychiatric, throat, allergic symptom associated with present symptomatology. She does have multiple issues in the past and that has been summarized above. PAST MEDICAL HISTORY: Positive for a chronic infection. FAMILY HISTORY: Unremarkable. SOCIAL HISTORY: The patient does not smoke. PHYSICAL EXAMINATION: VITAL SIGNS: The blood pressure is 117/65, pulse is 111, and temperature is 97.9. NEUROLOGIC: Indicates she is alert, responsive, oriented, able to follow simple and complex command. Her speech, concentration, fund of knowledge and memory is at her baseline. Cranial nerve examination 2-12 was unremarkable. Neuromuscular examination has done for strength, sensation, reflexes and tone. She indicates she has severe neuropathy, which is her baseline. Her reflexes could not be elicited. The position sense is impaired and she indicates she cannot feel. Tone looks symmetrical. There is no cerebellar sign. I could not look at the patient's fundus. SKIN: She has no edema, [place]osis [place] [address] CONSULTATION Name: GUS NASCIMENTO Chio Room: [address] IN ..#: [id number] Admission: 08/01/18 Attend Phys: Jackie Preston MD Discharge: Date of : 75 Report #: [id number] CARDIAC: Examination appears unremarkable. LUNGS: There is some rhonchi present. EXTREMITIES: There is no vascular insufficiency in the lower extremities. LABORATORY DATA: White count is 6.[address] scan of the head was done and that appear unremarkable. IMPRESSION: Most likely, the patient's etiology for the altered mental status was medication. She indicates that she has taken the medication in the past and she does not believe that is the medication and because of that I will get an EEG and MRI done to exclude any other etiology. If that is negative, is thus far as we can do go to do the workup. The patient wants to proceed with it and I will schedule that and follow up with you. Thank you very much for this referral. <ELECTRONICALLY SIGNED> By: Kevin Donahue MD 08/03/18 1800 1135 [id number] Donahue MD /nt
[2018-08-03 20:16] VITALS: BP 106/67
[2018-08-04 00:30] VITALS: BP 101/63
[2018-08-04 04:30] VITALS: BP 109/68
[2018-08-04 05:43] LABS: CALCIUM 8.9 mg/dL (8.5-10.1); CREATININE 0.7 mg/dL (0.6-1.3); MAGNESIUM 1.9 mg/dL (1.8-2.4); POTASSIUM 4.4 mmol/L (3.5-5.1)
--- NOTE | 2018-08-04 06:46 | NUR ---
PATIENT SLEPT MOST OF THE NIGHT. PAIN MEDICINE WAS GIVEN ONCE. PATIENT HAD NO COMPLAINTS OF NAUSEA THIS SHIFT. PATIENT IS SUPPOSED TO DISCHARGE HOME TODAY. WILL CONTINUE TO MONITOR.
[2018-08-04 07:40] VITALS: BP 105/65
[2018-08-04 13:33] VITALS: BP 105/65
--- NOTE | 2018-08-04 13:37 | NUR ---
Pt to dc home today; RAVINDER spoke with pt about safe dc plan. Pt to resume HH services with [facility]; RAVINDER faxed referral info, orders, med list. Pt continues to be current with [facility] for IV abx. Pt has all needed DME. Pt did not express any other dc needs.
--- NOTE | 2018-08-04 16:36 | NUR ---
WOUND NURSE: ARRIVED IN PATIENT'S ROOM AND STAFF NURSE WAS APPLYING PRESSURE TO POSTOPERATIVE SITE ON RIGHT CHEST WALL WHERE A PORTACATH HAD PREVIOUSLY BEEN REMOVED (NOT ON THIS OCCASION) BUT HAD STARTED BLEEDING FOLLOWING AN ULTRASOUND OF THE AREA. DR. JOHN HERE AND SAW THE PATIENT. HE AGREED WITH POC WHICH WAS PERFORMED. WOUND MEASURED 1.0 X 3.0 (DEPTH NOT CHECKED TO NOT TO DISTURB THIS NEWLY FORMED CLOT). CLEANSED GENTLY WITH WOUND CLEANSER AND GAUZE, THEN APPLIED VERSATEL UNDER AQUACEL AG UNDER A BORDERED FOAM DRESSING. THIS WAS TOLERATED WELL BY THE PATIENT. PATIENT HAD SIGNIFICANT BRUISING INFERIOUR TO THIS WOUND. DR. LAW WAS ALSO NOTIFIED BY STAFF NURSE AND WOUND CARE POT APPROVED. PATIENT INSTRUCTED ON REPORTABLE S/S WITH GOOD UNDERSTANDING ACHIEVED.
--- NOTE | 2018-08-04 17:40 | NUR ---
PATIENT DISCHARGED TO HOME WITH HOME HEALTH. DISCHARGE PAPERS REVIEWED AND SIGNED. NO PRESCRIPTIONS. NO IV. CENTRAL LINE TO LEFT CHEST IN PLACE FOR HOME IV ANTIBIOTICS. PATIENT DENIES ANY FURTHER NEEDS. PATIENT TAKEN BY WHEELCHAIR TO EXIT. LEFT WITH BOYFRIEND.
== END 2018-08-04 17:40 | disposition home health service (06) | DRG 917 ==
LOC: M.ERS 14:34 → M.ICU 16:08 → M.TBA-ER 16:08 → M.ICU 18:24 → M.3W 08-02 19:34
PROVIDERS: Emergency Medicine; ADMIT Internal Medicine
DX: T42.4X1A Poisoning by benzodiazepines, accidental (unintentional), initial encounter (principal); G93.41 Metabolic encephalopathy; A31.8 Other mycobacterial infections; M46.24 Osteomyelitis of vertebra, thoracic region; J44.9 Chronic obstructive pulmonary disease, unspecified; F41.9 Anxiety disorder, unspecified; I25.10 Atherosclerotic heart disease of native coronary artery without angina pectoris; G89.29 Other chronic pain; M54.9 Dorsalgia, unspecified; M79.7 Fibromyalgia; Y92.89 Other specified places as the place of occurrence of the external cause; Z86.711 Personal history of pulmonary embolism; I25.2 Old myocardial infarction; Z88.8 Allergy status to other drugs, medicaments and biological substances; Z88.1 Allergy status to other antibiotic agents; Z91.040 Latex allergy status; Z82.49 Family history of ischemic heart disease and other diseases of the circulatory system

== ENCOUNTER → 2018-08-01 | Outpatient (CLI) | payer MEDICARE, MEDICAID ==
[2018-08-01 10:40] VITALS: BP 113/63
[2018-08-01 10:58] LABS: ABSOLUTE EOSINOPHILS 0.1 thou/uL (0.0-0.7); ABSOLUTE LYMPHOCYTES 1.2 thou/uL (0.8-5.3); ABSOLUTE MONOCYTES 0.4 thou/uL (0.0-1.2); ABSOLUTE NEUTROPHILS 2.9 thou/uL (1.6-8.1); BASOPHILS 1.1 %; EOSINOPHILS 2.6 %; HEMATOCRIT 34.5 % (37.0-47.0); HEMOGLOBIN 11.4 gm/dL (12.0-15.0); LYMPHOCYTES 26.4 %; MCH 30.3 pg (26.0-34.0); MCV 91.7 fL (80.0-100.0); MONOCYTES 7.7 %; MPV 7.7 fl. (7.2-11.1); NUCLEATED RBCS 0 /100WBC; PLATELET COUNT* 258 thou/uL (150-400); POLYS 62.2 %; RBC 3.76 mil/uL (4.20-5.00); WBC 4.7 thou/uL (4.0-11.0)
[2018-08-01 11:06] LABS: CALCIUM 8.4 mg/dL (8.5-10.1); CREATININE 0.8 mg/dL (0.6-1.3); POTASSIUM 4.4 mmol/L (3.5-5.1)
[2018-08-01 11:11] LABS: ALBUMIN 2.6 g/dL (3.4-5.0); TOTAL BILIRUBIN 0.3 mg/dL (<0.1-1.0); TOTAL PROTEIN 6.2 g/dL (6.4-8.2)
--- NOTE | 2018-08-01 11:45 | NUR ---
Pt arrived at 1016 using walker ambulated in and seated self in recliner and removed home portable oxygen from nose. Pt has brought her Imipenem 500mg and Tigecycline 50mg with her from home health dose to be self-administered while her in infusion Lab. Had spoke with pt about trying to administer these medications at home d/t infusion lab not having current oders for these medications and that we will be possibly giving K+ at the same time and our responsibility for her infusion time is for the K+. Patient stated that she will just give these medications while waiting for lab draw results today. I agreed to this d/t no infusion going at this time d/t this being our first request of this change. Flushed both ports on TICC line with ease, had difficulty getting blood return from both ports, but while nurse was out to get orders pt stated that she got blood rerturn from the red port during her flushing to phlebotomy support tech her antibiotic line. I was then able to draw labs needed from Red port on TICC line. Dr. Salgado was paged and came to see pt at 1107. Told him of pts VS and elevated temp. When labs were completed at [address] Salgado. No new orders were given and just stated he would like to visit her again on Wednesday when in infusion area. Results from lab showed the k+ of4.4 and orders read that greater then 3.8 to hold infusion. Pt completed on her own the home antibiotics. I then changed the dressing at 1140, new stat lock was placed to help stablilize the TICC line. Had one busted stich to wing of line and other pulled tight. Dressing was not intact when she came in and stich sites were very red with no drainage noted. Biopatch was intact. Pt then out for home abmulating with walker at 1145. Spoke to patient on her way out and pt was talking with me that she will be glad when home antibiotics are done. She feels her energy level will get better.
--- NOTE | 2018-08-03 12:37 | CON ---
[address] [address] CONSULTATION Name: GUS NASCIMENTO Room: [facility] Melanie.#: [id number] Admission: 08/01/18 Attend Phys: Chalo Hua MD Discharge: Date of : 75 Report #: [id number] THIS REPORT FOR: //name// CC: Chalo Saleh DATE OF SERVICE: 08/01/2018 INFECTIOUS DISEASE CONSULTATION FOLLOWUP The patient is seen in the outpatient infusion area. Here for followup of disseminated mycobacterial chelonae infection. Reviewed and discussed with patient, in the interim since I have last seen her, she has been hospitalized at outside hospital for an extended period of time up to 2 weeks for pulmonary emboli. At that point, apparently evaluation suggested vertebral osteomyelitis involving the T10 site with associated diskitis. Per her report, had an aspiration biopsy with growth of Staphylococcus epidermidis. In addition to her baseline treatment for the Mycobacterium chelonei with tigecycline as well as amikacin, imipenem was added with recommendation that she stay on it for several weeks. On presentation today, she does have ongoing issues with mid back pain. She is mildly encephalopathic, although she clearly is tracking fairly well and she is able to give a good history. On review of her recent labs, her creatinine is in normal range, as is her white count. Disseminated Mycobacterium chelonae infection. We will continue combination therapy with tigecycline as well as amikacin as prescribed. She notes the lesions have regressed to some degree. Secondly, has vertebral osteomyelitis involving the T10, somewhat uncertain as to the relative etiology. Echocardiogram done at outside hospital was otherwise unremarkable. Blood cultures have all been sterile. She is scheduled to have MRI in the next, likely 3-4 weeks. Thank you, we will follow her closely, as she comes to the outpatient infusion area on a thrice weekly basis. We will see her in 1-2 times a week. <ELECTRONICALLY SIGNED> By: Mehdi Salgado MD 08/03/18 1237 0825 0934Jobro Salgado MD /nt
== END ==
LOC: M.INFUS 01:05
PROVIDERS: Specialist
DX: E87.6 Hypokalemia (principal); A31.8 Other mycobacterial infections; J44.9 Chronic obstructive pulmonary disease, unspecified; M43.00 Spondylolysis, site unspecified

== ENCOUNTER 2018-08-05 13:24 | Emergency (ER) | payer MEDICARE, MEDICAID ==
[~2018-08-05] VITALS: Ht 162.6 cm; Wt 78.9 kg
[2018-08-05 14:12] VITALS: BP 105/78
== END 2018-08-05 14:12 | disposition home or self-care (01) ==
LOC: M.ERS 13:24
DX: Z48.01 Encounter for change or removal of surgical wound dressing (principal); M79.7 Fibromyalgia; J44.9 Chronic obstructive pulmonary disease, unspecified; Z88.1 Allergy status to other antibiotic agents; Z91.040 Latex allergy status; Z88.8 Allergy status to other drugs, medicaments and biological substances

== ENCOUNTER → 2018-08-05 | Outpatient (CLI) | payer MEDICARE, MEDICAID ==
[~2018-08-05] MED LIST changes: +ENOXAPARIN150 MG/11 SUBQ; +IMIPENEM-CILAS500 MG IV; +TIGECYCLINE50 MG IVPB
[2018-08-05 11:34] LABS: CALCIUM 8.8 mg/dL (8.5-10.1); POTASSIUM 4.7 mmol/L (3.5-5.1)
[2018-08-05 12:10] VITALS: BP 118/64
--- NOTE | 2018-08-05 12:36 | NUR ---
PATIENT CALLED TO RESUME OUTPATIENT TREATMENT ORDERS PRIOR TO ADMISSION/DISCHARGE. BMP DRAWN PER STANDING ORDER, POTASSIUM LEVEL= 4.7 TODAY . POTASSIUM INFUSION HELD. BOTH LUMEN OF TICC LINE FLUSHED AND REMAIN PATENT. PATIENT DISCHARGED AND INSTRUCTED TO RETURN ON WEDNESDAY FOR ROUTINE OUTPATIENT TREATMENT.
== END ==
LOC: M.INFUS 11:01
PROVIDERS: Internal Medicine Nephrology
DX: E87.6 Hypokalemia (principal)

== ENCOUNTER → 2018-08-08 | Outpatient (CLI) | payer MEDICARE, MEDICAID ==
[2018-08-08 10:45] VITALS: BP 115/68
[2018-08-08 13:35] VITALS: BP 122/74
[2018-08-08 15:58] LABS: ABSOLUTE EOSINOPHILS 0.1 thou/uL (0.0-0.7); ABSOLUTE LYMPHOCYTES 2.5 thou/uL (0.8-5.3); ABSOLUTE MONOCYTES 0.5 thou/uL (0.0-1.2); ABSOLUTE NEUTROPHILS 2.7 thou/uL (1.6-8.1); BASOPHILS 0.5 %; EOSINOPHILS 1.5 %; HEMATOCRIT 34.4 % (37.0-47.0); HEMOGLOBIN 10.9 gm/dL (12.0-15.0); LYMPHOCYTES 42.3 %; MCH 29.8 pg (26.0-34.0); MCHC 31.7 g/dL (28.0-37.0); MCV 94.2 fL (80.0-100.0); MONOCYTES 9.1 %; NUCLEATED RBCS 0 /100WBC; PLATELET COUNT* 411 thou/uL (150-400); POLYS 46.6 %; RBC 3.65 mil/uL (4.20-5.00); RDW-CV 17.7 % (10.5-14.5); WBC 5.9 thou/uL (4.0-11.0)
--- NOTE | 2018-08-08 16:05 | NUR ---
ARRIVED AMBULATORY. MADE SELF COMFORTABLE. DUAL PRISCILA TICC LINE TO LEFT CHEST INTACT AND PATENET. DRESSING, BIOPATCH, AND STATLOCK CHANGED. PT REQUESTED TO STOP INFUSION AFTER 20MEQ COMPLETED RELATED TO NEED TO LEAVE FOR FAMILY REASON. HEPARIN REMOVED FROM PYXIS. THIS NURSE FORGOT PT HAD TICC LINE AND THAT PORT A CATH HAD BEEN REMOVED. HEPARIN WAS WASTED AND NOT USED.
== END ==
LOC: M.INFUS 10:58
PROVIDERS: Specialist
DX: E87.6 Hypokalemia (principal); A31.8 Other mycobacterial infections; J44.9 Chronic obstructive pulmonary disease, unspecified; M43.00 Spondylolysis, site unspecified

== ENCOUNTER → 2018-08-12 | Outpatient (CLI) | payer MEDICARE, MEDICAID ==
[2018-08-12 10:05] VITALS: BP 120/69
[2018-08-12 10:26] LABS: CALCIUM 8.7 mg/dL (8.5-10.1); CREATININE 0.8 mg/dL (0.6-1.3); POTASSIUM 3.6 mmol/L (3.5-5.1)
[2018-08-12 10:30] LABS: ALBUMIN 2.7 g/dL (3.4-5.0); TOTAL BILIRUBIN 0.2 mg/dL (<0.1-1.0); TOTAL PROTEIN 6.5 g/dL (6.4-8.2)
[2018-08-12 12:30] VITALS: BP 128/74
--- NOTE | 2018-08-12 13:30 | NUR ---
ARRIVED AMBULATORY. DUAL LUMAN TICC TO LEFT CHEST INTACT AND PATENT. DRESSING CHANGED. LABS DRAWN AND RESULTS EVALUATED. PT REQUEST TO ONLY DO 20MEQ OF POTASSIUM STATING FAMILY NEEDS REASON. INFUSION OF 20MEQ K+ COMPLETED. LINE FLUSHED.
--- NOTE | 2018-08-15 07:57 | CON ---
[address] [address] CONSULTATION Name: GUS NASCIMENTO Room: [facility]#: [id number] Admission: 08/12/18 Attend Phys: Chalo Hua MD Discharge: Date of : 75 Report #: [id number] THIS REPORT FOR: //name// CC: Chalo Wofleully DATE OF SERVICE: 08/12/2018 ATTENDING PHYSICIAN: Dr. Hua. REASON FOR CONSULTATION: Disseminated Mycobacterium chelonae infection. HISTORY OF PRESENT ILLNESS: The patient returns today in followup. She has had a series of difficult situations most recently coming to the ER twice in last week due to ongoing bleeding from the right chest site, the site of previous Port-A-Cath removal. She was evaluated by Surgery and found to have a residual Vicryl suture that may have been part of the issue. She is allergic to it. She is packing the wound. Otherwise, she actually feels somewhat better, had discontinued the tigecycline which was apparently causing her significant GI-related distress, specifically nausea. She had poor p.o. intake. She is eating much better. No fevers, it is not clear if she has got any new lesions on her upper extremities. At this point, she is taking amikacin as well as imipenem, the latter on a twice daily basis. Recent lab was unremarkable. Creatinine was 0.8. ASSESSMENT AND PLAN: Disseminated Mycobacterium chelonae infection. We will continue the combination therapy with amikacin, imipenem and follow labs. Refer to [facility] for ongoing care of the wound on the right chest. We will see her on a weekly basis and monitor expectantly. <ELECTRONICALLY SIGNED> By: Mehdi Salgado MD 08/15/18 0757 [id number] [id number] Salgado MD /nt
== END ==
LOC: M.INFUS 00:31
PROVIDERS: Specialist
DX: E87.6 Hypokalemia (principal); A31.8 Other mycobacterial infections; J44.9 Chronic obstructive pulmonary disease, unspecified; M43.00 Spondylolysis, site unspecified

== ENCOUNTER → 2018-08-15 | Outpatient (CLI) | payer MEDICARE, MEDICAID ==
--- NOTE | 2018-08-16 07:44 | CON ---
[address] [address] CONSULTATION Name: GUS NASCIMENTO Chio Room: [facility]#: [id number] Admission: 08/15/18 Attend Phys: Arabella Escudero MD Discharge: Date of : 75 Report #: [id number] THIS REPORT FOR: //name// CC: Eliseo Escudero ATTENDING PHYSICIAN: Arabella Escudero MD REASON FOR EVALUATION: Here for the wound care center, right chest wound, site of previous extraction of an indwelling tunneled catheter. HISTORY OF PRESENT ILLNESS: She has multiple ongoing issues including disseminated Mycobacterium chelonae infection, for which I have been following her for several months. She generally feels somewhat better systemically. She does have ongoing issues of pain associated with an operative site. It is overall less bleeding, had been a recurrent issue for her. She does complain of some tenderness over the distal aspect of her right arm, it is palpable. It is not clear if she has new lesions. This too clearly had been manifestation of her disseminated Mycobacterium chelonae. There have been several biopsies to confirm that. She is on amikacin as well as imipenem. Secondly, apparently has a vertebral osteomyelitis, had a coag-negative Staph growth in the broth only. LABORATORY DATA: Reviewed labs from this morning, white count of 6.7, H and H 10.5 and 31.9, platelets of 396. Electrolytes: Sodium 144, potassium 3.6, chloride 104, bicarb is 30. BUN and creatinine 11 and 0.8, which is stable. Albumin of 2.6. Total protein 6.4. LFTs unremarkable. ASSESSMENT AND PLAN: Disseminated Mycobacterial chelonae infection. We will continue currently as prescribed. She had been on PEG site clean. There is significant adverse drug effect, specifically nausea with emesis. It was clear that was affecting her overall nutritional status. We will have to see if this develops anything on her right arm. Based on in vitro susceptibility, it was intermittent to imipenem and susceptible to amikacin. At this point, there is no evidence of nephrotoxicity and we will monitor for vestibulitis as well with visits. <ELECTRONICALLY SIGNED> By: Mehdi Salgado MD 08/16/18 0744 1118 1600Jobro Salgado MD /nt
== END ==
LOC: M.WC 01:10
DX: T81.31XD Disruption of external operation (surgical) wound, not elsewhere classified, subsequent encounter (principal); I25.2 Old myocardial infarction; J44.9 Chronic obstructive pulmonary disease, unspecified; K21.9 Gastro-esophageal reflux disease without esophagitis; M06.9 Rheumatoid arthritis, unspecified; M81.0 Age-related osteoporosis without current pathological fracture; F32.9 Major depressive disorder, single episode, unspecified; F41.9 Anxiety disorder, unspecified; Z96.651 Presence of right artificial knee joint; Z86.711 Personal history of pulmonary embolism; Z86.718 Personal history of other venous thrombosis and embolism; Y83.8 Other surgical procedures as the cause of abnormal reaction of the patient, or of later complication, without mention of misadventure at the time of the procedure

== ENCOUNTER → 2018-08-15 | Outpatient (CLI) | payer MEDICARE, MEDICAID ==
[2018-08-15 09:07] LABS: ABSOLUTE EOSINOPHILS 0.1 thou/uL (0.0-0.7); ABSOLUTE LYMPHOCYTES 1.8 thou/uL (0.8-5.3); ABSOLUTE MONOCYTES 0.5 thou/uL (0.0-1.2); ABSOLUTE NEUTROPHILS 4.2 thou/uL (1.6-8.1); BASOPHILS 0.7 %; EOSINOPHILS 1.8 %; HEMATOCRIT 31.9 % (37.0-47.0); HEMOGLOBIN 10.5 gm/dL (12.0-15.0); LYMPHOCYTES 27.4 %; MCH 30.5 pg (26.0-34.0); MCHC 32.9 g/dL (28.0-37.0); MCV 92.7 fL (80.0-100.0); MONOCYTES 7.2 %; MPV 6.9 fl. (7.2-11.1); NUCLEATED RBCS 0 /100WBC; PLATELET COUNT* 396 thou/uL (150-400); POLYS 62.9 %; RBC 3.44 mil/uL (4.20-5.00); RDW-CV 17.3 % (10.5-14.5); WBC 6.7 thou/uL (4.0-11.0)
[2018-08-15 09:32] LABS: ALBUMIN 2.6 g/dL (3.4-5.0); CALCIUM 8.5 mg/dL (8.5-10.1); CREATININE 0.8 mg/dL (0.6-1.3); POTASSIUM 3.6 mmol/L (3.5-5.1); TOTAL BILIRUBIN 0.2 mg/dL (<0.1-1.0); TOTAL PROTEIN 6.4 g/dL (6.4-8.2)
[2018-08-15 10:20] VITALS: BP 108/68
[2018-08-15 12:24] VITALS: BP 115/72
--- NOTE | 2018-08-15 12:27 | NUR ---
ARRIVED AMBULATORY. LABS DRAWN AND POTASSIUM RESULTS EVALUATED. PER PT REQUEST 0NLY 20MEQ OF K+ INFUSED PT HAS APPOINTMENT WITH DR. HERNANDEZ. INFUSION TOLERATED WELL. DENIES QUESTIONS OR NEEDS AT DISCHARGE.
== END ==
LOC: M.INFUS 01:16
PROVIDERS: Specialist
DX: E87.6 Hypokalemia (principal); A31.8 Other mycobacterial infections; J44.9 Chronic obstructive pulmonary disease, unspecified; M43.00 Spondylolysis, site unspecified

== ENCOUNTER → 2018-08-19 | Outpatient (CLI) | payer MEDICARE, MEDICAID ==
[~2018-08-19] MED LIST changes: +CARDIZEM60 MG PO; +DILTIAZEM ER60 M1 PO; +ENOXAPARIN100 MG/11 SUBQ; +IMITREX 25 MG T25 M1 PO; +PRADAXA150 MG PO
[2018-08-19 10:05] VITALS: BP 142/78
[2018-08-19 10:34] LABS: CREATININE 0.8 mg/dL (0.6-1.3); POTASSIUM 3.9 mmol/L (3.5-5.1)
[2018-08-19 10:39] LABS: ALBUMIN 2.8 g/dL (3.4-5.0); TOTAL BILIRUBIN 0.3 mg/dL (<0.1-1.0); TOTAL PROTEIN 6.7 g/dL (6.4-8.2)
--- NOTE | 2018-08-19 11:37 | NUR ---
ARRIVED AMBULATORY. MADE SELF COMFORTABLE. DUAL LUMAN TICC LINE TO LEFT CHEST INTACT AND FREE FROM SIGN OF INFECTION. DURING LAB DRAWN TICC LINE NOTED TO BE SLUGGISH. SPOKE WITH DR. JOHN AND ORDER RECIEVED TO CATH JOB THE LINE. CATH JOB COMPLETED AND LINE PATENCY RESTABLISHED. TOLERATED WELL. K+ LEVEL NOTED TO BE 3.9 TODAY SO POTASSIUM INFUSION HELD PER STANDING ORDER.
== END ==
LOC: M.INFUS 04:36
PROVIDERS: Specialist
DX: Z45.2 Encounter for adjustment and management of vascular access device (principal); E87.6 Hypokalemia; A31.8 Other mycobacterial infections; J44.9 Chronic obstructive pulmonary disease, unspecified; M43.00 Spondylolysis, site unspecified

== ENCOUNTER → 2018-08-22 | Outpatient (CLI) | payer MEDICARE, OTHER, MEDICAID ==
[~2018-08-22] MED LIST changes: -CARDIZEM60 MG PO; -DILTIAZEM ER60 M1 PO; -ENOXAPARIN100 MG/11 SUBQ; -IMITREX 25 MG T25 M1 PO; -PRADAXA150 MG PO
[2018-08-22 09:45] VITALS: BP 119/78
[2018-08-22 10:14] LABS: ABSOLUTE LYMPHOCYTES 1.1 thou/uL (0.8-5.3); ABSOLUTE MONOCYTES 0.4 thou/uL (0.0-1.2); ABSOLUTE NEUTROPHILS 7.3 thou/uL (1.6-8.1); BASOPHILS 0.5 %; EOSINOPHILS 0.3 %; HEMATOCRIT 34.5 % (37.0-47.0); HEMOGLOBIN 11.2 gm/dL (12.0-15.0); LYMPHOCYTES 12.2 %; MCH 30.3 pg (26.0-34.0); MCHC 32.6 g/dL (28.0-37.0); MCV 92.9 fL (80.0-100.0); MONOCYTES 4.2 %; MPV 7.3 fl. (7.2-11.1); NUCLEATED RBCS 0 /100WBC; PLATELET COUNT* 344 thou/uL (150-400); POLYS 82.8 %; RBC 3.71 mil/uL (4.20-5.00); RDW-CV 16.7 % (10.5-14.5); WBC 8.8 thou/uL (4.0-11.0)
[2018-08-22 10:29] LABS: CALCIUM 8.9 mg/dL (8.5-10.1); CREATININE 0.7 mg/dL (0.6-1.3); POTASSIUM 4.2 mmol/L (3.5-5.1); TOTAL BILIRUBIN 0.2 mg/dL (<0.1-1.0)
--- NOTE | 2018-08-22 10:54 | NUR ---
ARRIVED AMBULATORY. MADE SELF COMFORTABLE IN RECLINER. DUAL LUMAN TICC TO LEFT CHEST INTACT. UNABLE TO DRAW BLOOD FROM BOTH LUMANS PER 2 RN . PIV PLACED WITH LAB DRAW. SPOKE WITH DR. JOHN AND CATHFLOW ORDER RECIEVED. PRIOR TO CATH FLOW BEING MIXED ANOTHER ATTEMPT TO DRAW BLOOD FROM LINE WAS SUCESSFUL. BOTH LUMANS NOW FLUSHING WITH EASE AND HAVE GOOD BLOOD RETURN. CATH FLOW RETURNED TO PHARMACY. K+ LAB RESULTS NOTED TO BE 4.2 PER STANDING ORDER POTASSIUM HELD. PIV REMOVED. PICC DRESSING CHANGED.
--- NOTE | 2018-08-23 07:01 | CON ---
[address] [address] CONSULTATION Name: GUS NASCIMENTO Room: [facility] Melanie.#: [id number] Admission: 08/22/18 Attend Phys: Chalo Hua MD Discharge: Date of : 75 Report #: [id number] THIS REPORT FOR: //name// CC: Chalo Saleh DATE OF SERVICE: 08/22/2018 Seen in the outpatient infusion area. DIAGNOSIS: Disseminated Mycobacterium chelonae infection. HISTORY OF PRESENT ILLNESS: The patient returns to follow up as usual for possible potassium infusion. She generally is feeling somewhat fatigued, stressful week last week. She has a moderate degree of pain and discomfort. She had been seen by the wound care center earlier today with some debridement, now packed. On evaluation, no significant fevers or chills. Appetite has been fair. Baseline pulmonary status. On evaluation, lab appears to be favorable and creatinine of 0.7. She does have ongoing issues with back pain. ASSESSMENT AND PLAN: Disseminated Mycobacterium chelonae infection. We will continue current approach with the amikacin as well as imipenem, latter was added primarily for a thoracic vertebral osteomyelitis with diskitis. We will see her on a weekly basis, in roughly 2 weeks for plan to repeat imaging. She has had some small areas of subcutaneous nodule, I do not know if this is related to Mycobacterium or not, favorable just watchful waiting at this point to see how she does. Encourage oral fluid intake. <ELECTRONICALLY SIGNED> By: Mehdi Salgado MD 08/23/18 0701 1130 [id number] Salgado MD /nt
== END ==
LOC: M.INFUS 02:22
PROVIDERS: Specialist
DX: A31.8 Other mycobacterial infections (principal); E87.6 Hypokalemia; J44.9 Chronic obstructive pulmonary disease, unspecified; M43.00 Spondylolysis, site unspecified

== ENCOUNTER → 2018-08-22 | Outpatient (CLI) | payer MEDICARE, OTHER, MEDICAID | LOC: M.WC 02:19 | DX: T81.31XD Disruption of external operation (surgical) wound, not elsewhere classified, subsequent encounter (principal); E87.6 Hypokalemia; I25.2 Old myocardial infarction; M06.9 Rheumatoid arthritis, unspecified; M81.0 Age-related osteoporosis without current pathological fracture; K21.9 Gastro-esophageal reflux disease without esophagitis; J44.9 Chronic obstructive pulmonary disease, unspecified; F32.9 Major depressive disorder, single episode, unspecified; Z96.651 Presence of right artificial knee joint; Z86.711 Personal history of pulmonary embolism; Y83.8 Other surgical procedures as the cause of abnormal reaction of the patient, or of later complication, without mention of misadventure at the time of the procedure ==

== ENCOUNTER → 2018-08-24 | Outpatient (CLI) | payer MEDICARE, MEDICAID ==
[~2018-08-24] MED LIST changes: +CARDIZEM60 MG PO; +DILTIAZEM ER60 M1 PO; +ENOXAPARIN100 MG/11 SUBQ; +IMITREX 25 MG T25 M1 PO; +PROBIOTIC
[2018-08-24 11:22] LABS: ALBUMIN 3.1 g/dL (3.4-5.0); CALCIUM 8.8 mg/dL (8.5-10.1); CREATININE 0.7 mg/dL (0.6-1.3); POTASSIUM 3.9 mmol/L (3.5-5.1); TOTAL BILIRUBIN 0.3 mg/dL (<0.1-1.0); TOTAL PROTEIN 7.1 g/dL (6.4-8.2)
--- NOTE | 2018-08-24 11:32 | NUR ---
ARRIVED AMBULATORY. MADE SELF COMFORTABLE IN RECLINER. DUAL LUMAN TICC LINE TO LEFT CHEST PATENT WITH GOOD BRISK BLOOD RETURN NOTED AND FLUSHED WITH EASE. LABS DRAWN PER ORDER. K+ NOTED AT 3.9 NO INFUSION NEEDED TODAY. PT UPDATED. VOICED UNDERSTANDING. PER ORDER LINE FLUSHED WITH HEPARIN AND PT DISCCHARGE.
== END ==
LOC: M.INFUS 05:04
PROVIDERS: Internal Medicine Nephrology
DX: E87.6 Hypokalemia (principal); A31.8 Other mycobacterial infections; J44.9 Chronic obstructive pulmonary disease, unspecified; M43.00 Spondylolysis, site unspecified

== ENCOUNTER → 2018-08-26 | Outpatient (CLI) | payer MEDICARE, MEDICAID ==
[~2018-08-26] MED LIST changes: -CARDIZEM60 MG PO; -DILTIAZEM ER60 M1 PO; -ENOXAPARIN100 MG/11 SUBQ; -IMITREX 25 MG T25 M1 PO; -PROBIOTIC
[2018-08-26 10:25] VITALS: BP 123/74
[2018-08-26 10:55] LABS: HEMATOCRIT 36.6 % (37.0-47.0); HEMOGLOBIN 11.7 gm/dL (12.0-15.0); MCH 29.5 pg (26.0-34.0); MCV 92.2 fL (80.0-100.0); MPV 7.7 fl. (7.2-11.1); RBC 3.97 mil/uL (4.20-5.00); RDW-CV 16.5 % (10.5-14.5); WBC 9.3 thou/uL (4.0-11.0)
[2018-08-26 11:08] LABS: ALBUMIN 3.1 g/dL (3.4-5.0); CALCIUM 8.9 mg/dL (8.5-10.1); CREATININE 0.8 mg/dL (0.6-1.3); POTASSIUM 4.1 mmol/L (3.5-5.1); TOTAL BILIRUBIN 0.3 mg/dL (<0.1-1.0); TOTAL PROTEIN 7.1 g/dL (6.4-8.2)
== END ==
LOC: M.INFUS 00:50
PROVIDERS: Specialist
DX: A31.8 Other mycobacterial infections (principal); E87.6 Hypokalemia; J44.9 Chronic obstructive pulmonary disease, unspecified; M43.00 Spondylolysis, site unspecified

== ENCOUNTER → 2018-08-29 | Outpatient (CLI) | payer MEDICARE, MEDICAID ==
[2018-08-29 08:58] LABS: ABSOLUTE EOSINOPHILS 0.1 thou/uL (0.0-0.7); ABSOLUTE LYMPHOCYTES 2.3 thou/uL (0.8-5.3); ABSOLUTE MONOCYTES 0.6 thou/uL (0.0-1.2); ABSOLUTE NEUTROPHILS 7.6 thou/uL (1.6-8.1); BASOPHILS 0.4 %; HEMATOCRIT 37.8 % (37.0-47.0); HEMOGLOBIN 12.7 gm/dL (12.0-15.0); LYMPHOCYTES 21.8 %; MCH 30.8 pg (26.0-34.0); MCHC 33.5 g/dL (28.0-37.0); MCV 91.8 fL (80.0-100.0); MONOCYTES 5.8 %; MPV 7.3 fl. (7.2-11.1); NUCLEATED RBCS 0 /100WBC; PLATELET COUNT* 358 thou/uL (150-400); RBC 4.12 mil/uL (4.20-5.00); RDW-CV 16.4 % (10.5-14.5); WBC 10.7 thou/uL (4.0-11.0)
[2018-08-29 09:11] LABS: ALBUMIN 3.2 g/dL (3.4-5.0); CREATININE 0.8 mg/dL (0.6-1.3); TOTAL BILIRUBIN 0.4 mg/dL (<0.1-1.0); TOTAL PROTEIN 7.5 g/dL (6.4-8.2)
--- NOTE | 2018-08-29 10:08 | NUR ---
arrived to infusion ambulatory. standing oder for labs drawn from dual luman power ticc from left chest. ticc line intact and free from sign of infection. both luamn are patent with good beisk blood return and easy flush. pre infusion labs drawn. k+ noted to be 4.0 per standing order pr does not need K+ today. pt updated voiced and agreed. Dr. Salgado here and spoke with pt, reviewed chart and labs. no new order recieved. pt deneis qustions or needs at discharge.
--- NOTE | 2018-08-31 12:48 | CON ---
[facility] [address] [place] [address] CONSULTATION Name: GUS NASCIMENTO Room: [facility] ArsenKeenan.#: [id number] Admission: 08/29/18 Attend Phys: Chalo Hua MD Discharge: Date of : 75 Report #: [id number] THIS REPORT FOR: //name// CC: Chalo Saleh DATE OF SERVICE: 08/29/2018 LOCATION: Seen in the outpatient infusion area. HISTORY OF PRESENT ILLNESS: This is a followup disseminated Mycobacterium chelonae infection. She returns today states that she does not feel well, somewhat nonspecific. She is weak. She slept all week and breathing is overall about the same. She is on supplemental oxygen at 2 liters, this is unchanged. She really does not have any lesion that she is aware of involving the subcutaneous tissues generally in the proximal upper extremities, where she has had them previously. May have had some low-grade temperature elevations. She has had a poor appetite and p.o. intake. Review of labs actually looked improved. She is no longer anemic. White count is normal. Creatinine is actually slightly better in spite of being on the amikacin for a number of weeks. ASSESSMENT AND PLAN: Disseminated Mycobacterium chelonae infection. It is difficult to ascertain what is driving her feeling poorly. She certainly has multiple potential issues, one of which is adverse drug effect. I think we will discontinue the imipenem for the moment at least for roughly 48 hours and touch base with her after that. Continue amikacin. She is approaching the 6-8 week danni for the imipenem. This was started essentially for thoracic vertebral osteomyelitis. She is due to have follow up imaging of the site, perhaps around mid August. Again, we will follow her closely. <ELECTRONICALLY SIGNED> By: Mehdi Salgado MD 08/31/18 1248 1151 [id number] Salgado MD /nt
== END ==
LOC: M.INFUS 04:53
PROVIDERS: Internal Medicine Nephrology
DX: A31.8 Other mycobacterial infections (principal); E87.6 Hypokalemia; J44.9 Chronic obstructive pulmonary disease, unspecified; M43.00 Spondylolysis, site unspecified

== ENCOUNTER → 2018-09-02 | Outpatient (CLI) | payer MEDICARE, MEDICAID ==
[~2018-09-02] MED LIST changes: +CARDIZEM60 MG PO; +DILTIAZEM ER60 M1 PO; +ENOXAPARIN100 MG/11 SUBQ; +IMITREX 25 MG T25 M1 PO; +PRADAXA150 MG PO
[2018-09-02 10:59] LABS: ALBUMIN 3.2 g/dL (3.4-5.0); CALCIUM 8.9 mg/dL (8.5-10.1); CREATININE 0.8 mg/dL (0.6-1.3); POTASSIUM 3.7 mmol/L (3.5-5.1); TOTAL BILIRUBIN 0.2 mg/dL (<0.1-1.0); TOTAL PROTEIN 7.3 g/dL (6.4-8.2)
--- NOTE | 2018-09-02 11:40 | NUR ---
ARRIVED AMBULATORY. MADE SELF COMFORTABLE. PT NOTED TO BE TEARFULL RELATED TO PLACEMENT OF NEW WOUND VAC TO RIGHT CHEST. LABS DRAWN AND DRESSING CHANGED TO DUAL LUMAN TICC. DR. JOHN HERE AND SPOKE WITH PT. LAB RESULTS EVALUATED AND K+ NOTED TO BE 3.7 PER PT REQUEST INFUSION OF K+ HELD TODAY. DISCHARGED TO HOME. DENIES NEEDS
--- NOTE | 2018-09-03 08:56 | CON ---
[address] [address] CONSULTATION Name: GUS NASCIMENTO Room: [facility].#: [id number] Admission: 09/02/18 Attend Phys: Chalo Hua MD Discharge: Date of : 75 Report #: [id number] THIS REPORT FOR: //name// CC: Chalo Wolfeully DATE OF SERVICE: 09/02/2018 ATTENDING PHYSICIAN: Chalo Hua MD HISTORY OF PRESENT ILLNESS: She is seen in the outpatient infusion area. She is here for followup evaluation of chronically low serum potassium levels. She does have ongoing issues with disseminated Mycobacterium chelonae infection. Generally, she feels slightly better than she did earlier this week, had discontinued the imipenem, thinking it may be an adverse drug effect. The previous fevers have resolved as well as the nausea, although she states the family did experience similar type symptoms. She thinks it was perhaps a self-limited. She has ongoing back pain. She has issues with peripheral neuropathy. It is not clear, perhaps a small lesion subcutaneous nodule involving her left forearm. Palpation is not entirely certain in my mind either. ASSESSMENT AND PLAN: Disseminated Mycobacterium chelonae infection. At this point, I asked her to reinstitute the imipenem. We will plan on seeing her early next week, arranging for a followup MRI of her thoracic spine. She is undergoing treatment for suspected vertebral osteomyelitis. We will extend the amikacin as his recent creatinine was less than 1. We will monitor that on frequent labs as well. <ELECTRONICALLY SIGNED> By: Mehdi Salgado MD 09/03/18 0856 1130 [id number] Salgado MD /nt
== END ==
LOC: M.INFUS 04:08
PROVIDERS: Internal Medicine Nephrology
DX: E87.6 Hypokalemia (principal); A31.8 Other mycobacterial infections; J44.9 Chronic obstructive pulmonary disease, unspecified; M43.00 Spondylolysis, site unspecified

== ENCOUNTER → 2018-09-05 | Outpatient (CLI) | payer MEDICARE, MEDICAID ==
[~2018-09-05] MED LIST changes: -PRADAXA150 MG PO; +PROBIOTIC
[2018-09-05 10:25] LABS: ABSOLUTE BASOPHILS 0.1 thou/uL (0.0-0.2); ABSOLUTE EOSINOPHILS 0.1 thou/uL (0.0-0.7); ABSOLUTE LYMPHOCYTES 1.7 thou/uL (0.8-5.3); ABSOLUTE MONOCYTES 0.6 thou/uL (0.0-1.2); ABSOLUTE NEUTROPHILS 6.9 thou/uL (1.6-8.1); BASOPHILS 0.8 %; EOSINOPHILS 1.2 %; HEMATOCRIT 35.7 % (37.0-47.0); HEMOGLOBIN 11.9 gm/dL (12.0-15.0); LYMPHOCYTES 18.1 %; MCH 30.1 pg (26.0-34.0); MCHC 33.3 g/dL (28.0-37.0); MCV 90.3 fL (80.0-100.0); MONOCYTES 6.4 %; MPV 7.6 fl. (7.2-11.1); NUCLEATED RBCS 0 /100WBC; PLATELET COUNT* 320 thou/uL (150-400); POLYS 73.5 %; RBC 3.95 mil/uL (4.20-5.00); RDW-CV 15.2 % (10.5-14.5); WBC 9.3 thou/uL (4.0-11.0)
[2018-09-05 10:30] VITALS: BP 122/80
[2018-09-05 10:45] LABS: ALBUMIN 3.1 g/dL (3.4-5.0); CALCIUM 8.9 mg/dL (8.5-10.1); CREATININE 0.7 mg/dL (0.6-1.3); POTASSIUM 3.3 mmol/L (3.5-5.1); TOTAL BILIRUBIN 0.3 mg/dL (<0.1-1.0)
[2018-09-05 12:30] VITALS: BP 110/75
--- NOTE | 2018-09-05 14:07 | NUR ---
ARRIVED AMBULATORY. DUAL LUMAN TICC TO LEFT CHEST INTACT AND PATNET. LABS DRAWN PER ORDER AND K+ RESULTED BACK AT 3.3. POTASSIUM INFUSION STATED AND RUNNIG WELL. SIG OTHER ARRIVED. DR. JOHN HERE AND SPOKE WITH PT. NEW ORDER RECIEVED FOR MRI. MRI SCHEDULED FOR THIS THRU CENTRAL SCHEDULING. AFTER INFUSION 20 MEQ OF K+ PT REQUESTED TO STOP INFUSION STATING SHE WANTED TO GO HOME SHE HAS ALOT THING TO DO TODAY. INFUISON STOPPED AND PT DISCHARGED TO HOME. DENIES NEEDS AT DISCHARGE
--- NOTE | 2018-09-06 11:06 | CON ---
[address] [address] CONSULTATION Name: GUS NASCIMENTO Room: [facility].#: [id number] Admission: 09/05/18 Attend Phys: Chalo Hua MD Discharge: Date of : 75 Report #: [id number] THIS REPORT FOR: //name// CC: Chalo Saleh DATE OF SERVICE: 09/05/2018 INFECTIOUS DISEASE FOLLOWUP REASON FOR FOLLOWUP: Disseminated Mycobacterium chelonae infection. HISTORY OF PRESENT ILLNESS: The patient is seen today in followup at the [facility], where she comes thrice weekly potentially to have infusions of potassium depending on what the confirmed level is at that time. She was seen late last week, was restarted on imipenem, had been stopped due to trying to sort out whether adverse drug effect was in play or there was some other issue. Indeed, she had increasing nausea as before, although no fevers. She had difficulty sleeping, generally felt worse. She has no overall change in her level of pain and discomfort. She continues to take amikacin and her creatinine is 0.7 at this point. ASSESSMENT AND PLAN: Disseminated Mycobacterium chelonae infection. We will discontinue the imipenem for now, repeat the MRI of the thoracic spine and follow up. It was felt to be vertebral osteomyelitis involving the T9-T10 region with diskitis. We will continue the amikacin for now and monitor closely the creatinine. We will see her on frequent intervals. <ELECTRONICALLY SIGNED> By: Mehdi Salgado MD 09/06/18 1106 0832 1000Joseshalom Salgado MD /nt
== END ==
LOC: M.INFUS 04:36
PROVIDERS: Specialist
DX: E87.6 Hypokalemia (principal); A31.8 Other mycobacterial infections; J44.9 Chronic obstructive pulmonary disease, unspecified; M43.00 Spondylolysis, site unspecified

== ENCOUNTER → 2018-09-05 | Outpatient (CLI) | payer MEDICARE, MEDICAID ==
[~2018-09-05] MED LIST changes: -CARDIZEM60 MG PO; -DILTIAZEM ER60 M1 PO; -ENOXAPARIN100 MG/11 SUBQ; -IMITREX 25 MG T25 M1 PO; -PROBIOTIC
== END ==
LOC: M.WC 04:32
DX: T81.31XD Disruption of external operation (surgical) wound, not elsewhere classified, subsequent encounter (principal); I25.2 Old myocardial infarction; J44.9 Chronic obstructive pulmonary disease, unspecified; K21.9 Gastro-esophageal reflux disease without esophagitis; M06.9 Rheumatoid arthritis, unspecified; M81.0 Age-related osteoporosis without current pathological fracture; F32.9 Major depressive disorder, single episode, unspecified; F41.9 Anxiety disorder, unspecified; Z86.711 Personal history of pulmonary embolism; Z96.651 Presence of right artificial knee joint; Y83.8 Other surgical procedures as the cause of abnormal reaction of the patient, or of later complication, without mention of misadventure at the time of the procedure

== ENCOUNTER → 2018-09-09 | Outpatient (CLI) | payer MEDICARE, MEDICAID ==
[~2018-09-09] MED LIST changes: +CARDIZEM60 MG PO; +DILTIAZEM ER60 M1 PO; +ENOXAPARIN100 MG/11 SUBQ; +IMITREX 25 MG T25 M1 PO; +PRADAXA150 MG PO
[2018-09-09 10:30] VITALS: BP 122/70
[2018-09-09 11:12] LABS: CREATININE 0.8 mg/dL (0.6-1.3); POTASSIUM 3.6 mmol/L (3.5-5.1)
[2018-09-09 11:25] LABS: ALBUMIN 3.2 g/dL (3.4-5.0); TOTAL BILIRUBIN 0.3 mg/dL (<0.1-1.0); TOTAL PROTEIN 7.1 g/dL (6.4-8.2)
[2018-09-09 12:50] VITALS: BP 118/76
--- NOTE | 2018-09-09 13:39 | NUR ---
ARRIVED AMBULATORY. DUAL LUMAN TICC TO LEFT CHEST INTACT. DRESSING LIFTING AT [place] AND BIOPATCH APPEARS SATURATED. DRESSING CHANGED. BOTH LUMANS HAVE EASY FLUSH BUT NO BLOOD RETURN WITH ASPERATION. SPOKE TO DR. JOHN AND PRN STANDING ORDER RECIEVED TO CATH FLOW LINE RECIEVED. BOTH LUMANS CATHFLOWED PER POLICY AND PATENCY RESTORED TO BOTH LUMANS. LABS DRAWN FROM RIGHT AC PRIOR TO START OF CATHFLOW. K+ REULTED AT 3.6. PER STANDING ORDER K+ INFUSION STARTED. PT REQUEST TO STOP INFUSION AFTER 1 HOUR AND 10MEQ RELATED TO SCHEDULED MRI AT 1300. INFUISON STOPED AND LINE FLUSHED PER ORDER. PT DISCHARGED TO HOME/MRI. DENIES NEEDS.
== END ==
LOC: M.INFUS 05:06
PROVIDERS: Internal Medicine Nephrology
DX: E87.6 Hypokalemia (principal); A31.8 Other mycobacterial infections; J44.9 Chronic obstructive pulmonary disease, unspecified; M47.894 Other spondylosis, thoracic region; M51.24 Other intervertebral disc displacement, thoracic region

== ENCOUNTER → 2018-09-12 | Outpatient (CLI) | payer MEDICARE, MEDICAID | LOC: M.WC 05:01 | DX: T81.31XD Disruption of external operation (surgical) wound, not elsewhere classified, subsequent encounter (principal); E87.6 Hypokalemia; M06.9 Rheumatoid arthritis, unspecified; M81.0 Age-related osteoporosis without current pathological fracture; K21.9 Gastro-esophageal reflux disease without esophagitis; I25.2 Old myocardial infarction; J44.9 Chronic obstructive pulmonary disease, unspecified; F32.9 Major depressive disorder, single episode, unspecified; Z96.651 Presence of right artificial knee joint; Z86.711 Personal history of pulmonary embolism; Y83.8 Other surgical procedures as the cause of abnormal reaction of the patient, or of later complication, without mention of misadventure at the time of the procedure ==

== ENCOUNTER → 2018-09-12 | Outpatient (CLI) | payer MEDICARE, MEDICAID ==
--- NOTE | 2018-09-12 12:58 | NUR ---
ARRIVED AMBULATORY WITH WALKER. MADE SELF COMFORTABLE. DUAL LUMAN TICC TO UPPER LEFT CHEST INTACT AND PATENT WITH GOOD BRISK BLOOD RETURN AND EASY FLUSH. PER STADING ORDER FROM DR. JOHN WEEKLY LABS DRAWN. K+ LEVEL EVALUATED AND NOTED TO BE 3.[address] WANG STANDING ORDER PT TO RECIEVE K+ INFUSION. PT UPDATED AND REFUSED K+ INFUSION STATING SHE WAS TIRED AND LEVEL WAS HIGH ENOUGH SHE FELT SHE DID NOT NEED INFUSION. PT DISCHARGED TO HOME. DENIES QUESTIONS OR NEEDS.
== END ==
LOC: M.INFUS 05:02
DX: E87.6 Hypokalemia (principal)

== ENCOUNTER → 2018-09-14 | Outpatient (CLI) | payer MEDICARE, MEDICAID | LOC: M.INFUS 05:15 | DX: E87.6 Hypokalemia (principal) ==

== ENCOUNTER → 2018-09-16 | Outpatient (CLI) | payer MEDICARE, MEDICAID | LOC: M.INFUS 05:17 | DX: E87.6 Hypokalemia (principal) ==

== ENCOUNTER 2018-09-18 15:04 | Inpatient (IN) | payer MEDICARE, MEDICAID ==
[~2018-09-18] VITALS: Ht 162.6 cm; Wt 102.5 kg
[~2018-09-18 15:04] MED LIST changes: -CARDIZEM60 MG PO; -DILTIAZEM ER60 M1 PO; -ENOXAPARIN100 MG/11 SUBQ; -IMITREX 25 MG T25 M1 PO; -PRADAXA150 MG PO
[2018-09-18 15:08] VITALS: BP 146/85
[2018-09-18] MEDS ORDERED: PROBIOTIC1 EAC1 PO ×3 (15:14→17:31)
[2018-09-18 15:32] LABS: HEMATOCRIT 36.3 % (37.0-47.0); MCH 29.4 pg (26.0-34.0); MCV 89.2 fL (80.0-100.0); MPV 7.4 fl. (7.2-11.1); NUCLEATED RBCS 0 /100WBC; PLATELET COUNT* 408 thou/uL (150-400); RBC 4.07 mil/uL (4.20-5.00); RDW-CV 14.9 % (10.5-14.5); WBC 11.2 thou/uL (4.0-11.0)
[2018-09-18 15:40] LABS: ANION GAP 13 mmol/L (7-16); BUN 11 mg/dL (7-18); CALCIUM 8.7 mg/dL (8.5-10.1); CHLORIDE 100 mmol/L (98-107); CO2 25 mmol/L (21-32); GLUCOSE 163 mg/dL (70-99); POTASSIUM 3.4 mmol/L (3.5-5.1); SODIUM 138 mmol/L (136-145)
[2018-09-18 15:50] LABS: ALBUMIN 3.2 g/dL (3.4-5.0); ALKALINE PHOSPHATASE 73 U/L (46-116); SGOT 13 U/L (15-37); SGPT 22 U/L (30-65); TOTAL BILIRUBIN 0.3 mg/dL (<0.1-1.0); TOTAL PROTEIN 7.7 g/dL (6.4-8.2); TROPONIN-I LEVEL <0.06 ng/mL (<0.06)
[2018-09-18 15:58] LABS: ABSOLUTE LYMPHOCYTES 2.4 thou/uL (0.8-5.3); ABSOLUTE MONOCYTES 0.6 thou/uL (0.0-1.2); ABSOLUTE NEUTROPHILS 8.3 thou/uL (1.6-8.1)
[2018-09-18 15:59] LABS: PLATELET ESTIMATE INCREASED
[2018-09-18] MEDS ORDERED: CARDIZEM60 MG PO ×2 (17:30)
[2018-09-18] MEDS ORDERED: ENOXAPARIN100 MG/11 SUBQ ×2 (17:31)
[2018-09-18] MEDS ORDERED: NEURONTIN600 MG PO (17:32)
--- NOTE | 2018-09-18 18:36 | NUR ---
Pt reports improvement of symptoms. Placed back on her home order of oxygen. SO at BS
--- NOTE | 2018-09-18 18:50 | NUR ---
Pt has brought home IV abx in requesting order from Dr Lau
[2018-09-18 19:26] LABS: URINE BILIRUBIN NEGATIVE (Negative); URINE BLOOD NEGATIVE (Negative); URINE CLARITY CLEAR; URINE COLOR YELLOW; URINE GLUCOSE-RANDOM NEGATIVE (Negative); URINE KETONES NEGATIVE (Negative); URINE LEUKOCYTES-REFLEX NEGATIVE (Negative); URINE NITRITE-REFLEX NEGATIVE (Negative); URINE PROTEIN NEGATIVE (Negative); URINE SPECIFIC GRAVITY <= 1.005 (1.005-1.030); URINE UROBILINOGEN 0.2 E.U./dl (0.2-1.0)
[2018-09-18 19:33] LABS: AMP/METHAMP Negative (Negative); BARBITURATES Negative (Negative); BENZODIAZEPINES Negative (Negative); COCAINE Negative (Negative); METHADONE Negative (Negative); OPIATES Negative (Negative); PCP Negative (Negative); THC Negative (Negative)
[2018-09-18 20:00] VITALS: BP 135/73
[2018-09-18 20:07] VITALS: BP 128/81
[2018-09-18 20:40] LABS: APTT 32.7 Seconds (25.0-31.3); INR 1.1; PROTIME 11.5 Seconds (9.20-11.50)
[2018-09-18] MEDS ORDERED: DILTIAZEM ER60 M1 PO (21:35)
[2018-09-19] VITALS: BP 124/74
[2018-09-19 04:00] VITALS: BP 106/72
--- NOTE | 2018-09-19 05:36 | NUR ---
RECEIVED REPORT FROM GRAEME HARVEY. PT TRANSFERRED TO RM 203. PT A&OX4. ADMISSION HISTORY & PHYSICAL ASSESSMENT COMLPETED AND CHARTED. PT ON O2 AT 3L NC. PT TRACING ST/SR ON TELE. PT COMPLAINED OF BACK & LEG PAIN- MEDS GIVEN PER APR. PT UPADLIB TO RESTROOM. HEPARIN DRIP STARTED. LEFT CHEST PORT PATENT & INTACT. PT WITH WOUND VAC ON THE RIGHT CHEST FROM HOME. PT ON ONGOING ANTIBIOTIC THERAPY FROM HOME AND OK TO USE HOME MED ORDERED. CALL LIGHT WITHIN REACH.
--- NOTE | 2018-09-19 07:10 | NUR ---
CHANGE OF SHIFT, BEDSIDE REPORT GIVERN PATIENT SEEN AT BEDSIDE, IN BED WATCHING TV ASSUMED PATIENT CARE
[2018-09-19 08:00] VITALS: BP 111/68
[2018-09-19 11:42] VITALS: BP 107/81
--- NOTE | 2018-09-19 15:20 | NUR ---
WOUND NURSE: PATIENT SEEN TO ADDRESS RIGHT CHEST WALL WOUND. MEASURES 0.5 X 1.0 X 1.0 CM WITH TUNNEL MEASURING 2.5 CM AT 6 O'CLOCK. WOUND BED PRESENTS WITH 100% GRANULATION TISSUE AND MODERATE AMOUNT OF SEROUS DRAINAGE. THERE IS NO PERIWOUND REDNESS, WARMTH, OR INDURATION. THERE IS NO ODOR. WOUND VAC PLACED ON HOLD AND [facility] NOTIFIED. WOUND CLEANSED WITH WOUND CLEANSER AND GAUZE. PACKED LIGHTLY WITH AQUACEL AG THEN COVERED WITH BORDERED FOAM DRESSING. PATIENT INSTRUCTED ON NUTRIENT DENSE DIET AND REPORTABLE SIGNS AND SYMPTOMS WITH GOOD UNDERSTANDING ACHIEVED. [facility] CALLED AND VAC PLACED ON HOLE: REFERENCE NUMBER: [id number], SPOKE WITH RAZA AT [facility].
--- NOTE | 2018-09-19 15:29 | NUR ---
Pt is A&O. Resides at home with s/o. Known to this CM from previous hospital stays. Pt is current with [facility] HH and plans to resume at ne. Pt is current with home iv infusions through [facility], [facility] following. Pt has home o2 and a cpap through [facility]. Pt has a walker, wc and scooter at home. No hx of SNF. Hx of acute rehab. Goal is home at dc. HH orders will need to be faxed to [facility] f:[phone]
[2018-09-19 15:50] VITALS: BP 116/68
--- NOTE | 2018-09-19 17:01 | EKG ---
[place] [address] ELECTROCARDIOGRAM REPORT Name: GUS NASCIMENTO Room: [address] ADM IN .R.#: [id number] Admission: 09/18/18 Attend Phys: Kota Lau MD Discharge: Date of : 75 Report #: [id number] THIS REPORT FOR: //name// [facility] ED Test Date: 2018-09-18 Test Time: 15:09:59 Pat Name: GUS NASCIMENTO Department: Room: [facility] Gender: F It Technical Architect: : [id number] Requested By: Ranjana Beard Order Number: [id number] MD: Chaitanya Gama Measurements Intervals [place] Rate: 122 P: 56 CA: 161 QRS: 19 QRSD: 80 T: 52 QT: 308 QTc: 439 Interpretive Statements Sinus tachycardia Low voltage, precordial leads Baseline wander in lead(s) II,III,aVF,V1 Compared to ECG 08/01/2018 15:19:48 Sinus rhythm no longer present Electronically Signed On 09-19-2018 17:01:38 CDT by Chaitanya Gama [email or web address] <ELECTRONICALLY SIGNED> By: Chaitanya Gama MD, FACC 09/19/18 1701 1509 1509 Chaitanya Gama MD, [facility] /EPI
[2018-09-19 20:00] VITALS: BP 110/65
[2018-09-20] VITALS: BP 142/70
[2018-09-20 03:55] VITALS: BP 132/78
--- NOTE | 2018-09-20 05:49 | NUR ---
ASSUMED CARE OF PT AFTER REPORT AT 1930. PT A&OX4. VSS. PHYSICAL ASSESSMENT COMPLETED AND CHARTED. PT ON O2 AT 2L NC. PT TRACING SR ON TELE. PT UPADLIB TO RESTROOM. PT WITH LEFT CHEST PORT PATENT & INTACT. MAINTAINED ON HEPARIN DRIP. PT COMPLAINED OF ITCHING ON UPPER PART OF THE BODY- DR LAW INFORMED WITH NEW ORDER. PT ALSO COMPLAINED OF LEFT KNEE PAIN- PAIN MEDS GIVEN PER MAR. CALL LIGHT WITHIN REACH.
[2018-09-20 08:00] VITALS: BP 112/66
--- NOTE | 2018-09-20 08:38 | CON ---
[address] [address] CONSULTATION Name: GUS NASCIMENTO Room: [address] IN M.R.#: [id number] Admission: 09/18/18 Attend Phys: Kota Lau MD Discharge: Date of : 75 Report #: [id number] THIS REPORT FOR: //name// CC: DAQUAN Dahl DO DATE OF SERVICE: 09/19/2018 PULMONARY CONSULTATION ATTENDING PHYSICIAN: Dr. Dahl. INDICATION FOR CONSULTATION: Recurrent pulmonary emboli, multiple medical problems. HISTORY OF PRESENT ILLNESS: The patient is a 42-year-old female, nonsmoker with multiple medical problems. She presented to the Emergency Room yesterday while she was walking with 10 minutes of chest pain. It was left-sided chest pain, radiated to her back and it appears it was the same kind of chest pain that she had previously with pulmonary emboli. She had a CT angio when she came in the Emergency Room. She was minimally hypoxic. She did not have any pulmonary hypertension and had a small 3-5 mm interlobar artery pulmonary emboli on CT angio. Venous Dopplers are pending at this time. The patient has been on Lovenox at a dose of 90 mg daily for the past several months per [facility] and Dr. Prince Blanton, her director of placement/oncologist at [facility] at [place]. Dr. Blanton had mentioned at some point in time that he may want to switch her over to Pradaxa and try this and she has not been on Pradaxa before. Supposedly, she has failed on Coumadin and on Eliquis and Xarelto and had recurrent pulmonary emboli. She did have a hypercoagulable workup at [facility] in 06/2018, which was negative. She has had problems with a previous Port-A-Cath and a soft tissue infection since having a Port-A-Cath removed and has had chronic wounds with Mycobacterium chelonae and this has been scanned and treated with amikacin and Invanz. She has a left-sided central catheter in place and a wound VAC on her where right Port-A-Cath was. From some of my partners' previous notes, she was steroid dependent for some COPD or asthma. She does not appear to be taking steroids chronically at this time though and that was 6 or 8 months ago. OTHER PAST MEDICAL HISTORY: Quite prolonged. She has had chronic pain syndrome. She has had problems with opioid use in the past and she has a minimally disseminated Mycobacterium chelonae infection. She has a left knee possible medial collateral ligament tear. She has had either COPD or asthma. She has had chronic bronchitis and acute anxiety, multiple pulmonary emboli in the past, although these are solitary and usually [place] [address] CONSULTATION Name: GUS NASCIMENTO Room: [address] IN ..#: [id number] Admission: 09/18/18 Attend Phys: Kota Lau MD Discharge: Date of : 75 Report #: [id number] interlobar artery, I have reviewed the last 4-5 CT angio of the chest through 2017. ALLERGIES: SHE HAS MULTIPLE ALLERGIES, VICRYL SUTURE, CITALOPRAM, CELEXA, CELECOXIB, LATEX, LEVOFLOXACIN, DOXYCYCLINE, ERYTHROMYCIN, AZITHROMYCIN, BUPROPION, SUBOXONE, CLARITHROMYCIN, CITALOPRAM, CYMBALTA, LINEZOLID, peripheral neuropathy, TRAZODONE, vivid dreams. OUTPATIENT MEDICATIONS: Included montelukast, venlafaxine 37.5 mg or Effexor daily, levalbuterol, Xopenex inhaler, levalbuterol breathing treatments, ropinirole dose is either 2 mg t.i.d. or 4 mg t.i.d. somewhat unclear at this time. Lovenox dose was 90 mg subcutaneous daily, gabapentin 600 mg t.i.d., omeprazole 40 mg b.i.d. Still on Percocet 1 tablet every 4 hours . Still having Invanz or imipenem in place and then discontinued. She is on IV heparin per protocol with PTT of 60 and she was on diltiazem that has been discontinued. PAST SURGICAL HISTORY: Includes Port-A-Cath x 4, right knee surgery, right hip surgery, I and D bilateral ankles x 2, spinal fusion, miscarriage. She has had a tubal ligation, previous tachycardia, COPD and chronic bronchitis, avascular necrosis. FAMILY HISTORY: Heart disease, cancer, breast cancer in her mother and a sister, 47 years old, by history was a never smoker. SOCIAL HISTORY: Lives with her . Denies any alcohol use. Is not employed outside the home. REVIEW OF SYSTEMS: A 14-point review of systems reviewed and pertinent positives were noted per HPI. PHYSICAL EXAMINATION: GENERAL: Somewhat anxious 42-year-old female accompanied by her in the room. VITAL SIGNS: Blood pressure is 110/81, heart rate is 90, respirations 16, saturation on 2 liters 99%, temperature is 36.8 degrees, 5 feet 3 inches tall, weight is 88 kilograms or 208 pounds, BMI is 33. HEENT: Somewhat cushingoid. Pharynx is clear. NECK: Supple, without nodes. She has some thick neck tissue. CHEST: Shows some rhonchi in the left lung base. Right chest relatively clear. CARDIOVASCULAR: Regular rate and rhythm without murmur, gallop or rub. Heart rate is 96. ABDOMEN: Soft, without masses or megaly. EXTREMITIES: No cyanosis, clubbing or edema. She has SCDs in place. Her left knee is wrapped with an Michael bandage. It is not tight. Negative Homans sign bilaterally. NEUROLOGIC: [place] [address] CONSULTATION Name: GUS NASCIMENTO Room: [address] IN [facility].#: [id number] Admission: 09/18/18 Attend Phys: Kota Lau MD Discharge: Date of : 75 Report #: [id number] LABORATORY DATA: From 09/18/2018, hemoglobin is 12, white count is 11,200, platelets are 408,000. Normal differential. Her eosinophils are not increased. Sodium is 138, potassium 3.4, being repleted, chloride is 100, carbon dioxide is 25, BUN is 11, creatinine is 1.0, glucose 163. LFTs within normal limits. Albumin is 3.2. Previous hypercoagulable workup with factor V and KATE and double stranded DNA, etc., was all negative at [facility]. She showed me those results on her phone and also her echocardiogram at [facility] was within normal limits with an EF of 60-65% and pulmonary artery pressure is normal at 23 and no right ventricular clot or right atrial clots noted. CT angio of the chest here was noted as positive for single clot in the right lower lobe interlobar artery. Chest x-ray showed minimal basilar atelectasis, minimal cardiomegaly. Again CT angio of the chest, one solitary, some motion artifact and possible filling defect within the right upper lobe and right lower lobe, segmental pulmonary artery branch seen on slice 57 of the series. Some minimal basilar atelectasis is noted in the bases, again without any definite pneumonia. IMPRESSION: Solitary pulmonary emboli on current anticoagulant therapy. Question whether this is a new clot or just old scarring and she has had several CT angios 2017, 2018 that have been negative for pulmonary emboli. Again, it is either in the right lower lobe interlobar artery and this one is in the right upper lobe, again fairly soft finding on CT angio not multiple pulmonary emboli. PLAN: We will repeat venous Dopplers again. Dr. Dahl and I have discussed. Will discuss with Dr. Prince Blanton and see if he wants to try her on Pradaxa. I am not sure this has really been a failure on the Lovenox. Coumadin alone would also be a choice. She has had multiple, multiple medical problems and multiple issues. She does have obstructive sleep apnea. She is supposed to be on CPAP with a full face mask at 8 cm from a sleep study from 2 years ago. Also appears to have COPD, although we have never seen PFTs on her and we need full pulmonary function studies to see what obstructive or restrictive lung disease she has. That should be done in the future. When we stabilize her, we will see if we can get her anticoagulation issues under control in the meantime. Dr. Donnelly has discussed whether an IVC filter would be indicated. We will check some venous Dopplers. Previously, I have not seen clots on her venous Doppler, so I am not sure how aggressive I would be with an IVC filter. I am not sure what her other source would be for these pulmonary emboli and they appear to be unprovoked at this time. They are small and solitary though. No evidence of right heart failure or right heart strain at this time. This has been a 34-minute critical care consult. <ELECTRONICALLY SIGNED> By: Jagdish Everett MD 09/20/18 0861 [id number] sean Carney
--- NOTE | 2018-09-20 11:34 | CON ---
[address] [address] CONSULTATION Name: GUS NASCIMENTO Room: [address] IN M.R.#: [id number] Admission: 09/18/18 Attend Phys: Kota Lau MD Discharge: Date of : 75 Report #: [id number] THIS REPORT FOR: //name// CC: Eliseo Lau DATE OF SERVICE: 09/19/2018 REASON FOR CONSULTATION: Pulmonary embolism. SUBJECTIVE: A 42-year-old female who had previous multiple emboli and seronegative rheumatoid arthritis. The patient was admitted because of her shortness of breath. She had a CT angiogram, which showed filling defect in the right upper lobe pulmonary arteries. The patient most recently at [facility] and was found to have a PE back in 06/2018. She has been put on Lovenox and she was waiting on wound VAC removal, which was done today. The patient has seen Dr. Blanton which I discussed the case with him and after that she will be switched to Pradaxa. REVIEW OF SYSTEMS: All systems were reviewed, it was negative except the above. PAST MEDICAL HISTORY: Multiple; COPD, POTS syndrome, asthma/COPD, myocardial infarction, avascular necrosis. MEDICATIONS: Per admission list. ALLERGIES: SHE IS ALLERGIC TO CELEXA, LATEX, LEVOFLOXACIN, DOXYCYCLINE, ERYTHROMYCIN, AZITHROMYCIN, CLARITHROMYCIN, CITALOPRAM, ZYVOX. PAST SURGICAL HISTORY: Right hip surgery, right knee surgery, bilateral ankle surgery, spinal fusion. FAMILY HISTORY: Positive for breast cancer in the family. SOCIAL HISTORY: No smoking, no alcohol abuse, no drug abuse. PHYSICAL EXAMINATION: VITAL SIGNS: Today, temperature is 36.7, pulse 93, respirations 17, blood pressure is 116/68, SpO2 was 99% on 2 liters. GENERAL: The patient was sitting in chair, was not in acute distress. LUNGS: Decreased breathing sounds bilaterally. HEART: Regular rate and rhythm. S1, S2 within normal limits. ABDOMEN: Soft, nontender, nondistended. Bowel sounds positive. EXTREMITIES: +1 edema bilaterally. LABORATORY DATA: Today, WBC 11.2, hemoglobin 12.0, platelet count [place] [address] [address] CONSULTATION Name: GUS NASCIMENTO Room: [address]#: [id number] Admission: 09/18/18 Attend Phys: Kota Lau MD Discharge: Date of : 75 Report #: [id number] 11.5, PTT 61.3. Sodium is 138, potassium 3.4, creatinine 1.0, bilirubin 0.3, AST is 13, ALT 22. IMAGING: A CT angiogram showed a segmental/subsegmental branch of the right upper lobe pulmonary artery. ASSESSMENT AND PLAN: 1. A 42-year-old female who has been following with Dr. Blanton because of pulmonary embolism. Most recently was diagnosed in 06/2018 at , she was switched to Lovenox until she is done with her procedure, which is a wound VAC. I advised the patient, at this point, if she continues to be stable, it is going to be okay to switch to Pradaxa in a.m. with overlap with heparin. 2. I would like to wait and reevaluate the patient in the next 6 weeks to evaluate the need of IVC filter. All questions have been answered. 3. We would like to obtain images of the most recent CT angiogram compared to the most recent one. <ELECTRONICALLY SIGNED> By: Mikie Simmons MD 09/20/18 1134 [id number] [id number] Simmons MD /nt
[2018-09-20 12:15] VITALS: BP 118/71
--- NOTE | 2018-09-20 13:08 | NUR ---
Spoke with pt's nurse. She states Dr. Everett states pt will be on both heparin & dabigatran until further notice.
[2018-09-20 15:41] VITALS: BP 124/80
--- NOTE | 2018-09-20 16:10 | NUR ---
PT A&O X4. VSS. PAIN CONTROLLED WITH SCHEDULED MEDS. B/L VENOUS DOPPLER OF LE DONE, NO DVT. WOUND AT THE RT CHEST DRESSED PER ORDERS. OT WORKED WITH HER. HEPARIN CONTD AT 1325 U/HR, THERAPEUTIC DOSAGE. NS AT 100 MLS/HR. TOLERATING REGULAR DIET.
[2018-09-20 20:00] VITALS: BP 113/86
[2018-09-21] VITALS: BP 117/69
[2018-09-21 04:00] VITALS: BP 116/76
--- NOTE | 2018-09-21 04:45 | NUR ---
ASSUMED CARE OF PT AFTER REPORT AT 1930. PT A&OX4. VSS. PHYSICAL ASSESSMENT COMPLETED AND CHARTED. PT ON O2 AT 2L NC. PT TRACING SR ON TELE. PT UPADLIB TO RESTROOM. MAINTAINED ON HEPARIN DRIP. PT COMPLAINED OF HEADACHE & LEFT KNEE PAIN- MEDS GIVEN PER APR. LEFT CHEST POST PATENT & INTACT. PT ABLE TO SLEEP WELL ON BED. CALL LIGHT WITHIN REACH.
[2018-09-21 05:24] LABS: ABSOLUTE BASOPHILS 0.1 thou/uL (0.0-0.2); ABSOLUTE EOSINOPHILS 0.3 thou/uL (0.0-0.7); ABSOLUTE LYMPHOCYTES 1.8 thou/uL (0.8-5.3); ABSOLUTE MONOCYTES 0.6 thou/uL (0.0-1.2); ABSOLUTE NEUTROPHILS 6.5 thou/uL (1.6-8.1); BASOPHILS 0.6 %; EOSINOPHILS 3.2 %; HEMATOCRIT 30.6 % (37.0-47.0); HEMOGLOBIN 10.1 gm/dL (12.0-15.0); LYMPHOCYTES 19.1 %; MCHC 33.1 g/dL (28.0-37.0); MCV 90.7 fL (80.0-100.0); MONOCYTES 6.8 %; MPV 7.7 fl. (7.2-11.1); NUCLEATED RBCS 0 /100WBC; PLATELET COUNT* 395 thou/uL (150-400); POLYS 70.3 %; RBC 3.37 mil/uL (4.20-5.00); WBC 9.2 thou/uL (4.0-11.0)
[2018-09-21] MEDS ORDERED: IMITREX 25 MG T25 M1 PO (06:10)
--- NOTE | 2018-09-21 07:10 | NUR ---
CHANGE OF SHIFT, BEDSIDE REPORT GIVEN PATIENT SEEN AT BEDSIDE, IN BED ASLEEP ASSUMED PATIENT CARE
[2018-09-21 08:00] VITALS: BP 127/69
[2018-09-21 12:00] VITALS: BP 112/60
--- NOTE | 2018-09-21 14:26 | NUR ---
Nutrition: Pt admitted with PE. Seen for BMI 40.1. Admit wt and usual wt is ~198#. Today's wt is 234#. RD questioning accuracy of wt. Please reweigh. She does have a chest wound, physician indicated Mild PCM - defer. Albumin 3.2. Regular diet ordered. No nutrition interventions needed at this time. Beneprotein supplement available if protein stores deplete or meal intake <50%. Mild risk.
[2018-09-21 16:00] VITALS: BP 112/65
[2018-09-21 20:00] VITALS: BP 124/73
[2018-09-22] VITALS (9 sets, daily range): BP systolic 93–124; BP diastolic 51–76
--- NOTE | 2018-09-22 05:13 | NUR ---
ASSUMED CARE PT AFTER REPORT AT 1930. PT A&OX4. VSS. PHYSICAL ASSESSMENT COMPLETED AND CHARTED. PT ON O2 AT 2L NC. PT TRACING SR ON TELE. PT UPADLIB TO RESTROOM. PT COMPLAINED OF HEADACHE & LEFT KNEE PAIN- MEDS GIVEN PER APR. MAINATAINED ON HEPARIN DRIP. INSTRUCTED ON NPO POST MIDNIGHT FOR IVC FILTER PLACEMENT TODAY. COMMUNICATES UNDERSTANDING. PT CLAIMED THAT SHE HAS A CONTINUOUS PULSE OXIMETER MONITORING AT HOME AND REQUESTED ONE LAST NIGHT. PT ABLE TO SLEEP WELL ON BED. CALL LIGHT WITHIN REACH.
[2018-09-22 14:30] LABS: CALCIUM 8.4 mg/dL (8.5-10.1); CREATININE 0.8 mg/dL (0.6-1.3); POTASSIUM 4.2 mmol/L (3.5-5.1)
--- NOTE | 2018-09-22 19:26 | NUR ---
RECEIVED REPORT FROM DERRICK HARVEY. ASSUMED CARE OF PT AROUND 0730. PT A&O X4. VSS, BP'S A BIT SOFT, PT ASYMPTOMATIC WITH HYPOTENSION. AM ASSESSMENT AND VITALS COMPLTED CHARTED. DIRECTOR OF BUSINESS APPLICATIONS IN PLACE. PT GOT IVF FILTER PLACED THIS SHIFT. POST PROCEDURE VITALS DOCUMENTED. HEPARIN GTT CONTINUING PER ORDERS FROM DR NAQVI. NEW APTT TO BE DRAWN AT 2215. FAMILY VISITED THIS EVENING. PT REPORTED NECK, BACK AND LEG PAIN THAT WAS TREATED WITH PO PAIN MEDICATION WITH RELIEF. PT UP WITH SBA TO BEDSIDE COMMODE, VOIDING WELL. PT WITH GOOD APPETITE. MEDS PER EMAR. PT CURRENTLY SITTING UP IN BED. CALL LIGHT IS WITHIN REACH, LOW FALL RISK PRECAUTIONS IN PLACE. HOURLY ROUNDING PERFORMED.
[2018-09-23] VITALS: BP 109/68
[2018-09-23 03:47] VITALS: BP 113/70
--- NOTE | 2018-09-23 05:20 | NUR ---
PT SLEPT MOST OF SHIFT. ASSESSMENT DOCUMENTED. MEDS GIVEN PER E-APR. TICC PATENT, FLUIDS INFUSING. HEPARIN DRIP RUNNING PER PROTOCOL. PAIN MEDS GIVEN PER E-APR. PT REPORTING PAIN ON INCISION SITE, ICE PACKS GIVEN PER PT REQUEST. WILL CONTINUE WITH PLAN OF CARE.
[2018-09-23 08:00] VITALS: BP 113/73
--- NOTE | 2018-09-23 10:36 | NUR ---
ADMINISTRATOR OF HOME HEALTH INFORMED THAT THE PATIENT MAY BE READY TO D/C OVER THE WEEKEND. PATIENT TO RESUME SERVICES WITH [facility] AND [facility]. D/C DIRECTOR OF CAREER RESOURCES SPOKE TO ALIS WITH [facility] TO INFORM OF PATIENTS POSSIBLE D/C OVER THE WEEKEND AND ROSALBA ALSO INFORMED. ROSALBA REQUEST THAT ABT ORDERS BE FAXED SOON POSSIBLE SO THAT THE PHARMACY CAN HAVE THE ABT'S ORDERED AND DELIVERED TO THE PATIENT'S HOME. D/C ORDERS WILL NEED TO BE CALLED AND ORDERS FAXED TO [facility] WHEN AVAILABLE. CM WILL REMAIN AVAILABLE TO ASSIST AND FOLLOW NEEDED. [facility] PHONE: [phone] FAX: [phone] [facility] PHONE: [phone] FAX: [phone]
[2018-09-23 13:05] VITALS: BP 124/75
[2018-09-23 17:27] VITALS: BP 120/74
[2018-09-23 20:00] VITALS: BP 114/69
[2018-09-24] VITALS: BP 102/62
--- NOTE | 2018-09-24 03:19 | NUR ---
PT ALERT ORIENTED. UP TO BSC AD RONNA. PAIN IN NECK, BACK, LEGS. PT SAID PAIN IS NEVER BETTER THAN 3/10. PT HAS SCHEDULED PAIN MEDICATION Q 3 HRS. TELEMETRY SHOWS SR.
[2018-09-24 04:00] VITALS: BP 103/68; BP 135/78
[2018-09-24 08:00] VITALS: BP 109/62
[2018-09-24 11:18] VITALS: BP 110/68
--- NOTE | 2018-09-24 11:24 | NUR ---
Pt is discharging to home today, faxed resumption orders to [facility]. Faxed IV med order and Amikacin trough level to [facility] to contact Pt for home delivery. S/o in room and will transport.
[2018-09-24 11:38] VITALS: BP 110/68
[2018-09-24] MEDS ORDERED: PRADAXA150 MG PO (15:48)
[2018-09-24 15:51] VITALS: BP 110/68
== END 2018-09-24 16:40 | disposition home health service (06) | DRG 166 ==
LOC: M.ERS 15:04 → M.TBA-ER 18:43 → M.2W 18:43
PROVIDERS: Internal Medicine; Physician Assistant; ADMIT Internal Medicine
PROC: 06H03DZ Insertion of Intraluminal Device into Inferior Vena Cava, Percutaneous Approach (ICD-10-PCS; principal; 2018-09-22)
DX: I26.99 Other pulmonary embolism without acute cor pulmonale (principal); J15.6 Pneumonia due to other Gram-negative bacteria; R65.10 Systemic inflammatory response syndrome (SIRS) of non-infectious origin without acute organ dysfunction; E44.1 Mild protein-calorie malnutrition; J98.11 Atelectasis; M86.9 Osteomyelitis, unspecified; T81.30XA Disruption of wound, unspecified, initial encounter; M79.7 Fibromyalgia; J44.9 Chronic obstructive pulmonary disease, unspecified; Z98.1 Arthrodesis status; G62.9 Polyneuropathy, unspecified; G89.4 Chronic pain syndrome; M46.40 Discitis, unspecified, site unspecified; M06.00 Rheumatoid arthritis without rheumatoid factor, unspecified site; R07.89 Other chest pain; Z88.1 Allergy status to other antibiotic agents; Z88.8 Allergy status to other drugs, medicaments and biological substances; I25.2 Old myocardial infarction; Z86.711 Personal history of pulmonary embolism; Z91.040 Latex allergy status; Z80.3 Family history of malignant neoplasm of breast; Z82.49 Family history of ischemic heart disease and other diseases of the circulatory system; Z68.38 Body mass index [BMI] 38.0-38.9, adult; Z98.51 Tubal ligation status; Y83.8 Other surgical procedures as the cause of abnormal reaction of the patient, or of later complication, without mention of misadventure at the time of the procedure; Y92.89 Other specified places as the place of occurrence of the external cause

== ENCOUNTER → 2018-09-26 | Outpatient (CLI) | payer MEDICARE, OTHER, MEDICAID ==
[~2018-09-26] MED LIST changes: +CARDIZEM60 MG PO; +DILTIAZEM ER60 M1 PO; +ENOXAPARIN100 MG/11 SUBQ; +IMITREX 25 MG T25 M1 PO; +PRADAXA150 MG PO
[2018-09-26 11:12] LABS: ABSOLUTE BASOPHILS 0.1 thou/uL (0.0-0.2); ABSOLUTE EOSINOPHILS 0.1 thou/uL (0.0-0.7); ABSOLUTE LYMPHOCYTES 2.4 thou/uL (0.8-5.3); ABSOLUTE MONOCYTES 0.7 thou/uL (0.0-1.2); ABSOLUTE NEUTROPHILS 7.7 thou/uL (1.6-8.1); BASOPHILS 0.9 %; EOSINOPHILS 0.7 %; HEMATOCRIT 38.5 % (37.0-47.0); HEMOGLOBIN 12.8 gm/dL (12.0-15.0); LYMPHOCYTES 21.5 %; MCH 29.6 pg (26.0-34.0); MCHC 33.2 g/dL (28.0-37.0); MONOCYTES 6.8 %; MPV 7.2 fl. (7.2-11.1); NUCLEATED RBCS 0 /100WBC; PLATELET COUNT* 526 thou/uL (150-400); POLYS 70.1 %; RBC 4.33 mil/uL (4.20-5.00); RDW-CV 14.9 % (10.5-14.5)
[2018-09-26 11:25] LABS: ALBUMIN 3.5 g/dL (3.4-5.0); CALCIUM 9.4 mg/dL (8.5-10.1); CREATININE 1.2 mg/dL (0.6-1.3); POTASSIUM 3.8 mmol/L (3.5-5.1); TOTAL BILIRUBIN 0.3 mg/dL (<0.1-1.0); TOTAL PROTEIN 8.5 g/dL (6.4-8.2)
--- NOTE | 2018-09-26 13:13 | NUR ---
ARRIVED AMBULATORY. NO WALKER OR O2. MADE SELF COMFORTABLE IN RELCINER. DUAL LUMAN TICC LINE TO LEFT UPPER CHEST INTACT WITH DRESSING C/D/I. BOTH LUMANS PATENT. LABS DRAWN AND K+ RESULTS AT 3.8 [address]ING ORDER OF DR. MARTINEZ NO K+ INFUSION NEEDED. PT UPDATED. VOICED UNDERSTANDING AND AGREED. SPOKE WITH DR. JOHN. OK TO CONTINUE PRIOR ORDERS AND HE WILL SEE PT IN INFUSION LAB ON Wednesday09/28/18
== END ==
LOC: M.INFUS 01:28
PROVIDERS: Specialist
DX: Z45.2 Encounter for adjustment and management of vascular access device (principal); E87.6 Hypokalemia

== ENCOUNTER → 2018-09-28 | Outpatient (CLI) | payer MEDICARE, OTHER, MEDICAID ==
[2018-09-28 11:23] LABS: ALBUMIN 3.6 g/dL (3.4-5.0); CALCIUM 9.1 mg/dL (8.5-10.1); CREATININE 1.1 mg/dL (0.6-1.3); POTASSIUM 3.7 mmol/L (3.5-5.1); TOTAL BILIRUBIN 0.2 mg/dL (<0.1-1.0); TOTAL PROTEIN 8.2 g/dL (6.4-8.2)
--- NOTE | 2018-09-28 15:37 | NUR ---
ARRIVED AMBULATORY. MADE SELF COMFORTABL. LABS DRAWN PER ORDER. LAB RESUTLS SHOW K+ BACK AT 3.7. PER PT REQUEST NO INFUSION TODAY. DR. JOHN HERE AND NEW ORDER RECIEVED FOR MRI. MRI SCHEDULED FOR TOMMOROW AT 5:30PM. PT DISCHARGED TO HOME.
--- NOTE | 2018-09-29 13:04 | CON ---
[address] [address] CONSULTATION Name: AZAMGUS K Room: [facility].#: [id number] Admission: 09/28/18 Attend Phys: Chalo Hua MD Discharge: Date of : 75 Report #: [id number] THIS REPORT FOR: //name// CC: Chalo Gomes Therese DATE OF SERVICE: 09/28/2018 INFECTIOUS DISEASE CONSULTATION FOLLOWUP ATTENDING PHYSICIAN: Chalo Hua MD HISTORY OF PRESENT ILLNESS: The patient returns to followup as per her usual to evaluate her hypokalemia as she needs parenteral replacement. Reviewed recent history and noted she was hospitalized the last week with pulmonary embolus, did have a Eckerty filter placed. She is on Pradaxa at this point. She has noted a painful subcutaneous nodular lesion about the mid portion of her arm, lateral aspect. She believes it is growing bigger. She has not had systemic illness, no fevers. Appetite has been fair. She is on pulmonary support with supplemental oxygen. Disseminated Mycobacterium chelonae infection, she has been on, I believe roughly 3 months of, parenteral therapy with amikacin. Her creatinine has increased a little bit over the course of the last week to 1.2 to 1.3 range and perhaps the approach of very limited options would be to repeat imaging of the site if indeed it appears to be consistent with a single nodular lesion, consider surgical removal. We will hold the amikacin at this point and concerned about resistant having developed. We will see her here in about 2 days for further recommendations based on her MRI results. <ELECTRONICALLY SIGNED> By: Mehdi Salgado MD 09/29/18 1304 1623 [id number] Salgado MD /nt
== END ==
LOC: M.INFUS 05:11
PROVIDERS: Specialist
DX: E87.6 Hypokalemia (principal)

== ENCOUNTER → 2018-09-29 | Outpatient (CLI) | payer MEDICARE, OTHER, MEDICAID | LOC: M.MRI 17:08 | DX: M79.642 Pain in left hand (principal); R22.32 Localized swelling, mass and lump, left upper limb; A31.9 Mycobacterial infection, unspecified ==

== ENCOUNTER → 2018-09-30 | Outpatient (CLI) | payer MEDICARE, MEDICAID ==
[2018-09-30 11:00] VITALS: BP 123/65
[2018-09-30 12:20] LABS: ALBUMIN 3.3 g/dL (3.4-5.0); CALCIUM 9.4 mg/dL (8.5-10.1); CREATININE 1.1 mg/dL (0.6-1.3); POTASSIUM 3.9 mmol/L (3.5-5.1); TOTAL BILIRUBIN 0.1 mg/dL (<0.1-1.0); TOTAL PROTEIN 7.4 g/dL (6.4-8.2)
--- NOTE | 2018-09-30 14:28 | NUR ---
PATIENT LEFT CHEST TIC IV DEVICE ASSESSED FOR PATENCY. BOTH LUMEN OBSERVED TO FLUSH FREELY BUT WOULD NOT DRAW BACK BLOOD. LABS OBTAINED FROM PERIPHERAL STICK. PRN CATH-JOB ORDER FXED TO PHARMACY AND RECONSTITUTED. BOTH LUMEN PACKED WITH CATH-JOB 1ML AND LEFT TO DWELL FOR ONE HOUR. LINE REASSESSED FOR PATENCY AND FOUND TO FLUSHE= FREELY WITH GOOD BRISK BLOOD RETURN. LABS BACK WITH POTASSIUM REPORTED AT 3.9. POTASSIUM INFUSIONM HELD PER ORDER, PATIENT DISCHARGED AMBULATORY WITH NO COMPLAINTS OF PAIN OR DIFFICULTIES.
--- NOTE | 2018-10-01 08:28 | CON ---
[address] [address] CONSULTATION Name: AZAMGUS K Room: [facility].#: [id number] Admission: 09/30/18 Attend Phys: Chalo Hua MD Discharge: Date of : 75 Report #: [id number] THIS REPORT FOR: //name// CC: Chalo Gomes Therese DATE OF SERVICE: 09/30/2018 INFECTIOUS DISEASE CONSULTATION ATTENDING PHYSICIAN: Chalo Hua MD HISTORY OF PRESENT ILLNESS: The patient returns to follow up for outpatient infusion area, has ongoing issue with parenteral potassium replacement that has confirmed disseminated with Macrobid and Bactrim for chelonei. She had developed a new lesion in the proximal aspect of her left upper extremity, we concerned about a relapse. This was evaluated with MRI. I did review with the radiologist who felt it was accessible via surgical route. There is some scarring, otherwise, no other localizing noninflammatory nodules noted. In addition, I discussed with Dr. Terry, general surgeon who had seen her in the past, referred her for possible excision of the mass. At this point, we would not extend the antibiotics and see how she does clinically. We will send the sample for pathology as well as microbiology including AFB smear and culture to confirm this is indeed the etiology. We will follow her closely in the event that she has apparent deterioration. We think this is due to the Mycobacterium. Could restart therapy, although she has had quite a bit of difficulty with it in terms of adverse drug effects. <ELECTRONICALLY SIGNED> By: Mehdi Salgado MD 10/01/18 0828 1425 [id number] Salgado MD /nt
== END ==
LOC: M.INFUS 05:11
PROVIDERS: Internal Medicine Nephrology
DX: Z45.2 Encounter for adjustment and management of vascular access device (principal); E87.6 Hypokalemia; J44.9 Chronic obstructive pulmonary disease, unspecified

== ENCOUNTER → 2018-10-04 | Outpatient (CLI) | payer MEDICARE, MEDICAID | LOC: M.WC 10-03 04:56 | DX: T81.31XD Disruption of external operation (surgical) wound, not elsewhere classified, subsequent encounter (principal); J44.9 Chronic obstructive pulmonary disease, unspecified; I25.2 Old myocardial infarction; K21.9 Gastro-esophageal reflux disease without esophagitis; M06.9 Rheumatoid arthritis, unspecified; M81.0 Age-related osteoporosis without current pathological fracture; F32.9 Major depressive disorder, single episode, unspecified; F41.9 Anxiety disorder, unspecified; Z86.711 Personal history of pulmonary embolism; Z96.651 Presence of right artificial knee joint; Y83.8 Other surgical procedures as the cause of abnormal reaction of the patient, or of later complication, without mention of misadventure at the time of the procedure ==

== ENCOUNTER → 2018-10-05 | Outpatient (CLI) | payer MEDICARE, OTHER, MEDICAID ==
--- NOTE | 2018-10-05 11:26 | NUR ---
CONSULTED TO PLACE PICC. HISTORY REVIEWED. SPOKE WITH PT REGUARDING RISK AND BENEFIT. PT VOICED UNDERSTANDING AND AGREED. STATED HAS HAD PICC IN PAST. RIGHT UPPER ARM ASSESSED WITH ULTRASOUND. RIGHT BASILIC IDENTIFIED, NOTED TO BE WIDLEY PATENT. DOUBLE LUMAN POWER PICC PLACED PER POLICY. LINE TRIMMED AT 40CM AND ADVANCED 39CM LEAVING 1CM EXTERNAL. GOOD BRISK BLOOD RETURN NOTED AND FLUSHED WITH EASE. LINE SECURED. TIP CONFORMATION WITH SHERLOCK 3CG. TOLERATED WELL. LINE RELEASED FOR USE TO ASHANTI FERMIN RN.
[2018-10-05 11:30] VITALS: BP 132/70
[2018-10-05 11:32] LABS: ALBUMIN 3.3 g/dL (3.4-5.0); CALCIUM 8.6 mg/dL (8.5-10.1); POTASSIUM 3.2 mmol/L (3.5-5.1); TOTAL BILIRUBIN 0.2 mg/dL (<0.1-1.0); TOTAL PROTEIN 7.4 g/dL (6.4-8.2)
[2018-10-05 11:40] LABS: HEMATOCRIT 35.1 % (37.0-47.0); HEMOGLOBIN 11.6 gm/dL (12.0-15.0); MCH 28.9 pg (26.0-34.0); MCV 87.6 fL (80.0-100.0); MPV 7.3 fl. (7.2-11.1); RBC 4.01 mil/uL (4.20-5.00); RDW-CV 14.8 % (10.5-14.5); WBC 9.5 thou/uL (4.0-11.0)
[2018-10-05 16:00] VITALS: BP 140/80
== END ==
LOC: M.INFUS 05:02
PROVIDERS: Specialist
DX: E87.6 Hypokalemia (principal)

== ENCOUNTER → 2018-10-06 | Outpatient (CLI) | payer MEDICARE, OTHER, MEDICAID ==
[2018-10-06 13:31] LABS: HEMOGLOBIN 11.8 gm/dL (12.0-15.0); MCH 29.1 pg (26.0-34.0); MCHC 32.7 g/dL (28.0-37.0); RBC 4.05 mil/uL (4.20-5.00); RDW-CV 14.8 % (10.5-14.5); WBC 11.5 thou/uL (4.0-11.0)
[2018-10-06 13:41] LABS: CALCIUM 9.1 mg/dL (8.5-10.1); POTASSIUM 3.8 mmol/L (3.5-5.1)
== END ==
LOC: M.LAB 13:04
PROVIDERS: Orthopaedic Surgery
DX: Z47.1 Aftercare following joint replacement surgery (principal); Z96.651 Presence of right artificial knee joint

== ENCOUNTER → 2018-10-07 | Outpatient (CLI) | payer MEDICARE, MEDICAID ==
[2018-10-07 10:50] LABS: ALBUMIN 3.3 g/dL (3.4-5.0); CALCIUM 8.6 mg/dL (8.5-10.1); POTASSIUM 3.4 mmol/L (3.5-5.1); TOTAL BILIRUBIN 0.2 mg/dL (<0.1-1.0); TOTAL PROTEIN 7.3 g/dL (6.4-8.2)
[2018-10-07 11:00] VITALS: BP 132/75
[2018-10-07 15:18] VITALS: BP 140/78
--- NOTE | 2018-10-10 07:10 | CON ---
[address] [address] CONSULTATION Name: AZAMGUS K Room: [facility].#: [id number] Admission: 10/07/18 Attend Phys: Chalo Hua MD Discharge: Date of : 75 Report #: [id number] THIS REPORT FOR: //name// CC: Chalo Hua Eliseo Saleh DATE OF SERVICE: 10/07/2018 INFECTIOUS DISEASE CONSULTATION FOLLOWUP ATTENDING PHYSICIAN: Chalo Hua MD She returns to follow up, did receive infusion of the parenteral potassium. Over the course of the last few days, she developed right knee severe pain and swelling. She was evaluated by Orthopedic Surgery. They did aspirate some bloody discharge. She was unaware of any direct trauma to the site. She has had some low-grade temperature elevations. At this point, she is scheduled to hear back from the orthopedic surgeon for further recommendations and possible explantation. There was a discussion and certainly a high degree of concern about possibility of Mycobacterium and related infection due to her longstanding disseminated Mycobacterium chelonae infection. She notes a lesion on her upper outer left arm, this has not changed. Disseminated Mycobacterium chelonae infection with new signs and symptoms, including what appears to be arthritis associated with a total knee arthroplasty on the right. This is very ominous. We will initiate therapy with amikacin. I think in all likelihood, we will have to explant the knee at this point. Did review her labs. Her creatinine is 1. We will have to monitor that closely. <ELECTRONICALLY SIGNED> By: Mehdi Salgado MD 10/10/18 0710 1323 2230Joseshalom Salgado MD /nt
--- NOTE | 2018-10-19 14:33 | NUR ---
ADDENDUM LATE ENTRY FOFR 10/07/18 POTASSIUM START TIME 1053 STOP TIME 5842
== END ==
LOC: M.INFUS 05:09
PROVIDERS: Internal Medicine Nephrology
DX: E87.6 Hypokalemia (principal); J44.9 Chronic obstructive pulmonary disease, unspecified

== ENCOUNTER → 2018-10-10 | Outpatient (CLI) | payer MEDICARE, OTHER, MEDICAID ==
[2018-10-10 09:10] VITALS: BP 140/80
[2018-10-10 10:11] LABS: ABSOLUTE BASOPHILS 0.1 thou/uL (0.0-0.2); ABSOLUTE EOSINOPHILS 0.1 thou/uL (0.0-0.7); ABSOLUTE LYMPHOCYTES 2.2 thou/uL (0.8-5.3); ABSOLUTE MONOCYTES 0.6 thou/uL (0.0-1.2); ABSOLUTE NEUTROPHILS 6.1 thou/uL (1.6-8.1); BASOPHILS 0.7 %; EOSINOPHILS 0.7 %; HEMATOCRIT 35.9 % (37.0-47.0); HEMOGLOBIN 11.7 gm/dL (12.0-15.0); LYMPHOCYTES 24.4 %; MCH 29.1 pg (26.0-34.0); MCHC 32.5 g/dL (28.0-37.0); MCV 89.6 fL (80.0-100.0); MONOCYTES 6.6 %; MPV 7.1 fl. (7.2-11.1); NUCLEATED RBCS 0 /100WBC; PLATELET COUNT* 384 thou/uL (150-400); POLYS 67.6 %; RDW-CV 15.1 % (10.5-14.5)
[2018-10-10 10:30] LABS: ALBUMIN 3.4 g/dL (3.4-5.0); POTASSIUM 3.4 mmol/L (3.5-5.1); TOTAL BILIRUBIN 0.2 mg/dL (<0.1-1.0); TOTAL PROTEIN 7.6 g/dL (6.4-8.2)
[2018-10-10 14:32] VITALS: BP 124/75
--- NOTE | 2018-10-10 14:45 | NUR ---
ARRIVED AMBULATORY. MADE SELF COMFORTABLE. DUAL LUMAN TICC TO LEFT UPPER CHEST INTACT WITH NEW DRESSING PT SELF APPLIED OVER THE WEEKEND. STATED THE ONE PLACED 10/05/18 HAD COME OFF. BOTH LUMANS OF TICC LINE ABLE TO FLUSH BUT NO BLOOD RETURN WITH ASPERATION. PER STANDING ORDER CATHFLOW DONE. GOOD BRISK BLOOD RETURN ESTABLISHED TO BOTH LUMANS. DR. JOHN HERE AND PT SEEN. NO NEW ORDERS RECIEVED. PT K+ LEVEL NOTED AT 3.4 TODAY. PER STANDING ORDER K+ INFUSION STARTED. AT 1430 PT STATED HER PRIMARY PHYSICIAN DR. BONNER COULD SEE HER AND REQUESTED TO STOP INFUSION. PER REQUEST INFUSION STOPPED AND BOTH LUMANS OF TICC FLUSHED. DENIES QUESTIONS OR NEEDS AT DISCHARGE.
--- NOTE | 2018-10-12 12:19 | CON ---
[address] [address] CONSULTATION Name: GUS NASCIMENTO Room: [facility].#: [id number] Admission: 10/10/18 Attend Phys: Chalo Hua MD Discharge: Date of : 75 Report #: [id number] THIS REPORT FOR: //name// CC: Chalo Saleh DATE OF SERVICE: 10/10/2018 INFECTIOUS DISEASE CONSULTATION FOLLOWUP ATTENDING PHYSICIAN: Dr. Chalo Hua. 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 HISTORY OF PRESENT ILLNESS: The patient returns today in followup as scheduled. She was seen in the outpatient infusion area. She has ongoing issues with her right knee pain. This was brought to my attention last week, had been evaluated by Orthopedic Surgery. There was concern about possible total knee arthroplasty infection given her recent history perhaps due to the disseminated Mycobacterium chelonae and was aspirated. The results are in progress, although she did receive through her portal information that the AFB smear as well as the fungal smear from the bloody aspirate were negative. It is not clear if she has had significant fevers at this point. She has ongoing issues with multifocal pain. She is maintained on supplemental oxygen per nasal cannula. Appetite has been variable. ASSESSMENT AND PLAN: Disseminated Mycobacterium chelonae infection. I had restarted the amikacin. Creatinine today was 1.0, we will follow that with labs on a 3 times a week basis. The fact that it is a rapid grower, we will hopefully have an answer within the next 7-10 days. If it is positive, certainly there is not a reasonable expectation that antibiotics will cure this, would have to have explantation treatment. Again if it is a regular bacterial infection, scenario would be similar. If it is negative, certainly raises a question of what other considerations would be involved in the differential. In any event, still may need to have the joint taken out given the severe nature of the pain at this point. We will follow closely. <ELECTRONICALLY SIGNED> By: Mehdi Salgado MD 10/12/18 1219 0916 [id number] Salgado MD /nt
== END ==
LOC: M.INFUS 00:12
PROVIDERS: Specialist
DX: E87.6 Hypokalemia (principal); A31.8 Other mycobacterial infections; J44.9 Chronic obstructive pulmonary disease, unspecified

== ENCOUNTER → 2018-10-10 | Outpatient (CLI) | payer MEDICARE, OTHER, MEDICAID | LOC: M.WC 00:16 | DX: T81.31XD Disruption of external operation (surgical) wound, not elsewhere classified, subsequent encounter (principal); J44.9 Chronic obstructive pulmonary disease, unspecified; I25.2 Old myocardial infarction; K21.9 Gastro-esophageal reflux disease without esophagitis; M06.9 Rheumatoid arthritis, unspecified; M81.0 Age-related osteoporosis without current pathological fracture; F32.9 Major depressive disorder, single episode, unspecified; F41.9 Anxiety disorder, unspecified; Z86.711 Personal history of pulmonary embolism; Z96.651 Presence of right artificial knee joint; Y83.8 Other surgical procedures as the cause of abnormal reaction of the patient, or of later complication, without mention of misadventure at the time of the procedure ==

== ENCOUNTER → 2018-10-12 | Outpatient (CLI) | payer MEDICARE, OTHER, MEDICAID ==
--- NOTE | 2018-10-12 10:24 | NUR ---
ARRIVED AMBULATORY. MADE SELF COMFORTABLE IN RECLINER. PT ON HOME OXYGEN. DUAL LUMEN TICC LINE NOTED TO LEFT UPPER CHEST INTACT WITH TRANSPARENT DRESSING. BOTH LUMENS OF TICC LINE ABLE TO FLUSH BUT NO BLOOD RETURN NOTED WITH ASPIRATION. BOTH LUMENS FLUSHED BRISKLY W/SALINE FLUSHES, 20 ML EACH. GOOD BLOOD RETURN NOTED THEN WITH ASPIRATION. LABS DRAWN. PT'S K LEVEL IS 3.9 TODAY. PT NOTIFIED OF CURRENT K LEVEL. PER STANDING ORDER, NO K TO BE RECEIVED. PT TO RETURN FOR WEEKLY INFUSION APPOINTMENT ON September. PT VERBALIZED UNDERSTANDING. DENIES QUESTIONS OR NEEDS AT DISCHARGE.
[2018-10-12 10:50] LABS: ALBUMIN 3.5 g/dL (3.4-5.0); CREATININE 1.1 mg/dL (0.6-1.3); POTASSIUM 3.9 mmol/L (3.5-5.1); TOTAL BILIRUBIN 0.2 mg/dL (<0.1-1.0); TOTAL PROTEIN 7.9 g/dL (6.4-8.2)
== END ==
LOC: M.INFUS 04:55
PROVIDERS: Internal Medicine Nephrology
DX: E87.6 Hypokalemia (principal)

== ENCOUNTER → 2018-10-14 | Outpatient (CLI) | payer MEDICARE, OTHER, MEDICAID ==
[2018-10-14 10:30] VITALS: BP 101/68
[2018-10-14 10:54] LABS: CALCIUM 8.8 mg/dL (8.5-10.1); CREATININE 0.9 mg/dL (0.6-1.3); POTASSIUM 3.5 mmol/L (3.5-5.1)
[2018-10-14 13:00] VITALS: BP 106/66
--- NOTE | 2018-10-14 13:06 | NUR ---
PATIENT ELECTED TO BETSY RECEIVE 20 MEQ OF POTASSIUM DESPITTE K+ VALUE AT 3.5 TODAY. TOLERATED INFUSION WELL, DISMISSED AMBULATORY WITH S.O. AT SIDE.
--- NOTE | 2018-10-17 07:39 | CON ---
[address] [address] CONSULTATION Name: AZAMGUS Chio Room: [facility].#: [id number] Admission: 10/14/18 Attend Phys: Chalo Hua MD Discharge: Date of : 75 Report #: [id number] THIS REPORT FOR: //name// CC: Chalo Gomes Therese DATE OF SERVICE: 10/14/2018 INFECTIOUS DISEASE CONSULTATION AND FOLLOWUP ATTENDING PHYSICIAN: Chalo Hua MD HISTORY OF PRESENT ILLNESS: She is here for followup. The patient with infusion. I am seeing her for disseminated Mycobacterium chelonae infection. Generally, she has ongoing issues with right knee pain; this is the site of previous knee arthroplasty. There is concern about possible dissemination and seeding due to the Mycobacterium. Aspiration was collected roughly 8 days ago. Initial studies suggest negative AFB smear as well as fungal smear. Cultures are pending. It is notable that Mycobacterium chelonae is a rapid grower, so the expectation is if it is to be isolated, it should happen within a couple of weeks. She has ongoing issues with the left proximal upper extremity inflammatory subcutaneous nodule. Of note, she has not seen General Surgery in followup. There is potential for excision due to suspected mycobacterial infection. She is otherwise maintaining with her multiple types of complaints that are chronic and not expected to significantly improve. ASSESSMENT AND PLAN: Mycobacterium chelonae infection, possible dissemination with seeding in the right knee. Awaiting Orthopedic Surgery recommendations. Cultures are pending. There is a plan to image her with CT and perhaps aspirate. We will continue the amikacin for now. Labs are pending including the creatinine. We will see her in close followup. <ELECTRONICALLY SIGNED> By: Mehdi Salgado MD 10/17/18 0739 1412 [id number] Salgado MD /nt
== END ==
LOC: M.INFUS 01:52
PROVIDERS: Internal Medicine Nephrology
DX: E87.6 Hypokalemia (principal); A31.8 Other mycobacterial infections; J44.9 Chronic obstructive pulmonary disease, unspecified

== ENCOUNTER → 2018-10-17 | Outpatient (CLI) | payer MEDICARE, OTHER, MEDICAID | LOC: M.WC 07:23 | DX: T81.31XD Disruption of external operation (surgical) wound, not elsewhere classified, subsequent encounter (principal); I25.2 Old myocardial infarction; E87.6 Hypokalemia; M06.9 Rheumatoid arthritis, unspecified; M81.0 Age-related osteoporosis without current pathological fracture; K21.9 Gastro-esophageal reflux disease without esophagitis; D53.9 Nutritional anemia, unspecified; J40 Bronchitis, not specified as acute or chronic; J44.9 Chronic obstructive pulmonary disease, unspecified; F32.9 Major depressive disorder, single episode, unspecified; F41.9 Anxiety disorder, unspecified; Z86.711 Personal history of pulmonary embolism; Z96.651 Presence of right artificial knee joint; Y83.8 Other surgical procedures as the cause of abnormal reaction of the patient, or of later complication, without mention of misadventure at the time of the procedure ==

== ENCOUNTER → 2018-10-17 | Outpatient (CLI) | payer MEDICARE, OTHER, MEDICAID ==
[2018-10-17 10:15] VITALS: BP 120/71
[2018-10-17 10:23] LABS: ABSOLUTE BASOPHILS 0.1 thou/uL (0.0-0.2); ABSOLUTE EOSINOPHILS 0.1 thou/uL (0.0-0.7); ABSOLUTE LYMPHOCYTES 2.8 thou/uL (0.8-5.3); ABSOLUTE MONOCYTES 0.7 thou/uL (0.0-1.2); ABSOLUTE NEUTROPHILS 7.2 thou/uL (1.6-8.1); BASOPHILS 0.8 %; EOSINOPHILS 1.2 %; HEMATOCRIT 36.9 % (37.0-47.0); HEMOGLOBIN 11.8 gm/dL (12.0-15.0); LYMPHOCYTES 25.7 %; MCH 28.5 pg (26.0-34.0); MCHC 32.1 g/dL (28.0-37.0); MCV 88.8 fL (80.0-100.0); MONOCYTES 6.7 %; MPV 7.3 fl. (7.2-11.1); NUCLEATED RBCS 0 /100WBC; PLATELET COUNT* 396 thou/uL (150-400); POLYS 65.6 %; RBC 4.15 mil/uL (4.20-5.00); WBC 10.9 thou/uL (4.0-11.0)
[2018-10-17 10:38] LABS: ALBUMIN 3.4 g/dL (3.4-5.0); CALCIUM 8.7 mg/dL (8.5-10.1); POTASSIUM 3.8 mmol/L (3.5-5.1); TOTAL BILIRUBIN 0.1 mg/dL (<0.1-1.0); TOTAL PROTEIN 7.7 g/dL (6.4-8.2)
--- NOTE | 2018-10-17 12:01 | NUR ---
PATIENT POTASSIUM= 3.8 TODAY. POTASSIUM INFUSION HELD PER ORDER. PATIENT DISCHARGED TO DR. OFFICE APPOINTMENT.
== END ==
LOC: M.INFUS 06:23
PROVIDERS: Internal Medicine Nephrology
DX: E87.6 Hypokalemia (principal)

== ENCOUNTER 2018-10-20 17:26 | Emergency (ER) | payer MEDICARE, MEDICAID ==
[~2018-10-20] VITALS: Ht 162.6 cm; Wt 90.7 kg
[2018-10-20 19:06] LABS: ABSOLUTE BASOPHILS 0.1 thou/uL (0.0-0.2); ABSOLUTE EOSINOPHILS 0.1 thou/uL (0.0-0.7); ABSOLUTE LYMPHOCYTES 1.9 thou/uL (0.8-5.3); ABSOLUTE MONOCYTES 0.6 thou/uL (0.0-1.2); ABSOLUTE NEUTROPHILS 7.8 thou/uL (1.6-8.1); BASOPHILS 0.9 %; EOSINOPHILS 1.2 %; HEMATOCRIT 38.1 % (37.0-47.0); HEMOGLOBIN 12.3 gm/dL (12.0-15.0); LYMPHOCYTES 18.3 %; MCH 28.4 pg (26.0-34.0); MCHC 32.3 g/dL (28.0-37.0); MONOCYTES 5.8 %; MPV 7.5 fl. (7.2-11.1); NUCLEATED RBCS 0 /100WBC; PLATELET COUNT* 392 thou/uL (150-400); POLYS 73.8 %; RBC 4.33 mil/uL (4.20-5.00); RDW-CV 14.8 % (10.5-14.5); WBC 10.6 thou/uL (4.0-11.0)
[2018-10-20 19:16] LABS: ANION GAP 8 mmol/L (7-16); BUN 10 mg/dL (7-18); CHLORIDE 103 mmol/L (98-107); CO2 28 mmol/L (21-32); CREATININE 1.1 mg/dL (0.6-1.3); GLUCOSE 91 mg/dL (70-99); POTASSIUM 4.1 mmol/L (3.5-5.1); SODIUM 139 mmol/L (136-145)
[2018-10-20 19:26] LABS: ALBUMIN 3.5 g/dL (3.4-5.0); ALKALINE PHOSPHATASE 79 U/L (46-116); NT-PRO BRAIN NAT PEPTIDE 23 pg/mL (<300); SGOT 11 U/L (15-37); SGPT 19 U/L (30-65); TOTAL BILIRUBIN 0.2 mg/dL (<0.1-1.0); TOTAL PROTEIN 7.9 g/dL (6.4-8.2); TROPONIN-I LEVEL <0.06 ng/mL (<0.06)
[2018-10-20 19:45] LABS: APTT 27.1 Seconds (25.0-31.3); PROTIME 10.6 Seconds (9.20-11.50)
[2018-10-20 20:57] LABS: URINE BILIRUBIN NEGATIVE (Negative); URINE BLOOD NEGATIVE (Negative); URINE CLARITY CLEAR; URINE COLOR YELLOW; URINE GLUCOSE-RANDOM NEGATIVE (Negative); URINE KETONES NEGATIVE (Negative); URINE LEUKOCYTES-REFLEX NEGATIVE (Negative); URINE NITRITE-REFLEX NEGATIVE (Negative); URINE PROTEIN TRACE (Negative); URINE SPECIFIC GRAVITY >= 1.030 (1.005-1.030); URINE UROBILINOGEN 0.2 E.U./dl (0.2-1.0)
[2018-10-20 21:14] LABS: AMP/METHAMP Negative (Negative); BARBITURATES Negative (Negative); BENZODIAZEPINES Negative (Negative); COCAINE Negative (Negative); METHADONE Negative (Negative); OPIATES POSITIVE (Negative); PCP Negative (Negative); THC Negative (Negative)
[2018-10-20 22:01] VITALS: BP 110/60
--- NOTE | 2018-10-21 11:20 | EKG ---
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: : 1975 Requested By: Tracey Christopher Order Number: [id number] MD: Enrique Lee Measurements Intervals [place] Rate: 92 P: 43 NH: 200 QRS: 11 QRSD: 83 T: 16 QT: 361 QTc: 447 Interpretive Statements Sinus rhythm Borderline prolonged NH interval Baseline wander in lead(s) V5,V6 Compared to ECG 09/18/2018 15:09:59 Sinus tachycardia no longer present Electronically Signed On 10-21-2018 11:20:34 CDT by Enrique Lee [email or web address] <ELECTRONICALLY SIGNED> By: Enrique Lee MD, [facility] 10/21/18 1120 1840 39 Enrique Lee MD, [facility] /EPI
== END 2018-10-20 22:03 | disposition home or self-care (01) ==
LOC: M.ERS 17:26
PROVIDERS: Nurse Practitioner Family
DX: R53.1 Weakness (principal); R41.82 Altered mental status, unspecified; I25.2 Old myocardial infarction; J44.9 Chronic obstructive pulmonary disease, unspecified; M79.7 Fibromyalgia; Z86.711 Personal history of pulmonary embolism; Z95.2 Presence of prosthetic heart valve; Z98.890 Other specified postprocedural states; Z88.1 Allergy status to other antibiotic agents; Z91.040 Latex allergy status; Z88.6 Allergy status to analgesic agent; Z88.5 Allergy status to narcotic agent; Z88.8 Allergy status to other drugs, medicaments and biological substances

== ENCOUNTER → 2018-10-26 | Outpatient (CLI) | payer MEDICARE, OTHER, MEDICAID ==
[2018-10-26 10:18] LABS: HEMATOCRIT 36.9 % (37.0-47.0); HEMOGLOBIN 11.5 gm/dL (12.0-15.0); MCH 27.3 pg (26.0-34.0); MCHC 31.3 g/dL (28.0-37.0); MCV 87.4 fL (80.0-100.0); MPV 7.6 fl. (7.2-11.1); RBC 4.22 mil/uL (4.20-5.00); RDW-CV 14.6 % (10.5-14.5); WBC 11.8 thou/uL (4.0-11.0)
[2018-10-26 10:21] LABS: CALCIUM 9.2 mg/dL (8.5-10.1); CREATININE 1.2 mg/dL (0.6-1.3); POTASSIUM 3.8 mmol/L (3.5-5.1)
[2018-10-26 10:26] LABS: ALBUMIN 3.6 g/dL (3.4-5.0); TOTAL BILIRUBIN 0.2 mg/dL (<0.1-1.0)
--- NOTE | 2018-10-26 14:51 | NUR ---
ARRIVED MAUBLATORY. MADE SELF COMFORTABLE. DUAL LUMAN TICC TO LEFT UPPER CHEST INTACT AND PATENT. LABS DRAWN PER STANDING ORDER. LAB RESULTS EVALUATED AND K+ LEVEL 3.8 PER ORDER NO INFUSION NEEDED. PT UPDATED. VOICED UNDERSTANDING AND AGREED. TICC LINE FLUSHED. DENIES NEEDS AT DISCHARGE. TICC DRESSING CHANGED.
== END ==
LOC: M.INFUS 05:17
PROVIDERS: Internal Medicine Nephrology
DX: E87.6 Hypokalemia (principal)

== ENCOUNTER → 2018-10-28 | Outpatient (CLI) | payer MEDICARE, OTHER, MEDICAID ==
[2018-10-28 10:25] VITALS: BP 123/78
[2018-10-28 11:06] LABS: ALBUMIN 3.3 g/dL (3.4-5.0); CALCIUM 8.6 mg/dL (8.5-10.1); CREATININE 1.1 mg/dL (0.6-1.3); POTASSIUM 3.5 mmol/L (3.5-5.1); TOTAL BILIRUBIN 0.2 mg/dL (<0.1-1.0); TOTAL PROTEIN 7.4 g/dL (6.4-8.2)
[2018-10-28 15:05] VITALS: BP 130/74
--- NOTE | 2018-10-28 15:24 | NUR ---
ARRIVED AMBULATORY. MADE SELF COMFORTABLE. DUAL LUMAN TICC LINE ABLE TO FLUSH THRU BUT UNABLE TO DRAW BLOOD WITH ASPERATION. CATH FLOW COMPLETED PER STANDING ORDER ADN LABS DRAWN FROM RIGHT AC BY RN. LAB RESULTS SHOW K+ AT 3.5 PER STANDING ORDER K+ INFUSION TO FOLLOW CATH FLOW. CATH FLOW RECHECKED AT 1 HOUR AND BOTH LUMANS NOTED TO BE CLEAR. K+ INFUSION STARTED. AT 1510 PT REPORTS HER SON DOES NOT HAVE A [place] TO GET IN TO HOUSE AFTER SCHOOL AND REQUEST INFUSION BE STOPPED. PER REQUEST INFUSION STOPPED. LINE FLUSHED. DENEIS QUESTIONS OR NEEDS AT DISCHARGE.
--- NOTE | 2018-10-29 09:22 | CON ---
[address] [address] CONSULTATION Name: GUS NASCIMENTO Room: [facility].#: [id number] Admission: 10/28/18 Attend Phys: Chalo Hua MD Discharge: Date of : 75 Report #: [id number] THIS REPORT FOR: //name// CC: Chalo Wolfeully DATE OF SERVICE: 10/28/2018 INFECTIOUS DISEASE CONSULTATION ATTENDING PHYSICIAN: Dr. Hua. REASON FOR EVALUATION: Ongoing treatment for Mycobacterium chelonae disseminated infection with more recent suspicion of right total knee arthroplasty complicated by mycobacterial infection as well. She returns today as scheduled. It has been roughly 2 weeks since she was evaluated for possible right total knee arthroplasty infection. The suspicion was due to dissemination of Mycobacterium chelonae infection. She has been on therapy for an extended period of time with amikacin been following her creatinine, has essentially stayed the course of last month 0.9 to 1.2 range. She complains of being quite fatigued, weak. She has had some low-grade fever, temperature elevations. Knee pain is otherwise similar. Of note, did undergo operative biopsy and evacuation of the subcutaneous lesion noted in her left proximal upper extremity, waiting for that results as well. ASSESSMENT AND PLAN: Mycobacterium chelonae infection. We will continue amikacin for now, sending results are pending. It has been roughly 2 weeks if did have evidence of rapid grower such as having chelonae in the aspirate of the knee. It should be in the timeframe or converse positive. In that event, would need to have removal of the total knee arthroplasty. We will follow her closely. She is scheduled 3 times weekly in the outpatient infusion area. <ELECTRONICALLY SIGNED> By: Mehdi Salgado MD 10/29/18 0922 1102 2131Mehdi Salgado MD /nt
== END ==
LOC: M.INFUS 09-22 10:30
PROVIDERS: Internal Medicine Nephrology
DX: E87.6 Hypokalemia (principal); A31.8 Other mycobacterial infections; J44.9 Chronic obstructive pulmonary disease, unspecified; M43.00 Spondylolysis, site unspecified

== ENCOUNTER → 2018-10-31 | Outpatient (CLI) | payer MEDICARE, OTHER, MEDICAID | LOC: M.WC 05:12 | DX: T81.31XD Disruption of external operation (surgical) wound, not elsewhere classified, subsequent encounter (principal); I25.2 Old myocardial infarction; J44.9 Chronic obstructive pulmonary disease, unspecified; K21.9 Gastro-esophageal reflux disease without esophagitis; M06.9 Rheumatoid arthritis, unspecified; M81.0 Age-related osteoporosis without current pathological fracture; F32.9 Major depressive disorder, single episode, unspecified; F41.9 Anxiety disorder, unspecified; Z86.711 Personal history of pulmonary embolism; Z96.651 Presence of right artificial knee joint; Y83.8 Other surgical procedures as the cause of abnormal reaction of the patient, or of later complication, without mention of misadventure at the time of the procedure ==

== ENCOUNTER → 2018-10-31 | Outpatient (CLI) | payer MEDICARE, OTHER, MEDICAID ==
[2018-10-31 10:28] LABS: ABSOLUTE BASOPHILS 0.1 thou/uL (0.0-0.2); ABSOLUTE EOSINOPHILS 0.2 thou/uL (0.0-0.7); ABSOLUTE LYMPHOCYTES 2.1 thou/uL (0.8-5.3); ABSOLUTE MONOCYTES 0.7 thou/uL (0.0-1.2); ABSOLUTE NEUTROPHILS 7.9 thou/uL (1.6-8.1); BASOPHILS 0.7 %; EOSINOPHILS 1.4 %; HEMATOCRIT 36.3 % (37.0-47.0); HEMOGLOBIN 11.7 gm/dL (12.0-15.0); LYMPHOCYTES 19.3 %; MCH 27.9 pg (26.0-34.0); MCHC 32.3 g/dL (28.0-37.0); MCV 86.4 fL (80.0-100.0); MONOCYTES 6.4 %; NUCLEATED RBCS 0 /100WBC; PLATELET COUNT* 465 thou/uL (150-400); POLYS 72.2 %; RDW-CV 14.8 % (10.5-14.5)
[2018-10-31 10:30] VITALS: BP 112/60
[2018-10-31 10:44] LABS: ALBUMIN 3.6 g/dL (3.4-5.0); CREATININE 1.1 mg/dL (0.6-1.3); POTASSIUM 3.6 mmol/L (3.5-5.1); TOTAL BILIRUBIN 0.2 mg/dL (<0.1-1.0)
[2018-10-31 14:50] VITALS: BP 115/80
== END ==
LOC: M.INFUS 05:21
PROVIDERS: Internal Medicine Nephrology
DX: E87.6 Hypokalemia (principal)

== ENCOUNTER → 2018-11-02 | Outpatient (CLI) | payer MEDICARE, OTHER, MEDICAID ==
[2018-11-02 10:30] VITALS: BP 132/75
[2018-11-02 10:57] LABS: ALBUMIN 3.5 g/dL (3.4-5.0); CALCIUM 9.1 mg/dL (8.5-10.1); POTASSIUM 3.5 mmol/L (3.5-5.1); TOTAL BILIRUBIN 0.2 mg/dL (<0.1-1.0)
[2018-11-02 15:00] VITALS: BP 130/70
--- NOTE | 2018-11-02 15:35 | NUR ---
DUAL LUMAN TICC LINE LEFT CHEST INTACT AND PATENT. INFUSION COMPLETED AND TOLERATED WELL.
== END ==
LOC: M.INFUS 05:05
PROVIDERS: Internal Medicine Nephrology
DX: E87.6 Hypokalemia (principal)

== ENCOUNTER 2018-11-03 17:00 | Emergency (ER) | payer MEDICARE, OTHER, MEDICAID ==
[~2018-11-03] VITALS: Ht 162.6 cm; Wt 90.7 kg
[2018-11-03 19:10] VITALS: BP 137/94
== END 2018-11-03 19:10 | disposition home or self-care (01) ==
LOC: M.ERS 17:00
DX: S20.221A Contusion of right back wall of thorax, initial encounter (principal); M25.511 Pain in right shoulder; J44.9 Chronic obstructive pulmonary disease, unspecified; M79.7 Fibromyalgia; Z88.1 Allergy status to other antibiotic agents; Z91.040 Latex allergy status; Z88.8 Allergy status to other drugs, medicaments and biological substances; Y04.2XXA Assault by strike against or bumped into by another person, initial encounter; Y92.89 Other specified places as the place of occurrence of the external cause; Y93.89 Activity, other specified; Y99.8 Other external cause status

== ENCOUNTER → 2018-11-07 | Outpatient (CLI) | payer MEDICARE, OTHER, MEDICAID ==
[2018-11-07 10:46] LABS: ABSOLUTE EOSINOPHILS 0.1 thou/uL (0.0-0.7); ABSOLUTE LYMPHOCYTES 1.9 thou/uL (0.8-5.3); ABSOLUTE MONOCYTES 0.7 thou/uL (0.0-1.2); ABSOLUTE NEUTROPHILS 6.1 thou/uL (1.6-8.1); BASOPHILS 0.4 %; EOSINOPHILS 1.2 %; HEMATOCRIT 35.8 % (37.0-47.0); LYMPHOCYTES 21.2 %; MCH 27.8 pg (26.0-34.0); MCHC 33.4 g/dL (28.0-37.0); MCV 83.3 fL (80.0-100.0); MONOCYTES 7.5 %; MPV 7.6 fl. (7.2-11.1); NUCLEATED RBCS 0 /100WBC; PLATELET COUNT* 443 thou/uL (150-400); POLYS 69.7 %; RDW-CV 14.7 % (10.5-14.5); WBC 8.8 thou/uL (4.0-11.0)
[2018-11-07 10:57] LABS: ALBUMIN 3.4 g/dL (3.4-5.0); CALCIUM 8.8 mg/dL (8.5-10.1); CREATININE 1.1 mg/dL (0.6-1.3); POTASSIUM 3.3 mmol/L (3.5-5.1); TOTAL BILIRUBIN 0.2 mg/dL (<0.1-1.0); TOTAL PROTEIN 7.9 g/dL (6.4-8.2)
--- NOTE | 2018-11-07 15:48 | NUR ---
ARRIVED AMBULATORY. MADE SELF COMFORTABLE IN RECLINER. DUAL LUMAN [facility] LINE NOTED TO BE SLUGISH DURING LAB DRAW. PRE STANDING ORDER CATH FLOW INSTILLED. PT REPORTED SHE HAD APPOINTMENT WITH SON'S SOCIAL/SURGICAL INSTRUMENT TECHNICIAN RELATED TO INCIDENT THAT SENT HER TO ED 4 DAYS AGO TODAY AT 1130. AGAINST MEDICAL ADVICE PT LEFT FOR AP[facility]MENT [facility]. STATED SHE WOULD BE BACK AFTER APPOINTMENT. RECIEVED CALL AT 1430 STATING SHE HAD JUST FINISHED APPOINTMENT. STATED SHE WOULD "TAKE CARE OF LINE HERSELF AT HOME" STATED SHE WOULD FLUSH AND REPLACE CAPS AND BE IN FOR NEXT APPOINTMENT.
--- NOTE | 2018-11-08 07:47 | CON ---
[address] [address] CONSULTATION Name: AZAMGUS K Room: [facility]..#: [id number] Admission: 11/07/18 Attend Phys: Chalo Hua MD Discharge: Date of : 75 Report #: [id number] THIS REPORT FOR: //name// CC: Chalo Gomes Therese DATE OF SERVICE: 11/07/2018 She is here for evaluation, multiple reasons, which is disseminated Mycobacterium chelonae. She currently has persistent discomfort, multifocal pain, including her right knee that has been evaluated. There is concern about possible total knee arthroplasty infection. Aspiration has been collected roughly a month ago; we are still waiting on that and AFB cultures. In addition to that, she had a mass removed from her proximal left upper extremity roughly 3 weeks ago as well. This was a concern for disseminated Mycobacterium as well. Review of recent labs, there are some pending today. Creatinine is still 1 though she has been on amikacin for a number of weeks. We will continue current approach. I will reach out to Dr. Terry, the surgeon and Dr. Flynn, the orthopedic surgeon, to see if they have any more updated culture results. We will monitor expectantly. <ELECTRONICALLY SIGNED> By: eMhdi Salgado MD 11/08/18 0747 1114 2223Joseshalom Salgado MD /dionisio
== END ==
LOC: M.INFUS 01:56
PROVIDERS: Specialist
DX: Z45.2 Encounter for adjustment and management of vascular access device (principal); N17.9 Acute kidney failure, unspecified; E87.6 Hypokalemia

== ENCOUNTER → 2018-11-07 | Outpatient (CLI) | payer MEDICARE, OTHER, MEDICAID | LOC: M.WC 01:59 | DX: T81.31XD Disruption of external operation (surgical) wound, not elsewhere classified, subsequent encounter (principal); I25.2 Old myocardial infarction; J44.9 Chronic obstructive pulmonary disease, unspecified; K21.9 Gastro-esophageal reflux disease without esophagitis; M06.9 Rheumatoid arthritis, unspecified; M81.0 Age-related osteoporosis without current pathological fracture; F32.9 Major depressive disorder, single episode, unspecified; F41.9 Anxiety disorder, unspecified; Z86.711 Personal history of pulmonary embolism; Z96.651 Presence of right artificial knee joint; Y83.8 Other surgical procedures as the cause of abnormal reaction of the patient, or of later complication, without mention of misadventure at the time of the procedure ==

== ENCOUNTER → 2018-11-09 | Outpatient (CLI) | payer MEDICARE, OTHER, MEDICAID ==
[2018-11-09 10:30] VITALS: BP 122/74
[2018-11-09 11:17] LABS: ALBUMIN 3.2 g/dL (3.4-5.0); CALCIUM 8.8 mg/dL (8.5-10.1); CREATININE 1.1 mg/dL (0.6-1.3); POTASSIUM 3.4 mmol/L (3.5-5.1); TOTAL BILIRUBIN 0.2 mg/dL (<0.1-1.0); TOTAL PROTEIN 7.4 g/dL (6.4-8.2)
[2018-11-09 14:25] VITALS: BP 134/65
--- NOTE | 2018-11-09 14:40 | NUR ---
ARRIVED AMBULATORY. MADE SELF COMFORTABLE. DUAL LUMAN TICC INTACT AND BOTH LUMANS PATENT. LAB RESULTS EVALUATED AND POTASSIUM INFUSION STARTED. 1420 PT REQUEST TO STOP INFUSION PRIOR TO FINISHING. STATED SHE HAS APPOINTMENT. INFUSION STOPPED. LINE FLUSHED. DENIES NEEDS AT DISCHARGE.
== END ==
LOC: M.INFUS 05:23
PROVIDERS: Specialist
DX: E87.6 Hypokalemia (principal); N17.9 Acute kidney failure, unspecified

== ENCOUNTER → 2018-11-11 | Outpatient (CLI) | payer MEDICARE, OTHER, MEDICAID ==
[2018-11-11 10:30] VITALS: BP 148/83
[2018-11-11 10:56] LABS: CALCIUM 8.6 mg/dL (8.5-10.1); CREATININE 1.1 mg/dL (0.6-1.3); POTASSIUM 3.2 mmol/L (3.5-5.1)
[2018-11-11 15:19] VITALS: BP 125/78
--- NOTE | 2018-11-14 07:26 | CON ---
[address] [address] CONSULTATION Name: GUS NASCIMENTO Room: [facility].#: [id number] Admission: 11/11/18 Attend Phys: Chalo Hua MD Discharge: Date of : 75 Report #: [id number] THIS REPORT FOR: //name// CC: Chalo Hua Eliseo Saleh DATE OF SERVICE: 11/11/2018 INFECTIOUS DISEASE CONSULTATION ATTENDING PHYSICIAN: Chalo Hua MD HISTORY OF PRESENT ILLNESS: She is here for followup ongoing treatment for disseminated Mycobacterium chelonae infection. She still has significant pain associated with her right knee waiting to hear about the results of the AFB culture and smear was negative. She has description of the pain about the mid portion of the thigh. She attributes to the femur and it is quite tender making it difficult to walk. She has generalized pruritus, which she attributes to the morphine she has been transitioned to; otherwise, she has similar discomfort. On evaluation, the biopsy sites are healing well. She questions whether there is a new subcutaneous inflammatory mass proximal aspect of the right bicep. ASSESSMENT AND PLAN: Disseminated Mycobacterium chelonae. At this point her creatinine is maintaining. She is not having any vestibular type signs or symptoms. She is on the amikacin, did call Dr. Terry's office, awaiting results micro and path and prefer to get her off the aminoglycoside if at all possible. Seemingly, she is tolerating it fairly well. We will continue to work closely with her. <ELECTRONICALLY SIGNED> By: Mehdi Salgado MD 11/14/18 0726 1057 1457Joseshalom Salgado MD /nt
== END ==
LOC: M.INFUS 05:24
PROVIDERS: Internal Medicine Nephrology
DX: E87.6 Hypokalemia (principal)

== ENCOUNTER → 2018-11-14 | Outpatient (CLI) | payer MEDICARE, OTHER, MEDICAID ==
[2018-11-14 10:45] VITALS: BP 132/78
[2018-11-14 11:07] LABS: ABSOLUTE BASOPHILS 0.1 thou/uL (0.0-0.2); ABSOLUTE EOSINOPHILS 0.2 thou/uL (0.0-0.7); ABSOLUTE LYMPHOCYTES 3.1 thou/uL (0.8-5.3); ABSOLUTE MONOCYTES 0.7 thou/uL (0.0-1.2); ABSOLUTE NEUTROPHILS 4.3 thou/uL (1.6-8.1); EOSINOPHILS 2.9 %; HEMATOCRIT 34.6 % (37.0-47.0); HEMOGLOBIN 11.4 gm/dL (12.0-15.0); LYMPHOCYTES 36.4 %; MCH 27.3 pg (26.0-34.0); MCHC 32.9 g/dL (28.0-37.0); MONOCYTES 8.8 %; MPV 7.2 fl. (7.2-11.1); NUCLEATED RBCS 0 /100WBC; PLATELET COUNT* 488 thou/uL (150-400); POLYS 50.9 %; RBC 4.17 mil/uL (4.20-5.00); RDW-CV 14.9 % (10.5-14.5); WBC 8.5 thou/uL (4.0-11.0)
[2018-11-14 11:19] LABS: ALBUMIN 3.2 g/dL (3.4-5.0); CALCIUM 8.8 mg/dL (8.5-10.1); CREATININE 1.2 mg/dL (0.6-1.3); TOTAL BILIRUBIN 0.2 mg/dL (<0.1-1.0); TOTAL PROTEIN 7.7 g/dL (6.4-8.2)
[2018-11-14 15:30] VITALS: BP 140/75
== END ==
LOC: M.INFUS 04:58
PROVIDERS: Specialist
DX: E87.6 Hypokalemia (principal)

== ENCOUNTER 2018-11-15 19:25 | Emergency (ER) | payer MEDICARE, OTHER, MEDICAID ==
[~2018-11-15] VITALS: Ht 165.1 cm; Wt 99.8 kg
[2018-11-15 20:25] VITALS: BP 132/79
== END 2018-11-15 20:27 | disposition home or self-care (01) ==
LOC: M.ERS 19:25
DX: M79.605 Pain in left leg (principal); M79.89 Other specified soft tissue disorders; I25.2 Old myocardial infarction; J44.9 Chronic obstructive pulmonary disease, unspecified; M79.7 Fibromyalgia; Z86.711 Personal history of pulmonary embolism; Z98.890 Other specified postprocedural states; Z88.1 Allergy status to other antibiotic agents; Z91.040 Latex allergy status; Z88.5 Allergy status to narcotic agent; Z88.8 Allergy status to other drugs, medicaments and biological substances

== ENCOUNTER → 2018-11-16 | Outpatient (CLI) | payer MEDICARE, MEDICAID ==
[2018-11-16 10:30] VITALS: BP 137/72
[2018-11-16 10:57] LABS: CALCIUM 8.9 mg/dL (8.5-10.1); CREATININE 1.2 mg/dL (0.6-1.3); POTASSIUM 3.3 mmol/L (3.5-5.1)
[2018-11-16 15:00] VITALS: BP 128/68
== END ==
LOC: M.INFUS 04:57
PROVIDERS: Specialist
DX: E87.6 Hypokalemia (principal); N17.9 Acute kidney failure, unspecified

== ENCOUNTER → 2018-11-21 | Outpatient (CLI) | payer MEDICARE, MEDICAID | LOC: M.WC 02:00 | DX: T81.31XD Disruption of external operation (surgical) wound, not elsewhere classified, subsequent encounter (principal); I25.2 Old myocardial infarction; J44.9 Chronic obstructive pulmonary disease, unspecified; K21.9 Gastro-esophageal reflux disease without esophagitis; M06.9 Rheumatoid arthritis, unspecified; M81.0 Age-related osteoporosis without current pathological fracture; F41.9 Anxiety disorder, unspecified; F32.9 Major depressive disorder, single episode, unspecified; Z86.711 Personal history of pulmonary embolism; Z96.651 Presence of right artificial knee joint; Y83.8 Other surgical procedures as the cause of abnormal reaction of the patient, or of later complication, without mention of misadventure at the time of the procedure ==

== ENCOUNTER → 2018-11-21 | Outpatient (CLI) | payer MEDICARE, MEDICAID ==
[2018-11-21 10:39] LABS: ABSOLUTE BASOPHILS 0.1 thou/uL (0.0-0.2); ABSOLUTE EOSINOPHILS 0.1 thou/uL (0.0-0.7); ABSOLUTE LYMPHOCYTES 1.7 thou/uL (0.8-5.3); ABSOLUTE MONOCYTES 0.3 thou/uL (0.0-1.2); ABSOLUTE NEUTROPHILS 4.5 thou/uL (1.6-8.1); BASOPHILS 0.8 %; EOSINOPHILS 1.7 %; HEMATOCRIT 33.3 % (37.0-47.0); HEMOGLOBIN 10.7 gm/dL (12.0-15.0); LYMPHOCYTES 25.7 %; MCH 26.3 pg (26.0-34.0); MCV 82.1 fL (80.0-100.0); MONOCYTES 5.1 %; MPV 7.3 fl. (7.2-11.1); NUCLEATED RBCS 0 /100WBC; PLATELET COUNT* 501 thou/uL (150-400); POLYS 66.7 %; RBC 4.06 mil/uL (4.20-5.00); RDW-CV 15.2 % (10.5-14.5); WBC 6.7 thou/uL (4.0-11.0)
[2018-11-21 10:49] LABS: ALBUMIN 3.3 g/dL (3.4-5.0); CALCIUM 9.1 mg/dL (8.5-10.1); CREATININE 1.3 mg/dL (0.6-1.3); POTASSIUM 3.3 mmol/L (3.5-5.1); TOTAL BILIRUBIN 0.2 mg/dL (<0.1-1.0); TOTAL PROTEIN 7.9 g/dL (6.4-8.2)
[2018-11-21 11:45] VITALS: BP 132/78
[2018-11-21 15:58] VITALS: BP 132/78
--- NOTE | 2018-11-21 16:08 | NUR ---
ARRIVED AMBULATORY. MADE SELF COMFORTABLE IN RECLINER. DUAL LUMAN TICC TO LEFT CHEST INTACT. DRESSING LIFITING OFF THE BOTTOM. RED LINE ABLE TO FLUSH NO BLOOD RETURN, PURPLE LINE SLUGGISH RETURN AND FLUSH. BOTH LUMANS CATH FLOWED AND PATENCY RESTORED TO BOTH LUMANS. INFUSION COMPLETED AND TOELRATED WELL. BOTH LUMANS FLUSHED AND DRESSING CHANGED. DENIES NEEDS.
== END ==
LOC: M.INFUS 01:24
PROVIDERS: Specialist
DX: E87.6 Hypokalemia (principal)

== ENCOUNTER → 2018-11-23 | Outpatient (CLI) | payer MEDICARE, OTHER, MEDICAID ==
[2018-11-23 11:10] VITALS: BP 112/75
[2018-11-23 11:10] LABS: ALBUMIN 3.3 g/dL (3.4-5.0); CALCIUM 8.6 mg/dL (8.5-10.1); CREATININE 1.3 mg/dL (0.6-1.3); POTASSIUM 3.2 mmol/L (3.5-5.1); TOTAL BILIRUBIN 0.3 mg/dL (<0.1-1.0); TOTAL PROTEIN 7.5 g/dL (6.4-8.2)
[2018-11-23 13:25] VITALS: BP 116/80
--- NOTE | 2018-11-23 14:51 | CON ---
[address] [address] CONSULTATION Name: AZAMGUS Chio Room: [facility].#: [id number] Admission: 11/23/18 Attend Phys: Chalo Hua MD Discharge: Date of : 75 Report #: [id number] THIS REPORT FOR: //name// CC: Chalo Gomes Therese DATE OF SERVICE: 11/23/2018 INFECTIOUS CONSULTATION FOLLOWUP ATTENDING PHYSICIAN: Dr. Hua. HISTORY OF PRESENT ILLNESS: She returns in followup for ongoing evaluation and treatment for disseminated Mycobacterium chelonae infection. She did report some new findings surgical resection of the left proximal upper extremity lesion. This was unremarkable in terms of lack of growth. She believes she has another tiny site on the right. The knee is overall little changed. There is no evidence again of mycobacterial infection at that site ear based on the aspiration and culture, actually this is slightly more animated today. Review of labs showed creatinine was slightly elevated at 1.3. ASSESSMENT AND PLAN: Disseminated Mycobacterium chelonae infection. I think my inclination is to have her discontinue amikacin at this point. We will follow expectantly. I worry of increasing risk of adverse drug effect from the aminoglycoside. She voiced understanding. She is somewhat nervous about it, but we will see her on a regular basis. <ELECTRONICALLY SIGNED> By: Mehdi Salgado MD 11/23/18 1451 1356 1404Jobro Salgado MD /dionisio
== END ==
LOC: M.INFUS 04:48
PROVIDERS: Internal Medicine Nephrology
DX: E87.6 Hypokalemia (principal); A31.8 Other mycobacterial infections

== ENCOUNTER → 2018-11-28 | Outpatient (CLI) | payer MEDICARE, OTHER, MEDICAID ==
[2018-11-28 11:00] VITALS: BP 150/93
[2018-11-28 11:17] LABS: ABSOLUTE BASOPHILS 0.1 thou/uL (0.0-0.2); ABSOLUTE EOSINOPHILS 0.2 thou/uL (0.0-0.7); ABSOLUTE LYMPHOCYTES 2.1 thou/uL (0.8-5.3); ABSOLUTE MONOCYTES 0.6 thou/uL (0.0-1.2); ABSOLUTE NEUTROPHILS 4.8 thou/uL (1.6-8.1); BASOPHILS 1.1 %; EOSINOPHILS 2.6 %; HEMATOCRIT 32.1 % (37.0-47.0); HEMOGLOBIN 10.4 gm/dL (12.0-15.0); MCH 26.2 pg (26.0-34.0); MCHC 32.5 g/dL (28.0-37.0); MCV 80.9 fL (80.0-100.0); MPV 7.2 fl. (7.2-11.1); NUCLEATED RBCS 0 /100WBC; PLATELET COUNT* 509 thou/uL (150-400); POLYS 61.3 %; RBC 3.97 mil/uL (4.20-5.00); RDW-CV 15.2 % (10.5-14.5); WBC 7.8 thou/uL (4.0-11.0)
[2018-11-28 11:29] LABS: ALBUMIN 3.4 g/dL (3.4-5.0); CREATININE 1.1 mg/dL (0.6-1.3); POTASSIUM 3.2 mmol/L (3.5-5.1); TOTAL BILIRUBIN 0.2 mg/dL (<0.1-1.0); TOTAL PROTEIN 7.8 g/dL (6.4-8.2)
--- NOTE | 2018-11-28 15:05 | NUR ---
PATIENT OPTED TO TAKE ONLY 20 MEQ OF POTASSIUM INFUSION TODAY SHE HAD TO TAKE SON TO AN APPOINTMENT TODAY THIS AFTERNOON.
== END ==
LOC: M.INFUS 05:11
PROVIDERS: Specialist
DX: E87.6 Hypokalemia (principal)

== ENCOUNTER → 2018-11-30 | Outpatient (CLI) | payer MEDICARE, OTHER, MEDICAID ==
[2018-11-30 10:55] LABS: ALBUMIN 3.4 g/dL (3.4-5.0); CALCIUM 9.3 mg/dL (8.5-10.1); CREATININE 1.2 mg/dL (0.6-1.3); POTASSIUM 3.4 mmol/L (3.5-5.1); TOTAL BILIRUBIN 0.1 mg/dL (<0.1-1.0)
[2018-11-30 11:03] VITALS: BP 153/89
== END ==
LOC: M.INFUS 05:20
PROVIDERS: Internal Medicine Nephrology
DX: E87.6 Hypokalemia (principal); N17.9 Acute kidney failure, unspecified

== ENCOUNTER 2018-12-08 17:52 | Emergency (ER) | payer MEDICARE, MEDICAID ==
[~2018-12-08] VITALS: Ht 162.6 cm; Wt 90.7 kg
[2018-12-08 19:02] LABS: ABSOLUTE EOSINOPHILS 0.1 thou/uL (0.0-0.7); ABSOLUTE LYMPHOCYTES 1.6 thou/uL (0.8-5.3); ABSOLUTE MONOCYTES 0.5 thou/uL (0.0-1.2); ABSOLUTE NEUTROPHILS 7.2 thou/uL (1.6-8.1); BASOPHILS 0.5 %; EOSINOPHILS 0.9 %; HEMATOCRIT 29.9 % (37.0-47.0); HEMOGLOBIN 9.8 gm/dL (12.0-15.0); LYMPHOCYTES 16.8 %; MCH 25.8 pg (26.0-34.0); MCHC 32.7 g/dL (28.0-37.0); MCV 78.9 fL (80.0-100.0); MONOCYTES 5.2 %; MPV 7.5 fl. (7.2-11.1); NUCLEATED RBCS 0 /100WBC; PLATELET COUNT* 395 thou/uL (150-400); POLYS 76.6 %; RBC 3.79 mil/uL (4.20-5.00); RDW-CV 15.1 % (10.5-14.5); WBC 9.4 thou/uL (4.0-11.0)
[2018-12-08 19:09] LABS: CALCIUM 9.4 mg/dL (8.5-10.1); CREATININE 1.1 mg/dL (0.6-1.3)
[2018-12-08 19:11] LABS: INFLUENZA A ANTIGEN Negative (Negative); INFLUENZA B ANTIGEN Negative (Negative)
[2018-12-08 19:14] LABS: ALBUMIN 3.3 g/dL (3.4-5.0); TOTAL BILIRUBIN 0.3 mg/dL (<0.1-1.0); TOTAL PROTEIN 7.6 g/dL (6.4-8.2)
[2018-12-08 20:59] LABS: URINE BILIRUBIN NEGATIVE (Negative); URINE BLOOD NEGATIVE (Negative); URINE CLARITY CLEAR; URINE COLOR YELLOW; URINE GLUCOSE-RANDOM NEGATIVE (Negative); URINE KETONES NEGATIVE (Negative); URINE LEUKOCYTES-REFLEX NEGATIVE (Negative); URINE NITRITE-REFLEX NEGATIVE (Negative); URINE PROTEIN NEGATIVE (Negative); URINE SPECIFIC GRAVITY <= 1.005 (1.005-1.030); URINE UROBILINOGEN 0.2 E.U./dl (0.2-1.0)
[2018-12-08] MEDS ORDERED: ONDANSETRON HCL4 M2 PO ×3 (21:23→21:24)
[2018-12-08 23:09] VITALS: BP 100/60
--- NOTE | 2018-12-09 12:31 | EKG ---
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: ROLAND : 1975 Requested By: Tracey Christopher Order Number: [id number] MD: Farhad Montiel Measurements Intervals [place] Rate: 98 P: 42 NM: 177 QRS: 19 QRSD: 94 T: 17 QT: 361 QTc: 461 Interpretive Statements Sinus rhythm Probable left atrial enlargement Low voltage, precordial leads Compared to ECG 10/20/2018 18:40:28 Low QRS voltage now present Electronically Signed On 12-09-2018 12:31:30 CDT by Farhad Montiel [email or web address] <ELECTRONICALLY SIGNED> By: Margie Montiel MD, [facility] 12/09/18 1231 53 53 Margie Montiel MD, [facility] /EPI
== END 2018-12-08 23:11 | disposition home or self-care (01) ==
LOC: M.ERS 17:52
PROVIDERS: Nurse Practitioner Family
DX: G43.909 Migraine, unspecified, not intractable, without status migrainosus (principal); R11.2 Nausea with vomiting, unspecified; J44.9 Chronic obstructive pulmonary disease, unspecified; M79.7 Fibromyalgia; Z86.19 Personal history of other infectious and parasitic diseases; Z86.711 Personal history of pulmonary embolism; Z98.51 Tubal ligation status; Z88.1 Allergy status to other antibiotic agents; Z91.040 Latex allergy status; Z88.8 Allergy status to other drugs, medicaments and biological substances

== ENCOUNTER 2018-12-09 22:08 | Inpatient (IN) | payer MEDICARE, MEDICAID ==
[~2018-12-09] VITALS: Ht 162.6 cm; Wt 91.4 kg
[2018-12-09 22:40] VITALS: BP 128/71
[2018-12-09 23:28] LABS: ABSOLUTE EOSINOPHILS 0.1 thou/uL (0.0-0.7); ABSOLUTE LYMPHOCYTES 1.5 thou/uL (0.8-5.3); ABSOLUTE MONOCYTES 0.5 thou/uL (0.0-1.2); ABSOLUTE NEUTROPHILS 4.1 thou/uL (1.6-8.1); BASOPHILS 0.7 %; EOSINOPHILS 1.7 %; HEMATOCRIT 32.1 % (37.0-47.0); HEMOGLOBIN 10.4 gm/dL (12.0-15.0); LYMPHOCYTES 24.2 %; MCH 25.7 pg (26.0-34.0); MCHC 32.5 g/dL (28.0-37.0); MCV 79.2 fL (80.0-100.0); MONOCYTES 8.3 %; MPV 7.2 fl. (7.2-11.1); NUCLEATED RBCS 0 /100WBC; PLATELET COUNT* 431 thou/uL (150-400); POLYS 65.1 %; RBC 4.06 mil/uL (4.20-5.00); RDW-CV 15.5 % (10.5-14.5); WBC 6.3 thou/uL (4.0-11.0)
[2018-12-09 23:38] LABS: CALCIUM 9.4 mg/dL (8.5-10.1); POTASSIUM 3.1 mmol/L (3.5-5.1)
[2018-12-09 23:42] LABS: ALBUMIN 3.3 g/dL (3.4-5.0); TOTAL BILIRUBIN 0.1 mg/dL (<0.1-1.0); TOTAL PROTEIN 7.8 g/dL (6.4-8.2)
[2018-12-10 03:25] VITALS: BP 121/58
[2018-12-10 03:30] VITALS: BP 123/64
[2018-12-10] MEDS ORDERED: LEXAPRO 10 MG T10 MG PO (05:55)
[2018-12-10 08:00] VITALS: BP 107/57
[2018-12-10 15:45] VITALS: BP 112/62
[2018-12-10 20:00] VITALS: BP 115/70
[2018-12-11] VITALS: BP 145/82
[2018-12-11 05:37] LABS: ALBUMIN 3.1 g/dL (3.4-5.0); CALCIUM 8.9 mg/dL (8.5-10.1); MAGNESIUM 1.7 mg/dL (1.8-2.4); POTASSIUM 4.3 mmol/L (3.5-5.1); TOTAL BILIRUBIN 0.1 mg/dL (<0.1-1.0); TOTAL PROTEIN 7.2 g/dL (6.4-8.2)
[2018-12-11 05:47] LABS: HEMATOCRIT 30.4 % (37.0-47.0); HEMOGLOBIN 9.5 gm/dL (12.0-15.0); MCH 25.4 pg (26.0-34.0); MCHC 31.1 g/dL (28.0-37.0); MCV 81.4 fL (80.0-100.0); MPV 8.2 fl. (7.2-11.1); RBC 3.73 mil/uL (4.20-5.00); RDW-CV 15.7 % (10.5-14.5); WBC 5.9 thou/uL (4.0-11.0)
[2018-12-11 08:00] VITALS: BP 123/75
[2018-12-11 14:32] VITALS: BP 123/75
[2018-12-11 14:52] VITALS: BP 123/75
== END 2018-12-11 15:00 | disposition home or self-care (01) | DRG 392 ==
LOC: M.ERS 22:08 → M.TBA-ER 12-10 00:08 → M.2W 12-10 00:08
PROVIDERS: Emergency Medicine; Internal Medicine; ADMIT Internal Medicine
DX: A08.4 Viral intestinal infection, unspecified (principal); J96.10 Chronic respiratory failure, unspecified whether with hypoxia or hypercapnia; M87.9 Osteonecrosis, unspecified; J44.9 Chronic obstructive pulmonary disease, unspecified; E87.6 Hypokalemia; I25.2 Old myocardial infarction; Z86.711 Personal history of pulmonary embolism; Z98.1 Arthrodesis status; Z88.8 Allergy status to other drugs, medicaments and biological substances; Z88.1 Allergy status to other antibiotic agents; Z91.040 Latex allergy status; Z82.49 Family history of ischemic heart disease and other diseases of the circulatory system; Z80.3 Family history of malignant neoplasm of breast; Z99.81 Dependence on supplemental oxygen

== ENCOUNTER → 2018-12-14 | Outpatient (CLI) | payer MEDICARE, MEDICAID ==
[2018-12-14 10:28] LABS: ABSOLUTE BASOPHILS 0.1 thou/uL (0.0-0.2); ABSOLUTE EOSINOPHILS 0.3 thou/uL (0.0-0.7); ABSOLUTE LYMPHOCYTES 2.4 thou/uL (0.8-5.3); ABSOLUTE MONOCYTES 0.4 thou/uL (0.0-1.2); ABSOLUTE NEUTROPHILS 2.4 thou/uL (1.6-8.1); BASOPHILS 1.2 %; EOSINOPHILS 5.1 %; HEMATOCRIT 31.5 % (37.0-47.0); HEMOGLOBIN 9.9 gm/dL (12.0-15.0); LYMPHOCYTES 42.9 %; MCH 25.1 pg (26.0-34.0); MCHC 31.5 g/dL (28.0-37.0); MCV 79.7 fL (80.0-100.0); MONOCYTES 7.7 %; MPV 7.4 fl. (7.2-11.1); NUCLEATED RBCS 0 /100WBC; PLATELET COUNT* 434 thou/uL (150-400); POLYS 43.1 %; RBC 3.95 mil/uL (4.20-5.00); RDW-CV 15.4 % (10.5-14.5); WBC 5.7 thou/uL (4.0-11.0)
[2018-12-14 10:41] LABS: CALCIUM 9.4 mg/dL (8.5-10.1); CREATININE 1.1 mg/dL (0.6-1.3); POTASSIUM 3.3 mmol/L (3.5-5.1)
[2018-12-14 10:50] VITALS: BP 132/74
[2018-12-14 15:00] VITALS: BP 140/80
== END ==
LOC: M.INFUS 04:03
PROVIDERS: Internal Medicine Nephrology
DX: E87.6 Hypokalemia (principal); N17.9 Acute kidney failure, unspecified

== ENCOUNTER → 2018-12-16 | Outpatient (CLI) | payer MEDICARE, MEDICAID ==
--- NOTE | 2018-12-16 10:40 | NUR ---
Pt arrived for lab draw and infusion if needed. Lab drawn at 1044. K+ 3.8 so no infusion needed. FLushed TICC line and Heprin flush given. Out at 1130.
[2018-12-16 11:14] LABS: ALBUMIN 3.3 g/dL (3.4-5.0); CREATININE 1.2 mg/dL (0.6-1.3); POTASSIUM 3.8 mmol/L (3.5-5.1); TOTAL BILIRUBIN 0.2 mg/dL (<0.1-1.0); TOTAL PROTEIN 7.5 g/dL (6.4-8.2)
== END ==
LOC: M.INFUS 01:32
PROVIDERS: Internal Medicine Nephrology
DX: E87.6 Hypokalemia (principal); N17.9 Acute kidney failure, unspecified

== ENCOUNTER 2018-12-19 11:18 | Outpatient (CLI) | payer MEDICARE, OTHER, MEDICAID ==
[~2018-12-19] VITALS: Ht 162.6 cm; Wt 90.7 kg
[2018-12-19 10:30] VITALS: BP 157/86
[2018-12-19 10:49] LABS: ABSOLUTE EOSINOPHILS 0.2 thou/uL (0.0-0.7); ABSOLUTE LYMPHOCYTES 2.3 thou/uL (0.8-5.3); ABSOLUTE MONOCYTES 0.4 thou/uL (0.0-1.2); ABSOLUTE NEUTROPHILS 3.4 thou/uL (1.6-8.1); BASOPHILS 0.7 %; EOSINOPHILS 3.9 %; HEMATOCRIT 31.1 % (37.0-47.0); HEMOGLOBIN 9.8 gm/dL (12.0-15.0); LYMPHOCYTES 35.5 %; MCH 25.1 pg (26.0-34.0); MCHC 31.5 g/dL (28.0-37.0); MCV 79.5 fL (80.0-100.0); MONOCYTES 7.1 %; MPV 7.2 fl. (7.2-11.1); NUCLEATED RBCS 0 /100WBC; PLATELET COUNT* 464 thou/uL (150-400); POLYS 52.8 %; RBC 3.91 mil/uL (4.20-5.00); RDW-CV 15.9 % (10.5-14.5); WBC 6.4 thou/uL (4.0-11.0)
[2018-12-19 11:01] LABS: ALBUMIN 3.3 g/dL (3.4-5.0); CALCIUM 9.1 mg/dL (8.5-10.1); CREATININE 1.1 mg/dL (0.6-1.3); POTASSIUM 3.4 mmol/L (3.5-5.1); TOTAL BILIRUBIN 0.1 mg/dL (<0.1-1.0); TOTAL PROTEIN 7.5 g/dL (6.4-8.2)
[2018-12-19 11:48] VITALS: BP 123/81
[2018-12-19 13:05] LABS: ABSOLUTE EOSINOPHILS 0.2 thou/uL (0.0-0.7); ABSOLUTE LYMPHOCYTES 1.3 thou/uL (0.8-5.3); ABSOLUTE MONOCYTES 0.4 thou/uL (0.0-1.2); ABSOLUTE NEUTROPHILS 5.7 thou/uL (1.6-8.1); BASOPHILS 0.6 %; EOSINOPHILS 2.9 %; HEMATOCRIT 30.3 % (37.0-47.0); HEMOGLOBIN 9.8 gm/dL (12.0-15.0); LYMPHOCYTES 17.2 %; MCH 25.6 pg (26.0-34.0); MCHC 32.3 g/dL (28.0-37.0); MCV 79.1 fL (80.0-100.0); MONOCYTES 5.4 %; MPV 7.2 fl. (7.2-11.1); NUCLEATED RBCS 0 /100WBC; PLATELET COUNT* 409 thou/uL (150-400); POLYS 73.9 %; RBC 3.83 mil/uL (4.20-5.00); RDW-CV 15.9 % (10.5-14.5); WBC 7.7 thou/uL (4.0-11.0)
[2018-12-19 13:10] LABS: INFLUENZA A ANTIGEN Negative (Negative); INFLUENZA B ANTIGEN Negative (Negative)
[2018-12-19 13:13] LABS: BE -0.2 mmol/L (-2 to +3); PCO2 45.3 mmHg (35.0-45.0); PO2 90.7 mmHg (75.0-100.0); pH 7.366 (7.340-7.450)
[2018-12-19 13:17] LABS: INR 1.1; PROTIME 11.4 Seconds (9.20-11.50)
[2018-12-19 13:29] LABS: CALCIUM 9.2 mg/dL (8.5-10.1); POTASSIUM 4.1 mmol/L (3.5-5.1)
[2018-12-19 13:33] LABS: ALBUMIN 3.4 g/dL (3.4-5.0); TOTAL BILIRUBIN 0.1 mg/dL (<0.1-1.0); TOTAL PROTEIN 7.1 g/dL (6.4-8.2)
[2018-12-19] MEDS ORDERED: BACTRIM DS TAB1 EACH PO ×2 (15:13→15:14)
[2018-12-19] MEDS ORDERED: KEFLEX500 M1 PO ×2 (15:13→15:14)
[2018-12-19 18:03] VITALS: BP 144/52
--- NOTE | 2018-12-19 18:08 | EKG ---
[place] [address] ELECTROCARDIOGRAM REPORT Name: GUS NASCIMENTO Room: [facility]#: [id number] Admission: 12/19/18 Attend Phys: FOR E.D. REG USE Discharge: Date of : 75 Report #: [id number] THIS REPORT FOR: //name// [facility] ED Test Date: 2018-12-19 Test Time: 12:04:23 Pat Name: GUS NASCIMENTO Department: Room: [facility] Gender: F Global Implementation Manager: [facility] : 1975 Requested By: Tracey Christopher Order Number: [id number] MD: Enrique Lee Measurements Intervals [place] Rate: 94 P: 26 NE: 180 QRS: 11 QRSD: 98 T: 23 QT: 396 QTc: 496 Interpretive Statements Sinus rhythm Low voltage, precordial leads Borderline T abnormalities, anterior leads Borderline prolonged QT interval Compared to ECG 12/08/2018 18:54:01 no change Electronically Signed On 12-19-2018 18:08:33 CDT by Enrique Lee [email or web address] <ELECTRONICALLY SIGNED> By: Enrique Lee MD, [facility] 12/19/18 1808 1204 1204 Enrique Lee MD, [facility] /EPI
--- NOTE | 2018-12-20 07:53 | CON ---
[address] [address] CONSULTATION Name: GUS NASCIMENTO Room: [facility]#: [id number] Admission: 12/19/18 Attend Phys: FOR E.D. REG USE Discharge: Date of : 75 Report #: [id number] THIS REPORT FOR: //name// CC: Chalo Preston DATE OF SERVICE: 12/19/2018 INFECTIOUS DISEASE CONSULTATION ATTENDING PHYSICIAN: Chalo Hua MD REASON FOR EVALUATION: Followup of disseminated Mycobacterium chelonae infection. HISTORY OF PRESENT ILLNESS: The patient seen in the outpatient infusion area in [facility]. She returns today as scheduled for her ongoing treatment for chronic hypokalemia. She generally complains of diffuse swelling, she notes particularly in legs and torso. On recent evaluation, her creatinine is 1.3. She denies any new lesions associated with the proximal aspect of her upper extremities. She says her knee hurts that she attributes to bursitis. She had heard back from Dr. Flynn and Dr. Terry, both of whom showed the cultures showed no growth of Mycobacterium chelonae on various biopsies and aspirations. It is notable she has been off systemic antimicrobials, specifically amikacin, for roughly 3 weeks. It is not apparent if she has any fevers. She does admit to some dyspnea. She has been stable at 2 L nasal cannula supplemental oxygen. ASSESSMENT AND PLAN: Disseminated Mycobacterium chelonae infection. At this point, we would favor watchful waiting. We will see her back in 2 weeks' time, ideally the extent of the antibiotics that she needs for this. I did instruct the staff at the infusion area to call Dr. Hua to update him and see if he has any further recommendations about possible diuresis. <ELECTRONICALLY SIGNED> By: Mehdi Salgado MD 12/20/18 0753 0702 0724Mehdi Salgado MD /nt
== END 2018-12-19 18:03 | disposition home or self-care (01) ==
LOC: M.TBA-ER 14:59 → M.ERS 14:59
PROVIDERS: Nurse Practitioner Family; Specialist
DX: L03.116 Cellulitis of left lower limb (principal); R60.0 Localized edema; M79.7 Fibromyalgia; Z98.51 Tubal ligation status; Z86.711 Personal history of pulmonary embolism; Z96.651 Presence of right artificial knee joint

== ENCOUNTER → 2018-12-21 | Outpatient (CLI) | payer MEDICARE, MEDICAID ==
[2018-12-21 10:25] VITALS: BP 132/74
[2018-12-21 11:03] LABS: CALCIUM 8.7 mg/dL (8.5-10.1); CREATININE 1.2 mg/dL (0.6-1.3); POTASSIUM 3.6 mmol/L (3.5-5.1)
[2018-12-21 13:00] VITALS: BP 120/78
--- NOTE | 2018-12-21 13:56 | NUR ---
ARRIVED AMBULAOTRY. MADE SELF COMFORTABLE IN RECLINER. DUAL LUMAN TICC INTACT AND BOTH LUMANS PATENT. LABS DRAWN AND RESULTS EVALUATED. K+ INFUSION STARTED. PT REQUEST TO STOP INFUSION AFTER 20MEQ RELATED TO OTHER OBLIGATION. INFUSION STOPPED AFTER 1ST BAG COMPLETED PER REQUEST. LINE FLUSHED. DENIES NEEDS AT DISCHARGE.
== END ==
LOC: M.INFUS 05:24
PROVIDERS: Internal Medicine Nephrology
DX: E87.6 Hypokalemia (principal); N17.9 Acute kidney failure, unspecified

== ENCOUNTER → 2018-12-26 | Outpatient (CLI) | payer MEDICARE, OTHER, MEDICAID ==
[2018-12-26 09:00] VITALS: BP 122/68
[2018-12-26 10:03] LABS: ABSOLUTE BASOPHILS 0.1 thou/uL (0.0-0.2); ABSOLUTE EOSINOPHILS 0.2 thou/uL (0.0-0.7); ABSOLUTE LYMPHOCYTES 3.2 thou/uL (0.8-5.3); ABSOLUTE MONOCYTES 0.7 thou/uL (0.0-1.2); ABSOLUTE NEUTROPHILS 3.9 thou/uL (1.6-8.1); BASOPHILS 0.9 %; EOSINOPHILS 2.8 %; HEMATOCRIT 31.4 % (37.0-47.0); HEMOGLOBIN 9.9 gm/dL (12.0-15.0); LYMPHOCYTES 39.8 %; MCHC 31.4 g/dL (28.0-37.0); MCV 79.5 fL (80.0-100.0); MONOCYTES 8.6 %; MPV 7.3 fl. (7.2-11.1); NUCLEATED RBCS 0 /100WBC; PLATELET COUNT* 532 thou/uL (150-400); POLYS 47.9 %; RBC 3.95 mil/uL (4.20-5.00); RDW-CV 16.4 % (10.5-14.5); WBC 8.1 thou/uL (4.0-11.0)
[2018-12-26 10:11] LABS: CALCIUM 8.9 mg/dL (8.5-10.1); CREATININE 1.4 mg/dL (0.6-1.3); POTASSIUM 3.9 mmol/L (3.5-5.1)
--- NOTE | 2018-12-26 15:06 | NUR ---
LASIX 40 MG GIVEN OVER 10 MINUTES SLOW IV PUSH. START TIME SHOULD BE 13:43 AND STOP TIME SHOULD BE 13:53.
--- NOTE | 2018-12-28 11:22 | CON ---
[address] [address] CONSULTATION Name: AZAMGUS K Room: [facility].#: [id number] Admission: 12/26/18 Attend Phys: Chalo Hua MD Discharge: Date of : 75 Report #: [id number] THIS REPORT FOR: //name// CC: Chalo Gomes Therese DATE OF SERVICE: 12/26/2018 INFECTIOUS DISEASE CONSULTATION HISTORY OF PRESENT ILLNESS: The patient is seen in outpatient infusion area. Chart reviewed and examined. The patient returns in followup for her regular visit for evaluation of her ongoing and chronic hypokalemia. Presents today complaining of increased generalized edema as well as some dyspnea, although her baseline oxygen level is 2 liters and stable. She is scheduled to undergo diuresis as well. On questioning it was noted that she had a disseminated Mycobacterium chelonae infection. She has no new subcutaneous nodular lesions. ____ any recent significant temperature elevations. Appetite has been fair. ASSESSMENT AND PLAN: Disseminated Mycobacterium chelonae infection. At this point, she has been off antibiotics, and I think in excess of a month if she does not have an episode of relapse, at this point, we can again follow her at a distance. She is here three times a week, check on her intermittently. <ELECTRONICALLY SIGNED> By: Mehdi Salgado MD 12/28/18 1122 1528 2052Jobro Salgado MD /dionisio
== END ==
LOC: M.INFUS 02:39
PROVIDERS: Internal Medicine Nephrology
DX: E87.6 Hypokalemia (principal); A31.8 Other mycobacterial infections; N17.9 Acute kidney failure, unspecified; R60.1 Generalized edema; R06.00 Dyspnea, unspecified

== ENCOUNTER → 2019-01-02 | Outpatient (CLI) | payer MEDICARE, OTHER, MEDICAID ==
[2019-01-02 10:35] VITALS: BP 132/80
[2019-01-02 10:56] LABS: ABSOLUTE BASOPHILS 0.1 thou/uL (0.0-0.2); ABSOLUTE EOSINOPHILS 0.2 thou/uL (0.0-0.7); ABSOLUTE LYMPHOCYTES 2.6 thou/uL (0.8-5.3); ABSOLUTE MONOCYTES 0.7 thou/uL (0.0-1.2); ABSOLUTE NEUTROPHILS 4.4 thou/uL (1.6-8.1); BASOPHILS 0.7 %; EOSINOPHILS 2.1 %; HEMATOCRIT 31.5 % (37.0-47.0); LYMPHOCYTES 32.7 %; MCH 25.1 pg (26.0-34.0); MCHC 31.9 g/dL (28.0-37.0); MCV 78.6 fL (80.0-100.0); MONOCYTES 8.6 %; MPV 7.2 fl. (7.2-11.1); NUCLEATED RBCS 0 /100WBC; PLATELET COUNT* 442 thou/uL (150-400); POLYS 55.9 %; RDW-CV 16.4 % (10.5-14.5)
[2019-01-02 11:01] LABS: CALCIUM 8.5 mg/dL (8.5-10.1); CREATININE 1.1 mg/dL (0.6-1.3); POTASSIUM 3.6 mmol/L (3.5-5.1)
[2019-01-02 14:50] VITALS: BP 142/77
--- NOTE | 2019-01-02 15:05 | NUR ---
ARRIVED AMBULATORY. MADE SELF COMFORTABLE IN RECLINER. DUAL LUMAN TICC TO LEFT CHEST INTACT AND PATENT. INFUSION COMPLETED AND TOERLATED WELL. TICC DRESSING CHANGED AND NO SOGN OF INFECTION NOTED. VICTORIANO QUESTION OR NEED AT DISCHARGE.
== END ==
LOC: M.INFUS 04:38
PROVIDERS: Internal Medicine Nephrology
DX: E87.6 Hypokalemia (principal)

== ENCOUNTER → 2019-01-06 | Outpatient (CLI) | payer MEDICARE, OTHER, MEDICAID ==
[~2019-01-06] MED LIST changes: +VENLAFAXINE HCL75 M1 PO
[2019-01-06 11:02] LABS: CALCIUM 8.9 mg/dL (8.5-10.1); CREATININE 1.1 mg/dL (0.6-1.3); POTASSIUM 3.6 mmol/L (3.5-5.1)
--- NOTE | 2019-01-07 08:02 | CON ---
[address] [address] CONSULTATION Name: GUS NASCIMENTO Room: [facility].#: [id number] Admission: 01/06/19 Attend Phys: Chalo Hua MD Discharge: Date of : 75 Report #: [id number] THIS REPORT FOR: //name// CC: Chalo Gomes Therese DATE OF SERVICE: 01/06/2019 INFECTIOUS DISEASE CONSULTATION FOLLOWUP ATTENDING PHYSICIAN: Chalo Hua MD HISTORY OF PRESENT ILLNESS: She is here for followup of disseminated Mycobacterium chelonae infection. She is seen on a regular basis. She comes to the outpatient infusion area for potassium infusions. From that standpoint, she is clinically stable. She has ongoing multiple complaints including generalized pain and discomfort. She had illness last week. She states that resolved over the course of 72-96 hours, perhaps viral. She has no new lesions associated with the proximal aspects of her upper extremities. Her knee is overall quite painful, although it is unchanged. She had responded to diuretics. There is overall decreased edema. She is not aware of any fevers. She has been off therapy with the amikacin for roughly 6 weeks. ASSESSMENT AND PLAN: Disseminated Mycobacterium chelonae infection. At this point, we will continue watchful waiting. There is no evidence of relapse at this point. She was instructed to call if problems or concerns. We will see her as needed. <ELECTRONICALLY SIGNED> By: Mehdi Salgado MD 01/07/19 0802 1121 2231Jobro Salgado MD /dionisio
== END ==
LOC: M.INFUS 05:01
PROVIDERS: Internal Medicine Nephrology
DX: E87.6 Hypokalemia (principal); A31.8 Other mycobacterial infections

== ENCOUNTER → 2019-01-09 | Outpatient (CLI) | payer MEDICARE, OTHER, MEDICAID ==
[2019-01-09 11:00] VITALS: BP 132/74
[2019-01-09 11:22] LABS: ABSOLUTE EOSINOPHILS 0.2 thou/uL (0.0-0.7); ABSOLUTE LYMPHOCYTES 3.5 thou/uL (0.8-5.3); ABSOLUTE MONOCYTES 0.8 thou/uL (0.0-1.2); ABSOLUTE NEUTROPHILS 4.1 thou/uL (1.6-8.1); BASOPHILS 0.5 %; EOSINOPHILS 2.1 %; HEMATOCRIT 32.1 % (37.0-47.0); LYMPHOCYTES 40.2 %; MCH 24.7 pg (26.0-34.0); MCHC 31.2 g/dL (28.0-37.0); MCV 79.3 fL (80.0-100.0); MONOCYTES 9.4 %; MPV 7.3 fl. (7.2-11.1); NUCLEATED RBCS 0 /100WBC; PLATELET COUNT* 506 thou/uL (150-400); POLYS 47.8 %; RBC 4.04 mil/uL (4.20-5.00); RDW-CV 16.8 % (10.5-14.5); WBC 8.7 thou/uL (4.0-11.0)
[2019-01-09 11:33] LABS: POTASSIUM 3.5 mmol/L (3.5-5.1)
[2019-01-09 15:45] VITALS: BP 128/75
== END ==
LOC: M.INFUS 01:54
PROVIDERS: Internal Medicine Nephrology
DX: E87.6 Hypokalemia (principal)

== ENCOUNTER → 2019-01-11 | Outpatient (CLI) | payer MEDICARE, MEDICAID ==
[2019-01-11 11:44] LABS: CALCIUM 9.1 mg/dL (8.5-10.1); CREATININE 1.1 mg/dL (0.6-1.3); POTASSIUM 3.8 mmol/L (3.5-5.1)
--- NOTE | 2019-01-11 13:52 | NUR ---
ARRIVED AMBULATORY, MADE SELF COMFORTABLE IN RECLINER. LABS DRAWN AND RESULTS EVALUATED. PER STANDING ORDER NO INFUSION NEEDED TODAY. PT UPDATED. VOICED UNDERSTANDING AND AGREED. DENEIS QUESTIONS OR NEEDS AT DISCHARGE.
== END ==
LOC: M.INFUS 10:30
PROVIDERS: Internal Medicine Nephrology
DX: E87.6 Hypokalemia (principal); N17.9 Acute kidney failure, unspecified

== ENCOUNTER → 2019-01-13 | Outpatient (CLI) | payer MEDICARE, OTHER, MEDICAID ==
[~2019-01-13] MED LIST changes: -VENLAFAXINE HCL75 M1 PO
[2019-01-13 07:15] VITALS: BP 120/70
[2019-01-13 07:50] LABS: CALCIUM 9.1 mg/dL (8.5-10.1); CREATININE 1.1 mg/dL (0.6-1.3); POTASSIUM 3.9 mmol/L (3.5-5.1)
[2019-01-13 11:15] VITALS: BP 132/74
[2019-01-13 14:15] VITALS: BP 120/68
== END ==
LOC: M.INFUS 05:17
PROVIDERS: Internal Medicine Nephrology
DX: E87.6 Hypokalemia (principal); N17.9 Acute kidney failure, unspecified

== ENCOUNTER → 2019-01-16 | Outpatient (CLI) | payer MEDICARE, MEDICAID ==
[~2019-01-16] MED LIST changes: +VENLAFAXINE HCL75 M1 PO
[2019-01-16 10:57] LABS: ABSOLUTE EOSINOPHILS 0.2 thou/uL (0.0-0.7); ABSOLUTE MONOCYTES 0.7 thou/uL (0.0-1.2); ABSOLUTE NEUTROPHILS 3.4 thou/uL (1.6-8.1); BASOPHILS 0.5 %; EOSINOPHILS 2.5 %; HEMATOCRIT 32.2 % (37.0-47.0); LYMPHOCYTES 41.1 %; MCH 24.5 pg (26.0-34.0); MCHC 31.2 g/dL (28.0-37.0); MCV 78.5 fL (80.0-100.0); MONOCYTES 9.7 %; MPV 7.3 fl. (7.2-11.1); NUCLEATED RBCS 0 /100WBC; PLATELET COUNT* 530 thou/uL (150-400); POLYS 46.2 %; RDW-CV 16.8 % (10.5-14.5); WBC 7.3 thou/uL (4.0-11.0)
[2019-01-16 11:00] VITALS: BP 122/78
[2019-01-16 11:11] LABS: CALCIUM 8.3 mg/dL (8.5-10.1); CREATININE 1.2 mg/dL (0.6-1.3); POTASSIUM 3.5 mmol/L (3.5-5.1)
[2019-01-16 15:28] VITALS: BP 122/78
== END ==
LOC: M.INFUS 04:41
PROVIDERS: Internal Medicine Nephrology
DX: E87.6 Hypokalemia (principal); N17.9 Acute kidney failure, unspecified

== ENCOUNTER → 2019-01-23 | Outpatient (CLI) | payer MEDICARE, OTHER, MEDICAID ==
[2019-01-23 11:00] LABS: ABSOLUTE BASOPHILS 0.1 thou/uL (0.0-0.2); ABSOLUTE EOSINOPHILS 0.2 thou/uL (0.0-0.7); ABSOLUTE LYMPHOCYTES 2.7 thou/uL (0.8-5.3); ABSOLUTE MONOCYTES 0.5 thou/uL (0.0-1.2); ABSOLUTE NEUTROPHILS 3.2 thou/uL (1.6-8.1); BASOPHILS 0.8 %; EOSINOPHILS 2.5 %; HEMATOCRIT 32.4 % (37.0-47.0); HEMOGLOBIN 10.1 gm/dL (12.0-15.0); LYMPHOCYTES 40.9 %; MCH 24.4 pg (26.0-34.0); MCHC 31.2 g/dL (28.0-37.0); MPV 6.9 fl. (7.2-11.1); NUCLEATED RBCS 0 /100WBC; PLATELET COUNT* 559 thou/uL (150-400); POLYS 47.8 %; RBC 4.15 mil/uL (4.20-5.00); RDW-CV 16.7 % (10.5-14.5); WBC 6.6 thou/uL (4.0-11.0)
[2019-01-23 11:10] LABS: CALCIUM 8.9 mg/dL (8.5-10.1); CREATININE 1.1 mg/dL (0.6-1.3); POTASSIUM 3.7 mmol/L (3.5-5.1)
== END ==
LOC: M.INFUS 01:22
PROVIDERS: Internal Medicine Nephrology
DX: E87.6 Hypokalemia (principal); N17.9 Acute kidney failure, unspecified

== ENCOUNTER → 2019-01-25 | Outpatient (CLI) | payer MEDICARE, OTHER, MEDICAID ==
[2019-01-25 09:30] VITALS: BP 128/74
[2019-01-25 10:26] LABS: POTASSIUM 3.5 mmol/L (3.5-5.1)
[2019-01-25 14:02] VITALS: BP 132/74
== END ==
LOC: M.INFUS 04:07
PROVIDERS: Internal Medicine Nephrology
DX: E87.6 Hypokalemia (principal)

== ENCOUNTER → 2019-02-01 | Outpatient (CLI) | payer MEDICARE, OTHER, MEDICAID ==
[~2019-02-01] MED LIST changes: +PERCOCET PORT
[2019-02-01 11:00] VITALS: BP 122/74
[2019-02-01 11:22] LABS: ABSOLUTE EOSINOPHILS 0.1 thou/uL (0.0-0.7); ABSOLUTE LYMPHOCYTES 1.5 thou/uL (0.8-5.3); ABSOLUTE MONOCYTES 0.5 thou/uL (0.0-1.2); ABSOLUTE NEUTROPHILS 3.8 thou/uL (1.6-8.1); BASOPHILS 0.7 %; EOSINOPHILS 1.7 %; HEMATOCRIT 31.5 % (37.0-47.0); HEMOGLOBIN 9.8 gm/dL (12.0-15.0); LYMPHOCYTES 25.3 %; MCH 23.8 pg (26.0-34.0); MCHC 31.3 g/dL (28.0-37.0); MCV 76.2 fL (80.0-100.0); MONOCYTES 8.6 %; MPV 7.4 fl. (7.2-11.1); NUCLEATED RBCS 0 /100WBC; PLATELET COUNT* 454 thou/uL (150-400); POLYS 63.7 %; RBC 4.13 mil/uL (4.20-5.00); WBC 5.9 thou/uL (4.0-11.0)
[2019-02-01 11:29] LABS: CALCIUM 8.7 mg/dL (8.5-10.1); CREATININE 0.8 mg/dL (0.6-1.3); POTASSIUM 4.2 mmol/L (3.5-5.1)
--- NOTE | 2019-02-01 13:09 | NUR ---
ARRIVED AMBULATROY. MADE SELF COMFORTABLE. BOTH LUMANS OF TICC LINE TO LEFT UPPER CHEST SLUGGISH. LABS DRAWN FROM LEFT AC. PT CALLED DR. WANG'S OFFICE PRIOR TO ARRIVAL AND REPORTED EDEMA TO BILATERAL LOWER EXTREMITY. NEW ORDER RECIEVED FOR ONE TIME DOSE OF LASIX AND 60MEQ OF POTASSIUM IV. CALL PLACED TO DR. WANG'S OFFICE TO REPORT LABS AND RESULTS. ORDER CLARIFICATION RECIEVED TO AMEND ORDER TO 20 OF LASIX IVP AND 30 MEQ OF PATASSIUM TODAY AND SAME TOMORROW. PT VERVALIZED UNDERSTANDING AND AGREED.BOTH LUMANS OF TICC LINE NOTED TO BE SLUGGISH. PT TO CATHFLOW TOMORROW AM PRIOR TO INFUSION.
[2019-02-01 13:38] VITALS: BP 122/78
== END ==
LOC: M.INFUS 05:25
PROVIDERS: Internal Medicine Nephrology
DX: N17.9 Acute kidney failure, unspecified (principal); E87.6 Hypokalemia

== ENCOUNTER → 2019-02-02 | Outpatient (CLI) | payer MEDICARE, OTHER, MEDICAID ==
[2019-02-02 08:55] VITALS: BP 136/80
--- NOTE | 2019-02-02 11:29 | NUR ---
SECOND DOSE OF 10 MEQ POTASSIUM IV STARTED AT 10:10 am IV INFUSION IN THE LEFT CHEST DUAL LUMEN TICC. PATIENT TOLERATING INFUSION WELL. LASIX 20MG IV PUSH GIVEN AT 08:55 WITH STOP TIME AT 09:05 SLOW IV PUSH IN THE LEFT CHEST DUAL LUMEN TICC. PATIENT VOIDING EVERY 45 MINUTES TO ONE HOUR WITH GOOD CLEAR YELLOW OUTPUT.
--- NOTE | 2019-02-02 11:46 | NUR ---
SECOND DOSE OF POTASSIUM 10 MEQ IV INFUSION IN THE LEFT CHEST TICC LINE STOP TIME SHOULD BE 11:50.
--- NOTE | 2019-02-02 13:15 | NUR ---
Was able to draw brisk blood back from Purple side of the TICC line. Unable to draw from Red line. Cathlow left to dwell in this site. Will continue to monitor.
--- NOTE | 2019-02-02 13:56 | NUR ---
Was able to briskly draw back blood on Red port at this time. Port was then flushed with 20ml of NS. Pt then discharged with instrutions for follow up care. Pt ambulated out for home cares.
== END ==
LOC: M.INFUS 08:49
DX: N17.9 Acute kidney failure, unspecified (principal); E87.6 Hypokalemia; Z45.2 Encounter for adjustment and management of vascular access device

== ENCOUNTER → 2019-02-08 | Outpatient (CLI) | payer MEDICARE, OTHER, MEDICAID ==
[2019-02-08 11:05] VITALS: BP 132/80
[2019-02-08 11:42] LABS: ABSOLUTE EOSINOPHILS 0.1 thou/uL (0.0-0.7); ABSOLUTE LYMPHOCYTES 1.8 thou/uL (0.8-5.3); ABSOLUTE MONOCYTES 0.5 thou/uL (0.0-1.2); ABSOLUTE NEUTROPHILS 3.9 thou/uL (1.6-8.1); BASOPHILS 0.5 %; HEMATOCRIT 30.3 % (37.0-47.0); HEMOGLOBIN 9.6 gm/dL (12.0-15.0); LYMPHOCYTES 28.4 %; MCH 23.9 pg (26.0-34.0); MCHC 31.7 g/dL (28.0-37.0); MCV 75.6 fL (80.0-100.0); MONOCYTES 7.8 %; MPV 7.3 fl. (7.2-11.1); NUCLEATED RBCS 0 /100WBC; PLATELET COUNT* 432 thou/uL (150-400); POLYS 61.3 %; RBC 4.01 mil/uL (4.20-5.00); RDW-CV 16.8 % (10.5-14.5); WBC 6.4 thou/uL (4.0-11.0)
[2019-02-08 11:50] LABS: CALCIUM 8.6 mg/dL (8.5-10.1); CREATININE 0.8 mg/dL (0.6-1.3); POTASSIUM 3.6 mmol/L (3.5-5.1)
[2019-02-08 15:20] VITALS: BP 125/78
== END ==
LOC: M.INFUS 05:28
PROVIDERS: Internal Medicine Nephrology
DX: N17.9 Acute kidney failure, unspecified (principal); E87.6 Hypokalemia

== ENCOUNTER → 2019-02-09 | Day surgery (SDC) | payer MEDICARE, OTHER, MEDICAID ==
[~2019-02-09] MED LIST changes: +DIGOX250 MCG PO
--- NOTE | 2019-03-02 14:17 | OP ---
[address] [address] OPERATIVE REPORT Name: GUS NASCIMENTO Room: [facility]#: [id number] Admission: 02/09/19 Attend Phys: Mayra Terry DO Discharge: Date of : 75 Report #: [id number] THIS REPORT FOR: //name// CC: Eliseo Terry DATE OF SERVICE: 02/09/2019 PREOPERATIVE DIAGNOSES: 1. Gitelman syndrome. 2. Need for IV access. 3. Left forearm mass. POSTOPERATIVE DIAGNOSES: 1. Gitelman syndrome. 2. Need for IV access. 3. Left forearm mass. PROCEDURE: 1. Excision of left forearm mass (1 x 1 cm). 2. Placement of left IJ Yptv-Z-xzolaqqf with fluoroscopic guidance. 3. Removal of tunneled left internal jugular central venous catheter. ANESTHESIA: General endotracheal. SURGEON: Mayra Terry DO. ANESTHESIA: General endotracheal. SPECIMENS: Left forearm subcutaneous mass sent for culture for anaerobic, aerobic, fungal and acid fast bacilli. INTRAOPERATIVE FINDINGS: Fluoroscopic guidance confirmed good positioning of the Port-A-Cath at atrial caval junction without kinkage of the catheter. ESTIMATED BLOOD LOSS: 10 mL. COMPLICATIONS: None. INDICATIONS FOR PROCEDURE: The patient is a 43-year-old female with a history of Gitelman and chronic hypokalemia requiring frequent potassium infusions. The patient had a previous Hanv-V-zxevcjuz, which was removed and subsequently had a chronic wound, which is now healed. The patient presents for removal of tunneled line as well as placement for Port-A-Cath. 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 She notes a left forearm mass that is similar in appearance and therefore we will excise for [address] [address] OPERATIVE REPORT Name: GUS NASCIMENTO Room: [facility]#: [id number] Admission: 02/09/19 Attend Phys: Mayra Terry DO Discharge: Date of : 75 Report #: [id number] diagnosis. The patient was explained the procedure including risks, benefits and alternatives. All questions were answered to the patient's satisfaction, informed consent was obtained. DESCRIPTION OF PROCEDURE: The patient was brought back to the operating room and placed in supine position, general anesthesia was induced. SCDs were placed on bilateral extremities and prophylactic antibiotics were administered. Next, after a timeout was performed in the left arm and chest and neck were prepped and draped in the usual sterile fashion, a 2 cm incision was created over the palpable mass in the left forearm. Dissection was carried down to the subcutaneous tissues using Bovie cautery after digitizing the subcutaneous tissues. There was a slightly firmer nodule noted in the subcutaneous tissues. This was grasped with a DeBakey clamp and circumferentially dissected free. This specimen measured approximately 1 x 1 cm in size and was sent for culture. Next, local anesthetic was infiltrated into the surgical site. The skin was then closed with a running 4-0 Monocryl in a subcuticular manner and Dermabond was applied for sterile dressing. Next, attention was turned towards the left chest. The previous tunneled line was prepped at the level of the skin and was covered with a Ray-Aaron throughout the procedure. A local anesthetic was infiltrated into the previous neck incision scar site. Using a 15 blade scalpel, an incision was created over the catheter with meticulous dissection with a Arabella clamp. The tunneled catheter was isolated circumferentially and the femoral sheath was dissected free from the catheter. The catheter was then grasped with 2 Arabella clamps and was divided. This was noted to be a dual lumen tunneled line. I attempted to place a Lwrj-Z-vkkemuax wire through the catheter; however, it was too large, therefore I used a vascular micro access kit. The guidewire was then placed. Fluoroscopy confirmed the wire to be in good position. The catheter was then cut from the guidewire. At this time, the micropuncture dilator and sheath were then placed over the wire. The wire and internal dilator were removed leaving the sheath in place and the Port-A-Cath wire was then placed and the sheath was removed. Fluoroscopy again confirmed good positioning of the wire within the right ventricle. Next, the Port-A-Cath dilator and sheath were then placed in a modified Seldinger technique over the guidewire. The wire and internal dilator were then removed leaving the sheath in position. Next, the Znje-F-Adcmctwu was then fed through the sheath and the pull-away sheath was then snapped free. Fluoroscopy again confirmed good positioning of the catheter coiled within the right ventricle. At this time, the subcutaneous tissues for a tunneled tract as well as a pocket approximately 2 fingerbreadths below the clavicle were then injected with local anesthetic. A 3 cm transverse incision was made medial to the patient's previous scars from old Port-A-Cath incisions. Dissection was carried down through the subcutaneous tissues using Bovie cautery. A subcutaneous pocket was then created at the level of [place] [address] OPERATIVE REPORT Name: GUS NASCIMENTO Room: [facility]#: [id number] Admission: 02/09/19 Attend Phys: Mayra Terry DO Discharge: Date of : 75 Report #: [id number] Next, using a tunneling device from the neck to the chest incision site, the Ezbz-G-Trzzggdq was then tunneled in the subcutaneous tract. Using fluoroscopic guidance, the catheter was then withdrawn until the tip was at the atrial caval junction. Next, the catheter was cut at 24 cm at the level of the skin. The catheter was then attached to the Port-A-Cath hub and a clear locking mechanism was deployed. The port was then placed within the previously created pocket and was sutured and the 2 superior aspects using 2-0 Prolene suture. Final fluoroscopic image demonstrated good positioning of the catheter without kinkage at the level of the neck and with the tip at the atrial caval junction. At this time, the Port-A-Cath was aspirated and flushed with injectable saline noted to easily flow. Next, the port was then packed with heparinized saline. The skin was then reapproximated using 4-0 Monocryl in a simple interrupted deep dermal layer as well as a 4-0 Monocryl in a running subcuticular fashion and Dermabond was applied for sterile dressing. A simple 4-0 Monocryl U-stitch was then placed at the neck incision and Dermabond was also applied. At this time, attention was then turned towards removing the tunneled catheter. With gentle traction, the catheter fibrinous sheath and felt cuff were removed from the subcutaneous tissues. The subcutaneous tissues were then milked noting slight bloody drainage from the catheter site. The area was cleaned and a 2 x 2 and Tegaderm dressing were then applied. All sponge, instrument count was reported as correct at the end of the case. The patient tolerated the procedure well without any complications. She was awakened from anesthesia in the operating room and taken to PACU in stable condition for further recovery and a chest x-ray. <ELECTRONICALLY SIGNED> By: Mayra Terry DO 03/02/19 1417 0928 1053Cmacie Terry DO /nt
== END | disposition home or self-care (01) ==
LOC: M.SUR 06:06
DX: Z45.2 Encounter for adjustment and management of vascular access device (principal); R22.32 Localized swelling, mass and lump, left upper limb; N15.8 Other specified renal tubulo-interstitial diseases; I25.2 Old myocardial infarction; J44.9 Chronic obstructive pulmonary disease, unspecified; Z98.890 Other specified postprocedural states; Z79.899 Other long term (current) drug therapy; Z98.51 Tubal ligation status; Z91.040 Latex allergy status; Z88.8 Allergy status to other drugs, medicaments and biological substances; Z96.651 Presence of right artificial knee joint; Z82.49 Family history of ischemic heart disease and other diseases of the circulatory system; Z80.3 Family history of malignant neoplasm of breast

== ENCOUNTER → 2019-02-10 | Outpatient (CLI) | payer MEDICARE, OTHER, MEDICAID ==
[~2019-02-10] MED LIST changes: -DIGOX250 MCG PO
[2019-02-10 11:10] LABS: CALCIUM 9.4 mg/dL (8.5-10.1); CREATININE 0.9 mg/dL (0.6-1.3); POTASSIUM 3.9 mmol/L (3.5-5.1)
--- NOTE | 2019-02-10 11:20 | NUR ---
ARRIVED AMBULAOTRY. MADE SELF COMFORTABLE. PT REPORTS HAVING NEW POWER INJECTABLE IMPLANTABLE PORT PLACED YESTERDAY. DUAL LUMAN TICC NOTED TO BE REMOVED AND NEW SURGICAL SITE TO LEFT CHEST. PT REPORTS EDEMA AND GENERALIZED SORENESS TO AREA RATED AT 5-7. PER PT REQUEST LAB DRAWN FROM RIGHT AC BY RN. LAB RESULTS EVALUATED AND K+ NOTED TO BE 3.9 PER PRIOR STANDING ORDER PERAMITERS NO INFUSION NEEDED. PT UPDATED. PT AGREED AND REQUESTED NO INFUSION OR ACCESS OF PORT. DENIES QUESTIONS OR NEEDS AT DISCHARGE.
== END ==
LOC: M.INFUS 05:01
PROVIDERS: Internal Medicine Nephrology
DX: E87.6 Hypokalemia (principal)

== ENCOUNTER → 2019-02-13 | Outpatient (CLI) | payer MEDICARE, OTHER, MEDICAID ==
[2019-02-13 10:40] VITALS: BP 132/80
[2019-02-13 11:14] LABS: ABSOLUTE EOSINOPHILS 0.1 thou/uL (0.0-0.7); ABSOLUTE LYMPHOCYTES 2.5 thou/uL (0.8-5.3); ABSOLUTE MONOCYTES 0.7 thou/uL (0.0-1.2); ABSOLUTE NEUTROPHILS 5.9 thou/uL (1.6-8.1); BASOPHILS 0.3 %; EOSINOPHILS 0.8 %; HEMATOCRIT 30.1 % (37.0-47.0); HEMOGLOBIN 9.7 gm/dL (12.0-15.0); LYMPHOCYTES 26.9 %; MCH 24.2 pg (26.0-34.0); MCHC 32.2 g/dL (28.0-37.0); MCV 75.1 fL (80.0-100.0); MONOCYTES 7.7 %; MPV 7.2 fl. (7.2-11.1); NUCLEATED RBCS 0 /100WBC; PLATELET COUNT* 437 thou/uL (150-400); POLYS 64.3 %; RDW-CV 16.7 % (10.5-14.5); WBC 9.2 thou/uL (4.0-11.0)
[2019-02-13 11:20] LABS: CALCIUM 8.7 mg/dL (8.5-10.1); CREATININE 0.9 mg/dL (0.6-1.3); POTASSIUM 3.1 mmol/L (3.5-5.1)
[2019-02-13 14:58] VITALS: BP 138/74
== END ==
LOC: M.INFUS 03:04
PROVIDERS: Internal Medicine Nephrology
DX: E87.6 Hypokalemia (principal); N17.9 Acute kidney failure, unspecified

== ENCOUNTER → 2019-02-17 | Outpatient (CLI) | payer MEDICARE, MEDICAID ==
[2019-02-17 10:40] VITALS: BP 132/84
[2019-02-17 11:37] LABS: CALCIUM 8.9 mg/dL (8.5-10.1); POTASSIUM 3.5 mmol/L (3.5-5.1)
[2019-02-17 14:40] VITALS: BP 128/78
--- NOTE | 2019-02-17 14:55 | NUR ---
INFUSION COMPLETED AND TOLERATED WELL. PORT FLUSHED AND DEACCESSED.
== END ==
LOC: M.INFUS 04:50
PROVIDERS: Internal Medicine Nephrology
DX: E87.6 Hypokalemia (principal); N17.9 Acute kidney failure, unspecified

== ENCOUNTER → 2019-02-20 | Outpatient (CLI) | payer MEDICARE, OTHER, MEDICAID ==
[2019-02-20 11:00] VITALS: BP 132/74
[2019-02-20 11:26] LABS: ABSOLUTE EOSINOPHILS 0.2 thou/uL (0.0-0.7); ABSOLUTE LYMPHOCYTES 1.9 thou/uL (0.8-5.3); ABSOLUTE MONOCYTES 0.5 thou/uL (0.0-1.2); ABSOLUTE NEUTROPHILS 4.6 thou/uL (1.6-8.1); BASOPHILS 0.6 %; EOSINOPHILS 2.5 %; HEMATOCRIT 31.1 % (37.0-47.0); HEMOGLOBIN 9.7 gm/dL (12.0-15.0); LYMPHOCYTES 25.9 %; MCH 23.5 pg (26.0-34.0); MCHC 31.2 g/dL (28.0-37.0); MCV 75.3 fL (80.0-100.0); MONOCYTES 6.5 %; MPV 7.5 fl. (7.2-11.1); NUCLEATED RBCS 0 /100WBC; PLATELET COUNT* 462 thou/uL (150-400); POLYS 64.5 %; RBC 4.13 mil/uL (4.20-5.00); WBC 7.2 thou/uL (4.0-11.0)
[2019-02-20 11:51] LABS: CALCIUM 8.7 mg/dL (8.5-10.1); POTASSIUM 3.6 mmol/L (3.5-5.1)
[2019-02-20 14:51] VITALS: BP 142/80
--- NOTE | 2019-02-20 15:04 | NUR ---
ARIVED AMBULATORY. MADE SELF COMFORTABLE IN RECLINER. PORT A CATH ACCESSED WITH OUT DIFFICULTY. GOOD BRISK BLOOD RETURN NOTED AND EASY FLUSH. INFUSION COMPLETED AND TOLERATED WELL. PORT FLUSHED AND LEFT ACCESSED. PT DENIES QUESTONS OR NEEDS AT DISCHARGE.
== END ==
LOC: M.INFUS 04:52
PROVIDERS: Internal Medicine Nephrology
DX: E87.6 Hypokalemia (principal); N17.9 Acute kidney failure, unspecified

== ENCOUNTER → 2019-02-24 | Outpatient (CLI) | payer MEDICARE, OTHER, MEDICAID ==
[2019-02-24 10:15] VITALS: BP 128/74
[2019-02-24 10:53] LABS: CALCIUM 8.5 mg/dL (8.5-10.1); POTASSIUM 3.7 mmol/L (3.5-5.1)
[2019-02-24 14:30] VITALS: BP 133/80
== END ==
LOC: M.INFUS 10:02
PROVIDERS: Internal Medicine Nephrology
DX: E87.6 Hypokalemia (principal); N17.9 Acute kidney failure, unspecified

== ENCOUNTER → 2019-02-27 | Outpatient (CLI) | payer MEDICARE, OTHER, MEDICAID ==
[2019-02-27 10:00] VITALS: BP 132/78
[2019-02-27 11:47] LABS: CALCIUM 8.2 mg/dL (8.5-10.1); CREATININE 0.8 mg/dL (0.6-1.3); POTASSIUM 3.8 mmol/L (3.5-5.1)
[2019-02-27 12:17] LABS: ABSOLUTE BASOPHILS 0.1 thou/uL (0.0-0.2); ABSOLUTE EOSINOPHILS 0.1 thou/uL (0.0-0.7); ABSOLUTE LYMPHOCYTES 1.7 thou/uL (0.8-5.3); ABSOLUTE MONOCYTES 0.5 thou/uL (0.0-1.2); ABSOLUTE NEUTROPHILS 5.2 thou/uL (1.6-8.1); BASOPHILS 0.7 %; EOSINOPHILS 1.5 %; HEMATOCRIT 29.5 % (37.0-47.0); HEMOGLOBIN 9.4 gm/dL (12.0-15.0); LYMPHOCYTES 22.7 %; MCH 24.2 pg (26.0-34.0); MCV 75.7 fL (80.0-100.0); MONOCYTES 6.9 %; MPV 7.3 fl. (7.2-11.1); NUCLEATED RBCS 0 /100WBC; PLATELET COUNT* 415 thou/uL (150-400); POLYS 68.2 %; WBC 7.7 thou/uL (4.0-11.0)
[2019-02-27 15:22] VITALS: BP 140/80
--- NOTE | 2019-02-27 15:27 | NUR ---
INFUSION COMPLETED AND TOERLATED WELL. NO ADVERSE REACTION NOTED. PORT FLUSHED AND LEFT ACCESSED FOR USE LATER THIS WEEK.
== END ==
LOC: M.INFUS 01:18
PROVIDERS: Internal Medicine Nephrology
DX: T82.594A Other mechanical complication of infusion catheter, initial encounter (principal); E87.6 Hypokalemia

== ENCOUNTER → 2019-03-01 | Outpatient (CLI) | payer MEDICARE, OTHER, MEDICAID ==
[2019-03-01 11:00] VITALS: BP 122/75
[2019-03-01 11:02] LABS: CALCIUM 8.4 mg/dL (8.5-10.1); POTASSIUM 3.6 mmol/L (3.5-5.1)
[2019-03-01 15:12] VITALS: BP 122/80
== END ==
LOC: M.RAD 04:57 → M.INFUS 04:57
PROVIDERS: Internal Medicine Nephrology
DX: E87.6 Hypokalemia (principal)

== ENCOUNTER 2019-03-06 11:01 | Outpatient (CLI) | payer MEDICARE, OTHER, MEDICAID ==
[~2019-03-06 11:01] MED LIST changes: -DIGOX250 MCG PO
[2019-03-15] MEDS ORDERED: DIGOX250 MCG PO (13:44)
[2019-03-24 10:50] VITALS: BP 118/65
[2019-03-24 13:00] LABS: CALCIUM 8.2 mg/dL (8.5-10.1); CREATININE 0.9 mg/dL (0.6-1.3); POTASSIUM 3.5 mmol/L (3.5-5.1)
[2019-03-24 14:55] VITALS: BP 122/74
== END 2019-03-24 ==
LOC: M.INFUS 03-24 05:17
PROVIDERS: Internal Medicine Nephrology
DX: N17.9 Acute kidney failure, unspecified (principal); E87.6 Hypokalemia

== ENCOUNTER → 2019-03-06 | Outpatient (CLI) | payer MEDICARE, OTHER, MEDICAID ==
[~2019-03-06] VITALS: Ht 162.6 cm; Wt 90.7 kg
[~2019-03-06] MED LIST changes: +DIGOX250 MCG PO
[2019-03-06 12:35] LABS: ABSOLUTE EOSINOPHILS 0.1 thou/uL (0.0-0.7); ABSOLUTE LYMPHOCYTES 2.5 thou/uL (0.8-5.3); ABSOLUTE MONOCYTES 0.5 thou/uL (0.0-1.2); ABSOLUTE NEUTROPHILS 2.9 thou/uL (1.6-8.1); BASOPHILS 0.5 %; EOSINOPHILS 2.1 %; HEMATOCRIT 30.9 % (37.0-47.0); HEMOGLOBIN 9.7 gm/dL (12.0-15.0); LYMPHOCYTES 41.5 %; MCH 23.6 pg (26.0-34.0); MCHC 31.3 g/dL (28.0-37.0); MCV 75.3 fL (80.0-100.0); MONOCYTES 8.9 %; MPV 7.2 fl. (7.2-11.1); NUCLEATED RBCS 0 /100WBC; PLATELET COUNT* 442 thou/uL (150-400); RDW-CV 16.7 % (10.5-14.5); WBC 6.1 thou/uL (4.0-11.0)
[2019-03-06 12:50] LABS: ALBUMIN 3.3 g/dL (3.4-5.0); ALKALINE PHOSPHATASE 77 U/L (46-116); ANION GAP 7 mmol/L (7-16); BUN 12 mg/dL (7-18); CALCIUM 8.1 mg/dL (8.5-10.1); CHLORIDE 106 mmol/L (98-107); CO2 28 mmol/L (21-32); GLUCOSE 101 mg/dL (70-99); POTASSIUM 3.8 mmol/L (3.5-5.1); SGOT 13 U/L (15-37); SGPT 19 U/L (30-65); SODIUM 141 mmol/L (136-145); TOTAL BILIRUBIN 0.1 mg/dL (<0.1-1.0); TOTAL PROTEIN 7.2 g/dL (6.4-8.2); TROPONIN-I LEVEL <0.06 ng/mL (<0.06)
[2019-03-06 13:54] LABS: INFLUENZA A ANTIGEN Negative (Negative); INFLUENZA B ANTIGEN Negative (Negative)
[2019-03-06 14:31] VITALS: BP 103/59
--- NOTE | 2019-03-06 17:13 | EKG ---
[place] [address] ELECTROCARDIOGRAM REPORT Name: GUS NASCIMENTO Room: [facility]#: [id number] Admission: 03/06/19 Attend Phys: Chalo Hua MD Discharge: Date of : 75 Report #: [id number] THIS REPORT FOR: //name// [facility] ED Test Date: 2019-03-06 Test Time: 11:06:07 Pat Name: GUS COLEP Department: Room: Gender: F [employer]: [place] : 1975 Requested By: Jossie Omalley Order Number: [id number] MD: Chaitanya Gama Measurements Intervals [place] Rate: 117 P: 31 MN: 155 QRS: -5 QRSD: 159 T: 3 QT: 342 QTc: 477 Interpretive Statements Sinus tachycardia Inferior infarct, old Baseline wander in lead(s) I,II,III,aVR,aVL,aVF,V1,V6 Compared to ECG 12/19/2018 12:04:23 Myocardial infarct finding now present Electronically Signed On 03-06-2019 17:13:05 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
== END ==
LOC: M.INFUS 01:24
PROVIDERS: Personal Emergency Response Attendant
DX: E87.6 Hypokalemia (principal); R53.1 Weakness

== ENCOUNTER → 2019-03-08 | Outpatient (CLI) | payer MEDICARE, OTHER, MEDICAID ==
[2019-03-08 10:35] VITALS: BP 132/88
[2019-03-08 11:47] LABS: CALCIUM 8.1 mg/dL (8.5-10.1); CREATININE 0.9 mg/dL (0.6-1.3); PHOSPHORUS* 3.2 mg/dL (2.5-4.9); POTASSIUM 3.2 mmol/L (3.5-5.1)
[2019-03-08 14:25] VITALS: BP 127/74
--- NOTE | 2019-03-08 14:44 | NUR ---
ARRIVED AMBULATORY. MADE SELF COMFORTABLE IN RECLINER. PORT ACCESSED ALREADY. PORT FLUSHED ITH EASE AND GOOD BRISK BLOOD RETURN. INFUSION COMPLETED AND TOLERATED WELL. PORT FLUSED AND LEFT ACCESSED. DENIES QUESTIONS OR NEEDS AT DISCHARGE.
== END ==
LOC: M.INFUS 07:17
PROVIDERS: Internal Medicine Nephrology
DX: E87.6 Hypokalemia (principal); N17.9 Acute kidney failure, unspecified

== ENCOUNTER → 2019-03-13 | Outpatient (CLI) | payer MEDICARE, OTHER, MEDICAID ==
[~2019-03-13] MED LIST changes: +DIGOX250 MCG PO
[2019-03-13 10:40] VITALS: BP 88/69
[2019-03-13 11:56] LABS: ABSOLUTE EOSINOPHILS 0.1 thou/uL (0.0-0.7); ABSOLUTE LYMPHOCYTES 2.6 thou/uL (0.8-5.3); ABSOLUTE MONOCYTES 0.6 thou/uL (0.0-1.2); ABSOLUTE NEUTROPHILS 3.1 thou/uL (1.6-8.1); BASOPHILS 0.5 %; EOSINOPHILS 2.3 %; HEMATOCRIT 31.4 % (37.0-47.0); HEMOGLOBIN 9.9 gm/dL (12.0-15.0); LYMPHOCYTES 40.5 %; MCH 23.6 pg (26.0-34.0); MCHC 31.6 g/dL (28.0-37.0); MCV 74.6 fL (80.0-100.0); MONOCYTES 8.7 %; MPV 7.8 fl. (7.2-11.1); NUCLEATED RBCS 0 /100WBC; PLATELET COUNT* 447 thou/uL (150-400); RBC 4.21 mil/uL (4.20-5.00); RDW-CV 16.6 % (10.5-14.5); WBC 6.4 thou/uL (4.0-11.0)
[2019-03-13 12:01] LABS: CALCIUM 8.2 mg/dL (8.5-10.1); CREATININE 0.8 mg/dL (0.6-1.3); POTASSIUM 3.3 mmol/L (3.5-5.1)
[2019-03-13 14:45] VITALS: BP 100/74
--- NOTE | 2019-03-13 14:57 | NUR ---
PORT A CATH STILL ACCESSED FROM LAST WEEK. PORT PATENT. INFUSION COMPLETED AND TOLERATED WELL. PORT FLUSHED AND DEACCESSED. DENIES QUESTIONS OR NEEDS AT DISCHARGE.
== END ==
LOC: M.INFUS 05:44
PROVIDERS: Internal Medicine Nephrology
DX: E87.6 Hypokalemia (principal); N17.9 Acute kidney failure, unspecified

== ENCOUNTER → 2019-03-15 | Outpatient (CLI) | payer MEDICARE, OTHER, MEDICAID ==
[2019-03-15 12:29] LABS: CALCIUM 7.9 mg/dL (8.5-10.1); CREATININE 0.8 mg/dL (0.6-1.3); POTASSIUM 3.6 mmol/L (3.5-5.1)
== END ==
LOC: M.INFUS 05:02
PROVIDERS: Internal Medicine Nephrology
DX: E87.6 Hypokalemia (principal)

== ENCOUNTER → 2019-03-17 | Outpatient (CLI) | payer MEDICARE, OTHER, MEDICAID ==
[2019-03-17 10:30] VITALS: BP 122/7
[2019-03-17 10:45] LABS: CALCIUM 8.3 mg/dL (8.5-10.1); CREATININE 0.9 mg/dL (0.6-1.3); POTASSIUM 3.8 mmol/L (3.5-5.1)
[2019-03-17 14:20] VITALS: BP 115/74
== END ==
LOC: M.INFUS 04:04
PROVIDERS: Internal Medicine Nephrology
DX: E87.6 Hypokalemia (principal); N17.9 Acute kidney failure, unspecified

== ENCOUNTER → 2019-03-20 | Outpatient (CLI) | payer MEDICARE, OTHER, MEDICAID ==
[2019-03-20 10:30] VITALS: BP 130/75
[2019-03-20 10:56] LABS: ABSOLUTE EOSINOPHILS 0.1 thou/uL (0.0-0.7); ABSOLUTE LYMPHOCYTES 2.4 thou/uL (0.8-5.3); ABSOLUTE MONOCYTES 0.5 thou/uL (0.0-1.2); ABSOLUTE NEUTROPHILS 3.4 thou/uL (1.6-8.1); BASOPHILS 0.8 %; EOSINOPHILS 2.2 %; HEMATOCRIT 31.2 % (37.0-47.0); HEMOGLOBIN 9.8 gm/dL (12.0-15.0); LYMPHOCYTES 37.6 %; MCH 23.5 pg (26.0-34.0); MCHC 31.2 g/dL (28.0-37.0); MCV 75.1 fL (80.0-100.0); MONOCYTES 7.7 %; MPV 7.9 fl. (7.2-11.1); NUCLEATED RBCS 0 /100WBC; PLATELET COUNT* 454 thou/uL (150-400); POLYS 51.7 %; RBC 4.16 mil/uL (4.20-5.00); RDW-CV 17.2 % (10.5-14.5); WBC 6.5 thou/uL (4.0-11.0)
[2019-03-20 11:07] LABS: CALCIUM 8.5 mg/dL (8.5-10.1); POTASSIUM 3.4 mmol/L (3.5-5.1)
[2019-03-20 14:38] VITALS: BP 138/70
== END ==
LOC: M.INFUS 01:46
PROVIDERS: Internal Medicine Nephrology
DX: E87.6 Hypokalemia (principal); N17.9 Acute kidney failure, unspecified; Z45.2 Encounter for adjustment and management of vascular access device

== ENCOUNTER 2019-03-21 17:27 | Emergency (ER) | payer MEDICARE, OTHER, MEDICAID ==
[~2019-03-21] VITALS: Ht 162.6 cm; Wt 91.2 kg
[2019-03-21 20:03] VITALS: BP 132/80
== END 2019-03-21 20:03 | disposition home or self-care (01) ==
LOC: M.ERS 17:27
DX: M25.562 Pain in left knee (principal); M79.7 Fibromyalgia; I25.2 Old myocardial infarction; J44.9 Chronic obstructive pulmonary disease, unspecified; Z98.890 Other specified postprocedural states; Z91.040 Latex allergy status; Z88.1 Allergy status to other antibiotic agents; Z88.6 Allergy status to analgesic agent; Z88.8 Allergy status to other drugs, medicaments and biological substances

== ENCOUNTER → 2019-03-29 | Outpatient (CLI) | payer OTHER, MEDICAID ==
[2019-03-29 10:10] VITALS: BP 116/78
[2019-03-29 10:46] LABS: ABSOLUTE EOSINOPHILS 0.1 thou/uL (0.0-0.7); ABSOLUTE LYMPHOCYTES 1.9 thou/uL (0.8-5.3); ABSOLUTE MONOCYTES 0.5 thou/uL (0.0-1.2); ABSOLUTE NEUTROPHILS 3.8 thou/uL (1.6-8.1); BASOPHILS 0.6 %; EOSINOPHILS 2.1 %; HEMATOCRIT 29.7 % (37.0-47.0); HEMOGLOBIN 9.4 gm/dL (12.0-15.0); LYMPHOCYTES 29.8 %; MCH 23.4 pg (26.0-34.0); MCHC 31.5 g/dL (28.0-37.0); MCV 74.3 fL (80.0-100.0); MONOCYTES 7.9 %; MPV 7.4 fl. (7.2-11.1); NUCLEATED RBCS 0 /100WBC; PLATELET COUNT* 434 thou/uL (150-400); POLYS 59.6 %; RBC 4.01 mil/uL (4.20-5.00); RDW-CV 17.3 % (10.5-14.5); WBC 6.4 thou/uL (4.0-11.0)
[2019-03-29 10:53] LABS: CALCIUM 8.4 mg/dL (8.5-10.1); CREATININE 0.9 mg/dL (0.6-1.3); POTASSIUM 3.7 mmol/L (3.5-5.1)
[2019-03-29 14:22] VITALS: BP 122/84
== END ==
LOC: M.INFUS 09:53
PROVIDERS: Internal Medicine Nephrology
DX: N17.9 Acute kidney failure, unspecified (principal); E87.6 Hypokalemia

== ENCOUNTER → 2019-03-31 | Outpatient (CLI) | payer OTHER, MEDICAID ==
[2019-03-31 09:35] VITALS: BP 110/57
[2019-03-31 12:43] LABS: CALCIUM 8.6 mg/dL (8.5-10.1); CREATININE 0.9 mg/dL (0.6-1.3); POTASSIUM 3.8 mmol/L (3.5-5.1)
--- NOTE | 2019-03-31 13:50 | NUR ---
INFUSION COMPLETED AND TOLERATED WELL. PORT FLUSHED AND DEACCESSED. DENIES QUESTIONS OR NEEDS AT DISCHARGE.
== END ==
LOC: M.INFUS 05:07
PROVIDERS: Internal Medicine Nephrology
DX: N17.9 Acute kidney failure, unspecified (principal); E87.6 Hypokalemia

== ENCOUNTER → 2019-04-03 | Outpatient (CLI) | payer OTHER, MEDICAID ==
[2019-04-03 11:15] VITALS: BP 132/84
[2019-04-03 12:26] LABS: ABSOLUTE BASOPHILS 0.1 thou/uL (0.0-0.2); ABSOLUTE EOSINOPHILS 0.2 thou/uL (0.0-0.7); ABSOLUTE LYMPHOCYTES 1.7 thou/uL (0.8-5.3); ABSOLUTE MONOCYTES 0.5 thou/uL (0.0-1.2); ABSOLUTE NEUTROPHILS 4.9 thou/uL (1.6-8.1); BASOPHILS 0.7 %; EOSINOPHILS 2.7 %; HEMATOCRIT 31.7 % (37.0-47.0); HEMOGLOBIN 9.9 gm/dL (12.0-15.0); MCH 23.3 pg (26.0-34.0); MCHC 31.2 g/dL (28.0-37.0); MCV 74.5 fL (80.0-100.0); MPV 7.7 fl. (7.2-11.1); NUCLEATED RBCS 0 /100WBC; PLATELET COUNT* 503 thou/uL (150-400); POLYS 66.6 %; RBC 4.25 mil/uL (4.20-5.00); RDW-CV 17.3 % (10.5-14.5); WBC 7.3 thou/uL (4.0-11.0)
[2019-04-03 12:40] LABS: CALCIUM 8.5 mg/dL (8.5-10.1); CREATININE 0.9 mg/dL (0.6-1.3); POTASSIUM 3.5 mmol/L (3.5-5.1)
[2019-04-03 13:20] VITALS: BP 122/74
--- NOTE | 2019-04-03 15:24 | NUR ---
INFUSION COMPLETED AND TOLERATED WELL. DENIES QUESTIONS OR NEEDS AT DISCHARGE.
== END ==
LOC: M.MRI 08:30 → M.INFUS 10:30
PROVIDERS: Internal Medicine Nephrology
DX: N17.9 Acute kidney failure, unspecified (principal); E87.6 Hypokalemia

== ENCOUNTER → 2019-04-04 | Outpatient (CLI) | payer OTHER, MEDICAID | LOC: M.MRI 12:04 | DX: M25.462 Effusion, left knee (principal); M94.262 Chondromalacia, left knee; M89.8X8 Other specified disorders of bone, other site ==

== ENCOUNTER → 2019-04-05 | Outpatient (CLI) | payer OTHER, MEDICAID ==
[2019-04-05 08:50] VITALS: BP 132/80
[2019-04-05 09:08] LABS: CREATININE 1.1 mg/dL (0.6-1.3); POTASSIUM 3.7 mmol/L (3.5-5.1)
[2019-04-05 13:04] VITALS: BP 125/80
== END ==
LOC: M.INFUS 01:31
PROVIDERS: Internal Medicine Nephrology
DX: N17.9 Acute kidney failure, unspecified (principal); T82.514A Breakdown (mechanical) of infusion catheter, initial encounter; E87.6 Hypokalemia

== ENCOUNTER → 2019-04-07 | Outpatient (CLI) | payer OTHER, MEDICAID ==
[2019-04-07 10:40] VITALS: BP 126/72
[2019-04-07 13:29] LABS: CALCIUM 8.3 mg/dL (8.5-10.1); POTASSIUM 3.6 mmol/L (3.5-5.1)
[2019-04-07 14:55] VITALS: BP 118/70
== END ==
LOC: M.INFUS 03:31
PROVIDERS: Internal Medicine Nephrology
DX: N17.9 Acute kidney failure, unspecified (principal); E87.6 Hypokalemia

== ENCOUNTER → 2019-04-10 | Outpatient (CLI) | payer OTHER, MEDICAID ==
[2019-04-10 12:56] LABS: ABSOLUTE BASOPHILS 0.1 thou/uL (0.0-0.2); ABSOLUTE EOSINOPHILS 0.1 thou/uL (0.0-0.7); ABSOLUTE LYMPHOCYTES 1.7 thou/uL (0.8-5.3); ABSOLUTE MONOCYTES 0.4 thou/uL (0.0-1.2); ABSOLUTE NEUTROPHILS 4.7 thou/uL (1.6-8.1); BASOPHILS 0.8 %; EOSINOPHILS 1.7 %; HEMOGLOBIN 10.1 gm/dL (12.0-15.0); LYMPHOCYTES 23.8 %; MCH 22.8 pg (26.0-34.0); MCHC 30.8 g/dL (28.0-37.0); MCV 74.2 fL (80.0-100.0); MONOCYTES 5.9 %; MPV 7.6 fl. (7.2-11.1); NUCLEATED RBCS 0 /100WBC; PLATELET COUNT* 441 thou/uL (150-400); POLYS 67.8 %; RBC 4.44 mil/uL (4.20-5.00)
[2019-04-10 13:02] LABS: CALCIUM 8.1 mg/dL (8.5-10.1); CREATININE 0.9 mg/dL (0.6-1.3); POTASSIUM 3.5 mmol/L (3.5-5.1)
[2019-04-10 13:55] LABS: HYPOCHROMASIA 2+; MICROCYTES 1+; PLATELET ESTIMATE ADEQUATE
--- NOTE | 2019-04-10 15:23 | NUR ---
PORT ACCESSED WITH OUT DIFFICULTY. UNABLE TO ASPERATED BLOOD. CATH FLOW PER STANDING ORDER. 1510-PT REQUEST INFUSION BE STOPPED RELATED TO TIME. INFUSION STOPPED ADN LINE FLUSHED AND LEFT ACCESSED FOR USE LATER IN THE WEEK. DENIES QUESTIONS OR NEEDS AT DISCHARGE.
== END ==
LOC: M.INFUS 01:38
PROVIDERS: Internal Medicine Nephrology
DX: N17.9 Acute kidney failure, unspecified (principal); E87.6 Hypokalemia

== ENCOUNTER → 2019-04-12 | Outpatient (CLI) | payer OTHER, MEDICAID ==
[2019-04-12 12:50] LABS: CALCIUM 8.5 mg/dL (8.5-10.1); CREATININE 0.9 mg/dL (0.6-1.3); POTASSIUM 3.6 mmol/L (3.5-5.1)
== END ==
LOC: M.INFUS 00:22
PROVIDERS: Internal Medicine Nephrology
DX: E87.6 Hypokalemia (principal); N17.9 Acute kidney failure, unspecified

== ENCOUNTER → 2019-04-17 | Outpatient (CLI) | payer OTHER, MEDICAID ==
[2019-04-17 11:00] VITALS: BP 110/64
[2019-04-17 11:24] LABS: ABSOLUTE EOSINOPHILS 0.1 thou/uL (0.0-0.7); ABSOLUTE LYMPHOCYTES 1.8 thou/uL (0.8-5.3); ABSOLUTE MONOCYTES 0.3 thou/uL (0.0-1.2); ABSOLUTE NEUTROPHILS 4.3 thou/uL (1.6-8.1); BASOPHILS 0.6 %; EOSINOPHILS 1.6 %; HEMATOCRIT 31.9 % (37.0-47.0); LYMPHOCYTES 26.9 %; MCH 23.3 pg (26.0-34.0); MCHC 31.3 g/dL (28.0-37.0); MCV 74.4 fL (80.0-100.0); MPV 7.5 fl. (7.2-11.1); NUCLEATED RBCS 0 /100WBC; PLATELET COUNT* 405 thou/uL (150-400); POLYS 65.9 %; RBC 4.28 mil/uL (4.20-5.00); RDW-CV 17.8 % (10.5-14.5); WBC 6.6 thou/uL (4.0-11.0)
[2019-04-17 11:38] LABS: ANION GAP 13 mmol/L (7-16); BUN 9 mg/dL (7-18); CALCIUM 8.5 mg/dL (8.5-10.1); CHLORIDE 103 mmol/L (98-107); CHOLESTEROL 237 mg/dL (<200); CO2 25 mmol/L (21-32); CREATININE 0.9 mg/dL (0.6-1.3); GLUCOSE 108 mg/dL (70-99); HDL CHOLESTEROL 34 mg/dL (>40); LDL CHOLESTEROL 166 mg/dL (<100); POTASSIUM 3.7 mmol/L (3.5-5.1); SERUM ASSESSMENT Clear; SODIUM 141 mmol/L (136-145); TRIGLYCERIDE 187 mg/dL (<150); VLDL 37 mg/dL (<40)
[2019-04-17 15:08] VITALS: BP 132/74
--- NOTE | 2019-04-17 15:11 | NUR ---
PORT PATNET. INFUSION COMPLETED AND TOLERATED WELL. PORT FLUSHED AND LEFT ACCESSED. DENIES QUESTIONS OR NEEDS AT DISCHARGE.
== END ==
LOC: M.INFUS 03:44
PROVIDERS: Internal Medicine Nephrology
DX: N17.9 Acute kidney failure, unspecified (principal); E78.5 Hyperlipidemia, unspecified; R00.0 Tachycardia, unspecified

== ENCOUNTER → 2019-04-19 | Outpatient (CLI) | payer OTHER, MEDICAID ==
[2019-04-19 10:40] VITALS: BP 132/78
[2019-04-19 14:47] VITALS: BP 132/78
--- NOTE | 2019-04-19 14:53 | NUR ---
INFUSION COMPLETED AND TOELRATED WELL. DENIES QUESTIONS OR NEEDS AT DISCHARGE.
== END ==
LOC: M.INFUS 02:09
DX: N17.9 Acute kidney failure, unspecified (principal); E87.6 Hypokalemia

== ENCOUNTER → 2019-04-21 | Outpatient (CLI) | payer OTHER, MEDICAID ==
[~2019-04-21] MED LIST changes: +ONDANSETRON ODT4 MG PO
[2019-04-21 10:40] VITALS: BP 132/78
[2019-04-21 13:03] LABS: CALCIUM 8.6 mg/dL (8.5-10.1); CREATININE 0.8 mg/dL (0.6-1.3); POTASSIUM 3.8 mmol/L (3.5-5.1)
== END ==
LOC: M.INFUS 04:00
PROVIDERS: Internal Medicine Nephrology
DX: N17.9 Acute kidney failure, unspecified (principal); E87.6 Hypokalemia

== ENCOUNTER → 2019-04-24 | Outpatient (CLI) | payer OTHER, MEDICAID ==
[~2019-04-24] MED LIST changes: -ONDANSETRON ODT4 MG PO
[2019-04-24 11:00] VITALS: BP 140/80
[2019-04-24 11:13] LABS: ABSOLUTE EOSINOPHILS 0.2 thou/uL (0.0-0.7); ABSOLUTE LYMPHOCYTES 2.5 thou/uL (0.8-5.3); ABSOLUTE MONOCYTES 0.4 thou/uL (0.0-1.2); ABSOLUTE NEUTROPHILS 4.6 thou/uL (1.6-8.1); BASOPHILS 0.6 %; EOSINOPHILS 2.1 %; HEMATOCRIT 31.9 % (37.0-47.0); HEMOGLOBIN 9.8 gm/dL (12.0-15.0); LYMPHOCYTES 32.2 %; MCH 22.9 pg (26.0-34.0); MCHC 30.9 g/dL (28.0-37.0); MCV 74.2 fL (80.0-100.0); MONOCYTES 5.6 %; MPV 7.3 fl. (7.2-11.1); NUCLEATED RBCS 0 /100WBC; PLATELET COUNT* 438 thou/uL (150-400); POLYS 59.5 %; RBC 4.29 mil/uL (4.20-5.00); RDW-CV 17.9 % (10.5-14.5); WBC 7.7 thou/uL (4.0-11.0)
[2019-04-24 11:21] LABS: CALCIUM 8.2 mg/dL (8.5-10.1); POTASSIUM 3.3 mmol/L (3.5-5.1)
[2019-04-24 11:49] LABS: PLATELET ESTIMATE INCREASED
[2019-04-24 11:50] LABS: HYPOCHROMASIA 2+
[2019-04-24 11:58] LABS: MICROCYTES 1+
[2019-04-24 11:59] LABS: ANISOCYTOSIS 1+; OVALOCYTES Occasional
== END ==
LOC: M.INFUS 02:21
PROVIDERS: Internal Medicine Nephrology
DX: N17.9 Acute kidney failure, unspecified (principal); E87.6 Hypokalemia

== ENCOUNTER → 2019-05-01 | Outpatient (CLI) | payer OTHER, MEDICAID ==
[~2019-05-01] VITALS: Ht 162.6 cm; Wt 88.5 kg
[~2019-05-01] MED LIST changes: +ONDANSETRON ODT4 MG PO
[2019-05-01 11:38] LABS: ABSOLUTE EOSINOPHILS 0.1 thou/uL (0.0-0.7); ABSOLUTE MONOCYTES 0.5 thou/uL (0.0-1.2); ABSOLUTE NEUTROPHILS 5.4 thou/uL (1.6-8.1); BASOPHILS 0.5 %; EOSINOPHILS 1.1 %; HEMATOCRIT 31.5 % (37.0-47.0); HEMOGLOBIN 9.7 gm/dL (12.0-15.0); LYMPHOCYTES 24.8 %; MCH 22.8 pg (26.0-34.0); MCHC 30.8 g/dL (28.0-37.0); MCV 74.1 fL (80.0-100.0); MONOCYTES 6.2 %; MPV 7.7 fl. (7.2-11.1); NUCLEATED RBCS 0 /100WBC; PLATELET COUNT* 469 thou/uL (150-400); POLYS 67.4 %; RBC 4.26 mil/uL (4.20-5.00); RDW-CV 17.6 % (10.5-14.5); WBC 8.1 thou/uL (4.0-11.0)
[2019-05-01 11:41] LABS: CALCIUM 8.4 mg/dL (8.5-10.1); CREATININE 0.9 mg/dL (0.6-1.3); POTASSIUM 3.1 mmol/L (3.5-5.1)
[2019-05-01 12:42] LABS: ANISOCYTOSIS 2+; HYPOCHROMASIA 2+; MICROCYTES 1+
[2019-05-01 16:15] LABS: URINE BILIRUBIN NEGATIVE (Negative); URINE BLOOD NEGATIVE (Negative); URINE CLARITY CLEAR; URINE COLOR YELLOW; URINE GLUCOSE-RANDOM NEGATIVE (Negative); URINE KETONES NEGATIVE (Negative); URINE LEUKOCYTES-REFLEX NEGATIVE (Negative); URINE NITRITE-REFLEX NEGATIVE (Negative); URINE PROTEIN NEGATIVE (Negative); URINE UROBILINOGEN 0.2 E.U./dl (0.2-1.0)
[2019-05-01 16:23] LABS: AMP/METHAMP Negative (Negative); BARBITURATES Negative (Negative); BENZODIAZEPINES Negative (Negative); COCAINE Negative (Negative); METHADONE Negative (Negative); OPIATES POSITIVE (Negative); PCP Negative (Negative); THC Negative (Negative)
[2019-05-01 16:43] VITALS: BP 116/68
== END ==
LOC: M.INFUS 01:05 → M.ERS 01:05 → M.INFUS 10:30
PROVIDERS: Internal Medicine Nephrology; Physician Assistant
DX: E87.6 Hypokalemia (principal); R11.10 Vomiting, unspecified

== ENCOUNTER → 2019-05-05 | Outpatient (CLI) | payer OTHER, MEDICAID ==
[2019-05-05 10:40] VITALS: BP 132/70
[2019-05-05 14:20] LABS: CALCIUM 8.3 mg/dL (8.5-10.1); CREATININE 0.9 mg/dL (0.6-1.3); MAGNESIUM 1.9 mg/dL (1.8-2.4); POTASSIUM 3.3 mmol/L (3.5-5.1)
[2019-05-05 14:45] VITALS: BP 140/78
== END ==
LOC: M.INFUS 01:56
PROVIDERS: Internal Medicine Nephrology
DX: E87.6 Hypokalemia (principal); R11.10 Vomiting, unspecified

== ENCOUNTER → 2019-05-08 | Outpatient (CLI) | payer OTHER, MEDICAID ==
[2019-05-08 10:45] VITALS: BP 128/77
[2019-05-08 11:37] LABS: ALBUMIN 3.2 g/dL (3.4-5.0); CALCIUM 8.7 mg/dL (8.5-10.1); CREATININE 0.9 mg/dL (0.6-1.3); POTASSIUM 3.5 mmol/L (3.5-5.1); TOTAL BILIRUBIN 0.2 mg/dL (<0.1-1.0); TOTAL PROTEIN 7.5 g/dL (6.4-8.2)
[2019-05-08 14:26] LABS: ABSOLUTE EOSINOPHILS 0.2 thou/uL (0.0-0.7); ABSOLUTE LYMPHOCYTES 1.6 thou/uL (0.8-5.3); ABSOLUTE MONOCYTES 0.5 thou/uL (0.0-1.2); ABSOLUTE NEUTROPHILS 4.9 thou/uL (1.6-8.1); BASOPHILS 0.5 %; EOSINOPHILS 2.4 %; HEMATOCRIT 30.3 % (37.0-47.0); HEMOGLOBIN 9.2 gm/dL (12.0-15.0); LYMPHOCYTES 22.2 %; MCH 22.6 pg (26.0-34.0); MCHC 30.3 g/dL (28.0-37.0); MCV 74.7 fL (80.0-100.0); MONOCYTES 7.2 %; MPV 7.7 fl. (7.2-11.1); NUCLEATED RBCS 0 /100WBC; PLATELET COUNT* 457 thou/uL (150-400); POLYS 67.7 %; RBC 4.05 mil/uL (4.20-5.00); RDW-CV 17.4 % (10.5-14.5); WBC 7.2 thou/uL (4.0-11.0)
[2019-05-08 15:12] VITALS: BP 132/76
[2019-05-08 15:24] LABS: ANISOCYTOSIS 1+; HYPOCHROMASIA 1+; PLATELET ESTIMATE INCREASED; POIKILOCYTOSIS 1+; POLYCHROMASIA Occasional
== END ==
LOC: M.INFUS 02:02
PROVIDERS: Internal Medicine Nephrology
DX: E87.6 Hypokalemia (principal); R11.10 Vomiting, unspecified

== ENCOUNTER → 2019-05-10 | Outpatient (CLI) | payer OTHER, MEDICAID ==
[2019-05-10 10:45] VITALS: BP 112/69
[2019-05-10 14:45] LABS: ALBUMIN 3.4 g/dL (3.4-5.0); CALCIUM 8.5 mg/dL (8.5-10.1); CREATININE 0.9 mg/dL (0.6-1.3); POTASSIUM 4.1 mmol/L (3.5-5.1); TOTAL BILIRUBIN 0.2 mg/dL (<0.1-1.0); TOTAL PROTEIN 7.7 g/dL (6.4-8.2)
[2019-05-10 14:56] VITALS: BP 110/72
== END ==
LOC: M.INFUS 04:21
PROVIDERS: Internal Medicine Nephrology
DX: E87.6 Hypokalemia (principal); R11.10 Vomiting, unspecified

== ENCOUNTER → 2019-05-12 | Outpatient (CLI) | payer OTHER, MEDICAID ==
[2019-05-12 09:30] VITALS: BP 90/50
[2019-05-12 11:50] LABS: ALBUMIN 3.4 g/dL (3.4-5.0); CALCIUM 8.6 mg/dL (8.5-10.1); POTASSIUM 4.1 mmol/L (3.5-5.1); TOTAL BILIRUBIN 0.2 mg/dL (<0.1-1.0); TOTAL PROTEIN 7.9 g/dL (6.4-8.2)
== END ==
LOC: M.INFUS 04:01
PROVIDERS: Internal Medicine Nephrology
DX: E87.6 Hypokalemia (principal)

== ENCOUNTER → 2019-05-15 | Outpatient (CLI) | payer OTHER, MEDICAID ==
[2019-05-15 11:41] LABS: ABSOLUTE EOSINOPHILS 0.1 thou/uL (0.0-0.7); ABSOLUTE LYMPHOCYTES 1.5 thou/uL (0.8-5.3); ABSOLUTE MONOCYTES 0.4 thou/uL (0.0-1.2); ABSOLUTE NEUTROPHILS 7.8 thou/uL (1.6-8.1); BASOPHILS 0.4 %; EOSINOPHILS 0.6 %; HEMATOCRIT 31.3 % (37.0-47.0); HEMOGLOBIN 9.8 gm/dL (12.0-15.0); LYMPHOCYTES 15.6 %; MCHC 31.3 g/dL (28.0-37.0); MCV 73.3 fL (80.0-100.0); MONOCYTES 4.1 %; MPV 7.3 fl. (7.2-11.1); NUCLEATED RBCS 0 /100WBC; PLATELET COUNT* 465 thou/uL (150-400); POLYS 79.3 %; RBC 4.27 mil/uL (4.20-5.00); RDW-CV 17.5 % (10.5-14.5); WBC 9.8 thou/uL (4.0-11.0)
[2019-05-15 11:48] LABS: CALCIUM 8.9 mg/dL (8.5-10.1)
== END ==
LOC: M.INFUS 03:07
PROVIDERS: Internal Medicine Nephrology
DX: E87.6 Hypokalemia (principal)

== ENCOUNTER → 2019-05-17 | Outpatient (CLI) | payer OTHER, MEDICAID ==
[2019-05-17 09:40] VITALS: BP 133/74
[2019-05-17 10:05] LABS: CALCIUM 9.3 mg/dL (8.5-10.1); POTASSIUM 4.4 mmol/L (3.5-5.1)
[2019-05-17 11:40] VITALS: BP 142/78
== END ==
LOC: M.INFUS 03:40
PROVIDERS: Internal Medicine Nephrology
DX: E87.6 Hypokalemia (principal)

== ENCOUNTER → 2019-05-19 | Outpatient (CLI) | payer OTHER, MEDICAID ==
[2019-05-19 10:56] LABS: CALCIUM 8.7 mg/dL (8.5-10.1); CREATININE 1.2 mg/dL (0.6-1.3)
--- NOTE | 2019-05-19 11:17 | NUR ---
ARRIVED AMBULATORY. LAB DRAWN AND RESULTS EVLUATED. K+ LEVEL NOTED TO BE 4.0 OR HIGHER FOR LAST 2 WEEKS. CALL PLACED AND TO DR. MARTINEZ AND LABS REPORTED. ORDER RECIEVED TO HOLD INFUSION OF POTASSIUM IF LEVEL IS 3.8 OR HIGHER. PT UPDATED. VOICED UNDERSTANDING AND AGREED. DISCHARGE TO HOME. DENIES QUESTIONS OR NEEDS
== END ==
LOC: M.INFUS 02:30
PROVIDERS: Internal Medicine Nephrology
DX: E87.6 Hypokalemia (principal)

== ENCOUNTER → 2019-05-22 | Outpatient (CLI) | payer OTHER, MEDICAID ==
[2019-05-22 10:40] VITALS: BP 132/80
[2019-05-22 10:56] LABS: ABSOLUTE BASOPHILS 0.1 thou/uL (0.0-0.2); ABSOLUTE EOSINOPHILS 0.1 thou/uL (0.0-0.7); ABSOLUTE MONOCYTES 0.8 thou/uL (0.0-1.2); ABSOLUTE NEUTROPHILS 7.2 thou/uL (1.6-8.1); BASOPHILS 0.7 %; EOSINOPHILS 1.4 %; HEMATOCRIT 30.1 % (37.0-47.0); HEMOGLOBIN 9.3 gm/dL (12.0-15.0); LYMPHOCYTES 19.8 %; MCH 22.7 pg (26.0-34.0); MCV 73.4 fL (80.0-100.0); MONOCYTES 7.7 %; MPV 7.6 fl. (7.2-11.1); NUCLEATED RBCS 0 /100WBC; PLATELET COUNT* 528 thou/uL (150-400); POLYS 70.4 %; RDW-CV 17.6 % (10.5-14.5); WBC 10.3 thou/uL (4.0-11.0)
[2019-05-22 11:03] LABS: CALCIUM 8.4 mg/dL (8.5-10.1); CREATININE 1.1 mg/dL (0.6-1.3); POTASSIUM 3.5 mmol/L (3.5-5.1)
[2019-05-22 11:17] LABS: ANISOCYTOSIS 2+; HYPOCHROMASIA 2+; MICROCYTES 2+; PLATELET ESTIMATE ADEQUATE
[2019-05-22 15:06] VITALS: BP 122/74
== END ==
LOC: M.INFUS 04:28
PROVIDERS: Internal Medicine Nephrology
DX: E87.6 Hypokalemia (principal)

== ENCOUNTER → 2019-05-26 | Outpatient (CLI) | payer OTHER, MEDICAID ==
[2019-05-26 09:00] VITALS: BP 131/74
[2019-05-26 09:41] LABS: CALCIUM 8.2 mg/dL (8.5-10.1); CREATININE 0.9 mg/dL (0.6-1.3); POTASSIUM 3.7 mmol/L (3.5-5.1)
== END ==
LOC: M.INFUS 01:17
PROVIDERS: Internal Medicine Nephrology
DX: E87.6 Hypokalemia (principal)

== ENCOUNTER → 2019-05-29 | Outpatient (CLI) | payer OTHER, MEDICAID ==
[2019-05-29 10:49] LABS: ABSOLUTE BASOPHILS 0.1 thou/uL (0.0-0.2); ABSOLUTE EOSINOPHILS 0.1 thou/uL (0.0-0.7); ABSOLUTE LYMPHOCYTES 2.2 thou/uL (0.8-5.3); ABSOLUTE MONOCYTES 0.5 thou/uL (0.0-1.2); ABSOLUTE NEUTROPHILS 5.3 thou/uL (1.6-8.1); BASOPHILS 0.8 %; EOSINOPHILS 1.2 %; HEMOGLOBIN 9.6 gm/dL (12.0-15.0); LYMPHOCYTES 26.9 %; MCH 22.4 pg (26.0-34.0); MCHC 30.8 g/dL (28.0-37.0); MCV 72.9 fL (80.0-100.0); MONOCYTES 6.1 %; MPV 7.3 fl. (7.2-11.1); NUCLEATED RBCS 0 /100WBC; PLATELET COUNT* 514 thou/uL (150-400); RBC 4.26 mil/uL (4.20-5.00); RDW-CV 17.2 % (10.5-14.5); WBC 8.2 thou/uL (4.0-11.0)
[2019-05-29 10:58] LABS: CALCIUM 8.4 mg/dL (8.5-10.1); CREATININE 1.1 mg/dL (0.6-1.3); POTASSIUM 4.1 mmol/L (3.5-5.1)
[2019-05-29 11:36] LABS: ANISOCYTOSIS 2+; HYPOCHROMASIA 1+; MICROCYTES 1+; PLATELET ESTIMATE ADEQUATE
--- NOTE | 2019-05-29 12:42 | NUR ---
ARRIVED AMBULATORY. PORT ACCESSED. LABS DRAWN. k= BACK AT 4.1 PER STANDING ORDER POTASSIUM INFUSION TO BE HELD TODAY. PT UPDATED. VOICED UNDERSTANDING AND AGREED. PORT FLUSHED AND LEFT ACCESSED FOR USE LATER IN WEEK.
== END ==
LOC: M.INFUS 02:51
PROVIDERS: Internal Medicine Nephrology
DX: E87.6 Hypokalemia (principal); D46.4 Refractory anemia, unspecified; D50.9 Iron deficiency anemia, unspecified

== ENCOUNTER → 2019-05-31 | Outpatient (CLI) | payer OTHER, MEDICAID ==
[2019-05-31 10:39] LABS: CALCIUM 8.3 mg/dL (8.5-10.1)
--- NOTE | 2019-05-31 12:13 | NUR ---
UNABLE TO DRAW LABS FROM PORT. NO BLOOD RETURN WITH ASPERATION. CATHFLOW COMPLETED PER PROTOCOL. LINE PATENCY RETURNED TO NRMAL FUNCTION. LINE FLUSHED AND PACKED WITH HEPARIN. PT DID NOT NEED POTASSIUM INFUSION TODAY BASE ON LABS.
== END ==
LOC: M.INFUS 04:39
PROVIDERS: Surgery
DX: Z45.2 Encounter for adjustment and management of vascular access device (principal); T82.514A Breakdown (mechanical) of infusion catheter, initial encounter; E87.6 Hypokalemia

== ENCOUNTER → 2019-06-02 | Outpatient (CLI) | payer OTHER, MEDICAID ==
[2019-06-02 11:12] LABS: CALCIUM 8.5 mg/dL (8.5-10.1); CREATININE 1.1 mg/dL (0.6-1.3); POTASSIUM 3.5 mmol/L (3.5-5.1)
[2019-06-02 13:15] VITALS: BP 132/80
== END ==
LOC: M.INFUS 04:29
PROVIDERS: Internal Medicine Nephrology
DX: E87.5 Hyperkalemia (principal)

== ENCOUNTER → 2019-06-05 | Outpatient (CLI) | payer OTHER, MEDICAID ==
[2019-06-05 10:45] LABS: ABSOLUTE BASOPHILS 0.1 thou/uL (0.0-0.2); ABSOLUTE EOSINOPHILS 0.2 thou/uL (0.0-0.7); ABSOLUTE LYMPHOCYTES 1.8 thou/uL (0.8-5.3); ABSOLUTE MONOCYTES 0.7 thou/uL (0.0-1.2); ABSOLUTE NEUTROPHILS 6.7 thou/uL (1.6-8.1); BASOPHILS 0.6 %; EOSINOPHILS 1.9 %; HEMATOCRIT 29.6 % (37.0-47.0); LYMPHOCYTES 19.1 %; MCH 22.3 pg (26.0-34.0); MCHC 30.4 g/dL (28.0-37.0); MCV 73.1 fL (80.0-100.0); MONOCYTES 7.2 %; MPV 7.2 fl. (7.2-11.1); NUCLEATED RBCS 0 /100WBC; PLATELET COUNT* 524 thou/uL (150-400); POLYS 71.2 %; RBC 4.05 mil/uL (4.20-5.00); RDW-CV 17.9 % (10.5-14.5); WBC 9.4 thou/uL (4.0-11.0)
[2019-06-05 10:51] LABS: CALCIUM 8.2 mg/dL (8.5-10.1); CREATININE 1.1 mg/dL (0.6-1.3); POTASSIUM 3.6 mmol/L (3.5-5.1)
[2019-06-05 11:06] LABS: PLATELET ESTIMATE ADEQUATE
[2019-06-05 14:45] VITALS: BP 122/80
== END ==
LOC: M.INFUS 07:24
PROVIDERS: Internal Medicine Nephrology
DX: E87.6 Hypokalemia (principal)

== ENCOUNTER → 2019-06-07 | Outpatient (CLI) | payer OTHER, MEDICAID ==
[2019-06-07 11:02] LABS: CALCIUM 8.1 mg/dL (8.5-10.1); CREATININE 1.2 mg/dL (0.6-1.3); POTASSIUM 3.5 mmol/L (3.5-5.1)
[2019-06-07 15:20] VITALS: BP 132/80
== END ==
LOC: M.INFUS 05:03
PROVIDERS: Internal Medicine Nephrology
DX: E87.6 Hypokalemia (principal)

== ENCOUNTER → 2019-06-09 | Outpatient (CLI) | payer OTHER, MEDICAID ==
[2019-06-09 11:06] LABS: CALCIUM 9.1 mg/dL (8.5-10.1); CREATININE 1.1 mg/dL (0.6-1.3); POTASSIUM 3.9 mmol/L (3.5-5.1)
--- NOTE | 2019-06-09 12:22 | NUR ---
LABS DRWN FROM PORT. LAB RESULTS EVALUATED AND PER STANDING ORDER PT DOES NOT NEED K+ INFUSION TODAY. PT UPDATED. VOICED UNDERSTANDING AND AGREED. PORT FLUSHED AND DEACCESSED. DENIES QUESTIONS OR NEEDS AT DISCHARGE.
== END ==
LOC: M.INFUS 05:24
PROVIDERS: Internal Medicine Nephrology
DX: E87.6 Hypokalemia (principal)

== ENCOUNTER → 2019-06-14 | Outpatient (CLI) | payer OTHER, MEDICAID ==
[2019-06-14 10:35] VITALS: BP 132/84
[2019-06-14 10:41] LABS: ABSOLUTE BASOPHILS 0.1 thou/uL (0.0-0.2); ABSOLUTE EOSINOPHILS 0.1 thou/uL (0.0-0.7); ABSOLUTE LYMPHOCYTES 2.2 thou/uL (0.8-5.3); ABSOLUTE MONOCYTES 0.3 thou/uL (0.0-1.2); ABSOLUTE NEUTROPHILS 6.3 thou/uL (1.6-8.1); BASOPHILS 0.8 %; EOSINOPHILS 0.8 %; HEMATOCRIT 31.1 % (37.0-47.0); HEMOGLOBIN 9.5 gm/dL (12.0-15.0); LYMPHOCYTES 24.6 %; MCH 21.8 pg (26.0-34.0); MCHC 30.7 g/dL (28.0-37.0); MCV 71.1 fL (80.0-100.0); MONOCYTES 3.8 %; NUCLEATED RBCS 0 /100WBC; PLATELET COUNT* 594 thou/uL (150-400); RBC 4.37 mil/uL (4.20-5.00); RDW-CV 17.6 % (10.5-14.5); WBC 8.9 thou/uL (4.0-11.0)
[2019-06-14 10:52] LABS: CALCIUM 8.7 mg/dL (8.5-10.1); CREATININE 1.1 mg/dL (0.6-1.3); POTASSIUM 3.3 mmol/L (3.5-5.1)
[2019-06-14 11:43] LABS: ANISOCYTOSIS 1+; MICROCYTES 1+
[2019-06-14 11:44] LABS: HYPOCHROMASIA 1+
[2019-06-14 14:57] VITALS: BP 144/88
== END ==
LOC: M.INFUS 03:27
PROVIDERS: Internal Medicine Nephrology
DX: E87.6 Hypokalemia (principal)

== ENCOUNTER → 2019-06-16 | Outpatient (CLI) | payer OTHER, MEDICAID ==
[2019-06-16 09:30] VITALS: BP 138/80
[2019-06-16 10:25] LABS: CALCIUM 8.7 mg/dL (8.5-10.1); CREATININE 1.3 mg/dL (0.6-1.3); POTASSIUM 3.5 mmol/L (3.5-5.1)
[2019-06-16 14:50] VITALS: BP 142/88
--- NOTE | 2019-06-16 15:02 | NUR ---
1ST DOSE OF 2 ORDERED FERAHEM GIVEN. TOLERATED WELL. DENIES QUESTIONS OR NEED AT DISCHARGE.
== END ==
LOC: M.INFUS 01:34
PROVIDERS: Internal Medicine Nephrology
DX: E87.6 Hypokalemia (principal); N17.9 Acute kidney failure, unspecified

== ENCOUNTER → 2019-06-19 | Outpatient (CLI) | payer OTHER, MEDICAID ==
[2019-06-19 09:56] LABS: ABSOLUTE BASOPHILS 0.1 thou/uL (0.0-0.2); ABSOLUTE EOSINOPHILS 0.1 thou/uL (0.0-0.7); ABSOLUTE LYMPHOCYTES 2.4 thou/uL (0.8-5.3); ABSOLUTE MONOCYTES 0.8 thou/uL (0.0-1.2); ABSOLUTE NEUTROPHILS 8.6 thou/uL (1.6-8.1); BASOPHILS 0.7 %; EOSINOPHILS 1.2 %; HEMATOCRIT 29.6 % (37.0-47.0); HEMOGLOBIN 9.2 gm/dL (12.0-15.0); LYMPHOCYTES 19.6 %; MCH 22.3 pg (26.0-34.0); MCHC 31.1 g/dL (28.0-37.0); MCV 71.8 fL (80.0-100.0); MONOCYTES 6.8 %; MPV 6.9 fl. (7.2-11.1); NUCLEATED RBCS 0 /100WBC; PLATELET COUNT* 543 thou/uL (150-400); POLYS 71.7 %; RBC 4.12 mil/uL (4.20-5.00); RDW-CV 17.8 % (10.5-14.5)
[2019-06-19 10:42] LABS: CALCIUM 8.8 mg/dL (8.5-10.1); CREATININE 1.1 mg/dL (0.6-1.3); POTASSIUM 3.5 mmol/L (3.5-5.1)
== END ==
LOC: M.INFUS 01:42
PROVIDERS: Internal Medicine Nephrology
DX: E87.6 Hypokalemia (principal)

== ENCOUNTER → 2019-06-23 | Outpatient (CLI) | payer OTHER, MEDICAID ==
[~2019-06-23] MED LIST changes: +TOPROL XL25 MG PO; +XTAMPZA ER36 MG PO
[2019-06-23 10:10] VITALS: BP 132/80
[2019-06-23 10:29] LABS: CALCIUM 8.7 mg/dL (8.5-10.1); CREATININE 1.3 mg/dL (0.6-1.3); POTASSIUM 3.3 mmol/L (3.5-5.1)
[2019-06-23 14:25] VITALS: BP 142/88
== END ==
LOC: M.INFUS 03:45
PROVIDERS: Internal Medicine Nephrology
DX: E87.6 Hypokalemia (principal)

== ENCOUNTER → 2019-06-26 | Outpatient (CLI) | payer OTHER, MEDICAID ==
[2019-06-26 10:35] VITALS: BP 132/88
[2019-06-26 10:57] LABS: ABSOLUTE BASOPHILS 0.1 thou/uL (0.0-0.2); ABSOLUTE EOSINOPHILS 0.1 thou/uL (0.0-0.7); ABSOLUTE LYMPHOCYTES 2.1 thou/uL (0.8-5.3); ABSOLUTE MONOCYTES 0.5 thou/uL (0.0-1.2); ABSOLUTE NEUTROPHILS 4.7 thou/uL (1.6-8.1); BASOPHILS 0.7 %; EOSINOPHILS 1.1 %; HEMATOCRIT 35.5 % (37.0-47.0); HEMOGLOBIN 10.9 gm/dL (12.0-15.0); LYMPHOCYTES 28.5 %; MCH 23.4 pg (26.0-34.0); MCHC 30.8 g/dL (28.0-37.0); MONOCYTES 6.5 %; MPV 7.6 fl. (7.2-11.1); NUCLEATED RBCS 0 /100WBC; PLATELET COUNT* 453 thou/uL (150-400); POLYS 63.2 %; RBC 4.67 mil/uL (4.20-5.00); RDW-CV 20.8 % (10.5-14.5); WBC 7.4 thou/uL (4.0-11.0)
[2019-06-26 11:00] LABS: CALCIUM 8.8 mg/dL (8.5-10.1); CREATININE 1.2 mg/dL (0.6-1.3); POTASSIUM 3.4 mmol/L (3.5-5.1)
[2019-06-26 11:17] LABS: OVALOCYTES 1+
[2019-06-26 11:18] LABS: TARGET CELLS 1+
[2019-06-26 11:19] LABS: ANISOCYTOSIS 2+; HYPOCHROMASIA 1+; MICROCYTES 2+
[2019-06-26 11:20] LABS: PLATELET ESTIMATE INCREASED
[2019-06-26 15:05] VITALS: BP 140/80
== END ==
LOC: M.INFUS 01:35
PROVIDERS: Internal Medicine Nephrology
DX: E87.6 Hypokalemia (principal)

== ENCOUNTER → 2019-06-28 | Day surgery (SDC) | payer OTHER, MEDICAID ==
--- NOTE | 2019-07-04 13:09 | PATH ---
[address] [address] PATHOLOGY RPT PROCEDURE Name: BRUNILDA NASCIMENTO Room: [facility].#: [id number] Admission: 06/28/19 Date of : 75 Discharge: Report #: [id number] Path Case #: [id number] [facility] Accession Number: [id number] . 01 Material submitted: . body - REMOVED POWER PORT, FOR GROSS EXAM ONLY . 01 Clinical history: . Gitelman's syndrome . 02 Diagnosis: Removed PowerPort (gross examination only): - Port-A-Cath. . (MLK:mml; 07/03/2019) [facility] 07/03/[address] [place] [address] . 02 Electronically signed: . Griselda Mendoza MD, Pathologist NPI- [id number] . 01 Gross description: . The specimen is received in formalin, labeled "Brunilda Nascimento, removed PowerPort" and consists of a purple port measuring 2.5 x 2.5 cm with a white cylindrical tubing protruding from one side measuring 25 cm in length and 0.2 cm in diameter. The port has the inscription "Bard 0089". A gross photos taken. ([place]oty; 06/29/2019) JFQ/JFQ 07/03/2019 1548 Local . 02 Pathologist provided ICD-10: N28.9 . 02 CPT . 617937 Specimen Comment: A courtesy copy of this report has been sent to [phone] Specimen Comment: [phone] Specimen Comment: Report sent to / DR BONNER Performed at: 01 [facility] [address] [id number] MD Suresh Cochran MD Phone: [phone] Performed at: 02 [facility] [address] [id number] MD Stefan Baer MD Phone: [phone]
--- NOTE | 2019-07-06 08:41 | OP ---
[facility] [address] [place] [address] OPERATIVE REPORT Name: GUS NASCIMENTO Room: [facility]#: [id number] Admission: 06/28/19 Attend Phys: Mayra Terry DO Discharge: Date of : 75 Report #: [id number] THIS REPORT FOR: //name// cc: Eliseo Saleh MD, Bruce D. MD ~ THIS REPORT FOR: //name// CC: Eliseo Terry DATE OF SERVICE: 06/28/2019 PREOPERATIVE DIAGNOSIS: Malfunctioning Port-A-Cath. POSTOPERATIVE DIAGNOSIS: Malfunctioning Port-A-Cath. PROCEDURES: 1. Removal of left internal jugular Port-A-Cath and indwelling subcutaneous port. 2. Placement of right internal jugular Port-A-Cath with ultrasound and fluoroscopic guidance and interpretation, left accessed. SURGEON: Mayra Terry DO ANESTHESIA: General endotracheal. ESTIMATED BLOOD LOSS: 10 mL. COMPLICATIONS: None. INTRAOPERATIVE FINDINGS: Hemostasis upon closure of all incisions. Using ultrasound and fluoroscopic guidance, the right internal jugular vein was accessed. The Port-A-Cath was placed with tip of the catheter at the atriocaval junction. INDICATIONS FOR PROCEDURE: The patient is a 43-year-old female, well known to the Surgery Service for multiple medical issues including frequent blood draws and potassium infusions. The patient had notified the clinic that her left internal jugular Port-A-Cath was not aspirating and was difficult to flush as well as concerns for possible near erosion at the level of the skin. The patient was seen and examined. Discussed the procedure including risks, benefits, alternatives. All questions were answered to the patient's satisfaction. Informed consent was obtained. DESCRIPTION OF PROCEDURE: After the patient was brought back to the operating room and placed in supine position, general anesthesia was induced[place] [address] OPERATIVE REPORT Name: GUS NASCIMENTO Room: [facility]#: [id number] Admission: 06/28/19 Attend Phys: Mayra Terry DO Discharge: Date of : 75 Report #: [id number] placed on bilateral lower extremities and prophylactic antibiotics were administered. After a timeout was performed, the attention was first turned towards the left Port-A-Cath. A 3 cm incision was created over the port at the site of the previous scar. Dissection was carried down through the subcutaneous tissues using Bovie cautery. The port was identified as well as the clear locking mechanism and the catheter. The catheter was then grasped with a DeBakey clamp and was removed while pressure was held on the left internal jugular vein. Pressure was held for approximately 3 minutes. The wound was noted to be hemostatic. At this time, the Port-A-Cath hub was then removed after identifying the 2 superior aspects of the port. The Prolene sutures were then cut and removed and the Port-A-Cath was extracted. The port and catheter were then sent for pathology just as gross specimen. Next, the wound was irrigated. Local anesthetic of 0.5% Marcaine and 1% lidocaine mixed 50:50 were injected in the subcutaneous tissues. The skin was then closed in a layered fashion using 4-0 Monocryl suture in a deep dermal layer and 4-0 Monocryl in a running subcuticular fashion. Dermabond was applied for sterile dressing. At this time, initial sponge, needle, and instrument count was reported as correct. Attention was then turned towards the right side of the neck. Using an ultrasound, the right internal jugular and right carotid artery were identified. Local anesthetic was placed using a large bore needle. The right internal jugular vein was accessed on first attempt with ultrasound guidance. Guidewire was then placed. There was noted to be ectopy on the anesthesia monitoring. The wire was slightly withdrawn noting resolution of ectopy. Next, site on the anterior chest wall was identified. This was inferior to the multiple scars from previous ports and more along the superior aspect of the breast and breast tissue. At this time, I then created a 3 cm incision. Dissection was carried down through the subcutaneous tissues using Bovie cautery until the pectoralis fascia was identified. A finger was inserted and a pocket was created to house support the Port-A-Cath hub. Next, fluoroscopy was used to confirm good position of the wire within the inferior vena cava. Next, an incision was made at the level of the wire and the dilator and sheath were then placed and the dilator and wire were then removed. The catheter was then placed through the sheath and the sheath was snapped free with a catheter in place. Next, using a tunneling device, this was placed from the neck incision down to the chest wall incision, local anesthetic was infiltrated along the subcutaneous tract. The catheter was then connected to the tunneler and was brought out through the chest wall incision. Using fluoroscopy, the catheter was withdrawn until the tip was at the atriocaval junction, which was noted to be at 20.5 cm at the level of the skin. The clear locking mechanism was then placed over the catheter and the catheter was cut to length. Next, the port was then connected to the catheter and a clear locking mechanism was placed. The silicone inserts on the Port-A-Cath suture sites were removed. The port was then placed within the subcutaneous pocket and was sutured in the 2 superior aspects using 2-0 Prolene suture. Next, the port was noted to freely aspirate and flush with injectable saline. A final fluoroscopic image was obtained, noting good positioning of the port with no twisting or [place] [address] OPERATIVE REPORT Name: GUS NASCIMENTO Room: [facility].#: [id number] Admission: 06/28/19 Attend Phys: Mayra Terry DO Discharge: Date of : 75 Report #: [id number] appropriate termination of the catheter tip at the atriocaval junction. This image was then saved. At this time, the skin was then reapproximated at the chest wall incision using a 4-0 Monocryl in a deep dermal layer and 4-0 Monocryl in a running subcuticular fashion and Dermabond was applied. Dermabond was also applied to the neck incision. Due to the patient's frequent requirement for infusions, she requested that the port be left accessed at this time. Once the Dermabond was dried, the angled Frias access needle was then placed through the port. This was noted to freely aspirate and flush with injectable saline. Next, the port and catheter were then packed with heparinized saline. Biopatch and Tegaderm dressing were applied. All sponge, needle, and instrument count was reported as correct at the end of the case. The patient was awakened from anesthesia in the operating room and taken to PACU in stable condition for further recovery. <ELECTRONICALLY SIGNED> By: Mayra Terry DO 07/06/19 0841 1435 1503Cmacie Teryr DO /nt
== END | disposition home or self-care (01) ==
LOC: M.SUR 07:30
DX: T82.514A Breakdown (mechanical) of infusion catheter, initial encounter (principal); N15.8 Other specified renal tubulo-interstitial diseases; I25.2 Old myocardial infarction; F41.9 Anxiety disorder, unspecified; J44.9 Chronic obstructive pulmonary disease, unspecified; G47.30 Sleep apnea, unspecified; G89.29 Other chronic pain; Z98.890 Other specified postprocedural states; Z79.899 Other long term (current) drug therapy; Y83.8 Other surgical procedures as the cause of abnormal reaction of the patient, or of later complication, without mention of misadventure at the time of the procedure; Z11.59 Encounter for screening for other viral diseases

== ENCOUNTER → 2019-07-05 | Outpatient (CLI) | payer OTHER, MEDICAID ==
[2019-07-05 10:26] LABS: ABSOLUTE BASOPHILS 0.1 thou/uL (0.0-0.2); ABSOLUTE EOSINOPHILS 0.1 thou/uL (0.0-0.7); ABSOLUTE LYMPHOCYTES 2.3 thou/uL (0.8-5.3); ABSOLUTE MONOCYTES 0.5 thou/uL (0.0-1.2); ABSOLUTE NEUTROPHILS 5.1 thou/uL (1.6-8.1); BASOPHILS 0.7 %; EOSINOPHILS 1.7 %; HEMATOCRIT 33.9 % (37.0-47.0); HEMOGLOBIN 10.8 gm/dL (12.0-15.0); MCH 25.1 pg (26.0-34.0); MCHC 31.9 g/dL (28.0-37.0); MCV 78.6 fL (80.0-100.0); MONOCYTES 5.8 %; MPV 7.5 fl. (7.2-11.1); NUCLEATED RBCS 0 /100WBC; PLATELET COUNT* 367 thou/uL (150-400); POLYS 62.8 %; RBC 4.32 mil/uL (4.20-5.00); RDW-CV 27.6 % (10.5-14.5); WBC 8.1 thou/uL (4.0-11.0)
[2019-07-05 10:34] LABS: CALCIUM 8.6 mg/dL (8.5-10.1); POTASSIUM 3.3 mmol/L (3.5-5.1)
[2019-07-05 10:52] LABS: PLATELET ESTIMATE ADEQUATE
[2019-07-05 10:53] LABS: ANISOCYTOSIS 2+
--- NOTE | 2019-07-05 14:44 | NUR ---
ARRIVED AMBULATORY. MADE SELF COMFORTABLE IN RECLINER. NEW PORT A CATH WAS PLACED 06/28/19 AND OLD ONE REMOVED. NEW PORT STILL ACCESSED FROM SURGERY. PORT FLUSHED WITH EASE AND HAS GOOD BRISK BLOOD RETURN WITH ASPERATION. NEW INSERTION SITE AND REMOVAL SITES ARE CLEAN DRY AND INTACT WITH NO SIGN OF INFECTION BOTH WITH EDGES WELL APROXIMATED. INFUSION COMPELTED AND TOELRATED WELL. DENIES QUESTIONS OR NEEDS AT DISCHARGE.
== END ==
LOC: M.INFUS 02:43
PROVIDERS: Internal Medicine Nephrology
DX: E87.6 Hypokalemia (principal)

== ENCOUNTER → 2019-07-07 | Outpatient (CLI) | payer OTHER, MEDICAID ==
[2019-07-07 10:43] LABS: CALCIUM 8.5 mg/dL (8.5-10.1); POTASSIUM 3.5 mmol/L (3.5-5.1)
[2019-07-07 10:45] VITALS: BP 132/70
[2019-07-07 14:50] VITALS: BP 157/80
== END ==
LOC: M.INFUS 03:55
PROVIDERS: Internal Medicine Nephrology
DX: E87.6 Hypokalemia (principal)

== ENCOUNTER → 2019-07-10 | Outpatient (CLI) | payer OTHER, MEDICAID ==
[2019-07-10 10:32] LABS: ABSOLUTE BASOPHILS 0.1 thou/uL (0.0-0.2); ABSOLUTE EOSINOPHILS 0.2 thou/uL (0.0-0.7); ABSOLUTE MONOCYTES 0.4 thou/uL (0.0-1.2); ABSOLUTE NEUTROPHILS 3.8 thou/uL (1.6-8.1); BASOPHILS 1.1 %; EOSINOPHILS 2.4 %; HEMATOCRIT 34.3 % (37.0-47.0); LYMPHOCYTES 31.7 %; MCH 25.5 pg (26.0-34.0); MCHC 32.1 g/dL (28.0-37.0); MCV 79.2 fL (80.0-100.0); MPV 7.5 fl. (7.2-11.1); NUCLEATED RBCS 0 /100WBC; PLATELET COUNT* 355 thou/uL (150-400); POLYS 58.8 %; RBC 4.33 mil/uL (4.20-5.00); RDW-CV 27.5 % (10.5-14.5); WBC 6.4 thou/uL (4.0-11.0)
[2019-07-10 10:40] VITALS: BP 138/74
[2019-07-10 10:54] LABS: CALCIUM 8.5 mg/dL (8.5-10.1); CREATININE 0.9 mg/dL (0.6-1.3); POTASSIUM 3.4 mmol/L (3.5-5.1)
[2019-07-10 11:30] LABS: PLATELET ESTIMATE ADEQUATE
[2019-07-10 11:31] LABS: HYPOCHROMASIA 1+
[2019-07-10 11:32] LABS: MICROCYTES 2+
[2019-07-10 11:33] LABS: OVALOCYTES Occasional
[2019-07-10 14:45] VITALS: BP 142/80
--- NOTE | 2019-07-10 15:06 | NUR ---
INFUSION COMPLETED AND TOLERATED WELL. PORT FLUSHED AND LEFT ACCESSED.
== END ==
LOC: M.INFUS 04:38
PROVIDERS: Internal Medicine Nephrology
DX: E87.6 Hypokalemia (principal)

== ENCOUNTER 2019-07-12 15:05 | Emergency (ER) | payer OTHER, MEDICAID ==
[~2019-07-12] VITALS: Ht 170.2 cm; Wt 81.7 kg
[2019-07-12 16:06] LABS: ABSOLUTE BASOPHILS 0.1 thou/uL (0.0-0.2); ABSOLUTE EOSINOPHILS 0.1 thou/uL (0.0-0.7); ABSOLUTE LYMPHOCYTES 1.9 thou/uL (0.8-5.3); ABSOLUTE MONOCYTES 0.3 thou/uL (0.0-1.2); ABSOLUTE NEUTROPHILS 5.3 thou/uL (1.6-8.1); BASOPHILS 0.7 %; EOSINOPHILS 0.8 %; HEMATOCRIT 38.7 % (37.0-47.0); HEMOGLOBIN 12.3 gm/dL (12.0-15.0); LYMPHOCYTES 24.6 %; MCH 25.8 pg (26.0-34.0); MCHC 31.8 g/dL (28.0-37.0); MCV 81.1 fL (80.0-100.0); MONOCYTES 4.3 %; MPV 7.3 fl. (7.2-11.1); NUCLEATED RBCS 0 /100WBC; PLATELET COUNT* 427 thou/uL (150-400); POLYS 69.6 %; RBC 4.77 mil/uL (4.20-5.00); RDW-CV 27.8 % (10.5-14.5); WBC 7.7 thou/uL (4.0-11.0)
[2019-07-12 16:25] LABS: CREATININE 1.1 mg/dL (0.6-1.3); POTASSIUM 3.8 mmol/L (3.5-5.1)
[2019-07-12 16:29] LABS: ALBUMIN 3.2 g/dL (3.4-5.0); TOTAL BILIRUBIN 0.2 mg/dL (<0.1-1.0); TOTAL PROTEIN 7.9 g/dL (6.4-8.2)
[2019-07-12 16:32] LABS: BE 1.7 mmol/L (-2 to +3); pH 7.472 (7.340-7.450)
[2019-07-12 16:35] LABS: PO2 129.1 mmHg (75.0-100.0)
[2019-07-12 16:37] LABS: APTT 26.6 Seconds (25.0-31.3); INR 1.1; PROTIME 10.8 Seconds (9.20-11.50)
[2019-07-12 19:47] VITALS: BP 118/80
--- NOTE | 2019-07-13 08:07 | EKG ---
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: [facility] : 1975 Requested By: Ranjana Beard Order Number: [id number] MD: Chaitanya Gama Measurements Intervals [place] Rate: 111 P: 61 UT: 158 QRS: 27 QRSD: 89 T: 35 QT: 348 QTc: 473 Interpretive Statements Sinus tachycardia Compared to ECG 03/06/2019 11:06:07 Myocardial infarct finding no longer present Electronically Signed On 07-13-2019 8:05:27 CDT by Chaitanya Gama [email or web address] <ELECTRONICALLY SIGNED> By: Chaitanya Gama MD, [facility] 07/13/19 0805 1514 1514 Chaitanya Gama MD, [facility] /EPI
== END 2019-07-12 19:48 | disposition home or self-care (01) ==
LOC: M.ERS 15:05
PROVIDERS: Physician Assistant
DX: R19.7 Diarrhea, unspecified (principal); R00.2 Palpitations; J44.9 Chronic obstructive pulmonary disease, unspecified; M79.7 Fibromyalgia; Z98.51 Tubal ligation status; Z86.711 Personal history of pulmonary embolism; Z96.651 Presence of right artificial knee joint; Z91.040 Latex allergy status; Z88.1 Allergy status to other antibiotic agents; Z88.6 Allergy status to analgesic agent; Z88.8 Allergy status to other drugs, medicaments and biological substances

== ENCOUNTER → 2019-07-14 | Outpatient (CLI) | payer OTHER, MEDICAID ==
[2019-07-14 11:00] VITALS: BP 129/71
[2019-07-14 11:11] LABS: CALCIUM 8.1 mg/dL (8.5-10.1); CREATININE 1.3 mg/dL (0.6-1.3); POTASSIUM 3.2 mmol/L (3.5-5.1)
[2019-07-14 15:25] VITALS: BP 111/78
--- NOTE | 2019-07-14 15:33 | NUR ---
Pts infusion completed 1525, flushed with NS & Heprin and port deaccessed. Pt tolerated infusion well. Pt ambulated out for discharge home.
== END ==
LOC: M.INFUS 05:06
PROVIDERS: Internal Medicine Nephrology
DX: E87.6 Hypokalemia (principal)

== ENCOUNTER → 2019-07-19 | Outpatient (CLI) | payer OTHER, MEDICAID ==
[2019-07-19 10:48] LABS: CALCIUM 8.6 mg/dL (8.5-10.1); CREATININE 1.1 mg/dL (0.6-1.3); POTASSIUM 3.4 mmol/L (3.5-5.1)
[2019-07-19 11:01] LABS: ABSOLUTE EOSINOPHILS 0.2 thou/uL (0.0-0.7); ABSOLUTE LYMPHOCYTES 2.7 thou/uL (0.8-5.3); ABSOLUTE MONOCYTES 0.6 thou/uL (0.0-1.2); ABSOLUTE NEUTROPHILS 8.4 thou/uL (1.6-8.1); BASOPHILS 0.4 %; EOSINOPHILS 1.9 %; HEMATOCRIT 39.5 % (37.0-47.0); HEMOGLOBIN 12.5 gm/dL (12.0-15.0); LYMPHOCYTES 22.3 %; MCH 26.3 pg (26.0-34.0); MCHC 31.7 g/dL (28.0-37.0); MCV 83.1 fL (80.0-100.0); MPV 7.9 fl. (7.2-11.1); NUCLEATED RBCS 0 /100WBC; PLATELET COUNT* 364 thou/uL (150-400); POLYS 70.4 %; RBC 4.76 mil/uL (4.20-5.00); RDW-CV 27.9 % (10.5-14.5); WBC 11.9 thou/uL (4.0-11.0)
[2019-07-19 11:24] LABS: HYPOCHROMASIA 2+; MICROCYTES 2+; OVALOCYTES 1+; PLATELET ESTIMATE ADEQUATE
[2019-07-19 11:25] LABS: ANISOCYTOSIS 2+
== END ==
LOC: M.INFUS 04:16
PROVIDERS: Internal Medicine Nephrology
DX: E87.6 Hypokalemia (principal)

== ENCOUNTER → 2019-07-21 | Outpatient (CLI) | payer OTHER, MEDICAID ==
[2019-07-21 10:35] VITALS: BP 132/75
[2019-07-21 11:04] LABS: CALCIUM 8.3 mg/dL (8.5-10.1); POTASSIUM 3.2 mmol/L (3.5-5.1)
[2019-07-21 15:05] VITALS: BP 140/80
== END ==
LOC: M.INFUS 03:29
PROVIDERS: Internal Medicine Nephrology
DX: E87.6 Hypokalemia (principal)

== ENCOUNTER → 2019-07-24 | Outpatient (CLI) | payer OTHER, MEDICAID ==
[2019-07-24 10:54] LABS: ABSOLUTE BASOPHILS 0.1 thou/uL (0.0-0.2); ABSOLUTE EOSINOPHILS 0.3 thou/uL (0.0-0.7); ABSOLUTE LYMPHOCYTES 2.4 thou/uL (0.8-5.3); ABSOLUTE MONOCYTES 0.7 thou/uL (0.0-1.2); BASOPHILS 0.7 %; EOSINOPHILS 3.1 %; HEMOGLOBIN 11.7 gm/dL (12.0-15.0); LYMPHOCYTES 28.3 %; MCH 26.8 pg (26.0-34.0); MCHC 32.6 g/dL (28.0-37.0); MCV 82.2 fL (80.0-100.0); MPV 7.5 fl. (7.2-11.1); NUCLEATED RBCS 0 /100WBC; PLATELET COUNT* 329 thou/uL (150-400); POLYS 59.9 %; RBC 4.38 mil/uL (4.20-5.00); RDW-CV 27.6 % (10.5-14.5); WBC 8.3 thou/uL (4.0-11.0)
[2019-07-24 11:00] LABS: CALCIUM 8.8 mg/dL (8.5-10.1); CREATININE 1.1 mg/dL (0.6-1.3); POTASSIUM 3.2 mmol/L (3.5-5.1)
[2019-07-24 11:06] VITALS: BP 132/78
[2019-07-24 11:24] LABS: HYPOCHROMASIA 2+; MICROCYTES 2+; PLATELET ESTIMATE ADEQUATE
[2019-07-24 11:25] LABS: TARGET CELLS 1+
[2019-07-24 11:26] LABS: ANISOCYTOSIS 2+
[2019-07-24 15:21] VITALS: BP 128/84
== END ==
LOC: M.INFUS 02:16
PROVIDERS: Internal Medicine Nephrology
DX: E87.6 Hypokalemia (principal)

== ENCOUNTER → 2019-07-26 | Outpatient (CLI) | payer OTHER, MEDICAID ==
[2019-07-26 10:50] VITALS: BP 132/70
[2019-07-26 11:02] LABS: CALCIUM 8.7 mg/dL (8.5-10.1); POTASSIUM 3.5 mmol/L (3.5-5.1)
[2019-07-26 15:05] VITALS: BP 148/88
== END ==
LOC: M.INFUS 04:48
PROVIDERS: Internal Medicine Nephrology
DX: E87.6 Hypokalemia (principal)

== ENCOUNTER → 2019-07-28 | Outpatient (CLI) | payer OTHER, MEDICAID ==
[2019-07-28 10:40] VITALS: BP 144/80
[2019-07-28 11:00] LABS: HEMATOCRIT 32.6 % (37.0-47.0); HEMOGLOBIN 10.7 gm/dL (12.0-15.0); MCH 27.2 pg (26.0-34.0); MCHC 32.7 g/dL (28.0-37.0); MCV 83.2 fL (80.0-100.0); MPV 7.4 fl. (7.2-11.1); RBC 3.92 mil/uL (4.20-5.00); RDW-CV 27.9 % (10.5-14.5); WBC 7.8 thou/uL (4.0-11.0)
[2019-07-28 11:04] LABS: CALCIUM 8.9 mg/dL (8.5-10.1); POTASSIUM 4.1 mmol/L (3.5-5.1)
--- NOTE | 2019-07-28 12:03 | NUR ---
ARRIVED AMBULATROY. MADE SELF COMFORTABLE IN RECLINER. PORT A CATH NOTED TO FL;[facility] WITH EASE BUT HAS NO BLOOD RETURN WITH ASPERATION. PER STANDING ORDER CATHFLOW ADMINISTERED AND ORDERED LABS DRAWN FROM LEFT AC BY RN. AFTER 1 HOUR OF DWELL TIME CATHFLOW CHECKED AND GOOD BRISK BLOOD RETURN NOTED WITH ASPERATION. 6ML DRAWN AND WASTED, LINE THEN FLUSHED AND DEACCESSED. K+ WAS NOTED AT 4.1 AND NO NEED FOR k+ INFUSION TODAY. PT VOICED UNDERSTANDING AND AGREED. DENIES QUESTIONS OR NEEDS AT DISCHARGE.
== END ==
LOC: M.INFUS 05:27
PROVIDERS: ATTEND Internal Medicine Nephrology
DX: Z45.2 Encounter for adjustment and management of vascular access device (principal); E87.6 Hypokalemia; N17.9 Acute kidney failure, unspecified; Z96.651 Presence of right artificial knee joint

== ENCOUNTER → 2019-07-31 | Outpatient (CLI) | payer OTHER, MEDICAID ==
[2019-07-31 10:46] LABS: HEMATOCRIT 37.2 % (37.0-47.0); MCHC 32.3 g/dL (28.0-37.0); MCV 83.5 fL (80.0-100.0); MPV 7.2 fl. (7.2-11.1); NUCLEATED RBCS 0 /100WBC; RBC 4.45 mil/uL (4.20-5.00); RDW-CV 28.8 % (10.5-14.5); WBC 15.6 thou/uL (4.0-11.0)
[2019-07-31 10:47] LABS: PLATELET COUNT* 417 thou/uL (150-400)
[2019-07-31 10:50] VITALS: BP 132/80
[2019-07-31 11:03] LABS: CALCIUM 8.2 mg/dL (8.5-10.1); CREATININE 1.1 mg/dL (0.6-1.3); POTASSIUM 3.4 mmol/L (3.5-5.1)
[2019-07-31 11:36] LABS: ABSOLUTE LYMPHOCYTES 4.8 thou/uL (0.8-5.3); ABSOLUTE MONOCYTES 1.1 thou/uL (0.0-1.2); ABSOLUTE NEUTROPHILS 9.7 thou/uL (1.6-8.1); ANISOCYTOSIS 3+
[2019-07-31 11:37] LABS: PLATELET ESTIMATE ADEQUATE
--- NOTE | 2019-07-31 15:20 | NUR ---
ARRIVED AMBULATORY. MADE SELF COMFORTABLE IN RECLINER. PORT ACCESSED WITH OUT DIFFICULTY. SLUGGISH BLOOD RETURN. INFUSION COMPLETED AND TOLERATED WELL. PORT FLUSHED AND LEFT ACCESSED. VICTORIANO QUESTIONS AT DISCHARGE.
== END ==
LOC: M.INFUS 03:42
PROVIDERS: ATTEND Internal Medicine Nephrology
DX: E87.6 Hypokalemia (principal)

== ENCOUNTER → 2019-08-02 | Outpatient (CLI) | payer OTHER, MEDICAID ==
[2019-08-02 10:44] LABS: ABSOLUTE EOSINOPHILS 0.2 thou/uL (0.0-0.7); ABSOLUTE MONOCYTES 0.6 thou/uL (0.0-1.2); ABSOLUTE NEUTROPHILS 7.9 thou/uL (1.6-8.1); BASOPHILS 0.4 %; EOSINOPHILS 1.4 %; HEMATOCRIT 37.1 % (37.0-47.0); HEMOGLOBIN 11.8 gm/dL (12.0-15.0); LYMPHOCYTES 25.4 %; MCH 26.9 pg (26.0-34.0); MCHC 31.9 g/dL (28.0-37.0); MCV 84.5 fL (80.0-100.0); NUCLEATED RBCS 0 /100WBC; PLATELET COUNT* 357 thou/uL (150-400); POLYS 67.8 %; RBC 4.39 mil/uL (4.20-5.00); RDW-CV 27.7 % (10.5-14.5); WBC 11.7 thou/uL (4.0-11.0)
[2019-08-02 10:48] VITALS: BP 132/70
[2019-08-02 10:56] LABS: CALCIUM 8.2 mg/dL (8.5-10.1); CREATININE 1.1 mg/dL (0.6-1.3); POTASSIUM 3.9 mmol/L (3.5-5.1)
[2019-08-02 11:49] LABS: HYPOCHROMASIA 2+; PLATELET ESTIMATE ADEQUATE
[2019-08-02 11:50] LABS: MICROCYTES Occasional
--- NOTE | 2019-08-02 11:50 | NUR ---
K+ LEVEL RESULTS BACK AT 3.9 PER STANDING ORDER k+ TO BE HELD TODAY. PORT A CATH FLUSHED WITH EASE BUT NO BLOOD RETURN WITH ASPERATION. CATHFLOW INSTILLED PER PROTOCOL. AFTER 1 HOUR LINE CHECKED AND GOOD BRISK BLOOD RETURN NOTED. LINE FLUSHED PER PROTOCOL AND LEFT ACCESSED. DENIES QUESTIONS OR NEEDS AT DISCHAGE.
[2019-08-02 11:52] LABS: ANISOCYTOSIS 2+; OVALOCYTES Occasional
== END ==
LOC: M.INFUS 04:28
PROVIDERS: ATTEND Internal Medicine Nephrology
DX: Z45.2 Encounter for adjustment and management of vascular access device (principal); E87.6 Hypokalemia

== ENCOUNTER → 2019-08-04 | Outpatient (CLI) | payer OTHER, MEDICAID ==
[2019-08-04 10:35] VITALS: BP 142/74
[2019-08-04 11:00] LABS: ABSOLUTE EOSINOPHILS 0.1 thou/uL (0.0-0.7); ABSOLUTE LYMPHOCYTES 2.4 thou/uL (0.8-5.3); ABSOLUTE MONOCYTES 0.6 thou/uL (0.0-1.2); ABSOLUTE NEUTROPHILS 8.9 thou/uL (1.6-8.1); BASOPHILS 0.3 %; EOSINOPHILS 1.2 %; HEMATOCRIT 37.6 % (37.0-47.0); HEMOGLOBIN 12.3 gm/dL (12.0-15.0); LYMPHOCYTES 19.6 %; MCH 27.7 pg (26.0-34.0); MCHC 32.8 g/dL (28.0-37.0); MCV 84.5 fL (80.0-100.0); MONOCYTES 5.4 %; MPV 7.3 fl. (7.2-11.1); NUCLEATED RBCS 0 /100WBC; PLATELET COUNT* 361 thou/uL (150-400); POLYS 73.5 %; RBC 4.45 mil/uL (4.20-5.00); RDW-CV 27.7 % (10.5-14.5); WBC 12.1 thou/uL (4.0-11.0)
[2019-08-04 11:12] LABS: CALCIUM 8.6 mg/dL (8.5-10.1); CREATININE 1.1 mg/dL (0.6-1.3)
[2019-08-04 11:25] LABS: PLATELET ESTIMATE ADEQUATE
[2019-08-04 11:26] LABS: ANISOCYTOSIS 3+; HYPOCHROMASIA 1+
== END ==
LOC: M.INFUS 05:15
PROVIDERS: ATTEND Internal Medicine Nephrology
DX: E87.6 Hypokalemia (principal)

== ENCOUNTER → 2019-08-07 | Outpatient (CLI) | payer OTHER, MEDICAID ==
[2019-08-07 10:30] VITALS: BP 132/84
[2019-08-07 10:47] LABS: ABSOLUTE BASOPHILS 0.1 thou/uL (0.0-0.2); ABSOLUTE EOSINOPHILS 0.1 thou/uL (0.0-0.7); ABSOLUTE MONOCYTES 0.6 thou/uL (0.0-1.2); ABSOLUTE NEUTROPHILS 6.9 thou/uL (1.6-8.1); BASOPHILS 0.7 %; EOSINOPHILS 0.8 %; HEMATOCRIT 41.5 % (37.0-47.0); HEMOGLOBIN 13.5 gm/dL (12.0-15.0); LYMPHOCYTES 28.3 %; MCH 27.6 pg (26.0-34.0); MCHC 32.6 g/dL (28.0-37.0); MCV 84.6 fL (80.0-100.0); MONOCYTES 5.7 %; MPV 7.5 fl. (7.2-11.1); NUCLEATED RBCS 0 /100WBC; PLATELET COUNT* 395 thou/uL (150-400); POLYS 64.5 %; RBC 4.91 mil/uL (4.20-5.00); RDW-CV 27.4 % (10.5-14.5); WBC 10.8 thou/uL (4.0-11.0)
[2019-08-07 10:51] LABS: CALCIUM 8.9 mg/dL (8.5-10.1); CREATININE 1.2 mg/dL (0.6-1.3); POTASSIUM 3.4 mmol/L (3.5-5.1)
[2019-08-07 11:17] LABS: ANISOCYTOSIS 2+; PLATELET ESTIMATE ADEQUATE
[2019-08-07 11:18] LABS: HYPOCHROMASIA 1+
[2019-08-07 11:19] LABS: MICROCYTES 2+
[2019-08-07 15:00] VITALS: BP 122/80
== END ==
LOC: M.INFUS 02:36
PROVIDERS: ATTEND Internal Medicine Nephrology
DX: E87.6 Hypokalemia (principal)

== ENCOUNTER → 2019-08-09 | Outpatient (CLI) | payer OTHER, MEDICAID ==
[2019-08-09 10:31] LABS: ABSOLUTE BASOPHILS 0.1 thou/uL (0.0-0.2); ABSOLUTE EOSINOPHILS 0.2 thou/uL (0.0-0.7); ABSOLUTE LYMPHOCYTES 3.8 thou/uL (0.8-5.3); ABSOLUTE NEUTROPHILS 7.2 thou/uL (1.6-8.1); BASOPHILS 0.5 %; EOSINOPHILS 1.5 %; HEMATOCRIT 38.1 % (37.0-47.0); HEMOGLOBIN 12.6 gm/dL (12.0-15.0); LYMPHOCYTES 31.3 %; MCH 28.1 pg (26.0-34.0); MONOCYTES 7.9 %; MPV 7.4 fl. (7.2-11.1); NUCLEATED RBCS 0 /100WBC; PLATELET COUNT* 347 thou/uL (150-400); POLYS 58.8 %; RBC 4.49 mil/uL (4.20-5.00); RDW-CV 26.3 % (10.5-14.5); WBC 12.3 thou/uL (4.0-11.0)
[2019-08-09 10:37] LABS: CALCIUM 9.2 mg/dL (8.5-10.1); CREATININE 1.1 mg/dL (0.6-1.3); POTASSIUM 3.4 mmol/L (3.5-5.1)
[2019-08-09 11:00] LABS: ANISOCYTOSIS 2+
[2019-08-09 11:01] LABS: PLATELET ESTIMATE ADEQUATE
[2019-08-09 14:48] VITALS: BP 142/75
[2019-08-09 14:49] VITALS: BP 132/80
== END ==
LOC: M.INFUS 04:53
PROVIDERS: ATTEND Internal Medicine Nephrology
DX: E87.6 Hypokalemia (principal)

== ENCOUNTER → 2019-08-11 | Outpatient (CLI) | payer OTHER, MEDICAID ==
[2019-08-11 10:20] LABS: ABSOLUTE EOSINOPHILS 0.2 thou/uL (0.0-0.7); ABSOLUTE LYMPHOCYTES 3.6 thou/uL (0.8-5.3); ABSOLUTE MONOCYTES 0.5 thou/uL (0.0-1.2); BASOPHILS 0.3 %; EOSINOPHILS 1.5 %; HEMATOCRIT 36.6 % (37.0-47.0); HEMOGLOBIN 11.7 gm/dL (12.0-15.0); LYMPHOCYTES 31.5 %; MCH 27.5 pg (26.0-34.0); MCHC 32.1 g/dL (28.0-37.0); MCV 85.7 fL (80.0-100.0); MONOCYTES 4.8 %; MPV 7.6 fl. (7.2-11.1); NUCLEATED RBCS 0 /100WBC; PLATELET COUNT* 362 thou/uL (150-400); POLYS 61.9 %; RBC 4.27 mil/uL (4.20-5.00); RDW-CV 26.2 % (10.5-14.5); WBC 11.3 thou/uL (4.0-11.0)
[2019-08-11 10:24] LABS: CALCIUM 8.7 mg/dL (8.5-10.1); CREATININE 1.1 mg/dL (0.6-1.3); POTASSIUM 3.6 mmol/L (3.5-5.1)
[2019-08-11 10:30] VITALS: BP 132/70
[2019-08-11 10:52] LABS: ANISOCYTOSIS 2+
[2019-08-11 10:53] LABS: PLATELET ESTIMATE ADEQUATE
[2019-08-11 14:30] VITALS: BP 142/88
== END ==
LOC: M.INFUS 00:50
PROVIDERS: ATTEND Internal Medicine Nephrology
DX: E87.6 Hypokalemia (principal)

== ENCOUNTER → 2019-08-14 | Outpatient (CLI) | payer OTHER, MEDICAID ==
[2019-08-14 11:00] VITALS: BP 115/62
[2019-08-14 11:37] LABS: ABSOLUTE EOSINOPHILS 0.2 thou/uL (0.0-0.7); ABSOLUTE LYMPHOCYTES 2.2 thou/uL (0.8-5.3); ABSOLUTE MONOCYTES 0.5 thou/uL (0.0-1.2); ABSOLUTE NEUTROPHILS 5.7 thou/uL (1.6-8.1); BASOPHILS 0.5 %; EOSINOPHILS 1.8 %; HEMATOCRIT 35.5 % (37.0-47.0); HEMOGLOBIN 11.7 gm/dL (12.0-15.0); LYMPHOCYTES 26.1 %; MCHC 32.9 g/dL (28.0-37.0); MCV 84.9 fL (80.0-100.0); MONOCYTES 5.6 %; MPV 7.5 fl. (7.2-11.1); NUCLEATED RBCS 0 /100WBC; PLATELET COUNT* 347 thou/uL (150-400); RBC 4.18 mil/uL (4.20-5.00); RDW-CV 25.8 % (10.5-14.5); WBC 8.6 thou/uL (4.0-11.0)
[2019-08-14 11:41] LABS: CALCIUM 8.6 mg/dL (8.5-10.1); CREATININE 0.9 mg/dL (0.6-1.3); POTASSIUM 3.8 mmol/L (3.5-5.1)
[2019-08-14 11:50] VITALS: BP 118/64
--- NOTE | 2019-08-14 12:25 | NUR ---
PATIENT IMPLANTABLE PORT NOT PATENT. FLUSHES FREELY BUT UNABLE TO ASPIRATE BLOOD RETURN DESPITE POSITION CHANGES AND SEVERAL ATTEMPTS. PATIENT DECLINED TO CATHFLOW TODAY. RECEIVED PHONE CALL REURN FROM DR. DE LA PAZ OFFICE WHO OFFERED PATIENT TO REPLACE CATHETER WITH 9.5 [place] CITIZ[place] TUBING. PATIENT WILL DECLINE AT THIS TIME. DR. DE LA PAZ OFFICE ADVISED TO LEAVE CATHETER PATIENT IS NOT REJECTING THIS DEVICE AT THIS TIME. PATIENT POTASSIUM IS 3.8 TODAY SO NO NEED FOR POTASSIUM INFUSION.
[2019-08-14 12:26] LABS: ANISOCYTOSIS 2+; HYPOCHROMASIA 1+; MICROCYTES 2+; PLATELET ESTIMATE ADEQUATE
[2019-08-14 12:27] LABS: OVALOCYTES 1+; TEARDROPS 1+
== END ==
LOC: M.INFUS 04:17
PROVIDERS: ATTEND Internal Medicine Nephrology
DX: E87.6 Hypokalemia (principal)

== ENCOUNTER → 2019-08-18 | Outpatient (CLI) | payer OTHER, MEDICAID ==
[2019-08-18 09:50] VITALS: BP 120/60
[2019-08-18 10:43] LABS: ABSOLUTE EOSINOPHILS 0.2 thou/uL (0.0-0.7); ABSOLUTE LYMPHOCYTES 2.4 thou/uL (0.8-5.3); ABSOLUTE MONOCYTES 0.4 thou/uL (0.0-1.2); BASOPHILS 0.3 %; HEMATOCRIT 35.1 % (37.0-47.0); HEMOGLOBIN 11.5 gm/dL (12.0-15.0); LYMPHOCYTES 26.5 %; MCH 28.1 pg (26.0-34.0); MCHC 32.8 g/dL (28.0-37.0); MCV 85.7 fL (80.0-100.0); MONOCYTES 4.2 %; MPV 7.4 fl. (7.2-11.1); NUCLEATED RBCS 0 /100WBC; PLATELET COUNT* 331 thou/uL (150-400); RDW-CV 24.8 % (10.5-14.5)
[2019-08-18 10:51] LABS: ALBUMIN 3.1 g/dL (3.4-5.0); CALCIUM 8.3 mg/dL (8.5-10.1); POTASSIUM 3.5 mmol/L (3.5-5.1); TOTAL BILIRUBIN 0.2 mg/dL (<0.1-1.0); TOTAL PROTEIN 7.2 g/dL (6.4-8.2)
[2019-08-18 11:05] VITALS: BP 122/70
[2019-08-18 11:16] LABS: ANISOCYTOSIS 2+; PLATELET ESTIMATE ADEQUATE
[2019-08-18 11:18] LABS: HYPOCHROMASIA 1+; MICROCYTES 1+
--- NOTE | 2019-08-18 12:32 | NUR ---
PATIENT RIGHT CHEST IMPLANTABLE PORT CLOTTED. UNABLE TO DRAW BACK BLOOD RETURN, ALTEPLASE INJECTED AND LEFT TO DWELL FOR 30 MINUTES. LINE PATENCY RE-ESTABLISHED. PATIENT POTASSIUM 3.4 TODAY. PATIENT DECLINED POTASSIUM INFUSION TODAY. IMPLANTABLE PORT FLUSHED AND PACKED WITH HEPARIN. DISCHARGE INSTRUCTIONS REVIEWED, PATIENT REMINDED TO COME TO EMERGENCY ROOM FOR ANY SIDE EFFECTS OR MEDICAL/ HEALTH DIFFICULTIES.
== END ==
LOC: M.INFUS 04:04
PROVIDERS: ATTEND Internal Medicine Nephrology
DX: E87.6 Hypokalemia (principal)

== ENCOUNTER → 2019-08-21 | Outpatient (CLI) | payer OTHER, MEDICAID ==
[2019-08-21 10:13] LABS: ABSOLUTE BASOPHILS 0.1 thou/uL (0.0-0.2); ABSOLUTE EOSINOPHILS 0.1 thou/uL (0.0-0.7); ABSOLUTE LYMPHOCYTES 2.5 thou/uL (0.8-5.3); ABSOLUTE MONOCYTES 0.5 thou/uL (0.0-1.2); ABSOLUTE NEUTROPHILS 5.5 thou/uL (1.6-8.1); BASOPHILS 0.7 %; EOSINOPHILS 1.7 %; HEMATOCRIT 35.7 % (37.0-47.0); HEMOGLOBIN 11.9 gm/dL (12.0-15.0); LYMPHOCYTES 28.5 %; MCH 28.5 pg (26.0-34.0); MCHC 33.3 g/dL (28.0-37.0); MCV 85.4 fL (80.0-100.0); MONOCYTES 5.3 %; MPV 7.1 fl. (7.2-11.1); NUCLEATED RBCS 0 /100WBC; PLATELET COUNT* 355 thou/uL (150-400); POLYS 63.8 %; RBC 4.18 mil/uL (4.20-5.00); RDW-CV 24.5 % (10.5-14.5); WBC 8.6 thou/uL (4.0-11.0)
[2019-08-21 10:27] LABS: CALCIUM 8.5 mg/dL (8.5-10.1); CREATININE 0.8 mg/dL (0.6-1.3); POTASSIUM 3.5 mmol/L (3.5-5.1)
[2019-08-21 10:35] VITALS: BP 132/80
[2019-08-21 10:37] LABS: PLATELET ESTIMATE ADEQUATE
[2019-08-21 10:38] LABS: ANISOCYTOSIS 1+; POIKILOCYTOSIS 1+
[2019-08-21 14:40] VITALS: BP 133/74
== END ==
LOC: M.INFUS 06:45
PROVIDERS: ATTEND Internal Medicine Nephrology
DX: E87.6 Hypokalemia (principal)

== ENCOUNTER → 2019-08-28 | Outpatient (CLI) | payer OTHER, MEDICAID ==
[2019-08-28 10:40] VITALS: BP 132/87
[2019-08-28 11:02] LABS: ABSOLUTE BASOPHILS 0.1 thou/uL (0.0-0.2); ABSOLUTE EOSINOPHILS 0.1 thou/uL (0.0-0.7); ABSOLUTE LYMPHOCYTES 2.7 thou/uL (0.8-5.3); ABSOLUTE MONOCYTES 0.6 thou/uL (0.0-1.2); BASOPHILS 0.9 %; EOSINOPHILS 1.7 %; HEMATOCRIT 37.7 % (37.0-47.0); HEMOGLOBIN 12.6 gm/dL (12.0-15.0); LYMPHOCYTES 32.1 %; MCH 28.8 pg (26.0-34.0); MCHC 33.3 g/dL (28.0-37.0); MCV 86.7 fL (80.0-100.0); MONOCYTES 6.9 %; MPV 7.1 fl. (7.2-11.1); NUCLEATED RBCS 0 /100WBC; PLATELET COUNT* 382 thou/uL (150-400); POLYS 58.4 %; RBC 4.36 mil/uL (4.20-5.00); RDW-CV 23.4 % (10.5-14.5); WBC 8.5 thou/uL (4.0-11.0)
[2019-08-28 11:08] LABS: CALCIUM 8.6 mg/dL (8.5-10.1); CREATININE 1.1 mg/dL (0.6-1.3); POTASSIUM 3.5 mmol/L (3.5-5.1)
[2019-08-28 11:49] LABS: ANISOCYTOSIS 2+; MICROCYTES 1+; PLATELET ESTIMATE ADEQUATE
[2019-08-28 11:50] LABS: HYPOCHROMASIA 1+; TARGET CELLS Occasional
[2019-08-28 11:51] LABS: SCHISTOCYTES Occasional
[2019-08-28 15:15] VITALS: BP 140/75
== END ==
LOC: M.INFUS 04:32
PROVIDERS: ATTEND Internal Medicine Nephrology
DX: E87.6 Hypokalemia (principal)

== ENCOUNTER → 2019-08-30 | Outpatient (CLI) | payer OTHER, MEDICAID ==
[2019-08-30 10:30] VITALS: BP 132/78
[2019-08-30 11:25] LABS: ABSOLUTE BASOPHILS 0.1 thou/uL (0.0-0.2); ABSOLUTE EOSINOPHILS 0.1 thou/uL (0.0-0.7); ABSOLUTE LYMPHOCYTES 2.5 thou/uL (0.8-5.3); ABSOLUTE MONOCYTES 0.5 thou/uL (0.0-1.2); ABSOLUTE NEUTROPHILS 5.3 thou/uL (1.6-8.1); BASOPHILS 0.9 %; EOSINOPHILS 1.7 %; HEMATOCRIT 39.4 % (37.0-47.0); HEMOGLOBIN 13.2 gm/dL (12.0-15.0); LYMPHOCYTES 29.2 %; MCHC 33.6 g/dL (28.0-37.0); MCV 86.4 fL (80.0-100.0); MONOCYTES 6.2 %; MPV 7.4 fl. (7.2-11.1); NUCLEATED RBCS 0 /100WBC; PLATELET COUNT* 427 thou/uL (150-400); RBC 4.55 mil/uL (4.20-5.00); RDW-CV 23.3 % (10.5-14.5); WBC 8.6 thou/uL (4.0-11.0)
[2019-08-30 11:31] LABS: CALCIUM 8.9 mg/dL (8.5-10.1); CREATININE 1.1 mg/dL (0.6-1.3)
[2019-08-30 11:50] LABS: ANISOCYTOSIS 2+; PLATELET ESTIMATE ADEQUATE; TARGET CELLS 1+
[2019-08-30 13:30] VITALS: BP 122/80
--- NOTE | 2019-08-30 13:43 | NUR ---
ARRIVED AMBULATORY. MADE SELF COMFORTABLE IN RECLINER. PORT A CATH HAS EASY FLUSH BUT SLUGGISH MINIMAL BLOOD RETURN WITH ASPERATION. PER STANDING ORDER CATH FLOW INSTILLED. LABS DRAWN FROM RIGHT AC AND RESULTED K+ BACK AT 4.0 NO POTASSIUM INFUSION NEEDED TODAY. CALL PLACES TO DR. JUSTIN REQUESTING UPDATED ORDER FOR CATHFLOW. MESSAGE LEFT WITH SATYA PAY CLERK. AT 2 HOURS CATH FLOW CHECKED. GOOD BRISK BLOOD RETURN NOTED AND FLUSHED WITH EASE. PORT FLUSHED. DENIES QUESTIONS OR NEEDS AT DISCHARGE.
== END ==
LOC: M.INFUS 05:39
PROVIDERS: ATTEND Internal Medicine Nephrology
DX: Z45.2 Encounter for adjustment and management of vascular access device (principal); T82.514A Breakdown (mechanical) of infusion catheter, initial encounter; E87.6 Hypokalemia; Y92.89 Other specified places as the place of occurrence of the external cause

== ENCOUNTER → 2019-09-01 | Outpatient (CLI) | payer OTHER, MEDICAID ==
[~2019-09-01] MED LIST changes: +FLAGYL500 M1 PO; +HYDROCODON-ACE1 EAC8 PO
[2019-09-01 10:22] LABS: ABSOLUTE EOSINOPHILS 0.2 thou/uL (0.0-0.7); ABSOLUTE LYMPHOCYTES 3.6 thou/uL (0.8-5.3); ABSOLUTE MONOCYTES 0.8 thou/uL (0.0-1.2); ABSOLUTE NEUTROPHILS 7.2 thou/uL (1.6-8.1); BASOPHILS 0.4 %; EOSINOPHILS 1.7 %; HEMATOCRIT 38.1 % (37.0-47.0); HEMOGLOBIN 12.6 gm/dL (12.0-15.0); LYMPHOCYTES 30.7 %; MCH 28.9 pg (26.0-34.0); MCHC 33.1 g/dL (28.0-37.0); MCV 87.4 fL (80.0-100.0); MONOCYTES 6.5 %; MPV 7.2 fl. (7.2-11.1); NUCLEATED RBCS 0 /100WBC; PLATELET COUNT* 405 thou/uL (150-400); POLYS 60.7 %; RBC 4.36 mil/uL (4.20-5.00); RDW-CV 22.4 % (10.5-14.5); WBC 11.9 thou/uL (4.0-11.0)
[2019-09-01 10:29] LABS: CREATININE 1.2 mg/dL (0.6-1.3); POTASSIUM 3.8 mmol/L (3.5-5.1)
--- NOTE | 2019-09-01 11:19 | NUR ---
PORT INTACT AND PATENT WITH NO SIGN OF INFECTION. LAB RESULTS BACK WITH K+ AT 5.8 PER STANDING ORDER INFUSION OF K+ TO BE HELD. PT UPDATED. VOICED UNDERSTANDING AND AGREED. DENIES QUESTIONS OR NEEDS AT DISCHARGE
== END ==
LOC: M.INFUS 05:32
PROVIDERS: ATTEND Internal Medicine Nephrology
DX: E87.6 Hypokalemia (principal)

== ENCOUNTER → 2019-09-04 | Outpatient (CLI) | payer OTHER, MEDICAID ==
[2019-09-04 10:38] LABS: ABSOLUTE BASOPHILS 0.1 thou/uL (0.0-0.2); ABSOLUTE EOSINOPHILS 0.1 thou/uL (0.0-0.7); ABSOLUTE LYMPHOCYTES 2.6 thou/uL (0.8-5.3); ABSOLUTE MONOCYTES 0.7 thou/uL (0.0-1.2); ABSOLUTE NEUTROPHILS 5.8 thou/uL (1.6-8.1); BASOPHILS 0.6 %; EOSINOPHILS 1.1 %; HEMATOCRIT 37.1 % (37.0-47.0); HEMOGLOBIN 12.3 gm/dL (12.0-15.0); LYMPHOCYTES 28.4 %; MCH 29.1 pg (26.0-34.0); MCHC 33.3 g/dL (28.0-37.0); MCV 87.2 fL (80.0-100.0); MONOCYTES 7.8 %; MPV 7.4 fl. (7.2-11.1); NUCLEATED RBCS 0 /100WBC; PLATELET COUNT* 381 thou/uL (150-400); POLYS 62.1 %; RBC 4.25 mil/uL (4.20-5.00); RDW-CV 21.8 % (10.5-14.5); WBC 9.3 thou/uL (4.0-11.0)
[2019-09-04 10:43] LABS: CALCIUM 8.7 mg/dL (8.5-10.1); POTASSIUM 3.8 mmol/L (3.5-5.1)
--- NOTE | 2019-09-04 11:09 | NUR ---
ARRIVED AMBULATORY. MADE SELF COMFORTABLE IN RECLINER. PORT A CATH ACESSED WITH EASE. GOOD BRISK BLOOD RETURN NOTED AND FLUSHED WITH EASE. LABS GEOFF AND RESULT NOTED AT 3.8. PER STANDING ORDER NO POTASSIUM INFUSION NEEDED. PT UPDATED. VOICED UNDERSTANDING AND AGREED. DENIES QUESTIONS OR NEEDS AT DISCHARGE.
[2019-09-04 11:11] LABS: ANISOCYTOSIS 2+; PLATELET ESTIMATE ADEQUATE; SCHISTOCYTES 1+
== END ==
LOC: M.INFUS 02:54
PROVIDERS: ATTEND Internal Medicine Nephrology
DX: E87.6 Hypokalemia (principal)

== ENCOUNTER 2019-09-08 18:53 | Emergency (ER) | payer OTHER, MEDICAID ==
[~2019-09-08] VITALS: Ht 162.6 cm; Wt 86.2 kg
[~2019-09-08 18:53] MED LIST changes: -FLAGYL500 M1 PO; -HYDROCODON-ACE1 EAC8 PO
[2019-09-08 21:41] LABS: ABSOLUTE BASOPHILS 0.1 thou/uL (0.0-0.2); ABSOLUTE LYMPHOCYTES 2.1 thou/uL (0.8-5.3); ABSOLUTE MONOCYTES 0.6 thou/uL (0.0-1.2); ABSOLUTE NEUTROPHILS 10.1 thou/uL (1.6-8.1); BASOPHILS 0.4 %; EOSINOPHILS 0.1 %; HEMATOCRIT 41.9 % (37.0-47.0); HEMOGLOBIN 13.9 gm/dL (12.0-15.0); LYMPHOCYTES 16.1 %; MCH 29.2 pg (26.0-34.0); MCHC 33.2 g/dL (28.0-37.0); MONOCYTES 4.8 %; MPV 7.4 fl. (7.2-11.1); NUCLEATED RBCS 0 /100WBC; PLATELET COUNT* 409 thou/uL (150-400); POLYS 78.6 %; RBC 4.76 mil/uL (4.20-5.00); RDW-CV 20.6 % (10.5-14.5); WBC 12.8 thou/uL (4.0-11.0)
[2019-09-08 21:50] LABS: CALCIUM 9.1 mg/dL (8.5-10.1); POTASSIUM 3.9 mmol/L (3.5-5.1)
[2019-09-08 21:54] LABS: ALBUMIN 3.9 g/dL (3.4-5.0); MAGNESIUM 2.2 mg/dL (1.8-2.4); TOTAL BILIRUBIN 0.2 mg/dL (<0.1-1.0); TOTAL PROTEIN 8.4 g/dL (6.4-8.2)
[2019-09-08 22:11] LABS: ANISOCYTOSIS 1+; POIKILOCYTOSIS Occasional
[2019-09-09] MEDS ORDERED: FLAGYL500 M1 PO (02:28)
[2019-09-09] MEDS ORDERED: HYDROCODON-ACE1 EAC8 PO (02:28)
[2019-09-09 03:08] VITALS: BP 112/58
[2019-09-09] MEDS ORDERED: KEFLEX500 M1 PO (14:32)
[2019-09-09] MEDS ORDERED: PROMS25 WY RECTAL (14:32)
[2020-02-05] MEDS ORDERED: PERCOCET 10-321 EAC1 (12:58)
[2020-02-05] MEDS ORDERED: FOSAMAX 70 MG T70 MG (13:03)
[2020-02-05] MEDS ORDERED: LIPITOR 20 MG T20 M1 PO (13:03)
[2020-02-05] MEDS ORDERED: SAVELLA100 MG (13:04)
[2020-02-05] MEDS ORDERED: ALDACTONE100 MG (13:04)
[2020-02-05] MEDS ORDERED: CYCLOBENZAPRINE10 MG (13:05)
[2020-02-05] MEDS ORDERED: ULTRAM 50MG TAB50 MG (13:05)
== END 2019-09-09 03:08 | disposition home or self-care (01) ==
LOC: M.ERS 18:53
PROVIDERS: Emergency Medicine
DX: R10.13 Epigastric pain (principal); R10.11 Right upper quadrant pain; R11.2 Nausea with vomiting, unspecified; J44.9 Chronic obstructive pulmonary disease, unspecified; M79.7 Fibromyalgia; Z20.828 Contact with and (suspected) exposure to other viral communicable diseases; Z98.51 Tubal ligation status; Z86.711 Personal history of pulmonary embolism; Z96.651 Presence of right artificial knee joint; Z91.040 Latex allergy status; Z88.1 Allergy status to other antibiotic agents; Z88.8 Allergy status to other drugs, medicaments and biological substances

== ENCOUNTER → 2019-09-08 | Outpatient (CLI) | payer OTHER, MEDICAID | LOC: M.INFUS 04:19 | DX: E87.6 Hypokalemia (principal) ==

== ENCOUNTER 2019-09-09 11:59 | Emergency (ER) | payer OTHER, MEDICAID | END 2019-09-09 15:10 | disposition home or self-care (01) | LOC: M.ERS 11:59 | DX: K52.9 Noninfective gastroenteritis and colitis, unspecified (principal); N39.0 Urinary tract infection, site not specified; R11.2 Nausea with vomiting, unspecified; J44.9 Chronic obstructive pulmonary disease, unspecified; M79.7 Fibromyalgia; Z98.51 Tubal ligation status; Z86.711 Personal history of pulmonary embolism; Z96.651 Presence of right artificial knee joint; Z95.5 Presence of coronary angioplasty implant and graft; Z91.040 Latex allergy status; Z88.1 Allergy status to other antibiotic agents; Z88.8 Allergy status to other drugs, medicaments and biological substances ==

== ENCOUNTER → 2019-09-13 | Outpatient (CLI) | payer OTHER, MEDICAID ==
[~2019-09-13] MED LIST changes: +FLAGYL500 M1 PO; +HYDROCODON-ACE1 EAC8 PO
[2019-09-13 10:26] LABS: ABSOLUTE BASOPHILS 0.1 thou/uL (0.0-0.2); ABSOLUTE EOSINOPHILS 0.2 thou/uL (0.0-0.7); ABSOLUTE LYMPHOCYTES 3.1 thou/uL (0.8-5.3); ABSOLUTE MONOCYTES 0.6 thou/uL (0.0-1.2); ABSOLUTE NEUTROPHILS 3.9 thou/uL (1.6-8.1); BASOPHILS 0.9 %; EOSINOPHILS 2.3 %; HEMATOCRIT 38.2 % (37.0-47.0); HEMOGLOBIN 12.8 gm/dL (12.0-15.0); LYMPHOCYTES 39.4 %; MCH 29.5 pg (26.0-34.0); MCHC 33.5 g/dL (28.0-37.0); MCV 88.2 fL (80.0-100.0); MONOCYTES 8.2 %; MPV 7.5 fl. (7.2-11.1); NUCLEATED RBCS 0 /100WBC; PLATELET COUNT* 345 thou/uL (150-400); POLYS 49.2 %; RBC 4.33 mil/uL (4.20-5.00); RDW-CV 18.7 % (10.5-14.5); WBC 7.9 thou/uL (4.0-11.0)
[2019-09-13 10:30] VITALS: BP 132/74
[2019-09-13 10:38] LABS: CALCIUM 8.7 mg/dL (8.5-10.1); POTASSIUM 3.6 mmol/L (3.5-5.1)
[2019-09-13 11:05] LABS: PLATELET ESTIMATE ADEQUATE
[2019-09-13 14:40] VITALS: BP 122/74
== END ==
LOC: M.INFUS 05:28
PROVIDERS: ATTEND Internal Medicine Nephrology
DX: E87.6 Hypokalemia (principal)

== ENCOUNTER → 2019-09-15 | Outpatient (CLI) | payer OTHER, MEDICAID ==
[2019-09-15 10:45] VITALS: BP 132/84
[2019-09-15 11:01] LABS: ABSOLUTE EOSINOPHILS 0.3 thou/uL (0.0-0.7); ABSOLUTE LYMPHOCYTES 2.4 thou/uL (0.8-5.3); ABSOLUTE MONOCYTES 0.7 thou/uL (0.0-1.2); ABSOLUTE NEUTROPHILS 5.5 thou/uL (1.6-8.1); BASOPHILS 0.5 %; EOSINOPHILS 3.6 %; HEMATOCRIT 35.4 % (37.0-47.0); HEMOGLOBIN 11.8 gm/dL (12.0-15.0); LYMPHOCYTES 26.5 %; MCH 29.3 pg (26.0-34.0); MCHC 33.4 g/dL (28.0-37.0); MONOCYTES 7.7 %; MPV 7.4 fl. (7.2-11.1); NUCLEATED RBCS 0 /100WBC; PLATELET COUNT* 295 thou/uL (150-400); POLYS 61.7 %; RBC 4.02 mil/uL (4.20-5.00); RDW-CV 18.2 % (10.5-14.5); WBC 8.9 thou/uL (4.0-11.0)
[2019-09-15 11:13] LABS: CALCIUM 8.4 mg/dL (8.5-10.1); POTASSIUM 3.2 mmol/L (3.5-5.1)
[2019-09-15 15:20] VITALS: BP 138/80
--- NOTE | 2019-09-15 15:26 | NUR ---
INFUSION COMPLETED AND TOLERTAED WELL. PORT FLUSHED AND DEACCESSED. DENIES QUESTIONS OR NEEDS AT DISCHARGE.
== END ==
LOC: M.INFUS 05:34
PROVIDERS: ATTEND Internal Medicine Nephrology
DX: E87.6 Hypokalemia (principal)

== ENCOUNTER → 2019-09-18 | Outpatient (CLI) | payer OTHER, MEDICAID ==
[2019-09-18 10:15] VITALS: BP 132/84
[2019-09-18 10:57] LABS: ABSOLUTE EOSINOPHILS 0.3 thou/uL (0.0-0.7); ABSOLUTE MONOCYTES 0.4 thou/uL (0.0-1.2); ABSOLUTE NEUTROPHILS 5.9 thou/uL (1.6-8.1); BASOPHILS 0.5 %; HEMATOCRIT 34.5 % (37.0-47.0); HEMOGLOBIN 11.7 gm/dL (12.0-15.0); LYMPHOCYTES 22.9 %; MCH 29.7 pg (26.0-34.0); MCHC 33.8 g/dL (28.0-37.0); MCV 87.6 fL (80.0-100.0); MPV 7.5 fl. (7.2-11.1); NUCLEATED RBCS 0 /100WBC; PLATELET COUNT* 331 thou/uL (150-400); POLYS 68.6 %; RBC 3.94 mil/uL (4.20-5.00); RDW-CV 18.6 % (10.5-14.5); WBC 8.5 thou/uL (4.0-11.0)
[2019-09-18 11:02] LABS: CALCIUM 8.1 mg/dL (8.5-10.1); POTASSIUM 3.1 mmol/L (3.5-5.1)
[2019-09-18 15:15] VITALS: BP 144/78
== END ==
LOC: M.INFUS 05:08
PROVIDERS: ATTEND Internal Medicine Nephrology
DX: E87.6 Hypokalemia (principal)

== ENCOUNTER → 2019-09-20 | Outpatient (CLI) | payer OTHER, MEDICAID ==
[2019-09-20 10:58] LABS: ABSOLUTE BASOPHILS 0.1 thou/uL (0.0-0.2); ABSOLUTE EOSINOPHILS 0.2 thou/uL (0.0-0.7); ABSOLUTE LYMPHOCYTES 2.1 thou/uL (0.8-5.3); ABSOLUTE MONOCYTES 0.4 thou/uL (0.0-1.2); ABSOLUTE NEUTROPHILS 5.2 thou/uL (1.6-8.1); BASOPHILS 0.7 %; EOSINOPHILS 3.1 %; HEMATOCRIT 35.6 % (37.0-47.0); HEMOGLOBIN 11.9 gm/dL (12.0-15.0); LYMPHOCYTES 26.5 %; MCH 29.7 pg (26.0-34.0); MCHC 33.4 g/dL (28.0-37.0); MCV 88.8 fL (80.0-100.0); MONOCYTES 4.5 %; MPV 7.1 fl. (7.2-11.1); NUCLEATED RBCS 0 /100WBC; PLATELET COUNT* 322 thou/uL (150-400); POLYS 65.2 %; RBC 4.01 mil/uL (4.20-5.00); RDW-CV 17.1 % (10.5-14.5)
[2019-09-20 11:15] VITALS: BP 132/74
[2019-09-20 11:24] LABS: CALCIUM 8.5 mg/dL (8.5-10.1); POTASSIUM 3.4 mmol/L (3.5-5.1)
[2019-09-20 15:40] VITALS: BP 140/74
== END ==
LOC: M.INFUS 05:23
PROVIDERS: ATTEND Internal Medicine Nephrology
DX: E87.6 Hypokalemia (principal)

== ENCOUNTER → 2019-09-25 | Outpatient (CLI) | payer OTHER, MEDICAID ==
[2019-09-25 10:51] LABS: ABSOLUTE EOSINOPHILS 0.1 thou/uL (0.0-0.7); ABSOLUTE LYMPHOCYTES 2.6 thou/uL (0.8-5.3); ABSOLUTE MONOCYTES 0.5 thou/uL (0.0-1.2); ABSOLUTE NEUTROPHILS 6.9 thou/uL (1.6-8.1); BASOPHILS 0.4 %; EOSINOPHILS 1.2 %; HEMATOCRIT 36.4 % (37.0-47.0); HEMOGLOBIN 12.2 gm/dL (12.0-15.0); LYMPHOCYTES 25.8 %; MCH 29.9 pg (26.0-34.0); MCHC 33.5 g/dL (28.0-37.0); MCV 89.2 fL (80.0-100.0); MPV 7.1 fl. (7.2-11.1); NUCLEATED RBCS 0 /100WBC; PLATELET COUNT* 370 thou/uL (150-400); POLYS 67.6 %; RBC 4.08 mil/uL (4.20-5.00); RDW-CV 16.2 % (10.5-14.5); WBC 10.1 thou/uL (4.0-11.0)
[2019-09-25 11:38] LABS: CALCIUM 8.8 mg/dL (8.5-10.1)
[2019-09-25 11:45] VITALS: BP 124/78
[2019-09-25 11:45] LABS: POTASSIUM 3.6 mmol/L (3.5-5.1)
[2019-09-25 13:55] VITALS: BP 132/74
--- NOTE | 2019-09-25 14:01 | NUR ---
ARRIVED AMBULATORY. MADE SELF COMFORTABLE IN RECLINER. PORT ALREADY ACCESSED FROM LAST WEEK. PORT PATENT WITH GOOD BEISK BLOOD RETURN AND EASY FLUSH. LAB RESULTS EVALUATED AND PT REQUESTED TO ONLY DO 20MEQ OF k+ TODAY RELATED TO APPOINTMENT. 20MEQ INFUISON COMPLETED AND TOELRATED WELL. PORT FLUSHED AND DEACCESSED. DENIES QUESTIONS OR NEEDS AT DISCHARGE.
== END ==
LOC: M.INFUS 00:52
PROVIDERS: ATTEND Internal Medicine Nephrology
DX: E87.6 Hypokalemia (principal)

== ENCOUNTER → 2019-09-27 | Outpatient (CLI) | payer OTHER, MEDICAID ==
[2019-09-27 10:56] LABS: ABSOLUTE BASOPHILS 0.1 thou/uL (0.0-0.2); ABSOLUTE EOSINOPHILS 0.2 thou/uL (0.0-0.7); ABSOLUTE MONOCYTES 0.7 thou/uL (0.0-1.2); ABSOLUTE NEUTROPHILS 7.6 thou/uL (1.6-8.1); BASOPHILS 0.5 %; EOSINOPHILS 1.6 %; HEMATOCRIT 36.7 % (37.0-47.0); HEMOGLOBIN 12.2 gm/dL (12.0-15.0); LYMPHOCYTES 26.3 %; MCH 29.8 pg (26.0-34.0); MCHC 33.3 g/dL (28.0-37.0); MCV 89.6 fL (80.0-100.0); MONOCYTES 6.1 %; MPV 7.4 fl. (7.2-11.1); NUCLEATED RBCS 0 /100WBC; PLATELET COUNT* 382 thou/uL (150-400); POLYS 65.5 %; WBC 11.6 thou/uL (4.0-11.0)
[2019-09-27 11:05] LABS: CALCIUM 8.8 mg/dL (8.5-10.1); CREATININE 0.9 mg/dL (0.6-1.3); POTASSIUM 3.4 mmol/L (3.5-5.1)
[2019-09-27 11:15] VITALS: BP 132/74
[2019-09-27 15:15] VITALS: BP 112/82
== END ==
LOC: M.INFUS 03:49
PROVIDERS: ATTEND Internal Medicine Nephrology
DX: E87.6 Hypokalemia (principal)

== ENCOUNTER → 2019-09-29 | Outpatient (CLI) | payer OTHER, MEDICAID ==
[2019-09-29 11:00] LABS: ABSOLUTE BASOPHILS 0.1 thou/uL (0.0-0.2); ABSOLUTE EOSINOPHILS 0.2 thou/uL (0.0-0.7); ABSOLUTE LYMPHOCYTES 3.2 thou/uL (0.8-5.3); ABSOLUTE MONOCYTES 0.7 thou/uL (0.0-1.2); ABSOLUTE NEUTROPHILS 7.6 thou/uL (1.6-8.1); BASOPHILS 0.5 %; HEMATOCRIT 37.4 % (37.0-47.0); HEMOGLOBIN 12.6 gm/dL (12.0-15.0); LYMPHOCYTES 27.1 %; MCH 29.9 pg (26.0-34.0); MCHC 33.6 g/dL (28.0-37.0); MONOCYTES 6.2 %; MPV 7.4 fl. (7.2-11.1); NUCLEATED RBCS 0 /100WBC; PLATELET COUNT* 417 thou/uL (150-400); POLYS 64.2 %; RBC 4.21 mil/uL (4.20-5.00); RDW-CV 15.9 % (10.5-14.5); WBC 11.8 thou/uL (4.0-11.0)
[2019-09-29 11:10] LABS: CALCIUM 9.1 mg/dL (8.5-10.1); POTASSIUM 3.8 mmol/L (3.5-5.1)
--- NOTE | 2019-09-29 11:23 | NUR ---
K+ LAB BACK AT 3.8 PER STANDING ORDER INFUSION HELD. PT UPDATED VOICED UNDERSTANDING AND AGREE. PORT DEACCESSED. DENIES QUESTION OR NEEDS AT DISCHARGE.
== END ==
LOC: M.INFUS 01:27
PROVIDERS: ATTEND Internal Medicine Nephrology
DX: E87.6 Hypokalemia (principal)

== ENCOUNTER → 2019-10-02 | Outpatient (CLI) | payer OTHER, MEDICAID ==
[2019-10-02 11:00] VITALS: BP 132/75
[2019-10-02 11:05] LABS: ABSOLUTE BASOPHILS 0.1 thou/uL (0.0-0.2); ABSOLUTE EOSINOPHILS 0.2 thou/uL (0.0-0.7); ABSOLUTE MONOCYTES 0.6 thou/uL (0.0-1.2); ABSOLUTE NEUTROPHILS 6.7 thou/uL (1.6-8.1); BASOPHILS 0.5 %; EOSINOPHILS 1.9 %; HEMATOCRIT 39.1 % (37.0-47.0); LYMPHOCYTES 28.3 %; MCH 29.6 pg (26.0-34.0); MCHC 33.3 g/dL (28.0-37.0); MCV 88.8 fL (80.0-100.0); MPV 7.7 fl. (7.2-11.1); NUCLEATED RBCS 0 /100WBC; PLATELET COUNT* 459 thou/uL (150-400); POLYS 63.3 %; RBC 4.41 mil/uL (4.20-5.00); RDW-CV 15.2 % (10.5-14.5); WBC 10.6 thou/uL (4.0-11.0)
[2019-10-02 11:20] LABS: CALCIUM 8.9 mg/dL (8.5-10.1); POTASSIUM 3.5 mmol/L (3.5-5.1)
[2019-10-02 15:15] VITALS: BP 155/80
== END ==
LOC: M.INFUS 02:41
PROVIDERS: ATTEND Internal Medicine Nephrology
DX: E87.6 Hypokalemia (principal)

== ENCOUNTER → 2019-10-04 | Outpatient (CLI) | payer OTHER, MEDICAID ==
[2019-10-04 10:55] LABS: ABSOLUTE BASOPHILS 0.1 thou/uL (0.0-0.2); ABSOLUTE EOSINOPHILS 0.2 thou/uL (0.0-0.7); ABSOLUTE MONOCYTES 0.8 thou/uL (0.0-1.2); ABSOLUTE NEUTROPHILS 7.4 thou/uL (1.6-8.1); BASOPHILS 0.6 %; EOSINOPHILS 1.5 %; HEMATOCRIT 38.1 % (37.0-47.0); HEMOGLOBIN 12.6 gm/dL (12.0-15.0); LYMPHOCYTES 26.1 %; MCH 29.4 pg (26.0-34.0); MCHC 33.1 g/dL (28.0-37.0); MCV 88.8 fL (80.0-100.0); MONOCYTES 6.9 %; MPV 7.2 fl. (7.2-11.1); NUCLEATED RBCS 0 /100WBC; PLATELET COUNT* 445 thou/uL (150-400); POLYS 64.9 %; RBC 4.29 mil/uL (4.20-5.00); RDW-CV 15.1 % (10.5-14.5); WBC 11.4 thou/uL (4.0-11.0)
[2019-10-04 11:04] LABS: CALCIUM 8.8 mg/dL (8.5-10.1); POTASSIUM 3.9 mmol/L (3.5-5.1)
--- NOTE | 2019-10-04 12:19 | NUR ---
ARRIVED AMBULATORY. MADE SELF COFMORTABLE. PORT PATENT WITH GOOD BLOOD RETURN AND EASY FLUSH. LAB RESULTS FOR K+ BACK AT 3.8. NO NEED FOR K+ INFUSION TODAY. PT UPDATED. VOICED UNDERSTANDING AND AGREED. LINE FLUSHED AND LEFT ACCESSED FOR USE LATER THIS WEEK. DENEIS QUESTIONS OR NEEDS AT DISCARGE.
== END ==
LOC: M.INFUS 04:39
PROVIDERS: ATTEND Internal Medicine Nephrology
DX: E87.6 Hypokalemia (principal)

== ENCOUNTER → 2019-10-06 | Outpatient (CLI) | payer OTHER, MEDICAID ==
[2019-10-06 10:45] VITALS: BP 132/75
[2019-10-06 11:10] LABS: ABSOLUTE BASOPHILS 0.1 thou/uL (0.0-0.2); ABSOLUTE EOSINOPHILS 0.2 thou/uL (0.0-0.7); ABSOLUTE LYMPHOCYTES 3.1 thou/uL (0.8-5.3); ABSOLUTE MONOCYTES 0.9 thou/uL (0.0-1.2); ABSOLUTE NEUTROPHILS 8.2 thou/uL (1.6-8.1); BASOPHILS 0.4 %; EOSINOPHILS 1.6 %; HEMATOCRIT 37.6 % (37.0-47.0); HEMOGLOBIN 12.5 gm/dL (12.0-15.0); MCH 29.5 pg (26.0-34.0); MCHC 33.2 g/dL (28.0-37.0); MPV 7.4 fl. (7.2-11.1); NUCLEATED RBCS 0 /100WBC; PLATELET COUNT* 408 thou/uL (150-400); RBC 4.22 mil/uL (4.20-5.00); RDW-CV 15.1 % (10.5-14.5); WBC 12.4 thou/uL (4.0-11.0)
[2019-10-06 11:29] LABS: CALCIUM 8.8 mg/dL (8.5-10.1); CREATININE 0.9 mg/dL (0.6-1.3); POTASSIUM 3.5 mmol/L (3.5-5.1)
[2019-10-06 15:35] VITALS: BP 133/75
== END ==
LOC: M.INFUS 01:13
PROVIDERS: ATTEND Internal Medicine Nephrology
DX: E87.6 Hypokalemia (principal)

== ENCOUNTER 2019-10-17 16:32 | Emergency (ER) | payer OTHER, MEDICAID ==
[~2019-10-17] VITALS: Ht 162.6 cm; Wt 82.6 kg
[2019-10-17] MEDS ORDERED: MEDROLDOSEPACK PO (17:58)
[2019-10-17 18:04] VITALS: BP 114/72
== END 2019-10-17 18:05 | disposition home or self-care (01) ==
LOC: M.ERS 16:32
DX: M72.2 Plantar fascial fibromatosis (principal); J44.9 Chronic obstructive pulmonary disease, unspecified; M79.7 Fibromyalgia; Z98.51 Tubal ligation status; Z86.711 Personal history of pulmonary embolism; Z96.651 Presence of right artificial knee joint; Z91.040 Latex allergy status; Z88.1 Allergy status to other antibiotic agents; Z88.6 Allergy status to analgesic agent; Z88.8 Allergy status to other drugs, medicaments and biological substances

== ENCOUNTER → 2019-10-24 | Outpatient (CLI) | payer OTHER, MEDICAID | LOC: M.ULTRA 13:00 | PROVIDERS: ATTEND Family Medicine | DX: R09.89 Other specified symptoms and signs involving the circulatory and respiratory systems (principal) ==

== ENCOUNTER 2019-11-07 16:04 | Emergency (ER) | payer OTHER, MEDICAID ==
[~2019-11-07] VITALS: Ht 162.6 cm; Wt 79.4 kg
[2019-11-07 17:54] LABS: ABSOLUTE EOSINOPHILS 0.1 thou/uL (0.0-0.7); ABSOLUTE LYMPHOCYTES 1.8 thou/uL (0.8-5.3); ABSOLUTE MONOCYTES 0.6 thou/uL (0.0-1.2); ABSOLUTE NEUTROPHILS 6.7 thou/uL (1.6-8.1); BASOPHILS 0.5 %; EOSINOPHILS 0.6 %; HEMATOCRIT 35.8 % (37.0-47.0); HEMOGLOBIN 11.9 gm/dL (12.0-15.0); LYMPHOCYTES 19.3 %; MCH 29.5 pg (26.0-34.0); MCHC 33.2 g/dL (28.0-37.0); MCV 88.9 fL (80.0-100.0); MONOCYTES 7.1 %; MPV 6.6 fl. (7.2-11.1); NUCLEATED RBCS 0 /100WBC; PLATELET COUNT* 373 thou/uL (150-400); POLYS 72.5 %; RBC 4.03 mil/uL (4.20-5.00); RDW-CV 15.2 % (10.5-14.5); WBC 9.2 thou/uL (4.0-11.0)
[2019-11-07 17:59] LABS: CALCIUM 8.8 mg/dL (8.5-10.1); CREATININE 0.9 mg/dL (0.6-1.3); POTASSIUM 3.8 mmol/L (3.5-5.1)
[2019-11-07 18:02] LABS: APTT 26.8 Seconds (25.0-31.3); INR 1.1; PROTIME 10.9 Seconds (9.20-11.50)
[2019-11-07 18:10] LABS: ALBUMIN 3.2 g/dL (3.4-5.0); TOTAL BILIRUBIN 0.2 mg/dL (<0.1-1.0); TOTAL PROTEIN 7.6 g/dL (6.4-8.2)
[2019-11-07 18:24] LABS: INFLUENZA A ANTIGEN Negative (Negative); INFLUENZA B ANTIGEN Negative (Negative)
[2019-11-07] MEDS ORDERED: PHENERGAN 25 MG25 M1 PO (20:43)
[2019-11-07] MEDS ORDERED: AUGMENTIN 875-1 EACH PO (20:43)
[2019-11-07 21:35] VITALS: BP 118/68
--- NOTE | 2019-11-08 13:22 | EKG ---
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 : 1975 Requested By: Tracey Christopher Order Number: [id number] MD: Ajay Corrales Measurements Intervals [place] Rate: 83 P: 14 NE: 181 QRS: 16 QRSD: 85 T: -36 QT: 388 QTc: 456 Interpretive Statements Sinus rhythm Borderline repolarization abnormality Baseline wander in lead(s) II,III,aVR,aVL,aVF,V1,V3,V4,V5,V6 Compared to ECG 09/09/2019 13:00:48 Ectopic atrial rhythm no longer present ST (T wave) deviation no longer present Electronically Signed On 11-08-2019 13:22:33 CDT by Ajay Corrales [email or web address] <ELECTRONICALLY SIGNED> By: Ajay Corrales MD, [facility] 11/08/19 1322 174 174 Ajay Corrales MD, [facility] /EPI
== END 2019-11-07 21:38 | disposition home or self-care (01) ==
LOC: M.ERS 16:04
PROVIDERS: Nurse Practitioner Family
DX: B34.9 Viral infection, unspecified (principal); Z20.828 Contact with and (suspected) exposure to other viral communicable diseases; I25.2 Old myocardial infarction; J44.9 Chronic obstructive pulmonary disease, unspecified; M79.7 Fibromyalgia; Z98.51 Tubal ligation status; Z79.899 Other long term (current) drug therapy; Z88.1 Allergy status to other antibiotic agents; Z91.040 Latex allergy status; Z88.8 Allergy status to other drugs, medicaments and biological substances

== ENCOUNTER 2019-12-28 16:41 | Emergency (ER) | payer OTHER, MEDICAID ==
[~2019-12-28] VITALS: Ht 162.6 cm; Wt 77.1 kg
[~2019-12-28 16:41] MED LIST changes: +AUGMENTIN 875-1 EACH PO
[2019-12-28 18:36] LABS: ABSOLUTE EOSINOPHILS 0.1 thou/uL (0.0-0.7); ABSOLUTE LYMPHOCYTES 1.3 thou/uL (0.8-5.3); ABSOLUTE MONOCYTES 0.5 thou/uL (0.0-1.2); ABSOLUTE NEUTROPHILS 4.9 thou/uL (1.6-8.1); BASOPHILS 0.4 %; EOSINOPHILS 0.8 %; HEMATOCRIT 42.3 % (37.0-47.0); HEMOGLOBIN 13.7 gm/dL (12.0-15.0); LYMPHOCYTES 18.8 %; MCH 28.3 pg (26.0-34.0); MCHC 32.5 g/dL (28.0-37.0); MCV 86.9 fL (80.0-100.0); MONOCYTES 7.5 %; MPV 7.1 fl. (7.2-11.1); NUCLEATED RBCS 0 /100WBC; PLATELET COUNT* 298 thou/uL (150-400); POLYS 72.5 %; RBC 4.86 mil/uL (4.20-5.00); RDW-CV 15.5 % (10.5-14.5); WBC 6.7 thou/uL (4.0-11.0)
[2019-12-28 18:44] LABS: CALCIUM 8.9 mg/dL (8.5-10.1); POTASSIUM 3.7 mmol/L (3.5-5.1)
[2019-12-28 18:49] LABS: ALBUMIN 3.5 g/dL (3.4-5.0); TOTAL BILIRUBIN 0.2 mg/dL (<0.1-1.0); TOTAL PROTEIN 8.4 g/dL (6.4-8.2)
[2019-12-28 18:57] LABS: BE 0.5 mmol/L (-2 to +3); PCO2 36.7 mmHg (35.0-45.0); pH 7.439 (7.340-7.450)
[2019-12-28 18:58] LABS: PO2 135.3 mmHg (75.0-100.0)
[2019-12-28] MEDS ORDERED: PREDNISONE 20 M20 MG PO (19:26)
[2019-12-28] MEDS ORDERED: PROAIR HFA8.5 GM INH (19:26)
[2019-12-28 20:11] VITALS: BP 98/58
== END 2019-12-28 18:01 | disposition home or self-care (01) ==
LOC: M.ERS 16:41
PROVIDERS: Physician Assistant
DX: U07.1 COVID-19 (principal); J20.9 Acute bronchitis, unspecified; J44.9 Chronic obstructive pulmonary disease, unspecified; M79.7 Fibromyalgia; Z79.899 Other long term (current) drug therapy; Z88.1 Allergy status to other antibiotic agents; Z88.8 Allergy status to other drugs, medicaments and biological substances; Z98.51 Tubal ligation status

== ENCOUNTER → 2020-02-05 | Outpatient (CLI) | payer OTHER, MEDICAID ==
[~2020-02-05] MED LIST changes: +ALDACTONE100 MG; +CYCLOBENZAPRINE10 MG; +FOSAMAX 70 MG T70 MG; +PERCOCET 10-321 EAC1; +PREDNISONE 20 M20 MG PO; +PROAIR HFA8.5 GM INH; +SAVELLA100 MG; +ULTRAM 50MG TAB50 MG
== END ==
LOC: M.PC 08:40
PROVIDERS: ATTEND Physical Medicine & Rehabilitation
DX: M17.12 Unilateral primary osteoarthritis, left knee (principal); G62.9 Polyneuropathy, unspecified; Z96.651 Presence of right artificial knee joint

== ENCOUNTER → 2020-02-09 | Outpatient (CLI) | payer OTHER, MEDICAID | LOC: M.MRI 14:21 | PROVIDERS: ATTEND Physical Medicine & Rehabilitation | DX: M79.651 Pain in right thigh (principal); Z96.651 Presence of right artificial knee joint ==

== ENCOUNTER 2020-02-20 10:09 | Emergency (ER) | payer OTHER, MEDICAID ==
[~2020-02-20] VITALS: Ht 162.6 cm; Wt 79.4 kg
[2020-02-20 10:57] LABS: ABSOLUTE BASOPHILS 0.1 thou/uL (0.0-0.2); ABSOLUTE EOSINOPHILS 0.1 thou/uL (0.0-0.7); ABSOLUTE LYMPHOCYTES 2.4 thou/uL (0.8-5.3); ABSOLUTE MONOCYTES 0.5 thou/uL (0.0-1.2); ABSOLUTE NEUTROPHILS 3.5 thou/uL (1.6-8.1); BASOPHILS 0.9 %; EOSINOPHILS 1.7 %; HEMATOCRIT 35.9 % (37.0-47.0); HEMOGLOBIN 11.7 gm/dL (12.0-15.0); LYMPHOCYTES 36.6 %; MCH 27.8 pg (26.0-34.0); MCHC 32.6 g/dL (28.0-37.0); MCV 85.3 fL (80.0-100.0); MPV 6.8 fl. (7.2-11.1); NUCLEATED RBCS 0 /100WBC; PLATELET COUNT* 395 thou/uL (150-400); POLYS 53.8 %; RBC 4.21 mil/uL (4.20-5.00); RDW-CV 15.4 % (10.5-14.5); WBC 6.5 thou/uL (4.0-11.0)
[2020-02-20 11:00] LABS: CALCIUM 8.8 mg/dL (8.5-10.1); CREATININE 0.9 mg/dL (0.6-1.3); POTASSIUM 3.5 mmol/L (3.5-5.1)
[2020-02-20 11:03] LABS: APTT 30.5 Seconds (25.0-31.3); INR 1.1; PROTIME 11.4 Seconds (9.20-11.50)
[2020-02-20 11:04] LABS: ALBUMIN 3.2 g/dL (3.4-5.0); TOTAL BILIRUBIN 0.2 mg/dL (<0.1-1.0); TOTAL PROTEIN 7.5 g/dL (6.4-8.2)
[2020-02-20 12:50] VITALS: BP 117/66
== END 2020-02-20 12:51 | disposition home or self-care (01) ==
LOC: M.ERS 10:09
PROVIDERS: Nurse Practitioner Family
DX: R22.41 Localized swelling, mass and lump, right lower limb (principal); J44.9 Chronic obstructive pulmonary disease, unspecified; I25.2 Old myocardial infarction; M79.7 Fibromyalgia; Z79.899 Other long term (current) drug therapy; Z91.040 Latex allergy status; Z88.1 Allergy status to other antibiotic agents; Z88.8 Allergy status to other drugs, medicaments and biological substances

== ENCOUNTER → 2020-02-28 | Outpatient (CLI) | payer OTHER, MEDICAID | LOC: M.ULTRA 15:30 | PROVIDERS: ATTEND Physical Medicine & Rehabilitation | DX: R22.41 Localized swelling, mass and lump, right lower limb (principal) ==

== ENCOUNTER → 2020-03-05 | Outpatient (CLI) | payer OTHER, MEDICAID ==
--- NOTE | 2020-03-05 12:34 | 2DMMODE ---
[place] [address] 2 D/M-MODE ECHOCARDIOGRAM Name: CONG NASCIMENTOJanak Barroso Room: [facility]#: [id number] Admission: 03/05/20 Attend Phys: Chaitanya Gama, Discharge: Date of : 75 Date of Service: 03/05/20 1233 Report #: [id number] THIS REPORT FOR: cc: Eliseo Saleh MD, Bruce D. MD Liston, Michael J. MD [facility] ~ APPROVED REPORT Study performed: 03/05/2020 10:55:59 EXAM: Comprehensive 2D, Doppler, and color-flow Echocardiogram Patient Location: Out-Patient BSA: 1.88 HR: 92 bpm BP: 110/70 mmHg Other Information Study Quality: Fair Indications Congestive Heart Failure Tachycardia 2D Dimensions IVSd: 11.50 (7-11mm) LVOT Diam: 19.20 (18-24mm) LVDd: 38.86 mm PWd: 10.19 (7-11mm) Ascending Ao: 28.37 (22-36mm) LVDs: 23.62 (25-40mm) Aortic Root: 27.54 mm Volumes Left Atrial Volume (Systole) LA ESV Index: 9.70 mL/m2 Aortic Valve AoV Peak João.: 1.38 m/s AO Peak Gr.: 7.56 mmHg LVOT Max P.71 mmHg AO Mean Gr.: 4.02 mmHg LVOT Mean P.29 mmHg LVOT Max V: 1.09 m/s AO V2 VTI: 20.22 cm LVOT Mean V: 0.69 m/s CHANTELLE (VTI): 2.50 cm2 LVOT V1 VTI: 17.47 [place] [address] 2 D/M-MODE ECHOCARDIOGRAM Name: GUS NASCIMENTO Room: [facility]#: [id number] Admission: 03/05/20 Attend Phys: Chaitanya Gama, Discharge: Date of : 75 Date of Service: 03/05/20 1233 Report #: [id number] MV Decel. Time: 130.83 ms MV PHT: 37.94 ms MVA (PHT): 5.80 cm2 TDI Medial E' João.: 0.14 m/s Lateral E' João.: 0.11 m/s Pulmonary Valve PV Peak João.: 1.10 m/s PV Peak Gr.: 4.84 mmHg Left Ventricle The left ventricle is normal size. There is normal LV segmental wall motion. There is normal left ventricular wall thickness. Left ventricular systolic function is normal. LVEF is 65-70%. Grade I - abnormal relaxation pattern. Right Ventricle The right ventricle is normal size. The right ventricular systolic function is normal. Atria The left atrium size is normal. The right atrium size is normal. Aortic Valve The aortic valve is normal in structure. No aortic regurgitation is present. There is no aortic valvular stenosis. Mitral Valve The mitral valve is normal in structure. There is no mitral valve regurgitation noted. No evidence of mitral valve stenosis. Tricuspid Valve The tricuspid valve is normal in structure. There is no tricuspid valve regurgitation noted. Pulmonic Valve The pulmonary valve is normal in structure. There is no pulmonic valvular regurgitation. Great Vessels The aortic root is normal in size. IVC is not well visualized[place] [address] 2 D/M-MODE ECHOCARDIOGRAM Name: GUS NASCIMENTO Room: [facility]#: [id number] Admission: 03/05/20 Attend Phys: Chaitanya Gama, Discharge: Date of : 75 Date of Service: 03/05/20 1233 Report #: [id number] There is no pericardial effusion. <Conclusion> The left ventricle is normal size. There is normal left ventricular wall thickness. Left ventricular systolic function is normal. LVEF is 65-70%. Grade I - abnormal relaxation pattern. <ELECTRONICALLY SIGNED> By: Chaitanya Gama MD, [facility] 03/05/20 1233 1233 32 Chaitanya Gama MD, FACC /INF
== END ==
LOC: M.CRD 11:00
PROVIDERS: ATTEND Internal Medicine Cardiovascular Disease
DX: I50.32 Chronic diastolic (congestive) heart failure (principal)

== ENCOUNTER 2020-07-12 19:12 | Emergency (ER) | payer OTHER, MEDICAID ==
[~2020-07-12] VITALS: Ht 162.6 cm; Wt 82.6 kg
[2020-07-12] MEDS ORDERED: PROVIGIL 100 M100 MG PO (19:26)
[2020-07-12 20:29] VITALS: BP 113/55
== END 2020-07-12 20:29 | disposition home or self-care (01) ==
LOC: M.ERS 19:12
DX: M87.851 Other osteonecrosis, right femur (principal); I25.2 Old myocardial infarction; J44.9 Chronic obstructive pulmonary disease, unspecified; Z98.890 Other specified postprocedural states; Z98.51 Tubal ligation status; Z86.711 Personal history of pulmonary embolism; Z96.651 Presence of right artificial knee joint; Z79.899 Other long term (current) drug therapy; Z88.1 Allergy status to other antibiotic agents; Z91.040 Latex allergy status; Z88.8 Allergy status to other drugs, medicaments and biological substances

== ENCOUNTER 2020-08-05 16:17 | Emergency (ER) | payer OTHER, MEDICAID ==
[~2020-08-05] VITALS: Ht 162.6 cm; Wt 82.6 kg
[~2020-08-05 16:17] MED LIST changes: +PROVIGIL 100 M100 MG PO
[2020-08-05 17:25] LABS: ABSOLUTE EOSINOPHILS 0.1 thou/uL (0.0-0.7); ABSOLUTE LYMPHOCYTES 1.7 thou/uL (0.8-5.3); ABSOLUTE MONOCYTES 0.5 thou/uL (0.0-1.2); ABSOLUTE NEUTROPHILS 7.8 thou/uL (1.6-8.1); BASOPHILS 0.3 %; EOSINOPHILS 0.9 %; HEMATOCRIT 35.9 % (37.0-47.0); HEMOGLOBIN 11.6 gm/dL (12.0-15.0); LYMPHOCYTES 16.8 %; MCHC 32.3 g/dL (28.0-37.0); MCV 80.5 fL (80.0-100.0); NUCLEATED RBCS 0 /100WBC; PLATELET COUNT* 441 thou/uL (150-400); RBC 4.46 mil/uL (4.20-5.00); RDW-CV 16.5 % (10.5-14.5); WBC 10.1 thou/uL (4.0-11.0)
[2020-08-05 17:35] LABS: CREATININE 0.9 mg/dL (0.6-1.3); POTASSIUM 3.8 mmol/L (3.5-5.1)
[2020-08-05 17:52] LABS: ALBUMIN 3.5 g/dL (3.4-5.0); TOTAL BILIRUBIN 0.4 mg/dL (<0.1-1.0); TOTAL PROTEIN 8.1 g/dL (6.4-8.2)
[2020-08-05] MEDS ORDERED: MEDROLDOSEPACK PO (21:22)
[2020-08-05 21:52] VITALS: BP 119/71
--- NOTE | 2020-08-06 09:02 | EKG ---
[place] [address] ELECTROCARDIOGRAM REPORT Name: GUS NASCIMENTO Room: [facility]#: [id number] Admission: 08/05/20 Attend Phys: Discharge: 08/05/20 Date of : 75 Date of Service: 08/05/201711 Report #: [id number] THIS REPORT FOR: //name// [facility] ED Test Date: 2020-08-05 Test Time: 17:12:46 Pat Name: GUS NASCIMENTO Department: Room: Gender: [employer]: [place] : 1975 Requested By: Tracey Christopher Order Number: [id number] MD: Chaitanya Gama Measurements Intervals [place] Rate: 131 P: 76 [place]: 175 QRS: 31 QRSD: 80 T: 0 QT: 314 QTc: 464 Interpretive Statements Sinus tachycardia Delayed R wave progression Compared to ECG 11/07/2019 17:41:19 Sinus rhythm no longer present Electronically Signed On 08-06-2020 9:02:12 CDT by Chaitanya Gama [email or web address] <ELECTRONICALLY SIGNED> By: Chaitanya Gama MD, [facility] 08/06/20 0902 11 11 Chaitanya Gama MD, [facility] /EPI
== END 2020-08-05 21:57 | disposition home or self-care (01) ==
LOC: M.ERS 16:17
PROVIDERS: Nurse Practitioner Family
DX: J98.8 Other specified respiratory disorders (principal); M79.7 Fibromyalgia; J44.9 Chronic obstructive pulmonary disease, unspecified; Z91.040 Latex allergy status; Z88.1 Allergy status to other antibiotic agents; Z88.8 Allergy status to other drugs, medicaments and biological substances; Z98.51 Tubal ligation status; Z96.651 Presence of right artificial knee joint

== ENCOUNTER 2020-09-18 19:31 | Emergency (ER) | payer OTHER, MEDICAID ==
[~2020-09-18] VITALS: Ht 162.6 cm; Wt 82.6 kg
[2020-09-18 22:51] VITALS: BP 157/97
== END 2020-09-18 22:52 | disposition left against medical advice (07) ==
LOC: M.ERS 19:31
DX: Z53.21 Procedure and treatment not carried out due to patient leaving prior to being seen by health care provider (principal)

== ENCOUNTER 2020-12-16 13:09 | Emergency (ER) | payer OTHER, MEDICAID ==
[~2020-12-16] VITALS: Ht 162.6 cm; Wt 83.9 kg
[2020-12-16 14:13] LABS: ABSOLUTE BASOPHILS 0.1 thou/uL (0.0-0.2); ABSOLUTE EOSINOPHILS 0.1 thou/uL (0.0-0.7); ABSOLUTE LYMPHOCYTES 1.9 thou/uL (0.8-5.3); ABSOLUTE MONOCYTES 0.8 thou/uL (0.0-1.2); ABSOLUTE NEUTROPHILS 11.2 thou/uL (1.6-8.1); BASOPHILS 0.4 %; EOSINOPHILS 0.7 %; HEMATOCRIT 34.5 % (37.0-47.0); HEMOGLOBIN 10.9 gm/dL (12.0-15.0); LYMPHOCYTES 13.7 %; MCH 24.5 pg (26.0-34.0); MCHC 31.6 g/dL (28.0-37.0); MCV 77.7 fL (80.0-100.0); MPV 6.7 fl. (7.2-11.1); NUCLEATED RBCS 0 /100WBC; PLATELET COUNT* 422 thou/uL (150-400); POLYS 79.2 %; RBC 4.44 mil/uL (4.20-5.00); RDW-CV 17.2 % (10.5-14.5); WBC 14.1 thou/uL (4.0-11.0)
[2020-12-16 14:27] LABS: CALCIUM 8.5 mg/dL (8.5-10.1)
[2020-12-16 14:37] LABS: ALBUMIN 3.1 g/dL (3.4-5.0); TOTAL BILIRUBIN 0.3 mg/dL (<0.1-1.0); TOTAL PROTEIN 7.6 g/dL (6.4-8.2)
--- NOTE | 2020-12-16 14:46 | EKG ---
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[place] : 1975 Requested By: Tracey Christopher Order Number: [id number] MD: Enrique Lee Measurements Intervals [place] Rate: 96 P: 39 [place]: 162 QRS: 17 QRSD: 81 T: 35 QT: 334 QTc: 422 Interpretive Statements Sinus rhythm Baseline wander in lead(s) II,III,aVF,V1 Compared to ECG 08/05/2020 17:12:46 Sinus tachycardia no longer present Poor R-wave progression no longer present Electronically Signed On 12-16-2020 14:46:35 CDT by Enrique Lee [email or web address] <ELECTRONICALLY SIGNED> By: Enrique Lee MD, [facility] 12/16/20 1446 141 1418 Enrique Lee MD, [facility] /EPI
[2020-12-16 15:18] LABS: INFLUENZA A ANTIGEN Negative (Negative); INFLUENZA B ANTIGEN Negative (Negative)
[2020-12-16] MEDS ORDERED: AUGMENTIN 875-1 EACH PO (17:59)
[2020-12-16] MEDS ORDERED: IPRAT-ALBUT 0.5-3 ML INH (17:59)
[2020-12-16] MEDS ORDERED: PREDNISONE 10 M10 MG PO (17:59)
[2020-12-16 18:27] VITALS: BP 118/62
== END 2020-12-16 18:28 | disposition home or self-care (01) ==
LOC: M.ERS 13:09
PROVIDERS: Nurse Practitioner Family
DX: J44.1 Chronic obstructive pulmonary disease with (acute) exacerbation (principal); Z20.822 Contact with and (suspected) exposure to COVID-19; R10.11 Right upper quadrant pain; I25.2 Old myocardial infarction; I10 Essential (primary) hypertension; E66.9 Obesity, unspecified; M79.7 Fibromyalgia; Z86.718 Personal history of other venous thrombosis and embolism; Z86.711 Personal history of pulmonary embolism; Z98.51 Tubal ligation status; Z96.651 Presence of right artificial knee joint; Z68.31 Body mass index [BMI] 31.0-31.9, adult; Z79.899 Other long term (current) drug therapy

== ENCOUNTER 2021-01-02 06:30 | Emergency (ER) | payer OTHER, MEDICAID ==
[~2021-01-02] VITALS: Ht 162.6 cm; Wt 81.7 kg
[2021-01-02 07:36] VITALS: BP 130/87
== END 2021-01-02 07:36 | disposition home or self-care (01) ==
LOC: M.ERS 06:30
DX: S90.121A Contusion of right lesser toe(s) without damage to nail, initial encounter (principal); J44.9 Chronic obstructive pulmonary disease, unspecified; Z98.51 Tubal ligation status; Z79.899 Other long term (current) drug therapy; Z91.040 Latex allergy status; Z88.5 Allergy status to narcotic agent; Z88.1 Allergy status to other antibiotic agents; Z88.8 Allergy status to other drugs, medicaments and biological substances; X58.XXXA Exposure to other specified factors, initial encounter; Y93.89 Activity, other specified; Y92.89 Other specified places as the place of occurrence of the external cause; Y99.8 Other external cause status

== ENCOUNTER → 2021-03-28 | Outpatient (CLI) | payer OTHER, MEDICAID ==
[2021-03-28 15:23] LABS: ABSOLUTE EOSINOPHILS 0.1 thou/uL (0.0-0.7); ABSOLUTE LYMPHOCYTES 1.7 thou/uL (0.8-5.3); ABSOLUTE MONOCYTES 0.6 thou/uL (0.0-1.2); ABSOLUTE NEUTROPHILS 6.4 thou/uL (1.6-8.1); BASOPHILS 0.5 %; EOSINOPHILS 1.2 %; HEMATOCRIT 33.3 % (37.0-47.0); HEMOGLOBIN 10.2 gm/dL (12.0-15.0); LYMPHOCYTES 19.5 %; MCH 23.4 pg (26.0-34.0); MCHC 30.6 g/dL (28.0-37.0); MCV 76.5 fL (80.0-100.0); MONOCYTES 6.9 %; MPV 6.8 fl. (7.2-11.1); NUCLEATED RBCS 0 /100WBC; PLATELET COUNT* 440 thou/uL (150-400); POLYS 71.9 %; RBC 4.36 mil/uL (4.20-5.00); RDW-CV 16.3 % (10.5-14.5)
[2021-03-28 15:26] LABS: CALCIUM 8.3 mg/dL (8.5-10.1); CREATININE 0.9 mg/dL (0.6-1.3); MAGNESIUM 1.9 mg/dL (1.8-2.4); POTASSIUM 3.3 mmol/L (3.5-5.1)
[2021-03-28 15:49] LABS: % SATURATION 6 % (20-39); IRON 25 ug/dL (50-175)
== END ==
LOC: M.LAB 14:57
PROVIDERS: ATTEND Internal Medicine Nephrology
DX: D50.9 Iron deficiency anemia, unspecified (principal); E87.6 Hypokalemia

== ENCOUNTER 2021-04-12 03:16 | Emergency (ER) | payer OTHER, MEDICAID ==
[~2021-04-12] VITALS: Ht 162.6 cm; Wt 86.2 kg
[2021-04-12] MEDS ORDERED: COMPAZINE10 M2 PO (04:40)
[2021-04-12 05:20] VITALS: BP 120/67
== END 2021-04-12 05:20 | disposition home or self-care (01) ==
LOC: M.ERS 03:16
DX: G43.909 Migraine, unspecified, not intractable, without status migrainosus (principal); J44.9 Chronic obstructive pulmonary disease, unspecified; Z98.51 Tubal ligation status; Z79.899 Other long term (current) drug therapy; Z91.040 Latex allergy status; Z88.8 Allergy status to other drugs, medicaments and biological substances; Z88.5 Allergy status to narcotic agent; Z88.1 Allergy status to other antibiotic agents